=== PATIENT | female | born 2000 | race Caucasian/White ===

== ENCOUNTER 2024-07-07 19:39 | Inpatient (IN) | payer OTHER, SELFPAY ==
[2024-07-07 19:58] VITALS: BP 137/87; PULSE 109; RESP 18; TEMP 36.6; O2SAT 98; BMI 36.2
--- NOTE | 2024-07-07 19:58 | ED_ITS ---
HPI - Psych General Chief Complaint: Psychiatric Symptoms Stated Complaint: crisis Time Seen by Provider: 07/07/24 21:45 Source: patient, RN notes reviewed and old records reviewed Mode of arrival: ambulatory Limitations: no limitations History of Present Illness ED Provider: Tangela HAQUE Narrative: 24-year-old female presents for evaluation of suicidal ideation. Patient reports a history of bipolar disorder, eating disorder, PTSD, history of substance abuse but reportedly clean for 2 years, major depression She reports that 3 days ago she was released from a psych facility in [facility] She feels as though she did not get the help that she needed at that facility. She states that they started her on lithium about 10 days ago She states that she is still actively suicidal with plans to ?cut myself with anything sharp or jump off of a bridge like my dad did. She denies any somatic complaints She reports being compliant with her medications up to this morning Patient reports that she ?called over to [facility] and they told me to come to a local ER to get medically cleared and I could go there. Related Data Home Medications ?Medication ?Instructions ?Recorded ?Confirmed atomoxetine 25 mg capsule 25 mg PO DAILY 07/07/24 07/07/24 cariprazine 1.5 mg capsule 3 mg PO QAM 07/07/24 07/07/24 (Vraylar) lithium carbonate 300 mg 300 mg PO BID 07/07/24 07/07/24 tablet,extended release metformin 500 mg tablet 500 mg PO DAILY 07/07/24 07/07/24 naltrexone 50 mg tablet 50 mg PO DAILY 07/07/24 07/07/24 prazosin 5 mg capsule 5 mg PO BEDTIME 07/07/24 07/07/24 trazodone 150 mg tablet 150 mg PO BEDTIME 07/07/24 07/07/24 Allergies Allergy/AdvReac Type Severity Reaction Status Date / Time No Known Allergies Allergy Verified 07/07/24 20:03 Review of Systems 2 Constitutional: Constitutional: Denies body ache(s), Denies chills, Denies fever(s) and Denies headache(s) Eyes: Eyes: Denies blurry vision ENT: Denies headache(s) Cardiovascular: Cardiovascular: Denies chest pain and Denies dyspnea Respiratory: Respiratory: Denies cough and Denies dyspnea Gastrointestinal: Gastrointestinal: Denies abdominal pain, Denies nausea and Denies vomiting Musculoskeletal: Musculoskeletal: Denies back pain Integumentary/Breasts: Skin/Breast: Denies rash Neurologic: Denies headache(s) Psychiatric: Psychiatric: Reports anxiety, Reports change in appetite, Reports depression, Reports hopelessness, Reports anhedonia, Reports panic attacks, Denies paranoia, Denies visual hallucinations, Denies homicidal ideation and Reports suicidal ideation PMFSH Social History Social History Advance Directives: No Advance Directives Information Provided: No Do you have a plan to hurt others: No Plan Patient : No Physical Exam 2 Vital Signs: Vital Signs: Last Vital Signs Temp 98.6 F 07/08/24 06:05 Pulse 107 H 07/08/24 06:05 Resp 17 07/08/24 06:05 BP 114/68 07/08/24 06:05 Pulse Ox 98 07/08/24 06:05 O2 Del Method Room Air 07/08/24 06:05 BMI result Body Mass Index 36.2 Course Course Course Narrative: This is a rapid medical exam performed by Adali Mora NP: Additional HPI, ROS, PE not included below will be deferred to primary provider. Patient is a 24-year-old female with history of Bipolar, OCD, BPD, PTSD, substance use disorder but has been clean for the past two years presenting to the emergency department with complaint of depression and suicidal ideation. States she was recently discharged from [facility] in [place] on and does not feel safe at home. Denies homicidal ideation, auditory or visual hallucinations. Recently had lamictal discontinued, had trazdone and Vraylar increased, and was started on lithium. States symptoms now are worse then before she went to the hospital in [facility]. States she was at that hospital for behaviors without emotions attached. States she is now attaching feelings to these behaviors and is obsessing about them. Plan: med clearance, then CARE team eval Reevaluation(s) Reevaluation #1: Patient is medically cleared for care team evaluation at this time Time: 22:01 Reevaluation #2: Patient is seen by the care team, she will be a section 12 bed search. Physician observation began at this time Time: 23:18 Reevaluation #3: 07/08/2024 at 08:34 hours,Dr. Anirudh Vazquez's note: Physician observation continued: Nursing staff reports that the patient is in in-patient bed search for suicidal ideation and at the patient has eating disorder therefore a degree clerk consult was ordered. There were no reported incidents on the patient by the overnight nursing staff.Patient will remain in the emergency department Behavioral Health Unit until disposition can be determined or until patient's symptoms improve over time. Time: 08:34 Medications Administered Generic Name Dose Route Start Last Admin Trade Name Freq PRN Reason Stop Dose Admin Cariprazine 3 mg 07/08/24 09:00 07/08/24 08:27 Cariprazine Hcl 3 Mg Capsule PO 3 mg DAILY PREETI Administration [place] Carbonate 300 mg 07/07/24 23:15 07/08/24 08:27 [place] Carbonate Er 300 Mg Tablet.Er PO 300 mg BID PREETI Administration Metformin HCl 500 mg 07/08/24 08:00 07/08/24 08:27 Metformin Hcl 500 Mg Tablet PO 500 mg DAILY@0800 PREETI Administration Naltrexone HCl 50 mg 07/08/24 09:00 07/08/24 08:27 Naltrexone Hcl 50 Mg Tablet PO 50 mg DAILY PREETI Administration Prazosin HCl 5 mg 07/07/24 23:15 07/08/24 00:15 Prazosin Hcl 5 Mg Capsule PO 5 mg BEDTIME PREETI Administration Protocol Trazodone HCl 150 mg 07/07/24 23:15 07/08/24 00:15 Trazodone Hcl 50 Mg Tablet PO 150 mg BEDTIME PREETI Administration Medical Decision Making Medical Decision Making [facility] Narrative: 24-year-old female with past medical history as documented above presents for evaluation of suicidal ideation. The patient has no somatic complaints. She does have a leukocytosis to 15.4 K of unclear etiology, she has no signs or symptoms of any infectious process. Her chemistries are without any significant abnormalities at all. Her vital signs are within normal limits. Patient will be a bed search for inpatient psychiatric care Differential Diagnosis Differential Diagnoses: The differential diagnosis associated with the presentation includes Depression Suicidal ideation PTSD Bipolar disorder Lab Data [facility] Lab Attestation statement: I reviewed the patient's lab results. A leukocytosis to 15.4 K, no significant anemia. A platelet count that is slightly above normal at 432 K. No electrolyte abnormalities. Normal renal function 07/07/24 20:25 07/07/24 20:25 Labs: Lab Results 07/07/24 Range/Units 20:25 WBC 15.4 H (4.8-10.8) X10*3/uL RBC 4.91 (4.20-5.50) X10*6/uL Hgb 13.9 (12.0-16.0) g/dl Hct 42.1 (37.0-47.0) % MCV 85.7 (80.0-98.0) fL MCH 28.3 (27.0-33.0) pg MCHC 33.0 (31.0-35.0) g/dl RDW 13.2 (11.0-16.0) % Plt Count 432 H (160-400) X10*3/uL MPV 9.8 (9.4-12.3) fL Immature Gran % (Auto) 0.3 (0.0-0.4) % Neut % (Auto) 76.2 H (45-73) % Lymph % (Auto) 17.2 L (20-40) % [place] % (Auto) 5.2 (2-11) % Eos % (Auto) 0.8 (0-4) % Baso % (Auto) 0.3 (0-2) % Lymph # (Auto) 2.7 (1.2-4.9) X10*3/uL [place] # (Auto) 0.8 (0.1-1.2) X10*3/uL Eos # (Auto) 0.1 (0.0-0.4) X10*3/uL Baso # (Auto) 0.0 (0.0-0.2) X10*3/uL Abs Immat Gran (auto) 0.05 H (0.00-0.03) X10*3/uL Absolute Neuts (auto) 11.7 H (2.0-8.3) x10*3/uL Absolute Nucleated RBC 0.000 (0.0-0.012) X10*3/uL Nucleated RBC % (auto) 0.0 (0.0-0.2) /100WBC Sodium 139 (135-145) mmol/L Potassium 4.0 (3.3-5.1) mmol/L Chloride 105 (96-108) mmol/L Carbon Dioxide 25 (22-29) mmol/L Anion Gap 13 (12-20) BUN 9 (9-16) mg/dL Creatinine 0.94 (0.5-1.4) mg/dL Estim Creat Clear Calc 97.8 Estimated GFR > 60 Random Glucose 102 (60-115) mg/dL Calcium 10.0 (8.4-10.2) mg/dL Total Bilirubin 0.3 (0.0-1.0) mg/dL AST 13 (5-31) U/L ALT 9 (0-31) U/L Alkaline Phosphatase 98 (39-117) U/L Total Protein 7.8 (6.5-8.0) g/dL Albumin 4.7 (3.5-5.0) g/dL Urine Color Yellow Urine Appearance Clear Urine pH 8.0 (5.0-9.0) Ur Specific [place] 1.025 (1.005-1.025) Urine Protein Trace (Neg-Trace) mg/dL Urine Glucose (UA) Negative (Negative) mg/dL Urine Ketones >=160 (Negative) mg/dL Urine Blood Negative (Negative) Urine Nitrite Negative (Negative) Ur Leukocyte Esterase Trace H (Negative) Urine RBC 0-2 (0-2) /HPF Urine WBC 0-5 (0-5) /HPF Ur Squamous Epith Cells 3-5 (0-2) /HPF Urine Bacteria Trace (None Seen) Hyaline Casts 0-2 (0-2) /LPF Salicylates < 5.0 L (15-30) mg/dL Urine Opiates Screen Not Detected (Not Detect) Ur Buprenorphine Scrn Not Detected (Not Detect) ng/mL Ur Oxycodone Screen Not Detected (Not Detect) ng/mL Urine Methadone Screen Not Detected (Not Detect) ng/mL Urine Fentanyl Screen Not Detected (Not Detect) Acetaminophen < 3 (<30) mcg/mL Ur Barbiturates Screen Not Detected (Not Detect) Ur Phencyclidine Scrn Not Detected (Not Detect) Ur Amphetamines Screen Not Detected (Not Detect) U Benzodiazepines Scrn Not Detected (Not Detect) Urine Cocaine Screen Not Detected (Not Detect) U Marijuana (THC) Screen Not Detected (Not Detect) Ethyl Alcohol < 10 mg/dL Discharge Plan Discharge Clinical Impression: Suicidal ideation Patient Disposition: Still a Patient Prescriptions: No Action naltrexone 50 mg tablet 50 mg PO DAILY lithium carbonate 300 mg tablet extended release 300 mg PO BID prazosin 5 mg capsule 5 mg PO BEDTIME trazodone 150 mg tablet 150 mg PO BEDTIME atomoxetine 25 mg capsule 25 mg PO DAILY Vraylar 1.5 mg capsule 3 mg PO QAM metformin 500 mg Tablet 500 mg PO DAILY Interventions: [place]-Suicide Risk Severity Scale Last Done: 07/07/24 23:07 Print Language: Egyptian
[2024-07-07 20:32] LABS: MANUAL DIFF FLAG NO
[2024-07-07 20:40] LABS: Basophils Percent Auto 0.3 % (0-2); Eosinophils Absolute Auto 0.1 X10*3/uL (0.0-0.4); Eosinophils Percent Auto 0.8 % (0-4); Hematocrit 42.1 % (37.0-47.0); Hemoglobin 13.9 g/dl (12.0-16.0); Imm Gran Abs Auto 0.05 X10*3/uL (0.00-0.03); Imm Gran Pct Auto 0.3 % (0.0-0.4); Lymphocytes Absolute Auto 2.7 X10*3/uL (1.2-4.9); Lymphocytes Percent Auto 17.2 % (20-40); Mean Corpuscular Hemoglobin 28.3 pg (27.0-33.0); Mean Corpuscular Volume 85.7 fL (80.0-98.0); Mean Platelet Volume 9.8 fL (9.4-12.3); Monocytes Absolute Auto 0.8 X10*3/uL (0.1-1.2); Monocytes Percent Auto 5.2 % (2-11); Neutrophils Absolute Auto 11.7 x10*3/uL (2.0-8.3); Neutrophils Percent Auto 76.2 % (45-73); Platelet Count 432 X10*3/uL (160-400); Red Blood Count 4.91 X10*6/uL (4.20-5.50); Red Cell Distribution Width 13.2 % (11.0-16.0); White Blood Count 15.4 X10*3/uL (4.8-10.8)
[2024-07-07 20:41] LABS: Appearance Urine Clear; Color Urine Yellow; Glucose Urine UA Negative (Negative); Leukocyte Esterase Urine Trace (Negative); Nitrite Urine Negative (Negative); Specific Gravity - Urine 1.025 (1.005-1.025); UMIC TRIGGER UACC YES; Urine Blood Negative (Negative); Urine Ketones >=160 mg/dL (Negative); Urine Protein Trace mg/dL (Neg-Trace)
[2024-07-07 20:57] LABS: Bacteria Urine Trace (None Seen); Hyaline Casts Urine 0-2 /LPF (0-2); RBC Urine 0-2 /HPF (0-2); WBC Urine 0-5 /HPF (0-5)
[2024-07-07 21:06] LABS: Acetaminophen LAB < 3 mcg/mL (<30); Alanine Aminotransferase 9 U/L (0-31); Albumin Level 4.7 g/dL (3.5-5.0); Alkaline Phosphatase 98 U/L (39-117); Anion Gap 13 (12-20); Aspartate Amino Transferase 13 U/L (5-31); Bilirubin Total 0.3 mg/dL (0.0-1.0); Blood Urea Nitrogen 9 mg/dL (9-16); Carbon Dioxide 25 mmol/L (22-29); Chloride 105 mmol/L (96-108); Creatinine Clr Calc Pharmacy 97.8; Estimated Glomerular Filt Rate > 60; Ethanol < 10 mg/dL; Glucose Random 102 mg/dL (60-115); Salicylate < 5.0 mg/dL (15-30); Sodium 139 mmol/L (135-145); Total Protein 7.8 g/dL (6.5-8.0)
[2024-07-07 21:46] LABS: Amphetamine Screen Urine Not Detected (Not Detect); Barbiturates, Urine Not Detected (Not Detect); Benzodiazepines Screen Urine Not Detected (Not Detect); Buprenorphine Scr Not Detected (Not Detect); Cannabinoid Screen Urine Not Detected (Not Detect); Cocaine Screen Urine Not Detected (Not Detect); Fentanyl, urine Not Detected (Not Detect); Methadone Screen, Urine Not Detected (Not Detect); Opiate Screen Urine Not Detected (Not Detect); Oxycodone Screen Urine Not Detected (Not Detect); Phencyclidine Screen Urine Not Detected (Not Detect)
--- NOTE | 2024-07-08 | ECG_ITS ---
Test Reason : R/O QTC PROLONGATION Blood Pressure : / mmHG Vent. Rate : 067 BPM Atrial Rate : 067 BPM P-R Int : 166 ms QRS Dur : 098 ms QT Int : 378 ms P-R-T Axes : 032 075 060 degrees QTc Int : 399 ms Normal sinus rhythm Normal ECG No previous ECGs available Referred By: Dixon Honeycutt Electronically Signed By:CHANDRIKA YUNG
[2024-07-08] MEDS: Lithium Carbonate ER 300 MG TABLET.ER PO ×3 (00:15→20:58)
[2024-07-08] MEDS: Prazosin HCL 5 MG CAPSULE PO ×2 (00:15→20:56)
[2024-07-08] MEDS: traZODone HCL 50 MG TABLET 150 MG PO ×2 (00:15→20:58)
[2024-07-08 06:05] VITALS: BP 114/68; PULSE 107; RESP 17; TEMP 37; O2SAT 98
--- NOTE | 2024-07-08 07:37 | PC.NURSE ---
Assumed care of patient at 0645, patient appears to be sleeping, respirations even and unlabored, no apparent distress noted. Continue plan of care for inpatient bedsearch at this time
[2024-07-08] MEDS: metFORMIN HCl 500 MG TABLET PO (08:27)
[2024-07-08] MEDS: Naltrexone HCl 50 MG TABLET PO (08:27)
[2024-07-08] MEDS: Cariprazine HCl 3 MG CAPSULE PO (08:27)
[2024-07-08] MEDS: Nicotine 14 MG PATCH.TD24 TRANSDERMA (09:54)
[2024-07-08 11:11] LABS: Urine Pregnancy NEGATIVE (NEGATIVE)
[2024-07-08 11:12] LABS: UPreg QC Valid YES
--- NOTE | 2024-07-08 13:52 | MHC.CARE ---
Spoke with out of state insurance and they stated they do not require pre-auth or auth however when she is on the unit social work needs to fax clinical to them. This cant be done prior to admission. Phone number there for behavioral health is and the fax for them is [phone].
[2024-07-08 14:49] VITALS: BP 124/79; PULSE 99; TEMP 36.7; O2SAT 99
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
[2024-07-08 20:00] VITALS: BP 124/63; PULSE 88; RESP 16; TEMP 36.1; O2SAT 98
[2024-07-09 08:09] LABS: MANUAL DIFF FLAG NO
[2024-07-09 08:11] LABS: Basophils Percent Auto 0.3 % (0-2); Eosinophils Absolute Auto 0.3 X10*3/uL (0.0-0.4); Eosinophils Percent Auto 2.8 % (0-4); Hemoglobin 13.8 g/dl (12.0-16.0); Imm Gran Abs Auto 0.05 X10*3/uL (0.00-0.03); Imm Gran Pct Auto 0.4 % (0.0-0.4); Lymphocytes Percent Auto 24.8 % (20-40); Mean Corpuscular HGB Conc 33.7 g/dl (31.0-35.0); Mean Corpuscular Hemoglobin 28.8 pg (27.0-33.0); Mean Corpuscular Volume 85.6 fL (80.0-98.0); Mean Platelet Volume 9.7 fL (9.4-12.3); Monocytes Absolute Auto 0.7 X10*3/uL (0.1-1.2); Monocytes Percent Auto 5.6 % (2-11); Neutrophils Percent Auto 66.1 % (45-73); Platelet Count 368 X10*3/uL (160-400); Red Blood Count 4.79 X10*6/uL (4.20-5.50); Red Cell Distribution Width 13.3 % (11.0-16.0); White Blood Count 12.1 X10*3/uL (4.8-10.8)
[2024-07-09 08:16] VITALS: BP 115/53; PULSE 92; RESP 16; TEMP 36.7; O2SAT 96
[2024-07-09 08:24] LABS: Lithium 0.84 mmol/L (0.60-1.20)
[2024-07-09 08:26] LABS: Estimated Average Glucose 111 mg/dL; Hemoglobin A1c % 5.5 % (<6.0)
[2024-07-09 08:37] LABS: Cholesterol 116 mg/dL (<200); HDL Cholesterol 31 mg/dL (>40); LDL Cholesterol Calculated 67 mg/dL (<100); Triglycerides 90 mg/dL (<150)
[2024-07-09 08:53] LABS: TSH reflex Free T4 0.36 uIU/mL (0.32-4.0)
[2024-07-09] MEDS: Nicotine 21 MG PATCH.TD24 TRANSDERMA (09:26)
[2024-07-09] MEDS: Cariprazine HCl 3 MG CAPSULE PO (09:26)
[2024-07-09] MEDS: Naltrexone HCl 50 MG TABLET PO (09:26)
--- NOTE | 2024-07-09 09:31 | PC.NURSE ---
pt reports she take Metformin in the evening with dinner and would like provider to change order. Will notify provider after team meeting which is currently occuring.
--- NOTE | 2024-07-09 10:06 | HO.PSYADMNOT ---
HPI Date of Service: 07/09/24 Chief Complaint: Labile SI Sources of Information: patient interviewed, chart reviewed and crisis/core team assessment reviewed HPI Subjective Notes: Sandy Warning and Conditional Voluntary Narrative: Ms. Page is a 24 year-old woman who self presented to [facility]. Pt reports that she is originally from [facility] and has been in hospital around there but decided to try psychiatric hospital out of state as has felt she usually not kept inpt long enough. Pt reports intermittent SI with plan at times to jump off bridge. Utox is negative. On the unit, pt presents as cooperative. She reports she has had constant urges to self harm with intent to relieve emotional pain, not necessarily to end her life, since a child. She reports hx of SIB since she was on 3rd grade. She reports she has not engage in self harm behaviors in exactly 38 days. She reports recently intermittent suicidal ideation with multiple plans to harm herself. She denies at this point any plan or intent to harm her self. She reports multiple medications trials especially antidepressants which she reports have never been effective. She reports she is currently on lithium and is awaiting therapeutic results. She reports she takes naltrexone for alcohol use which she reports in remission for year. She is also on vraylar which finds helpful. she reports good sleep. Past Psychiatric History: Inpt: pt reports 10 inpt admission throughout her life. Most recent one [facility] in [place] OP: Shanell Womack Past medication trials- sertraline, prozac, lexapro, effexor, wellbutrin. reports non of the antidepressant worked for her. benzodiazepines which reports she became addicted. prazosin finds it helpful. Lamictal (which she reports she does not want because she OD on it), Hx suicide attempt- 2016 OD on medication led to first inpt admission. Medical Evaluation Reviewed: Yes [facility] Family History: father of suicide in 2016 Social History: Born in [place], grew up in [place], [place]. Pt reports growing up with mother and sister. Pt reports tricky relationship with mother, but reports she can't be close to her because she is not very supportive. She reports she does not talk with sister often. She does not want either one of them to have contact with treatment team. 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 Substance History: pt reports hx of alcohol use which has not used since 2021. She reports takes naltrexon for it. Trauma History: not disclose, but reports hx of. Diagnostics Vital Signs (24Hr): Vital Signs - 24 hr 07/08/24 14:49 07/08/24 20:00 07/09/24 08:16 Temperature 98.1 F 97.0 F 98.1 F Pulse Rate 99 88 92 Respiratory Rate 16 16 Blood Pressure 124/79 124/63 115/53 L Pulse Oximetry 99 98 96 Oxygen Delivery Method Room Air Room Air Room Air BMI result Body Mass Index 36.2 Labs 07/09/24 07:53 07/07/24 20:25 Labs: Laboratory Results - last 48 hr 07/07/24 07/09/24 20:25 07:53 WBC 15.4 H 12.1 H RBC 4.91 4.79 Hgb 13.9 13.8 Hct 42.1 41.0 MCV 85.7 85.6 MCH 28.3 28.8 MCHC 33.0 33.7 RDW 13.2 13.3 Plt Count 432 H 368 MPV 9.8 9.7 Immature Gran % (Auto) 0.3 0.4 Neut % (Auto) 76.2 H 66.1 Lymph % (Auto) 17.2 L 24.8 [place] % (Auto) 5.2 5.6 Eos % (Auto) 0.8 2.8 Baso % (Auto) 0.3 0.3 Lymph # (Auto) 2.7 3.0 [place] # (Auto) 0.8 0.7 Eos # (Auto) 0.1 0.3 Baso # (Auto) 0.0 0.0 Abs Immat Gran (auto) 0.05 H 0.05 H Absolute Neuts (auto) 11.7 H 8.0 Absolute Nucleated RBC 0.000 0.000 Nucleated RBC % (auto) 0.0 0.0 Sodium 139 Potassium 4.0 Chloride 105 Carbon Dioxide 25 Anion Gap 13 BUN 9 Creatinine 0.94 Estim Creat Clear Calc 97.8 Estimated GFR > 60 Random Glucose 102 Estimat Average Glucose 111 Hemoglobin A1c % 5.5 Calcium 10.0 Total Bilirubin 0.3 AST 13 ALT 9 Alkaline Phosphatase 98 Total Protein 7.8 Albumin 4.7 Triglycerides 90 Cholesterol 116 LDL Cholesterol, Calc 67 HDL Cholesterol 31 L TSH 0.36 Urine Color Yellow Urine Appearance Clear Urine pH 8.0 Ur Specific [place] 1.025 Urine Protein Trace Urine Glucose (UA) Negative Urine Ketones >=160 Urine Blood Negative Urine Nitrite Negative Ur Leukocyte Esterase Trace H Urine RBC 0-2 Urine WBC 0-5 Ur Squamous Epith Cells 3-5 Urine Bacteria Trace Hyaline Casts 0-2 Urine Test NEGATIVE Salicylates < 5.0 L Urine Opiates Screen Not Detected Ur Buprenorphine Scrn Not Detected Ur Oxycodone Screen Not Detected Urine Methadone Screen Not Detected Urine Fentanyl Screen Not Detected Acetaminophen < 3 Ur Barbiturates Screen Not Detected Ur Phencyclidine Scrn Not Detected Ur Amphetamines Screen Not Detected U Benzodiazepines Scrn Not Detected [place] 0.84 Urine Cocaine Screen Not Detected U Marijuana (THC) Screen Not Detected Ethyl Alcohol < 10 Meds/Allergies Meds Home Medications ?Medication ?Instructions ?Recorded ?Confirmed ?Type cariprazine 1.5 mg capsule 3 mg PO QAM 07/07/24 07/07/24 History (Vraylar) lithium carbonate 300 mg 300 mg PO BID 07/07/24 07/07/24 History tablet,extended release metformin 500 mg tablet 500 mg PO DAILY 07/07/24 07/07/24 History naltrexone 50 mg tablet 50 mg PO DAILY 07/07/24 07/07/24 History prazosin 5 mg capsule 5 mg PO BEDTIME 07/07/24 07/07/24 History trazodone 150 mg tablet 150 mg PO BEDTIME 07/07/24 07/07/24 History Allergies Allergies Allergy/AdvReac Type Severity Reaction Status Date / Time No Known Allergies Allergy Verified 07/07/24 20:03 Mental Status Exam Mental Status Exam Narrative: Appearance: wearing casual clothing, good hygiene, in NAD Behavior: cooperative Speech: clear, normal rate/rhythm/volume, spontaneous TP: linear TC: intermittent suicidal ideation and wanting psych tx. Mood: depressed Affect: ranges from more constricted to brighter SI: intermittent no current intent or plan but has had plan to jump off bridge [place]: denies VH/AH: none Delusions: none Insight/judgment: fair x 2. Memory/cog: alert, oriented x 3. grossly intact to conversational testing. Assessment & Plan Assessment & Plan (1) Borderline personality disorder: Status: Acute Code(s): F60.3 - Borderline personality disorder (2) Bipolar 1 disorder, depressed: Status: Acute Code(s): F31.9 - Bipolar disorder, unspecified Plan Ms. Scanlon is a 24 year-old woman with hx of BPD, reports also mood disorder who self presented to [facility] due to ongoing urges to self harm at times not due to suicidality and intermittent suicidal ideation with plan to jump off bridge. Pt reports SIB since she was in 3rd grade, no self harm in last 38 days. However, reports suicidal thoughts and would like help with those. She reports suicidality has been going on for several months now. She does present with some future orientation reporting she is hoping to continue graduate studies once she graduates next year from [employer]. We discussed risks, benefits and alternative treatment options, pt reports current medications helpful or at least most helpful after multiple med trials. PLAN 1. Admit to M5, CV, 15 minutes checks 2. continue current medication 3. obtain collateral information mainly from OP therapist, pt declines contact with mother or sister 4. aftercare planning. Patient educated on: diagnosis and medication risk/benefits Reason for continued inpatient stay Substantial Risk for: harm to self Statement Statement: I have reviewed the history and physical and performed a pertinent examination on my patient. No changes have occurred unless specified. If the History and Physical was not performed prior to admission, the Hospitalist's service will be consulted for completing the admission physical. Time Spent With Patient Time: Total time managing care of this patient today ____ minutes.
--- NOTE | 2024-07-09 14:24 | MHC.CLN ---
RE: CONSULT HT 62 WT 197# IBW 110#+/-10% PT IS 179% IBW INDICATES OBESE FOR HT; BMI 36.2 ENN: 1441KCALS, 63G PROTEIN, 1890ML FLUID REVIEWED LABS UNREMARKABLE ALBUMIN 4.7 WNL DIET RX: REGULAR-APPROPRIATE PT REPORTS HX EATING DISORDER AND PREFERS TO CONSUME LIQUID DIET MD ORDERED ENSURE TID PROVIDES 1050KCALS, 60G PROTEIN WITH 100% ACCEPTANCE SUPPLEMENT PROVIDES 73% EST. CALORIE NEEDS, 95% EST PROTEIN NEEDS MONITOR PO INTAKE AND ENCOURAGE SUPPLEMENTS
[2024-07-09] MEDS: metFORMIN HCl 500 MG TABLET PO (17:35)
[2024-07-09 20:00] VITALS: BP 126/84; PULSE 86; RESP 16; TEMP 36.7; O2SAT 100
[2024-07-09] MEDS: Lithium Carbonate ER 300 MG TABLET.ER 600 MG PO (22:02)
[2024-07-09] MEDS: traZODone HCL 50 MG TABLET 150 MG PO (22:02)
[2024-07-09 22:11] VITALS: BP 126/84
[2024-07-09] MEDS: Prazosin HCL 5 MG CAPSULE PO (22:11)
[2024-07-10 08:00] VITALS: BP 103/55; PULSE 83; RESP 14; TEMP 36.4; O2SAT 96
[2024-07-10] MEDS: Naltrexone HCl 50 MG TABLET PO (10:09)
[2024-07-10] MEDS: Cariprazine HCl 3 MG CAPSULE PO (10:09)
[2024-07-10] MEDS: Nicotine 21 MG PATCH.TD24 TRANSDERMA (10:12)
--- NOTE | 2024-07-10 16:40 | P.PNPSI_ITS ---
Subjective Subjective Date of Service: 07/10/24 Reason For Visit: Labile SI Subjective Notes: Conditional Voluntary Healthcare Proxy: No Guardianship: No Medical Problems Affecting Mental Status: No Interim History: Pt requests ECT consult. Reports TMS with efficacy for ~5 months. Continues to report no active benefit from [place]. Other agents she finds effective at this time. Review of trials-pt has has trials of most meds except Venlafaxine, MAOI's, Trileptal, Geodon, Stelazine, Navane. She declined to sign JALEEL's for previous providers Medication Compliance: Yes Side effects from medications: No Attending Groups: Intermittent Review of Systems Acute medical concerns: No Medical Review of Systems: unchanged Review of Systems Review of Systems Yes all other systems are reviewed and are negative Mental Status Exam Mental Status Exam Patient Appearance: Fatigued Patient Orientation: Person, Place, Time and Situation Level of Consciousness: Alert Patient Behavior: Appropriate, Talkative, Cooperative and Good Eye Contact Mood Description: Depressed Affect Description: Flat Patient Cognition Impaired: No Ability to Follow Directions: Good Speech Pattern: Spontaneous Speech Perceptual Disturbances: Depersonalization and Derealization Thought Content: positive for Suicidal Ideation Depressive Symptoms: Thoughts of /Suicide Abnormal Motor Activity Signs and Symptoms: Restlessness Judgement: Fair Diagnostics Vital Signs (24Hr): Vital Signs - 24 hr 07/09/24 20:00 07/09/24 22:11 07/10/24 08:00 Temperature 98.0 F 97.6 F Pulse Rate 86 83 Respiratory Rate 16 14 Blood Pressure 126/84 126/84 103/55 L Pulse Oximetry 100 96 Oxygen Delivery Method Room Air Room Air BMI result Body Mass Index 36.2 Labs 07/09/24 07:53 07/07/24 20:25 Labs: Laboratory Results - last 48 hr 07/09/24 07:53 WBC 12.1 H RBC 4.79 Hgb 13.8 Hct 41.0 MCV 85.6 MCH 28.8 MCHC 33.7 RDW 13.3 Plt Count 368 MPV 9.7 Immature Gran % (Auto) 0.4 Neut % (Auto) 66.1 Lymph % (Auto) 24.8 Stokes % (Auto) 5.6 Eos % (Auto) 2.8 Baso % (Auto) 0.3 Lymph # (Auto) 3.0 [place] # (Auto) 0.7 Eos # (Auto) 0.3 Baso # (Auto) 0.0 Abs Immat Gran (auto) 0.05 H Absolute Neuts (auto) 8.0 Absolute Nucleated RBC 0.000 Nucleated RBC % (auto) 0.0 Estimat Average Glucose 111 Hemoglobin A1c % 5.5 Triglycerides 90 Cholesterol 116 LDL Cholesterol, Calc 67 HDL Cholesterol 31 L TSH 0.36 [place] 0.84 Medications Medications Current Medications Acetaminophen (Acetaminophen 325 Mg Tablet) 650 mg PO Q6H PRN PRN Reason: Headache/Pain Mild Scale (1-3) Al Hydroxide/Mg Hydroxide (Magnesium Hydrox/Alum Hydrox 30 Ml Oral.Susp) 30 ml PO Q6H PRN PRN Reason: Heartburn/Nausea Cariprazine (Cariprazine Hcl 3 Mg Capsule) 3 mg PO DAILY [facility] Last Admin: 07/10/24 10:09 Dose: 3 mg Hydroxyzine HCl (Hydroxyzine Hcl 25 Mg Tablet) 25 mg PO Q6H PRN PRN Reason: Anxiety [place] Carbonate ([place] Carbonate Er 300 Mg Tablet.Er) 600 mg PO BEDTIME [facility] Last Admin: 07/09/24 22:02 Dose: 600 mg Magnesium Hydroxide (Milk Of Magnesia 30 Ml Oral.Susp) 30 ml PO DAILY PRN PRN Reason: Constipation Metformin HCl (Metformin Hcl 500 Mg Tablet) 500 mg PO DAILY@1700 [facility] Last Admin: 07/09/24 17:35 Dose: 500 mg Naltrexone HCl (Naltrexone Hcl 50 Mg Tablet) 50 mg PO DAILY [facility] Last Admin: 07/10/24 10:09 Dose: 50 mg Nicotine (Nicotine 21 Mg Patch.Td24) 21 mg TRANSDERMA DAILY PRN PRN Reason: smoking cessation Last Admin: 07/10/24 10:12 Dose: 21 mg Nicotine Polacrilex (Nicotine Polacrilex Lozenge 4 Mg Lozenge) 4 mg BUCCAL Q2H PRN PRN Reason: nicotine cravings Patient Own ( Atomoxetine 25 Mg Capsule) 25 mg PO DAILY [facility] Last Admin: 07/10/24 10:09 Dose: 25 mg Olanzapine (Olanzapine 5 Mg Tablet) 5 mg PO TID PRN PRN Reason: agitation Prazosin HCl (Prazosin Hcl 5 Mg Capsule) 5 mg PO BEDTIME [facility]; Protocol Last Admin: 07/09/24 22:11 Dose: 5 mg Trazodone HCl (Trazodone Hcl 50 Mg Tablet) 150 mg PO BEDTIME [facility] Last Admin: 07/09/24 22:02 Dose: 150 mg Trazodone HCl (Trazodone Hcl 50 Mg Tablet) 50 mg PO BEDTIME MRX1 PRN PRN Reason: Insomnia Allergies Allergies Allergy/AdvReac Type Severity Reaction Status Date / Time No Known Allergies Allergy Verified 07/07/24 20:03 Assessment & Plan Assessment & Plan (1) Borderline personality disorder: Status: Acute Code(s): F60.3 - Borderline personality disorder (2) Bipolar 1 disorder, depressed: Status: Acute Code(s): F31.9 - Bipolar disorder, unspecified Plan Ms. Scanlon is a 24 year-old woman with hx of BPD, reports also mood disorder who self presented to [facility] due to ongoing urges to self harm at times not due to suicidality and intermittent suicidal ideation with plan to jump off bridge. Pt reports SIB since she was in 3rd grade, no self harm in last 38 days. However, reports suicidal thoughts and would like help with those. She reports suicidality has been going on for several months now. She does present with some future orientation reporting she is hoping to continue graduate studies once she graduates next year from [employer]. We discussed risks, benefits and alternative treatment options, pt reports current medications helpful or at least most helpful after multiple med trials. PLAN 1. Admit to M5, CV, 15 minutes checks 2. continue current medication 3. obtain collateral information mainly from OP therapist, pt declines contact with mother or sister 4. aftercare planning. 07/10/24: Continue regime. Pt requesting ECT consultation Reason for continued inpatient stay Substantial Risk for: rapid decompensation Time Spent With Patient Time: Total time managing care of this patient today ____ minutes.
[2024-07-10] MEDS: metFORMIN HCl 500 MG TABLET PO (17:29)
[2024-07-10 20:00] VITALS: BP 115/72; PULSE 90; RESP 16; TEMP 36.7; O2SAT 99
[2024-07-10] MEDS: Nicotine Polacrilex Lozenge 4 MG LOZENGE BUCCAL (20:19)
[2024-07-10 21:58] VITALS: BP 115/72
[2024-07-10] MEDS: traZODone HCL 50 MG TABLET 150 MG PO (21:58)
[2024-07-10] MEDS: Prazosin HCL 5 MG CAPSULE PO (21:58)
[2024-07-10] MEDS: Lithium Carbonate ER 300 MG TABLET.ER 600 MG PO (21:59)
--- NOTE | 2024-07-10 22:35 | PC.NURSE ---
Patient c/o stomach pain because she has an eating disorder and I ate a half of a grilled cheese! It hurts so bad, I don't understand why they won't just let me drink Ensures. She then continued I feel I should get more praise for eating as much as I did. This appeals writer feels these statements are important enough to note.
[2024-07-11 08:00] VITALS: BP 105/56; PULSE 74; RESP 20; TEMP 36.6; O2SAT 96
[2024-07-11] MEDS: Cariprazine HCl 3 MG CAPSULE PO (08:55)
[2024-07-11] MEDS: Naltrexone HCl 50 MG TABLET PO (08:56)
[2024-07-11] MEDS: Nicotine 21 MG PATCH.TD24 TRANSDERMA (14:36)
--- NOTE | 2024-07-11 14:46 | PC.NURSE ---
Addendum entered by Nuris Blue RN 07/11/24 15:03: Provider Adali Fragoso informed of above Original Note: after telling pt to inform staff if she had plans to hurt herself she shared with TW that she has been fantasizing about ways to harm herself while here. She shared that she's thought about breaking her toothbrush or water pitcher. I asked her if she felt she could be safe with these items and she reported yes. She also shaared that she thought of a new way she could , If I ate alot and my stomach exploded... She agrees to turn in toothbrush and water pitcher if she feels she cannot be safe with them. Pt states that she has been struggling with this obsession since 3rd grade. She feels that having a roommate is a protective factor as well as being in unit with peers. Will continue to monitor for safety
--- NOTE | 2024-07-11 15:40 | P.PNPSI_ITS ---
Subjective Subjective Date of Service: 07/11/24 Reason For Visit: Labile SI Subjective Notes: Conditional Voluntary Healthcare Proxy: No Guardianship: No Medical Problems Affecting Mental Status: No Interim History: Consistent in asking for ECT Consult. Verbalized SI with plans to team, yet is able to contract for her safety. Authorized JALEEL for several previous treatment interventions for record releases. Reports no effects from [place] as yet. Medication Compliance: Yes Side effects from medications: No Attending Groups: Intermittent Review of Systems Acute medical concerns: No Medical Review of Systems: unchanged Review of Systems Review of Systems Yes all other systems are reviewed and are negative Mental Status Exam Mental Status Exam Patient Appearance: Fatigued Patient Orientation: Person, Place, Time and Situation Level of Consciousness: Alert Patient Behavior: Appropriate, Talkative, Cooperative and Good Eye Contact Mood Description: Depressed Affect Description: Flat Patient Cognition Impaired: No Ability to Follow Directions: Good Speech Pattern: Spontaneous Speech Perceptual Disturbances: Depersonalization and Derealization Thought Content: positive for Suicidal Ideation Depressive Symptoms: Thoughts of /Suicide Abnormal Motor Activity Signs and Symptoms: Restlessness Judgement: Fair Diagnostics Vital Signs (24Hr): Vital Signs - 24 hr 07/10/24 20:00 07/10/24 21:58 07/11/24 08:00 Temperature 98.0 F 97.9 F Pulse Rate 90 74 Respiratory Rate 16 20 Blood Pressure 115/72 115/72 105/56 L Pulse Oximetry 99 96 Oxygen Delivery Method Room Air Room Air BMI result Body Mass Index 36.2 Labs 07/09/24 07:53 07/07/24 20:25 Medications Medications Current Medications Acetaminophen (Acetaminophen 325 Mg Tablet) 650 mg PO Q6H PRN PRN Reason: Headache/Pain Mild Scale (1-3) Al Hydroxide/Mg Hydroxide (Magnesium Hydrox/Alum Hydrox 30 Ml Oral.Susp) 30 ml PO Q6H PRN PRN Reason: Heartburn/Nausea Cariprazine (Cariprazine Hcl 3 Mg Capsule) 3 mg PO DAILY [facility] Last Admin: 07/11/24 08:55 Dose: 3 mg Hydroxyzine HCl (Hydroxyzine Hcl 25 Mg Tablet) 25 mg PO Q6H PRN PRN Reason: Anxiety [place] Carbonate ([place] Carbonate Er 300 Mg Tablet.Er) 600 mg PO BEDTIME [facility] Last Admin: 07/10/24 21:59 Dose: 600 mg Magnesium Hydroxide (Milk Of Magnesia 30 Ml Oral.Susp) 30 ml PO DAILY PRN PRN Reason: Constipation Metformin HCl (Metformin Hcl 500 Mg Tablet) 500 mg PO DAILY@1700 [facility] Last Admin: 07/10/24 17:29 Dose: 500 mg Naltrexone HCl (Naltrexone Hcl 50 Mg Tablet) 50 mg PO DAILY [facility] Last Admin: 07/11/24 08:56 Dose: 50 mg Nicotine (Nicotine 21 Mg Patch.Td24) 21 mg TRANSDERMA DAILY PRN PRN Reason: smoking cessation Last Admin: 07/11/24 14:36 Dose: 21 mg Nicotine Polacrilex (Nicotine Polacrilex Lozenge 4 Mg Lozenge) 4 mg BUCCAL Q2H PRN PRN Reason: nicotine cravings Last Admin: 07/10/24 20:19 Dose: 4 mg Patient Own ( Atomoxetine 25 Mg Capsule) 25 mg PO DAILY [facility] Last Admin: 07/11/24 08:55 Dose: 25 mg Olanzapine (Olanzapine 5 Mg Tablet) 5 mg PO TID PRN PRN Reason: agitation Prazosin HCl (Prazosin Hcl 5 Mg Capsule) 5 mg PO BEDTIME [facility]; Protocol Last Admin: 07/10/24 21:58 Dose: 5 mg Trazodone HCl (Trazodone Hcl 50 Mg Tablet) 150 mg PO BEDTIME [facility] Last Admin: 07/10/24 21:58 Dose: 150 mg Trazodone HCl (Trazodone Hcl 50 Mg Tablet) 50 mg PO BEDTIME MRX1 PRN PRN Reason: Insomnia Allergies Allergies Allergy/AdvReac Type Severity Reaction Status Date / Time No Known Allergies Allergy Verified 07/07/24 20:03 Assessment & Plan Assessment & Plan (1) Borderline personality disorder: Status: Acute Code(s): F60.3 - Borderline personality disorder (2) Bipolar 1 disorder, depressed: Status: Acute Code(s): F31.9 - Bipolar disorder, unspecified Plan Ms. Scanlon is a 24 year-old woman with hx of BPD, reports also mood disorder who self presented to [facility] due to ongoing urges to self harm at times not due to suicidality and intermittent suicidal ideation with plan to jump off bridge. Pt reports SIB since she was in 3rd grade, no self harm in last 38 days. However, reports suicidal thoughts and would like help with those. She reports suicidality has been going on for several months now. She does present with some future orientation reporting she is hoping to continue graduate studies once she graduates next year from [employer]. We discussed risks, benefits and alternative treatment options, pt reports current medications helpful or at least most helpful after multiple med trials. PLAN 1. Admit to M5, CV, 15 minutes checks 2. continue current medication 3. obtain collateral information mainly from OP therapist, pt declines contact with mother or sister 4. aftercare planning. 07/11 Releases of information initited for previous treatment interventions. Reason for continued inpatient stay Substantial Risk for: rapid decompensation Time Spent With Patient Time: Total time managing care of this patient today ____ minutes.
[2024-07-11 19:52] VITALS: BP 136/96; PULSE 76; RESP 16; TEMP 36.1; O2SAT 97
[2024-07-11 22:17] VITALS: BP 134/96
[2024-07-11] MEDS: Prazosin HCL 5 MG CAPSULE PO (22:17)
[2024-07-11] MEDS: Lithium Carbonate ER 300 MG TABLET.ER 600 MG PO (22:18)
[2024-07-11] MEDS: traZODone HCL 50 MG TABLET 150 MG PO (22:18)
--- NOTE | 2024-07-11 23:27 | PC.NURSE ---
Pt removed own nicotine patch at this time and displayed to staff.
[2024-07-12] MEDS: hydrOXYzine HCL 25 MG TABLET PO (00:08)
[2024-07-12 08:16] VITALS: BP 106/66; PULSE 69; RESP 16; TEMP 36.3; O2SAT 99
[2024-07-12] MEDS: Naltrexone HCl 50 MG TABLET PO (09:17)
[2024-07-12] MEDS: Cariprazine HCl 3 MG CAPSULE PO (09:17)
[2024-07-12] MEDS: Nicotine 21 MG PATCH.TD24 TRANSDERMA (09:56)
--- NOTE | 2024-07-12 11:49 | HO.PSYCHPN ---
Subjective Subjective Date of Service: 07/12/24 Reason For Visit: Labile SI Subjective Notes: Conditional Voluntary Healthcare Proxy: No Guardianship: No Medical Problems Affecting Mental Status: No Interim History: Signed JALEEL for previous treatment contacts with team today. Awaits ECT consult Reports no adverse effects from [place], however, no efficacy as well. Medication Compliance: Yes Side effects from medications: No Attending Groups: Intermittent Review of Systems Acute medical concerns: No Medical Review of Systems: unchanged Review of Systems Review of Systems Yes all other systems are reviewed and are negative Mental Status Exam Mental Status Exam Patient Appearance: Fatigued Patient Orientation: Person, Place, Time and Situation Level of Consciousness: Alert Patient Behavior: Appropriate, Talkative, Cooperative and Good Eye Contact Mood Description: Depressed Affect Description: Flat Patient Cognition Impaired: No Ability to Follow Directions: Good Speech Pattern: Spontaneous Speech Perceptual Disturbances: Depersonalization and Derealization Thought Content: positive for Suicidal Ideation Depressive Symptoms: Thoughts of /Suicide Abnormal Motor Activity Signs and Symptoms: Restlessness Judgement: Fair Diagnostics Vital Signs (24Hr): Vital Signs - 24 hr 07/11/24 19:52 07/11/24 22:17 07/12/24 08:16 Temperature 97.0 F 97.3 F Pulse Rate 76 69 Respiratory Rate 16 16 Blood Pressure 136/96 H 134/96 H 106/66 Pulse Oximetry 97 99 Oxygen Delivery Method Room Air Room Air BMI result Body Mass Index 36.2 Labs 07/09/24 07:53 07/07/24 20:25 Medications Medications Current Medications Acetaminophen (Acetaminophen 325 Mg Tablet) 650 mg PO Q6H PRN PRN Reason: Headache/Pain Mild Scale (1-3) Al Hydroxide/Mg Hydroxide (Magnesium Hydrox/Alum Hydrox 30 Ml Oral.Susp) 30 ml PO Q6H PRN PRN Reason: Heartburn/Nausea Cariprazine (Cariprazine Hcl 3 Mg Capsule) 3 mg PO DAILY [facility] Last Admin: 07/12/24 09:17 Dose: 3 mg Hydroxyzine HCl (Hydroxyzine Hcl 25 Mg Tablet) 25 mg PO Q6H PRN PRN Reason: Anxiety Last Admin: 07/12/24 00:08 Dose: 25 mg [place] Carbonate ([place] Carbonate Er 300 Mg Tablet.Er) 600 mg PO BEDTIME [facility] Last Admin: 07/11/24 22:18 Dose: 600 mg Magnesium Hydroxide (Milk Of Magnesia 30 Ml Oral.Susp) 30 ml PO DAILY PRN PRN Reason: Constipation Metformin HCl (Metformin Hcl 500 Mg Tablet) 500 mg PO DAILY@1700 [facility] Last Admin: 07/11/24 18:25 Dose: Not Given Naltrexone HCl (Naltrexone Hcl 50 Mg Tablet) 50 mg PO DAILY [facility] Last Admin: 07/12/24 09:17 Dose: 50 mg Nicotine (Nicotine 21 Mg Patch.Td24) 21 mg TRANSDERMA DAILY PRN PRN Reason: smoking cessation Last Admin: 07/12/24 09:56 Dose: 21 mg Nicotine Polacrilex (Nicotine Polacrilex Lozenge 4 Mg Lozenge) 4 mg BUCCAL Q2H PRN PRN Reason: nicotine cravings Last Admin: 07/10/24 20:19 Dose: 4 mg Patient Own ( Atomoxetine 25 Mg Capsule) 25 mg PO DAILY [facility] Last Admin: 07/12/24 09:17 Dose: 25 mg Olanzapine (Olanzapine 5 Mg Tablet) 5 mg PO TID PRN PRN Reason: agitation Prazosin HCl (Prazosin Hcl 5 Mg Capsule) 5 mg PO BEDTIME [facility]; Protocol Last Admin: 07/11/24 22:17 Dose: 5 mg Trazodone HCl (Trazodone Hcl 50 Mg Tablet) 150 mg PO BEDTIME [facility] Last Admin: 07/11/24 22:18 Dose: 150 mg Trazodone HCl (Trazodone Hcl 50 Mg Tablet) 50 mg PO BEDTIME MRX1 PRN PRN Reason: Insomnia Allergies Allergies Allergy/AdvReac Type Severity Reaction Status Date / Time No Known Allergies Allergy Verified 07/07/24 20:03 Assessment & Plan Assessment & Plan (1) Borderline personality disorder: Status: Acute Code(s): F60.3 - Borderline personality disorder (2) Bipolar 1 disorder, depressed: Status: Acute Code(s): F31.9 - Bipolar disorder, unspecified Plan Ms. Scanlon is a 24 year-old woman with hx of BPD, reports also mood disorder who self presented to [facility] due to ongoing urges to self harm at times not due to suicidality and intermittent suicidal ideation with plan to jump off bridge. Pt reports SIB since she was in 3rd grade, no self harm in last 38 days. However, reports suicidal thoughts and would like help with those. She reports suicidality has been going on for several months now. She does present with some future orientation reporting she is hoping to continue graduate studies once she graduates next year from [employer]. We discussed risks, benefits and alternative treatment options, pt reports current medications helpful or at least most helpful after multiple med trials. PLAN 1. Admit to M5, CV, 15 minutes checks 2. continue current medication 3. obtain collateral information mainly from OP therapist, pt declines contact with mother or sister 4. aftercare planning. 07/10/24: Continue regime. Pt requesting ECT consultation 07/12: Continue tx Reason for continued inpatient stay Substantial Risk for: rapid decompensation Time Spent With Patient Time: Total time managing care of this patient today ____ minutes.
[2024-07-12 21:06] VITALS: BP 148/96; PULSE 74; RESP 18; TEMP 36.4; O2SAT 100
[2024-07-12] MEDS: Prazosin HCL 5 MG CAPSULE PO (22:00)
[2024-07-12] MEDS: Lithium Carbonate ER 300 MG TABLET.ER 600 MG PO (22:00)
[2024-07-12] MEDS: traZODone HCL 50 MG TABLET PO (22:01)
[2024-07-12] MEDS: traZODone HCL 50 MG TABLET 150 MG PO (22:01)
[2024-07-13 08:00] VITALS: BP 111/67; PULSE 70; RESP 18; TEMP 36.6; O2SAT 98
[2024-07-13] MEDS: Naltrexone HCl 50 MG TABLET PO (08:45)
[2024-07-13] MEDS: Cariprazine HCl 3 MG CAPSULE PO (08:45)
[2024-07-13] MEDS: Nicotine 21 MG PATCH.TD24 TRANSDERMA (09:01)
--- NOTE | 2024-07-13 11:52 | P.PNPSI_ITS ---
Subjective Subjective Date of Service: 07/13/24 Reason For Visit: Labile SI Subjective Notes: Conditional Voluntary Interim History: Patient was seen and discussed in rounds today. Records and plans were reviewed. She did have her ECT consult. She is visible, cooperative. No AVH. No SI. Eating and sleeping adequately. No side effects. No changes were made today Review of Systems Review of Systems Yes all other systems are reviewed and are negative Diagnostics Vital Signs (24Hr): Vital Signs - 24 hr 07/12/24 21:06 07/13/24 08:00 Temperature 97.6 F 97.8 F Pulse Rate 74 70 Respiratory Rate 18 18 Blood Pressure 148/96 H 111/67 Pulse Oximetry 100 98 Oxygen Delivery Method Room Air Room Air BMI result Body Mass Index 36.2 Labs 07/09/24 07:53 07/07/24 20:25 Medications Medications Current Medications Acetaminophen (Acetaminophen 325 Mg Tablet) 650 mg PO Q6H PRN PRN Reason: Headache/Pain Mild Scale (1-3) Al Hydroxide/Mg Hydroxide (Magnesium Hydrox/Alum Hydrox 30 Ml Oral.Susp) 30 ml PO Q6H PRN PRN Reason: Heartburn/Nausea Cariprazine (Cariprazine Hcl 3 Mg Capsule) 3 mg PO DAILY [facility] Last Admin: 07/13/24 08:45 Dose: 3 mg Hydroxyzine HCl (Hydroxyzine Hcl 25 Mg Tablet) 25 mg PO Q6H PRN PRN Reason: Anxiety Last Admin: 07/12/24 00:08 Dose: 25 mg [place] Carbonate ([place] Carbonate Er 300 Mg Tablet.Er) 600 mg PO BEDTIME [facility] Last Admin: 07/12/24 22:00 Dose: 600 mg Magnesium Hydroxide (Milk Of Magnesia 30 Ml Oral.Susp) 30 ml PO DAILY PRN PRN Reason: Constipation Metformin HCl (Metformin Hcl 500 Mg Tablet) 500 mg PO DAILY@1700 [facility] Last Admin: 07/12/24 19:01 Dose: Not Given Naltrexone HCl (Naltrexone Hcl 50 Mg Tablet) 50 mg PO DAILY [facility] Last Admin: 07/13/24 08:45 Dose: 50 mg Nicotine (Nicotine 21 Mg Patch.Td24) 21 mg TRANSDERMA DAILY PRN PRN Reason: smoking cessation Last Admin: 07/13/24 09:01 Dose: 21 mg Nicotine Polacrilex (Nicotine Polacrilex Lozenge 4 Mg Lozenge) 4 mg BUCCAL Q2H PRN PRN Reason: nicotine cravings Last Admin: 07/10/24 20:19 Dose: 4 mg Patient Own ( Atomoxetine 25 Mg Capsule) 25 mg PO DAILY [facility] Last Admin: 07/13/24 08:45 Dose: 25 mg Olanzapine (Olanzapine 5 Mg Tablet) 5 mg PO TID PRN PRN Reason: agitation Prazosin HCl (Prazosin Hcl 5 Mg Capsule) 5 mg PO BEDTIME [facility]; Protocol Last Admin: 07/12/24 22:00 Dose: 5 mg Trazodone HCl (Trazodone Hcl 50 Mg Tablet) 150 mg PO BEDTIME [facility] Last Admin: 07/12/24 22:01 Dose: 150 mg Trazodone HCl (Trazodone Hcl 50 Mg Tablet) 50 mg PO BEDTIME MRX1 PRN PRN Reason: Insomnia Last Admin: 07/12/24 22:01 Dose: 50 mg Allergies Allergies Allergy/AdvReac Type Severity Reaction Status Date / Time No Known Allergies Allergy Verified 07/07/24 20:03 Assessment & Plan Assessment & Plan (1) Borderline personality disorder: Status: Acute Code(s): F60.3 - Borderline personality disorder (2) Bipolar 1 disorder, depressed: Status: Acute Code(s): F31.9 - Bipolar disorder, unspecified Plan Ms. Scanlon is a 24 year-old woman with hx of BPD, reports also mood disorder who self presented to [facility] due to ongoing urges to self harm at times not due to suicidality and intermittent suicidal ideation with plan to jump off bridge. Pt reports SIB since she was in 3rd grade, no self harm in last 38 days. However, reports suicidal thoughts and would like help with those. She reports suicidality has been going on for several months now. She does present with some future orientation reporting she is hoping to continue graduate studies once she graduates next year from [employer]. We discussed risks, benefits and alternative treatment options, pt reports current medications helpful or at least most helpful after multiple med trials. PLAN 1. Admit to M5, CV, 15 minutes checks 2. continue current medication 3. obtain collateral information mainly from OP therapist, pt declines contact with mother or sister 4. aftercare planning. 07/10/24: Continue regime. Pt requesting ECT consultation 07/12: Continue tx 07/13: Continue current regimen and planslan Reason for continued inpatient stay Substantial Risk for: med/psych decompensation Time Spent With Patient Time: Total time managing care of this patient today ____ minutes.
[2024-07-13 15:07] VITALS: BP 117/72; PULSE 89; RESP 17; TEMP 37.1; O2SAT 98
[2024-07-13] MEDS: metFORMIN HCl 500 MG TABLET PO (17:42)
[2024-07-13 20:00] VITALS: BP 116/72; PULSE 92; RESP 16; TEMP 36.4; O2SAT 96
[2024-07-13 23:40] VITALS: BP 117/70
[2024-07-13] MEDS: Prazosin HCL 5 MG CAPSULE PO (23:40)
[2024-07-13] MEDS: Lithium Carbonate ER 300 MG TABLET.ER 600 MG PO (23:41)
[2024-07-13] MEDS: traZODone HCL 50 MG TABLET 150 MG PO (23:42)
[2024-07-14 08:00] VITALS: BP 91/54; PULSE 68; RESP 18; TEMP 2.4; TEMP 36.3; O2SAT 95
[2024-07-14] MEDS: Cariprazine HCl 3 MG CAPSULE PO (08:48)
[2024-07-14] MEDS: Naltrexone HCl 50 MG TABLET PO (08:48)
--- NOTE | 2024-07-14 09:09 | P.PNPSI_ITS ---
Subjective Subjective Date of Service: 07/14/24 Reason For Visit: Labile SI Subjective Notes: Conditional Voluntary Interim History: Patient was seen and discussed in rounds today. Records and plans were reviewed. She has been stable with some varied affect. Intake is minimal and mostly liquids. ECT is being considered. No SI. No complaints. Yesterday had some complaints of some tingling in her fingers that is spread to the rest of her and feeling weak. This is probably nutritional. No changes were made today Review of Systems Review of Systems Yes all other systems are reviewed and are negative Mental Status Exam Mental Status Exam Patient Appearance: Fatigued Patient Orientation: Person, Place, Time and Situation Level of Consciousness: Alert Patient Behavior: Appropriate, Talkative, Cooperative and Good Eye Contact Mood Description: Depressed Affect Description: Flat Patient Cognition Impaired: No Ability to Follow Directions: Good Speech Pattern: Spontaneous Speech Perceptual Disturbances: Depersonalization and Derealization Thought Content: positive for Suicidal Ideation Depressive Symptoms: Thoughts of /Suicide Abnormal Motor Activity Signs and Symptoms: Restlessness Judgement: Fair Diagnostics Vital Signs (24Hr): Vital Signs - 24 hr 07/13/24 15:07 07/13/24 20:00 07/13/24 23:40 Temperature 98.8 F 97.5 F Pulse Rate 89 92 Respiratory Rate 17 16 Blood Pressure 117/72 116/72 117/70 Pulse Oximetry 98 96 Oxygen Delivery Method Room Air Room Air BMI result Body Mass Index 36.2 Labs 07/09/24 07:53 07/07/24 20:25 Medications Medications Current Medications Acetaminophen (Acetaminophen 325 Mg Tablet) 650 mg PO Q6H PRN PRN Reason: Headache/Pain Mild Scale (1-3) Al Hydroxide/Mg Hydroxide (Magnesium Hydrox/Alum Hydrox 30 Ml Oral.Susp) 30 ml PO Q6H PRN PRN Reason: Heartburn/Nausea Cariprazine (Cariprazine Hcl 3 Mg Capsule) 3 mg PO DAILY [facility] Last Admin: 07/14/24 08:48 Dose: 3 mg Hydroxyzine HCl (Hydroxyzine Hcl 25 Mg Tablet) 25 mg PO Q6H PRN PRN Reason: Anxiety Last Admin: 07/12/24 00:08 Dose: 25 mg [place] Carbonate ([place] Carbonate Er 300 Mg Tablet.Er) 600 mg PO BEDTIME [facility] Last Admin: 07/13/24 23:41 Dose: 600 mg Magnesium Hydroxide (Milk Of Magnesia 30 Ml Oral.Susp) 30 ml PO DAILY PRN PRN Reason: Constipation Metformin HCl (Metformin Hcl 500 Mg Tablet) 500 mg PO DAILY@1700 [facility] Last Admin: 07/13/24 17:42 Dose: 500 mg Naltrexone HCl (Naltrexone Hcl 50 Mg Tablet) 50 mg PO DAILY [facility] Last Admin: 07/14/24 08:48 Dose: 50 mg Nicotine (Nicotine 21 Mg Patch.Td24) 21 mg TRANSDERMA DAILY PRN PRN Reason: smoking cessation Last Admin: 07/13/24 09:01 Dose: 21 mg Nicotine Polacrilex (Nicotine Polacrilex Lozenge 4 Mg Lozenge) 4 mg BUCCAL Q2H PRN PRN Reason: nicotine cravings Last Admin: 07/10/24 20:19 Dose: 4 mg Patient Own ( Atomoxetine 25 Mg Capsule) 25 mg PO DAILY [facility] Last Admin: 07/14/24 08:48 Dose: 25 mg Olanzapine (Olanzapine 5 Mg Tablet) 5 mg PO TID PRN PRN Reason: agitation Prazosin HCl (Prazosin Hcl 5 Mg Capsule) 5 mg PO BEDTIME [facility]; Protocol Last Admin: 07/13/24 23:40 Dose: 5 mg Trazodone HCl (Trazodone Hcl 50 Mg Tablet) 150 mg PO BEDTIME [facility] Last Admin: 07/13/24 23:42 Dose: 150 mg Trazodone HCl (Trazodone Hcl 50 Mg Tablet) 50 mg PO BEDTIME MRX1 PRN PRN Reason: Insomnia Last Admin: 07/12/24 22:01 Dose: 50 mg Allergies Allergies Allergy/AdvReac Type Severity Reaction Status Date / Time No Known Allergies Allergy Verified 07/07/24 20:03 Assessment & Plan Assessment & Plan (1) Borderline personality disorder: Status: Acute Code(s): F60.3 - Borderline personality disorder (2) Bipolar 1 disorder, depressed: Status: Acute Code(s): F31.9 - Bipolar disorder, unspecified Plan Ms. Scanlon is a 24 year-old woman with hx of BPD, reports also mood disorder who self presented to [facility] due to ongoing urges to self harm at times not due to suicidality and intermittent suicidal ideation with plan to jump off bridge. Pt reports SIB since she was in 3rd grade, no self harm in last 38 days. However, reports suicidal thoughts and would like help with those. She reports suicidality has been going on for several months now. She does present with some future orientation reporting she is hoping to continue graduate studies once she graduates next year from [employer]ology. We discussed risks, benefits and alternative treatment options, pt reports current medications helpful or at least most helpful after multiple med trials. PLAN 1. Admit to M5, CV, 15 minutes checks 2. continue current medication 3. obtain collateral information mainly from OP therapist, pt declines contact with mother or sister 4. aftercare planning. 07/10/24: Continue regime. Pt requesting ECT consultation 07/12: Continue tx 07/13: Continue current regimen and planslan Reason for continued inpatient stay Substantial Risk for: med/psych decompensation Time Spent With Patient Time: Total time managing care of this patient today ____ minutes.
[2024-07-14 19:41] VITALS: BP 113/89; PULSE 80; RESP 16; TEMP 36.4; O2SAT 98
[2024-07-14] MEDS: Lithium Carbonate ER 300 MG TABLET.ER 600 MG PO (20:31)
[2024-07-14] MEDS: traZODone HCL 50 MG TABLET 150 MG PO (20:32)
[2024-07-14] MEDS: Prazosin HCL 5 MG CAPSULE PO (20:33)
[2024-07-14] MEDS: Acetaminophen 325 MG TABLET 650 MG PO (20:36)
[2024-07-15 07:52] VITALS: BP 143/63; PULSE 64; TEMP 36.6; O2SAT 99
[2024-07-15] MEDS: Cariprazine HCl 3 MG CAPSULE PO (08:17)
[2024-07-15] MEDS: Naltrexone HCl 50 MG TABLET PO (08:18)
[2024-07-15] MEDS: Acetaminophen 325 MG TABLET 650 MG PO (08:40)
[2024-07-15] MEDS: Nicotine 21 MG PATCH.TD24 TRANSDERMA (11:59)
--- NOTE | 2024-07-15 15:36 | P.PNPSI_ITS ---
Subjective Subjective Date of Service: 07/15/24 Reason For Visit: Labile SI Subjective Notes: Conditional Voluntary Healthcare Proxy: No Guardianship: No Medical Problems Affecting Mental Status: No Interim History: JALEEL sent to [facility], [facility] and out pt providers. Pt requesting ECT trial. Reports no response from [place], increase in depressive symptoms and overall no improvement. Reports safety on the unit however if discharged endorses SI Medication Compliance: Yes Side effects from medications: No Attending Groups: Intermittent Review of Systems Acute medical concerns: No Medical Review of Systems: unchanged Review of Systems Review of Systems Yes all other systems are reviewed and are negative Mental Status Exam Mental Status Exam Patient Appearance: Fatigued Patient Orientation: Person, Place, Time and Situation Level of Consciousness: Alert Patient Behavior: Appropriate, Talkative, Cooperative and Good Eye Contact Mood Description: Depressed Affect Description: Flat Patient Cognition Impaired: No Ability to Follow Directions: Good Speech Pattern: Spontaneous Speech Perceptual Disturbances: Depersonalization and Derealization Thought Content: positive for Suicidal Ideation Depressive Symptoms: Thoughts of /Suicide Abnormal Motor Activity Signs and Symptoms: Restlessness Judgement: Fair Diagnostics Vital Signs (24Hr): Vital Signs - 24 hr 07/14/24 19:41 07/15/24 07:52 Temperature 97.6 F 97.8 F Pulse Rate 80 64 Respiratory Rate 16 Blood Pressure 113/89 143/63 H Pulse Oximetry 98 99 Oxygen Delivery Method Room Air BMI result Body Mass Index 36.2 Labs 07/09/24 07:53 07/07/24 20:25 Medications Medications Current Medications Acetaminophen (Acetaminophen 325 Mg Tablet) 650 mg PO Q6H PRN PRN Reason: Headache/Pain Mild Scale (1-3) Last Admin: 07/15/24 08:40 Dose: 650 mg Al Hydroxide/Mg Hydroxide (Magnesium Hydrox/Alum Hydrox 30 Ml Oral.Susp) 30 ml PO Q6H PRN PRN Reason: Heartburn/Nausea Cariprazine (Cariprazine Hcl 3 Mg Capsule) 3 mg PO DAILY [facility] Last Admin: 07/15/24 08:17 Dose: 3 mg Hydroxyzine HCl (Hydroxyzine Hcl 25 Mg Tablet) 25 mg PO Q6H PRN PRN Reason: Anxiety Last Admin: 07/12/24 00:08 Dose: 25 mg [place] Carbonate ([place] Carbonate Er 300 Mg Tablet.Er) 600 mg PO BEDTIME [facility] Last Admin: 07/14/24 20:31 Dose: 600 mg Magnesium Hydroxide (Milk Of Magnesia 30 Ml Oral.Susp) 30 ml PO DAILY PRN PRN Reason: Constipation Metformin HCl (Metformin Hcl 500 Mg Tablet) 500 mg PO DAILY@1700 [facility] Last Admin: 07/14/24 16:02 Dose: Not Given Naltrexone HCl (Naltrexone Hcl 50 Mg Tablet) 50 mg PO DAILY [facility] Last Admin: 07/15/24 08:18 Dose: 50 mg Nicotine (Nicotine 21 Mg Patch.Td24) 21 mg TRANSDERMA DAILY PRN PRN Reason: smoking cessation Last Admin: 07/15/24 11:59 Dose: 21 mg Nicotine Polacrilex (Nicotine Polacrilex Lozenge 4 Mg Lozenge) 4 mg BUCCAL Q2H PRN PRN Reason: nicotine cravings Last Admin: 07/10/24 20:19 Dose: 4 mg Patient Own ( Atomoxetine 25 Mg Capsule) 25 mg PO DAILY [facility] Last Admin: 07/15/24 08:18 Dose: 25 mg Olanzapine (Olanzapine 5 Mg Tablet) 5 mg PO TID PRN PRN Reason: agitation Prazosin HCl (Prazosin Hcl 5 Mg Capsule) 5 mg PO BEDTIME [facility]; Protocol Last Admin: 07/14/24 20:33 Dose: 5 mg Trazodone HCl (Trazodone Hcl 50 Mg Tablet) 150 mg PO BEDTIME [facility] Last Admin: 07/14/24 20:32 Dose: 150 mg Trazodone HCl (Trazodone Hcl 50 Mg Tablet) 50 mg PO BEDTIME MRX1 PRN PRN Reason: Insomnia Last Admin: 07/12/24 22:01 Dose: 50 mg Allergies Allergies Allergy/AdvReac Type Severity Reaction Status Date / Time No Known Allergies Allergy Verified 07/07/24 20:03 Assessment & Plan Assessment & Plan (1) Borderline personality disorder: Status: Acute Code(s): F60.3 - Borderline personality disorder (2) Bipolar 1 disorder, depressed: Status: Acute Code(s): F31.9 - Bipolar disorder, unspecified Plan Ms. Scanlon is a 24 year-old woman with hx of BPD, reports also mood disorder who self presented to [facility] due to ongoing urges to self harm at times not due to suicidality and intermittent suicidal ideation with plan to jump off bridge. Pt reports SIB since she was in 3rd grade, no self harm in last 38 days. However, reports suicidal thoughts and would like help with those. She reports suicidality has been going on for several months now. She does present with some future orientation reporting she is hoping to continue graduate studies once she graduates next year from [employer]. We discussed risks, benefits and alternative treatment options, pt reports current medications helpful or at least most helpful after multiple med trials. PLAN 1. Admit to M5, CV, 15 minutes checks 2. continue current medication 3. obtain collateral information mainly from OP therapist, pt declines contact with mother or sister 4. aftercare planning. 07/10/24: Continue regime. Pt requesting ECT consultation 07/12: Continue tx 07/15: Continue to gather treatment information for ECT decision. Reason for continued inpatient stay Substantial Risk for: rapid decompensation Time Spent With Patient Time: Total time managing care of this patient today ____ minutes.
[2024-07-15] MEDS: metFORMIN HCl 500 MG TABLET PO (18:00)
[2024-07-15 20:00] VITALS: BP 113/81; PULSE 101; TEMP 36.4; O2SAT 96
[2024-07-15] MEDS: traZODone HCL 50 MG TABLET 150 MG PO (23:33)
[2024-07-15 23:34] VITALS: BP 115/70
[2024-07-15] MEDS: Prazosin HCL 5 MG CAPSULE PO (23:34)
[2024-07-15] MEDS: Lithium Carbonate ER 300 MG TABLET.ER 600 MG PO (23:35)
--- NOTE | 2024-07-16 | ECG_ITS ---
Test Reason : QTC CHECK Blood Pressure : / mmHG Vent. Rate : 070 BPM Atrial Rate : 070 BPM P-R Int : 168 ms QRS Dur : 088 ms QT Int : 370 ms P-R-T Axes : 032 072 052 degrees QTc Int : 399 ms Normal sinus rhythm with sinus arrhythmia Normal ECG When compared with ECG of 08-JUL-2024 09:08, No significant change was found Referred By: Denice Payan Electronically Signed By:LIZBETH CAIN
[2024-07-16 08:24] VITALS: BP 114/56; PULSE 72; RESP 18; TEMP 36.4; O2SAT 98
[2024-07-16] MEDS: Cariprazine HCl 3 MG CAPSULE PO (09:12)
[2024-07-16] MEDS: Naltrexone HCl 50 MG TABLET PO (09:12)
--- NOTE | 2024-07-16 12:35 | P.PNPSI_ITS ---
Subjective Subjective Date of Service: 07/16/24 Reason For Visit: Labile SI Subjective Notes: Conditional Voluntary Healthcare Proxy: No Guardianship: No Medical Problems Affecting Mental Status: No Interim History: Pt met with Dr. Haywood. She will begin ECT on 07/19/24. Hospitalist consult, EKG, CBCD, CMP are ordered. Pt, this afternoon, working on contacting her mother to discuss this plan and her thoughts about it. Medication Compliance: Yes Side effects from medications: No Attending Groups: Yes Review of Systems Acute medical concerns: No Medical Review of Systems: unchanged Review of Systems Review of Systems Yes all other systems are reviewed and are negative Mental Status Exam Mental Status Exam Patient Appearance: Fatigued Patient Orientation: Person, Place, Time and Situation Level of Consciousness: Alert Patient Behavior: Appropriate, Talkative, Cooperative and Good Eye Contact Mood Description: Depressed Affect Description: Flat Patient Cognition Impaired: No Ability to Follow Directions: Good Speech Pattern: Spontaneous Speech Perceptual Disturbances: Depersonalization and Derealization Thought Content: positive for Suicidal Ideation Depressive Symptoms: Thoughts of /Suicide Abnormal Motor Activity Signs and Symptoms: Restlessness Judgement: Fair Diagnostics Vital Signs (24Hr): Vital Signs - 24 hr 07/15/24 20:00 07/15/24 23:34 07/16/24 08:24 Temperature 97.6 F 97.6 F Pulse Rate 101 H 72 Respiratory Rate 18 Blood Pressure 113/81 115/70 114/56 L Pulse Oximetry 96 98 Oxygen Delivery Method Room Air Room Air BMI result Body Mass Index 36.2 Labs 07/09/24 07:53 07/07/24 20:25 Medications Medications Current Medications Acetaminophen (Acetaminophen 325 Mg Tablet) 650 mg PO Q6H PRN PRN Reason: Headache/Pain Mild Scale (1-3) Last Admin: 07/15/24 08:40 Dose: 650 mg Al Hydroxide/Mg Hydroxide (Magnesium Hydrox/Alum Hydrox 30 Ml Oral.Susp) 30 ml PO Q6H PRN PRN Reason: Heartburn/Nausea Cariprazine (Cariprazine Hcl 3 Mg Capsule) 3 mg PO DAILY [facility] Last Admin: 07/16/24 09:12 Dose: 3 mg Hydroxyzine HCl (Hydroxyzine Hcl 25 Mg Tablet) 25 mg PO Q6H PRN PRN Reason: Anxiety Last Admin: 07/12/24 00:08 Dose: 25 mg [place] Carbonate ([place] Carbonate Er 300 Mg Tablet.Er) 600 mg PO BEDTIME [facility] Last Admin: 07/15/24 23:35 Dose: 600 mg Magnesium Hydroxide (Milk Of Magnesia 30 Ml Oral.Susp) 30 ml PO DAILY PRN PRN Reason: Constipation Metformin HCl (Metformin Hcl 500 Mg Tablet) 500 mg PO DAILY@1700 [facility] Last Admin: 07/15/24 18:00 Dose: 500 mg Naltrexone HCl (Naltrexone Hcl 50 Mg Tablet) 50 mg PO DAILY [facility] Last Admin: 07/16/24 09:12 Dose: 50 mg Nicotine (Nicotine 21 Mg Patch.Td24) 21 mg TRANSDERMA DAILY PRN PRN Reason: smoking cessation Last Admin: 07/15/24 11:59 Dose: 21 mg Nicotine Polacrilex (Nicotine Polacrilex Lozenge 4 Mg Lozenge) 4 mg BUCCAL Q2H PRN PRN Reason: nicotine cravings Last Admin: 07/10/24 20:19 Dose: 4 mg Patient Own ( Atomoxetine 25 Mg Capsule) 25 mg PO DAILY [facility] Last Admin: 07/16/24 09:12 Dose: 25 mg Olanzapine (Olanzapine 5 Mg Tablet) 5 mg PO TID PRN PRN Reason: agitation Prazosin HCl (Prazosin Hcl 5 Mg Capsule) 5 mg PO BEDTIME [facility]; Protocol Last Admin: 07/15/24 23:34 Dose: 5 mg Trazodone HCl (Trazodone Hcl 50 Mg Tablet) 150 mg PO BEDTIME [facility] Last Admin: 07/15/24 23:33 Dose: 150 mg Trazodone HCl (Trazodone Hcl 50 Mg Tablet) 50 mg PO BEDTIME MRX1 PRN PRN Reason: Insomnia Last Admin: 07/12/24 22:01 Dose: 50 mg Allergies Allergies Allergy/AdvReac Type Severity Reaction Status Date / Time No Known Allergies Allergy Verified 07/07/24 20:03 Assessment & Plan Assessment & Plan (1) Borderline personality disorder: Status: Acute Code(s): F60.3 - Borderline personality disorder (2) Bipolar 1 disorder, depressed: Status: Acute Code(s): F31.9 - Bipolar disorder, unspecified Plan Ms. Scanlon is a 24 year-old woman with hx of BPD, reports also mood disorder who self presented to [facility] due to ongoing urges to self harm at times not due to suicidality and intermittent suicidal ideation with plan to jump off bridge. Pt reports SIB since she was in 3rd grade, no self harm in last 38 days. However, reports suicidal thoughts and would like help with those. She reports suicidality has been going on for several months now. She does present with some future orientation reporting she is hoping to continue graduate studies once she graduates next year from [employer]. We discussed risks, benefits and alternative treatment options, pt reports current medications helpful or at least most helpful after multiple med trials. PLAN 1. Admit to M5, CV, 15 minutes checks 2. continue current medication 3. obtain collateral information mainly from OP therapist, pt declines contact with mother or sister 4. aftercare planning. 07/10/24: Continue regime. Pt requesting ECT consultation 07/12: Continue tx 07/16/24: Preparation for ECT 07/19/24. Reason for continued inpatient stay Substantial Risk for: rapid decompensation Time Spent With Patient Time: Total time managing care of this patient today ____ minutes.
[2024-07-16] MEDS: Nicotine 21 MG PATCH.TD24 TRANSDERMA (14:40)
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
--- NOTE | 2024-07-16 18:18 | HO.ECT-CONS ---
History of Present Illness Data of Consult Service Date: 07/16/24 Requesting physician: Erik Haywood Primary Care Provider: Unknown Physician HPI Reason for consult: ect risk stratification 24-year-old female with bipolar disorder and borderline personality disorder admitted to Psychiatry with consult placed to hospitalist service for ECT risk stratification. The patient has never undergone ECT but has undergone TMS in the past with good results. She has no known history of chronic lung disease, cardiovascular disease, heart failure, seizure disorder. She is able to ambulate distances and ascending stairs without any shortness of breath, lightheadedness, or chest pain. She currently denies any palpitations, headaches, lightheadedness, dyspnea, chest pain, abdominal pain, nausea, vomiting, diarrhea. EKG is reviewed which shows NSR, rate [address]/T-wave abnormalities. QTC is 399. Does report smoking 4-5 cigarettes on a daily basis but denies any illicit drug use or alcohol use. Review of Systems Review of Systems: General: No fevers, malaise, unintentional weight loss HEENT: No blurred vision, diplopia. No sore throat, nasal congestion, rhinorrhea, sinus pain, ear pain Cardiovascular: No chest pain, palpitations, or leg edema Respiratory: No shortness of breath, wheezing, cough GI: No abdominal pain, nausea, vomiting, diarrhea, constipation, melena, hematochezia : No dysuria, hematuria, increased urinary frequency, decreased urinary output MSK: No myalgia, back pain Neuro: No headaches, weakness, paresthesias Skin: No rashes or lesions PMFSH Medical History No pertinent past medical history Social History Household Members: Family Household Members Other:: Been staying with a friend this summer. Lives on campus during school year Housing: House Do you presently have visiting nurse or other home services: No Patient Tobacco Use Status: Current everyday Tobacco user Tobacco use type: Cigarette Cigarettes Per Day: 8 Smoked in Last 30 Days: Yes Patient Interested in Nicotine Replacement: Yes Patient Given Instructions on How to Stop Smoking: No Second Hand Smoke Exposure: No Use of substances other than those prescribed or required for medical reasons: No Currently Displaying Signs/Symptoms of Drug Intoxication Withdrawal: No Any prior treatment program specific to substance use: No Have you been hit, kicked, punched, or otherwise hurt by someone within the past year? If so, by whom?: No Do you feel safe in your current relationship?: No Current Relationship Is there a partner from a previous relationship who is making you feel unsafe now?: No Are you made to feel afraid or neglected: No Advance Directives: No Advance Directives Information Provided: No Do you have thoughts of harming others: None Do you have a plan to hurt others: No Plan Recently lost weight without trying: No How much weight loss: Not applicable Eating poorly because of decreased appetite: Yes Nutrition screen score: 1 Nutrition Risks: Anorexia Patient : No : No Poor oral hygiene: No service: No Sexual orientation: Straight/Heterosexual Meds Allergies Allergy/AdvReac Type Severity Reaction Status Date / Time No Known Allergies Allergy Verified 07/07/24 20:03 Active Medications: Current Medications Acetaminophen (Acetaminophen 325 Mg Tablet) 650 mg PO Q6H PRN PRN Reason: Headache/Pain Mild Scale (1-3) Last Admin: 07/15/24 08:40 Dose: 650 mg Al Hydroxide/Mg Hydroxide (Magnesium Hydrox/Alum Hydrox 30 Ml Oral.Susp) 30 ml PO Q6H PRN PRN Reason: Heartburn/Nausea Cariprazine (Cariprazine Hcl 3 Mg Capsule) 3 mg PO DAILY [facility] Last Admin: 07/16/24 09:12 Dose: 3 mg Hydroxyzine HCl (Hydroxyzine Hcl 25 Mg Tablet) 25 mg PO Q6H PRN PRN Reason: Anxiety Last Admin: 07/12/24 00:08 Dose: 25 mg [place] Carbonate ([place] Carbonate Er 300 Mg Tablet.Er) 600 mg PO BEDTIME [facility] Last Admin: 07/15/24 23:35 Dose: 600 mg Magnesium Hydroxide (Milk Of Magnesia 30 Ml Oral.Susp) 30 ml PO DAILY PRN PRN Reason: Constipation Metformin HCl (Metformin Hcl 500 Mg Tablet) 500 mg PO DAILY@1700 [facility] Last Admin: 07/16/24 18:13 Dose: Not Given Naltrexone HCl (Naltrexone Hcl 50 Mg Tablet) 50 mg PO DAILY [facility] Last Admin: 07/16/24 09:12 Dose: 50 mg Nicotine (Nicotine 21 Mg Patch.Td24) 21 mg TRANSDERMA DAILY PRN PRN Reason: smoking cessation Last Admin: 07/16/24 14:40 Dose: 21 mg Nicotine Polacrilex (Nicotine Polacrilex Lozenge 4 Mg Lozenge) 4 mg BUCCAL Q2H PRN PRN Reason: nicotine cravings Last Admin: 07/10/24 20:19 Dose: 4 mg Patient Own ( Atomoxetine 25 Mg Capsule) 25 mg PO DAILY PREETI Last Admin: 07/16/24 09:12 Dose: 25 mg Olanzapine (Olanzapine 5 Mg Tablet) 5 mg PO TID PRN PRN Reason: agitation Prazosin HCl (Prazosin Hcl 5 Mg Capsule) 5 mg PO BEDTIME PREETI; Protocol Last Admin: 07/15/24 23:34 Dose: 5 mg Trazodone HCl (Trazodone Hcl 50 Mg Tablet) 150 mg PO BEDTIME PREETI Last Admin: 07/15/24 23:33 Dose: 150 mg Trazodone HCl (Trazodone Hcl 50 Mg Tablet) 50 mg PO BEDTIME MRX1 PRN PRN Reason: Insomnia Last Admin: 07/12/24 22:01 Dose: 50 mg Home Medications ?Medication ?Instructions ?Recorded ?Confirmed ?Last Taken ?Type cariprazine 1.5 mg capsule 3 mg PO QAM 07/07/24 07/07/24 07/07/24 08:00 History (Rebekah) lithium carbonate 300 mg 300 mg PO BID 07/07/24 07/07/24 07/07/24 08:00 History tablet,extended release metformin 500 mg tablet 500 mg PO DAILY 07/07/24 07/07/24 07/07/24 08:00 History naltrexone 50 mg tablet 50 mg PO DAILY 07/07/24 07/07/24 07/07/24 08:00 History prazosin 5 mg capsule 5 mg PO BEDTIME 07/07/24 07/07/24 07/05/24 20:00 History trazodone 150 mg tablet 150 mg PO BEDTIME 07/07/24 07/07/24 07/06/24 20:00 History Physical Exam Vital Signs and Narrative: Vital Signs: Last Vital Signs Temp 97.6 F 07/16/24 08:24 Pulse 72 07/16/24 08:24 Resp 18 07/16/24 08:24 BP 114/56 L 07/16/24 08:24 Pulse Ox 98 07/16/24 08:24 O2 Del Method Room Air 07/16/24 08:24 BMI result Body Mass Index 36.2 Constitutional - Awake and Alert, No apparent distress Eyes - PERRLA, EOMI Cardiovascular - S1S2, RRR, No edema Respiratory - Normal lung expansion, Normal respiratory effort, No respiratory distress, CTA bilaterally Gastrointestinal - NT / ND; +BS; No rebound or guarding Extremities - no calf tenderness bilaterally, no swelling Skin - Warm/Dry Neurological - Alert & oriented x3, CN II-XII in tact, 5/5 strength BUE and BLE Psychological - Appropriate affect Results Labs 07/09/24 07:53 07/07/24 20:25 Assessment and Plan (1) Routine medical exam: Status: Acute Plan 24-year-old female with bipolar disorder and borderline personality disorder admitted to Psychiatry with consult placed to hospitalist service for ECT risk stratification. #Mood disorder -plan per psychitary -Pt is a class I risk on revised cardiac risk index. No known anesthesia risk factors. EKG reassuring, no prolonged qtc. Vitals stable. At this time no medical contraindication exists that should preclude patient from undergoing ECT Thank you for allowing me to participate in this consult. Signing off at this time. Please do not hesitate to call for further questions
[2024-07-16 22:00] VITALS: BP 128/92; PULSE 100; RESP 16; TEMP 36.6; O2SAT 98
[2024-07-16] MEDS: Lithium Carbonate ER 300 MG TABLET.ER 600 MG PO (22:38)
[2024-07-16] MEDS: Prazosin HCL 5 MG CAPSULE PO (22:38)
[2024-07-16] MEDS: traZODone HCL 50 MG TABLET 150 MG PO (22:39)
[2024-07-17 08:00] VITALS: BP 99/58; PULSE 82; RESP 17; TEMP 36.6; O2SAT 96
[2024-07-17] MEDS: Naltrexone HCl 50 MG TABLET PO (09:17)
[2024-07-17] MEDS: Cariprazine HCl 3 MG CAPSULE PO (09:17)
[2024-07-17] MEDS: Nicotine 21 MG PATCH.TD24 TRANSDERMA (10:03)
--- NOTE | 2024-07-17 11:06 | HO.PSYEVENT2 ---
Event Note Date of Service: 07/17/24 Psych On-Call Event Note: spoke with pts outpt psychiatric provider agrees pt has clear clinical depression not responding to medication by hx Time Spent With Patient Time: Total time managing care of this patient today ____ minutes.
--- NOTE | 2024-07-17 11:16 | P.PNPSI_ITS ---
Subjective Subjective Date of Service: 07/17/24 Reason For Visit: Labile SI Subjective Notes: Conditional Voluntary Healthcare Proxy: No Guardianship: No Medical Problems Affecting Mental Status: No Interim History: Discussed upcoming ECT and needing to make a decision about taking a semester off from school. She believes this will be her best option, returning in November 2024. 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 Discussed. Pt and team will contact JONO Montalvo on 07/18. Visable in milieu, with peers. Continues with depressive sx, SI, restrictive eating pattern with resulting nausea. Medication Compliance: Yes Side effects from medications: No Attending Groups: Yes Review of Systems Acute medical concerns: No Medical Review of Systems: unchanged Review of Systems Review of Systems Yes all other systems are reviewed and are negative Mental Status Exam Mental Status Exam Patient Appearance: Well Grooomed and Fatigued Patient Orientation: Person, Place, Time and Situation Level of Consciousness: Alert Patient Behavior: Appropriate, Talkative, Cooperative and Good Eye Contact Mood Description: Depressed Affect Description: Calm, Constricted and Flat Patient Cognition Impaired: No Ability to Follow Directions: Good Speech Pattern: Spontaneous Speech Memory Description: Intact Hallucinations: None Delusions: Not Present Perceptual Disturbances: Depersonalization and Derealization Thought Process: Goal Oriented Thought Content: positive for Logical, positive for Suicidal Ideation and negative for Homicidal Ideation Depressive Symptoms: Increased Anxiety, Increased Irritability, Increased Fatigue, Thoughts of /Suicide, Loss of Energy and Difficulty Concentrating Abnormal Motor Activity Signs and Symptoms: Restlessness Judgement: Fair Judgement and Insight: Patient understands that she has emotional instability consistent with borderline personality disorder and self-harming behavior as strategy by history patient also describes history of 1 manic episode in history of intense ongoing depression that does not shift not related to immediate interpersonal concerns in a sense at times that she would be better off with thoughts to jump off a bridge burn herself denies plan or intent in the setting she is asking for help was able to take in information regarding ECT Diagnostics Vital Signs (24Hr): Vital Signs - 24 hr 07/16/24 22:00 07/17/24 08:00 Temperature 97.8 F 97.9 F Pulse Rate 100 82 Respiratory Rate 16 17 Blood Pressure 128/92 H 99/58 L Pulse Oximetry 98 96 Oxygen Delivery Method Room Air Room Air BMI result Body Mass Index 36.2 Labs 07/17/24 13:31 07/17/24 13:31 Medications Medications Current Medications Acetaminophen (Acetaminophen 325 Mg Tablet) 650 mg PO Q6H PRN PRN Reason: Headache/Pain Mild Scale (1-3) Last Admin: 07/15/24 08:40 Dose: 650 mg Al Hydroxide/Mg Hydroxide (Magnesium Hydrox/Alum Hydrox 30 Ml Oral.Susp) 30 ml PO Q6H PRN PRN Reason: Heartburn/Nausea Cariprazine (Cariprazine Hcl 3 Mg Capsule) 3 mg PO DAILY [facility] Last Admin: 07/17/24 09:17 Dose: 3 mg Hydroxyzine HCl (Hydroxyzine Hcl 25 Mg Tablet) 25 mg PO Q6H PRN PRN Reason: Anxiety Last Admin: 07/12/24 00:08 Dose: 25 mg [place] Carbonate ([place] Carbonate Er 300 Mg Tablet.Er) 600 mg PO BEDTIME [facility] Last Admin: 07/16/24 22:38 Dose: 600 mg Magnesium Hydroxide (Milk Of Magnesia 30 Ml Oral.Susp) 30 ml PO DAILY PRN PRN Reason: Constipation Metformin HCl (Metformin Hcl 500 Mg Tablet) 500 mg PO DAILY@1700 [facility] Last Admin: 07/16/24 18:13 Dose: Not Given Naltrexone HCl (Naltrexone Hcl 50 Mg Tablet) 50 mg PO DAILY [facility] Last Admin: 07/17/24 09:17 Dose: 50 mg Nicotine (Nicotine 21 Mg Patch.Td24) 21 mg TRANSDERMA DAILY PRN PRN Reason: smoking cessation Last Admin: 07/17/24 10:03 Dose: 21 mg Nicotine Polacrilex (Nicotine Polacrilex Lozenge 4 Mg Lozenge) 4 mg BUCCAL Q2H PRN PRN Reason: nicotine cravings Last Admin: 07/10/24 20:19 Dose: 4 mg Patient Own ( Atomoxetine 25 Mg Capsule) 25 mg PO DAILY [facility] Last Admin: 07/17/24 09:17 Dose: 25 mg Olanzapine (Olanzapine 5 Mg Tablet) 5 mg PO TID PRN PRN Reason: agitation Prazosin HCl (Prazosin Hcl 5 Mg Capsule) 5 mg PO BEDTIME [facility]; Protocol Last Admin: 07/16/24 22:38 Dose: 5 mg Trazodone HCl (Trazodone Hcl 50 Mg Tablet) 150 mg PO BEDTIME [facility] Last Admin: 07/16/24 22:39 Dose: 150 mg Trazodone HCl (Trazodone Hcl 50 Mg Tablet) 50 mg PO BEDTIME MRX1 PRN PRN Reason: Insomnia Last Admin: 07/12/24 22:01 Dose: 50 mg Allergies Allergies Allergy/AdvReac Type Severity Reaction Status Date / Time No Known Allergies Allergy Verified 07/07/24 20:03 Assessment & Plan Assessment & Plan (1) Bipolar 1 disorder, depressed: Status: Acute Code(s): F31.9 - Bipolar disorder, unspecified (2) Borderline personality disorder: Status: Acute Code(s): F60.3 - Borderline personality disorder (3) Suicidal ideation: Status: Acute Code(s): R45.851 - Suicidal ideations Plan The patient appears to have clinical depression on top of what appears to be dysphoria anxiety consistent PTSD borderline personality disorder with reactivity and intermittent self-injurious behavior. This does not appear to be part of that pattern there is a strong possible genetic component with her father having completed suicide and history of bipolar disorder patient agreeable to have thing us speak with her therapist and psychiatrist and records reviewed from [address] [place] [address] [facility]. I have discussed with the patient that ECT would not treat chronic issues that she she deals with stress as mood and stability urges toward self injurious behavior and intermittent restricted eating disorder. The patient describes however ongoing depressed mood with intense thoughts of suicide history of not responding to antidepressant medication and has not stabilized bite a month of treatment with Vraylar and lithium. 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 Patient has had some response reportedly to TMS in the past given intensity of her suicidal thoughts intensity of depression at this time does not seem a current option. Call has been placed to her outpatient psychiatrist in [place]. Although I would not recommend ECT for borderline personality disorder per se certainly given her ongoing depression lack of emotional reactivity anhedonia intense negative affective state that seems to be consistent with thoughts of suicide the patient would meet criteria for a course of ECT which we would start with right unilateral treatment there are no medical contraindications Case has also been discussed and reviewed with inpatient treatment team. 07/17: On 07.18 we will contact [facility]ON[facility] Montalvo to discuss semester RAIN. ECT Reason for continued inpatient stay Substantial Risk for: rapid decompensation Time Spent With Patient Time: Total time managing care of this patient today ____ minutes.
[2024-07-17 13:35] LABS: MANUAL DIFF FLAG NO
[2024-07-17 13:39] LABS: Basophils Absolute Auto 0.1 X10*3/uL (0.0-0.2); Basophils Percent Auto 0.5 % (0-2); Eosinophils Absolute Auto 0.2 X10*3/uL (0.0-0.4); Eosinophils Percent Auto 2.1 % (0-4); Hematocrit 44.7 % (37.0-47.0); Hemoglobin 14.7 g/dl (12.0-16.0); Imm Gran Abs Auto 0.04 X10*3/uL (0.00-0.03); Imm Gran Pct Auto 0.4 % (0.0-0.4); Lymphocytes Absolute Auto 1.9 X10*3/uL (1.2-4.9); Lymphocytes Percent Auto 18.4 % (20-40); Mean Corpuscular HGB Conc 32.9 g/dl (31.0-35.0); Mean Corpuscular Hemoglobin 28.4 pg (27.0-33.0); Mean Corpuscular Volume 86.5 fL (80.0-98.0); Mean Platelet Volume 10.1 fL (9.4-12.3); Monocytes Absolute Auto 0.4 X10*3/uL (0.1-1.2); Monocytes Percent Auto 4.3 % (2-11); Neutrophils Absolute Auto 7.5 x10*3/uL (2.0-8.3); Neutrophils Percent Auto 74.3 % (45-73); Platelet Count 353 X10*3/uL (160-400); Red Blood Count 5.17 X10*6/uL (4.20-5.50); Red Cell Distribution Width 13.5 % (11.0-16.0); White Blood Count 10.1 X10*3/uL (4.8-10.8)
[2024-07-17] MEDS: hydrOXYzine HCL 25 MG TABLET PO (13:41)
[2024-07-17 14:02] LABS: Alanine Aminotransferase 8 U/L (0-31); Albumin Level 4.5 g/dL (3.5-5.0); Alkaline Phosphatase 88 U/L (39-117); Anion Gap 13 (12-20); Aspartate Amino Transferase 11 U/L (5-31); Bilirubin Total 0.2 mg/dL (0.0-1.0); Blood Urea Nitrogen 7 mg/dL (9-16); Calcium 10.2 mg/dL (8.4-10.2); Carbon Dioxide 26 mmol/L (22-29); Chloride 103 mmol/L (96-108); Creatinine Clr Calc Pharmacy 106.8; Estimated Glomerular Filt Rate > 60; Glucose Random 140 mg/dL (60-115); Potassium 4.2 mmol/L (3.3-5.1); Sodium 138 mmol/L (135-145); Total Protein 7.4 g/dL (6.5-8.0)
[2024-07-17] MEDS: Acetaminophen 325 MG TABLET 650 MG PO (17:28)
[2024-07-17] MEDS: Ondansetron ODT 4 MG TAB.RAPDIS TRANSLINGU (18:40)
[2024-07-17 20:00] VITALS: BP 119/76; PULSE 89; RESP 16; TEMP 36.3; O2SAT 100
[2024-07-17 22:19] VITALS: BP 118/75
[2024-07-17] MEDS: traZODone HCL 50 MG TABLET 150 MG PO (22:19)
[2024-07-17] MEDS: Lithium Carbonate ER 300 MG TABLET.ER 600 MG PO (22:19)
[2024-07-17] MEDS: Prazosin HCL 5 MG CAPSULE PO (22:19)
[2024-07-18 08:00] VITALS: BP 133/84; PULSE 91; TEMP 36.8; O2SAT 99
[2024-07-18] MEDS: Cariprazine HCl 3 MG CAPSULE PO (08:48)
[2024-07-18] MEDS: Naltrexone HCl 50 MG TABLET PO (08:48)
[2024-07-18] MEDS: Ondansetron ODT 4 MG TAB.RAPDIS TRANSLINGU ×2 (08:50→13:05)
[2024-07-18] MEDS: Nicotine 21 MG PATCH.TD24 TRANSDERMA (08:50)
--- NOTE | 2024-07-18 10:30 | P.PNPSI_ITS ---
Subjective Subjective Date of Service: 07/18/24 Reason For Visit: Labile SI Subjective Notes: Conditional Voluntary Healthcare Proxy: No Guardianship: No Medical Problems Affecting Mental Status: No Interim History: Met with pt, Raymundo MENDES. Call to [facility] Montal[facility] to discuss RAIN. They encouraged pt to complete a non- academic RAIN form on the student affairs web page and email [facility] [email or web address] to inform them. 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 Reports she has been awake most of the night-anxious, feeling hypomanic and jittery in anticipation of ECT. Discussed her questions related to short term memory loss. Medication Compliance: Yes Side effects from medications: No Attending Groups: Yes Review of Systems Acute medical concerns: No Medical Review of Systems: unchanged Review of Systems Review of Systems Yes all other systems are reviewed and are negative Mental Status Exam Mental Status Exam Narrative: Feeling hypomanic and jittery in anticipation of ECT Patient Appearance: Well Grooomed and Fatigued Patient Orientation: Person, Place, Time and Situation Level of Consciousness: Alert Patient Behavior: Appropriate, Talkative, Cooperative and Good Eye Contact Mood Description: Depressed Affect Description: Calm, Constricted and Flat Patient Cognition Impaired: No Ability to Follow Directions: Good Speech Pattern: Spontaneous Speech Memory Description: Intact Hallucinations: None Delusions: Not Present Perceptual Disturbances: Depersonalization and Derealization Thought Process: Goal Oriented Thought Content: positive for Logical, positive for Suicidal Ideation and negative for Homicidal Ideation Depressive Symptoms: Increased Anxiety, Increased Irritability, Increased Fatigue, Thoughts of /Suicide, Loss of Energy and Difficulty Concentrating Abnormal Motor Activity Signs and Symptoms: Restlessness Judgement: Fair Judgement and Insight: Patient understands that she has emotional instability consistent with borderline personality disorder and self-harming behavior as strategy by history patient also describes history of 1 manic episode in history of intense ongoing depression that does not shift not related to immediate interpersonal concerns in a sense at times that she would be better off with thoughts to jump off a bridge burn herself denies plan or intent in the setting she is asking for help was able to take in information regarding ECT Diagnostics Vital Signs (24Hr): Vital Signs - 24 hr 07/17/24 20:00 07/17/24 22:19 Temperature 97.4 F Pulse Rate 89 Respiratory Rate 16 Blood Pressure 119/76 118/75 Pulse Oximetry 100 Oxygen Delivery Method Room Air BMI result Body Mass Index 36.2 Labs 07/17/24 13:31 07/17/24 13:31 Labs: Laboratory Results - last 48 hr 07/17/24 07/17/24 07/17/24 13:31 13:31 13:31 WBC 10.1 RBC 5.17 Hgb 14.7 Hct 44.7 MCV 86.5 MCH 28.4 MCHC 32.9 RDW 13.5 Plt Count 353 MPV 10.1 Immature Gran % (Auto) 0.4 Neut % (Auto) 74.3 H Lymph % (Auto) 18.4 L [place] % (Auto) 4.3 Eos % (Auto) 2.1 Baso % (Auto) 0.5 Lymph # (Auto) 1.9 [place] # (Auto) 0.4 Eos # (Auto) 0.2 Baso # (Auto) 0.1 Abs Immat Gran (auto) 0.04 H Absolute Neuts (auto) 7.5 Absolute Nucleated RBC 0.000 Nucleated RBC % (auto) 0.0 Sodium 138 Potassium 4.2 Chloride 103 Carbon Dioxide 26 Anion Gap 13 BUN 7 L Creatinine 0.86 Cancelled Estim Creat Clear Calc 106.8 Cancelled Estimated GFR > 60 Random Glucose Calcium Total Bilirubin AST ALT Alkaline Phosphatase Total Protein Albumin 07/17/24 13:31 WBC RBC Hgb Hct MCV MCH MCHC RDW Plt Count MPV Immature Gran % (Auto) Neut % (Auto) Lymph % (Auto) [place] % (Auto) Eos % (Auto) Baso % (Auto) Lymph # (Auto) [place] # (Auto) Eos # (Auto) Baso # (Auto) Abs Immat Gran (auto) Absolute Neuts (auto) Absolute Nucleated RBC Nucleated RBC % (auto) Sodium Potassium Chloride Carbon Dioxide Anion Gap BUN Creatinine Estim Creat Clear Calc Estimated GFR Cancelled Random Glucose 140 H Calcium 10.2 Total Bilirubin 0.2 AST 11 ALT 8 Alkaline Phosphatase 88 Total Protein 7.4 Albumin 4.5 Medications Medications Current Medications Acetaminophen (Acetaminophen 325 Mg Tablet) 650 mg PO Q6H PRN PRN Reason: Headache/Pain Mild Scale (1-3) Last Admin: 07/17/24 17:28 Dose: 650 mg Al Hydroxide/Mg Hydroxide (Magnesium Hydrox/Alum Hydrox 30 Ml Oral.Susp) 30 ml PO Q6H PRN PRN Reason: Heartburn/Nausea Cariprazine (Cariprazine Hcl 3 Mg Capsule) 3 mg PO DAILY [facility] Last Admin: 07/18/24 08:48 Dose: 3 mg Hydroxyzine HCl (Hydroxyzine Hcl 25 Mg Tablet) 25 mg PO Q6H PRN PRN Reason: Anxiety Last Admin: 07/17/24 13:41 Dose: 25 mg [place] Carbonate ([place] Carbonate Er 300 Mg Tablet.Er) 600 mg PO BEDTIME [facility] Last Admin: 07/17/24 22:19 Dose: 600 mg Magnesium Hydroxide (Milk Of Magnesia 30 Ml Oral.Susp) 30 ml PO DAILY PRN PRN Reason: Constipation Metformin HCl (Metformin Hcl 500 Mg Tablet) 500 mg PO DAILY@1700 [facility] Last Admin: 07/17/24 17:01 Dose: Not Given Naltrexone HCl (Naltrexone Hcl 50 Mg Tablet) 50 mg PO DAILY [facility] Last Admin: 07/18/24 08:48 Dose: 50 mg Nicotine (Nicotine 21 Mg Patch.Td24) 21 mg TRANSDERMA DAILY PRN PRN Reason: smoking cessation Last Admin: 07/18/24 08:50 Dose: 21 mg Nicotine Polacrilex (Nicotine Polacrilex Lozenge 4 Mg Lozenge) 4 mg BUCCAL Q2H PRN PRN Reason: nicotine cravings Last Admin: 07/10/24 20:19 Dose: 4 mg Patient Own ( Atomoxetine 25 Mg Capsule) 25 mg PO DAILY [facility] Last Admin: 07/18/24 08:48 Dose: 25 mg Olanzapine (Olanzapine 5 Mg Tablet) 5 mg PO TID PRN PRN Reason: agitation Ondansetron HCl (Ondansetron Odt 4 Mg Tab.Rapdis) 4 mg TRANSLINGU Q8H PRN PRN Reason: Nausea and Vomiting Last Admin: 07/18/24 08:50 Dose: 4 mg Prazosin HCl (Prazosin Hcl 5 Mg Capsule) 5 mg PO BEDTIME [facility]; Protocol Last Admin: 07/17/24 22:19 Dose: 5 mg Trazodone HCl (Trazodone Hcl 50 Mg Tablet) 150 mg PO BEDTIME [facility] Last Admin: 07/17/24 22:19 Dose: 150 mg Trazodone HCl (Trazodone Hcl 50 Mg Tablet) 50 mg PO BEDTIME MRX1 PRN PRN Reason: Insomnia Last Admin: 07/12/24 22:01 Dose: 50 mg Allergies Allergies Allergy/AdvReac Type Severity Reaction Status Date / Time No Known Allergies Allergy Verified 07/07/24 20:03 Assessment & Plan Assessment & Plan (1) Bipolar 1 disorder, depressed: Status: Acute Code(s): F31.9 - Bipolar disorder, unspecified (2) Borderline personality disorder: Status: Acute Code(s): F60.3 - Borderline personality disorder (3) Suicidal ideation: Status: Acute Code(s): R45.851 - Suicidal ideations Plan The patient appears to have clinical depression on top of what appears to be dysphoria anxiety consistent PTSD borderline personality disorder with reactivity and intermittent self-injurious behavior. This does not appear to be part of that pattern there is a strong possible genetic component with her father having completed suicide and history of bipolar disorder patient agreeable to have thing us speak with her therapist and psychiatrist and records reviewed from [address] [place] [address] and [facility]. I have discussed with the patient that ECT would not treat chronic issues that she she deals with stress as mood and stability urges toward self injurious behavior and intermittent restricted eating disorder. The patient describes however ongoing depressed mood with intense thoughts of suicide history of not responding to antidepressant medication and has not stabilized bite a month of treatment with Vraylar and lithium. 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 Patient has had some response reportedly to TMS in the past given intensity of her suicidal thoughts intensity of depression at this time does not seem a current option. Call has been placed to her outpatient psychiatrist in [place]. Although I would not recommend ECT for borderline personality disorder per se certainly given her ongoing depression lack of emotional reactivity anhedonia intense negative affective state that seems to be consistent with thoughts of suicide the patient would meet criteria for a course of ECT which we would start with right unilateral treatment there are no medical contraindications Case has also been discussed and reviewed with inpatient treatment team. 07/18/24: ECT 8.23. Informed Consent: understands Reason for continued inpatient stay Substantial Risk for: rapid decompensation Time Spent With Patient Time: Total time managing care of this patient today ____ minutes.
[2024-07-18 22:12] VITALS: BP 118/81; PULSE 92; RESP 18; TEMP 36.2; O2SAT 100
[2024-07-18] MEDS: traZODone HCL 50 MG TABLET 150 MG PO (22:15)
[2024-07-18] MEDS: Prazosin HCL 5 MG CAPSULE PO (22:15)
[2024-07-18] MEDS: traZODone HCL 50 MG TABLET PO (23:21)
[2024-07-19] VITALS (11 sets, daily range): BP systolic 106–142; BP diastolic 60–95; PULSE 72–93; RESP 14–27; TEMP 35.9–36.9; O2SAT 96–100
[2024-07-19] MEDS: Lactated Ringers 1,000 ML 100 ML IVCONT (07:01)
--- NOTE | 2024-07-19 07:25 | P.CONAN_ITS ---
HPI - Anesthesia Eval Consult details Narrative: 24 yo female patient with major depression. For ECT PMFSH Active Problems Active Problems: All Active Problems Routine medical exam (Acute) Bipolar 1 disorder, depressed (Acute) Borderline personality disorder (Acute) Suicidal ideation (Acute) Past Medical History Medical History No pertinent past medical history Family History Family history of problems with anesthesia: No Surgical History History of Problems with Anesthesia: No Social History Social History Household Members: Family Household Members Other:: Been staying with a friend this summer. Lives on campus during school year Housing: House Do you presently have visiting nurse or other home services: No Patient Tobacco Use Status: Current everyday Tobacco user Tobacco use type: Cigarette Cigarettes Per Day: 8 Smoked in Last 30 Days: Yes Patient Interested in Nicotine Replacement: Yes Patient Given Instructions on How to Stop Smoking: No Second Hand Smoke Exposure: No Use of substances other than those prescribed or required for medical reasons: No Currently Displaying Signs/Symptoms of Drug Intoxication Withdrawal: No Any prior treatment program specific to substance use: No Have you been hit, kicked, punched, or otherwise hurt by someone within the past year? If so, by whom?: No Do you feel safe in your current relationship?: No Current Relationship Is there a partner from a previous relationship who is making you feel unsafe now?: No Are you made to feel afraid or neglected: No Advance Directives: No Advance Directives Information Provided: No Do you have thoughts of harming others: None Do you have a plan to hurt others: No Plan Recently lost weight without trying: No How much weight loss: Not applicable Eating poorly because of decreased appetite: Yes Nutrition screen score: 1 Nutrition Risks: Anorexia Patient : No : No Poor oral hygiene: No service: No Sexual orientation: Straight/Heterosexual Meds Allergies Allergy/AdvReac Type Severity Reaction Status Date / Time No Known Allergies Allergy Verified 07/07/24 20:03 Active Medications: Current Medications Acetaminophen (Acetaminophen 325 Mg Tablet) 650 mg PO Q6H PRN PRN Reason: Headache/Pain Mild Scale (1-3) Last Admin: 07/17/24 17:28 Dose: 650 mg Al Hydroxide/Mg Hydroxide (Magnesium Hydrox/Alum Hydrox 30 Ml Oral.Susp) 30 ml PO Q6H PRN PRN Reason: Heartburn/Nausea Cariprazine (Cariprazine Hcl 3 Mg Capsule) 3 mg PO DAILY [facility] Last Admin: 07/18/24 08:48 Dose: 3 mg Hydroxyzine HCl (Hydroxyzine Hcl 25 Mg Tablet) 25 mg PO Q6H PRN PRN Reason: Anxiety Last Admin: 07/17/24 13:41 Dose: 25 mg Lactated Ringer's (Lr) 1,000 mls @ 100 mls/hr IVCONT .Q10H PREETI Last Admin: 07/19/24 07:01 Dose: 100 mls/hr Magnesium Hydroxide (Milk Of Magnesia 30 Ml Oral.Susp) 30 ml PO DAILY PRN PRN Reason: Constipation Metformin HCl (Metformin Hcl 500 Mg Tablet) 500 mg PO DAILY@1700 PREETI Last Admin: 07/18/24 17:58 Dose: Not Given Naltrexone HCl (Naltrexone Hcl 50 Mg Tablet) 50 mg PO DAILY [facility] Last Admin: 07/18/24 08:48 Dose: 50 mg Nicotine (Nicotine 21 Mg Patch.Td24) 21 mg TRANSDERMA DAILY PRN PRN Reason: smoking cessation Last Admin: 07/18/24 08:50 Dose: 21 mg Nicotine Polacrilex (Nicotine Polacrilex Lozenge 4 Mg Lozenge) 4 mg BUCCAL Q2H PRN PRN Reason: nicotine cravings Last Admin: 07/10/24 20:19 Dose: 4 mg Patient Own ( Atomoxetine 25 Mg Capsule) 25 mg PO DAILY [facility] Last Admin: 07/18/24 08:48 Dose: 25 mg Olanzapine (Olanzapine 5 Mg Tablet) 5 mg PO TID PRN PRN Reason: agitation Ondansetron HCl (Ondansetron Odt 4 Mg Tab.Rapdis) 4 mg TRANSLINGU TIDAC PRN PRN Reason: nausea Last Admin: 07/18/24 13:05 Dose: 4 mg Prazosin HCl (Prazosin Hcl 5 Mg Capsule) 5 mg PO BEDTIME [facility]; Protocol Last Admin: 07/18/24 22:15 Dose: 5 mg Trazodone HCl (Trazodone Hcl 50 Mg Tablet) 150 mg PO BEDTIME [facility] Last Admin: 07/18/24 22:15 Dose: 150 mg Trazodone HCl (Trazodone Hcl 50 Mg Tablet) 50 mg PO BEDTIME MRX1 PRN PRN Reason: Insomnia Last Admin: 07/18/24 23:21 Dose: 50 mg Home Medications ?Medication ?Instructions ?Recorded ?Confirmed ?Last Taken ?Type cariprazine 1.5 mg capsule 3 mg PO QAM 07/07/24 07/07/24 07/07/24 08:00 History (Rebekah) lithium carbonate 300 mg 300 mg PO BID 07/07/24 07/07/24 07/07/24 08:00 History tablet,extended release metformin 500 mg tablet 500 mg PO DAILY 07/07/24 07/07/24 07/07/24 08:00 History naltrexone 50 mg tablet 50 mg PO DAILY 07/07/24 07/07/24 07/07/24 08:00 History prazosin 5 mg capsule 5 mg PO BEDTIME 07/07/24 07/07/24 07/05/24 20:00 History trazodone 150 mg tablet 150 mg PO BEDTIME 07/07/24 07/07/24 07/06/24 20:00 History Exam Height,Weight and Vital Signs: Height 5 ft 2 in Weight 89.8 kg Last Vital Signs Temp 96.6 F L 07/19/24 06:42 Pulse 87 07/19/24 06:42 Resp 20 07/19/24 06:42 BP 120/74 07/19/24 06:42 Pulse Ox 98 07/19/24 06:42 O2 Del Method Room Air 07/19/24 06:42 Pertinent Lab Results Pertinent Lab Results: Laboratory Tests 07/07/24 07/09/24 07/17/24 20:25 07:53 13:31 WBC 15.4 H 12.1 H 10.1 RBC 4.91 4.79 5.17 Hgb 13.9 13.8 14.7 Hct 42.1 41.0 44.7 MCV 85.7 85.6 86.5 MCH 28.3 28.8 28.4 MCHC 33.0 33.7 32.9 RDW 13.2 13.3 13.5 Plt Count 432 H 368 353 MPV 9.8 9.7 10.1 Immature Gran % (Auto) 0.3 0.4 0.4 Neut % (Auto) 76.2 H 66.1 74.3 H Lymph % (Auto) 17.2 L 24.8 18.4 L [place] % (Auto) 5.2 5.6 4.3 Eos % (Auto) 0.8 2.8 2.1 Baso % (Auto) 0.3 0.3 0.5 Lymph # (Auto) 2.7 3.0 1.9 [place] # (Auto) 0.8 0.7 0.4 Eos # (Auto) 0.1 0.3 0.2 Baso # (Auto) 0.0 0.0 0.1 Abs Immat Gran (auto) 0.05 H 0.05 H 0.04 H Absolute Neuts (auto) 11.7 H 8.0 7.5 Absolute Nucleated RBC 0.000 0.000 0.000 Nucleated RBC % (auto) 0.0 0.0 0.0 Sodium 139 138 Potassium 4.0 4.2 Chloride 105 103 Carbon Dioxide 25 26 Anion Gap 13 13 BUN 9 7 L Creatinine 0.94 0.86 Estim Creat Clear Calc 97.8 Estimated GFR > 60 Random Glucose 102 Estimat Average Glucose 111 Hemoglobin A1c % 5.5 Calcium 10.0 Total Bilirubin 0.3 AST 13 ALT 9 Alkaline Phosphatase 98 Total Protein 7.8 Albumin 4.7 Triglycerides 90 Cholesterol 116 LDL Cholesterol, Calc 67 HDL Cholesterol 31 L TSH 0.36 Urine Color Yellow Urine Appearance Clear Urine pH 8.0 Ur Specific [place] 1.025 Urine Protein Trace Urine Glucose (UA) Negative Urine Ketones >=160 Urine Blood Negative Urine Nitrite Negative Ur Leukocyte Esterase Trace H Urine RBC 0-2 Urine WBC 0-5 Ur Squamous Epith Cells 3-5 Urine Bacteria Trace Hyaline Casts 0-2 Urine Test NEGATIVE Salicylates < 5.0 L Urine Opiates Screen Not Detected Ur Buprenorphine Scrn Not Detected Ur Oxycodone Screen Not Detected Urine Methadone Screen Not Detected Urine Fentanyl Screen Not Detected Acetaminophen < 3 Ur Barbiturates Screen Not Detected Ur Phencyclidine Scrn Not Detected Ur Amphetamines Screen Not Detected U Benzodiazepines Scrn Not Detected [place] 0.84 Urine Cocaine Screen Not Detected U Marijuana (THC) Screen Not Detected Ethyl Alcohol < 10 07/17/24 07/17/24 07/17/24 13:31 13:31 13:31 WBC RBC Hgb Hct MCV MCH MCHC RDW Plt Count MPV Immature Gran % (Auto) Neut % (Auto) Lymph % (Auto) [place] % (Auto) Eos % (Auto) Baso % (Auto) Lymph # (Auto) [place] # (Auto) Eos # (Auto) Baso # (Auto) Abs Immat Gran (auto) Absolute Neuts (auto) Absolute Nucleated RBC Nucleated RBC % (auto) Sodium Potassium Chloride Carbon Dioxide Anion Gap BUN Creatinine Cancelled Estim Creat Clear Calc 106.8 Cancelled Estimated GFR > 60 Cancelled Random Glucose 140 H Estimat Average Glucose Hemoglobin A1c % Calcium 10.2 Total Bilirubin 0.2 AST 11 ALT 8 Alkaline Phosphatase 88 Total Protein 7.4 Albumin 4.5 Triglycerides Cholesterol LDL Cholesterol, Calc HDL Cholesterol TSH Urine Color Urine Appearance Urine pH Ur Specific [place] Urine Protein Urine Glucose (UA) Urine Ketones Urine Blood Urine Nitrite Ur Leukocyte Esterase Urine RBC Urine WBC Ur Squamous Epith Cells Urine Bacteria Hyaline Casts Urine Test Salicylates Urine Opiates Screen Ur Buprenorphine Scrn Ur Oxycodone Screen Urine Methadone Screen Urine Fentanyl Screen Acetaminophen Ur Barbiturates Screen Ur Phencyclidine Scrn Ur Amphetamines Screen U Benzodiazepines Scrn [place] Urine Cocaine Screen U Marijuana (THC) Screen Ethyl Alcohol Airway Mallampati Class: III (Small mouth opening) TM Dist: >3cm Neck ROM: Full Loose/Missing/Broken Teeth: Yes (Missing tooth bottom right back) Heart: RRR Lungs: CTAB Assessment and Plan Assessment Anesthesia Assessment: Anesthesia Plan Discussed and Chart Reviewed Final Anesthetic Review Family History of Problems with Anesthesia: No History of Problems with Anesthesia: No NPO: Yes ASA Class: III Final Preanesthetic Review: No Changes in Pt Med Stat, Meds/Allgs Chart Reviewed, Consent Obtained/Reviewed and Anes Risks/Benef Reviewed Patient Risk: Intermediate Procedure Risk: Intermediate Assessment/Block/Sedation in SS: Assess/Block/Sedation-SS Anesthetic Plan Anesthetic Plan: GA Disposition: Standard PACU
--- NOTE | 2024-07-19 07:27 | MHC.SHP ---
Pre-Procedural Eval Section A - 24 Hr Update-Section A only Date of Service: 07/19/24 The patient is an INPATIENT: No Changes since office visit: Yes Changes in Medication and Yes Patient answered all questions; No Cold of Flu in the past 2 weeks and No New Medical Problems The patient has been examined within 24 hours of the surgical procedure. The History & Physical has been completed within 30 days and I have reviewed it.: Yes Section B - Complete if H&P > 30 days Chief Complaint: Labile SI Allergies: Allergies Allergy/AdvReac Type Severity Reaction Status Date / Time No Known Allergies Allergy Verified 07/07/24 20:03 Plan I have reviewed the history and physical and performed a pertinent physical examination on my patient. No changes have occurred unless specified. Time Spent With Patient Time: Total time managing care of this patient today ____ minutes.
--- NOTE | 2024-07-19 07:49 | HO.ECTPROC ---
ECT Procedure Note Diagnosis/Treatment Date of Service: 07/19/24 Diagnosis: Bipolar disorder and Major Depressive Disorder Current Treatment Number: 1 Interval Clinical Notes: pt tx with r unilateral tx tolerated with good effect . Can decrease stimulation to 60 % from 100 .Suggest glyco 0.2 pretx next time per anesthesia Time: Total time managing care of this patient today ____ minutes. ECT Settings Device: THYMATRON DGx Electrode Placement: Right Unilateral Program/Pulse Width: 0.25 Energy Percent: 100 Seizure Duration By EEG (in seconds): 101 Medications Administration General Anesthetic: Etomidate (14) Muscle Relaxant: Succinylcholine (100) Ancillary Medications Miscillaneous Medications: Propofol (30) Treatment Recommendations Energy Percent: 60 Pt Tolerated Procedure w/o Issue: Yes
[2024-07-19] MEDS: Acetaminophen 325 MG TABLET 650 MG PO ×2 (09:40→16:04)
[2024-07-19] MEDS: Cariprazine HCl 3 MG CAPSULE PO (09:40)
[2024-07-19] MEDS: Naltrexone HCl 50 MG TABLET PO (09:40)
--- NOTE | 2024-07-19 14:21 | P.PNPSI_ITS ---
Subjective Subjective Date of Service: 07/19/24 Reason For Visit: Labile SI Interim History: Met with patient; discussed with team Patient is post ECT. She is lying in bed alert and oriented but feeling tired. She said she had a headache which got better with p.r.n. medication. Some muscle aches. She felt foggy with some blurred vision but that too is resolving. She says she just wants to rest for now. Mental Status Exam Mental Status Exam Narrative: tired post ECT Patient Appearance: Well Grooomed and Fatigued Patient Orientation: Person, Place, Time and Situation Level of Consciousness: Drowsy Patient Behavior: Appropriate, Cooperative and Good Eye Contact Mood Description: Depressed Affect Description: Calm, Constricted and Flat Patient Cognition Impaired: No Ability to Follow Directions: Good Speech Pattern: Spontaneous Speech Memory Description: Intact Hallucinations: None Delusions: Not Present Perceptual Disturbances: Depersonalization and Derealization Thought Process: Goal Oriented Thought Content: positive for Logical and negative for Homicidal Ideation Depressive Symptoms: Increased Anxiety, Increased Irritability, Increased Fatigue, Thoughts of /Suicide, Loss of Energy and Difficulty Concentrating Judgement: Fair Judgement and Insight: Patient understands that she has emotional instability consistent with borderline personality disorder and self-harming behavior as strategy by history patient also describes history of 1 manic episode in history of intense ongoing depression that does not shift not related to immediate interpersonal concerns in a sense at times that she would be better off with thoughts to jump off a bridge burn herself denies plan or intent in the setting she is asking for help was able to take in information regarding ECT Diagnostics Vital Signs (24Hr): Vital Signs - 24 hr 07/18/24 22:12 07/19/24 06:42 07/19/24 07:45 Temperature 97.2 F 96.6 F L 97.6 F Pulse Rate 92 87 73 Respiratory Rate 18 20 27 H Blood Pressure 118/81 120/74 138/80 Pulse Oximetry 100 98 99 Oxygen Delivery Method Room Air Room Air Nasal Cannula with ETCO2 Oxygen Flow Rate 2 07/19/24 07:50 07/19/24 07:55 07/19/24 08:00 Temperature Pulse Rate 92 84 81 Respiratory Rate 19 14 16 Blood Pressure 136/86 142/91 H 136/95 H Pulse Oximetry 100 99 100 Oxygen Delivery Method Nasal Cannula with ETCO2 Nasal Cannula with ETCO2 Nasal Cannula with ETCO2 Oxygen Flow Rate 2 2 2 07/19/24 08:11 07/19/24 08:15 07/19/24 08:30 Temperature 98.5 F Pulse Rate 93 81 77 Respiratory Rate 16 15 16 Blood Pressure 119/73 125/86 121/80 Pulse Oximetry 98 100 99 Oxygen Delivery Method Room Air Nasal Cannula with ETCO2 Room Air Oxygen Flow Rate 2 07/19/24 08:40 07/19/24 09:12 Temperature 97.6 F 98.5 F Pulse Rate 88 72 Respiratory Rate 17 16 Blood Pressure 116/78 110/68 Pulse Oximetry 99 96 Oxygen Delivery Method Room Air Room Air Oxygen Flow Rate BMI result Body Mass Index 36.2 Labs 07/17/24 13:31 07/17/24 13:31 Medications Medications Current Medications Acetaminophen (Acetaminophen 325 Mg Tablet) 650 mg PO Q6H PRN PRN Reason: Headache/Pain Mild Scale (1-3) Last Admin: 07/19/24 09:40 Dose: 650 mg Al Hydroxide/Mg Hydroxide (Magnesium Hydrox/Alum Hydrox 30 Ml Oral.Susp) 30 ml PO Q6H PRN PRN Reason: Heartburn/Nausea Cariprazine (Cariprazine Hcl 3 Mg Capsule) 3 mg PO DAILY [facility] Last Admin: 07/19/24 09:40 Dose: 3 mg Hydroxyzine HCl (Hydroxyzine Hcl 25 Mg Tablet) 25 mg PO Q6H PRN PRN Reason: Anxiety Last Admin: 07/17/24 13:41 Dose: 25 mg Magnesium Hydroxide (Milk Of Magnesia 30 Ml Oral.Susp) 30 ml PO DAILY PRN PRN Reason: Constipation Metformin HCl (Metformin Hcl 500 Mg Tablet) 500 mg PO DAILY@1700 [facility] Last Admin: 07/18/24 17:58 Dose: Not Given Naltrexone HCl (Naltrexone Hcl 50 Mg Tablet) 50 mg PO DAILY [facility] Last Admin: 07/19/24 09:40 Dose: 50 mg Nicotine (Nicotine 21 Mg Patch.Td24) 21 mg TRANSDERMA DAILY PRN PRN Reason: smoking cessation Last Admin: 07/18/24 08:50 Dose: 21 mg Nicotine Polacrilex (Nicotine Polacrilex Lozenge 4 Mg Lozenge) 4 mg BUCCAL Q2H PRN PRN Reason: nicotine cravings Last Admin: 07/10/24 20:19 Dose: 4 mg Patient Own ( Atomoxetine 25 Mg Capsule) 25 mg PO DAILY [facility] Last Admin: 07/19/24 09:40 Dose: 25 mg Olanzapine (Olanzapine 5 Mg Tablet) 5 mg PO TID PRN PRN Reason: agitation Ondansetron HCl (Ondansetron Odt 4 Mg Tab.Rapdis) 4 mg TRANSLINGU TIDAC PRN PRN Reason: nausea Last Admin: 07/18/24 13:05 Dose: 4 mg Prazosin HCl (Prazosin Hcl 5 Mg Capsule) 5 mg PO BEDTIME PRE[facility]; Protocol Last Admin: 07/18/24 22:15 Dose: 5 mg Trazodone HCl (Trazodone Hcl 50 Mg Tablet) 150 mg PO BEDTIME [facility] Last Admin: 07/18/24 22:15 Dose: 150 mg Trazodone HCl (Trazodone Hcl 50 Mg Tablet) 50 mg PO BEDTIME MRX1 PRN PRN Reason: Insomnia Last Admin: 07/18/24 23:21 Dose: 50 mg Allergies Allergies Allergy/AdvReac Type Severity Reaction Status Date / Time No Known Allergies Allergy Verified 07/07/24 20:03 Assessment & Plan Assessment & Plan (1) Bipolar 1 disorder, depressed: Status: Acute Code(s): F31.9 - Bipolar disorder, unspecified (2) Borderline personality disorder: Status: Acute Code(s): F60.3 - Borderline personality disorder (3) Suicidal ideation: Status: Acute Code(s): R45.851 - Suicidal ideations Plan The patient appears to have clinical depression on top of what appears to be dysphoria anxiety consistent PTSD borderline personality disorder with reactivity and intermittent self-injurious behavior. This does not appear to be part of that pattern there is a strong possible genetic component with her father having completed suicide and history of bipolar disorder patient agreeable to have thing us speak with her therapist and psychiatrist and records reviewed from [address] [place] [address] and [facility]. I have discussed with the patient that ECT would not treat chronic issues that she she deals with stress as mood and stability urges toward self injurious behavior and intermittent restricted eating disorder. The patient describes however ongoing depressed mood with intense thoughts of suicide history of not responding to antidepressant medication and has not stabilized bite a month of treatment with Vraylar and lithium. 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 Patient has had some response reportedly to TMS in the past given intensity of her suicidal thoughts intensity of depression at this time does not seem a current option. Call has been placed to her outpatient psychiatrist in [place]. Although I would not recommend ECT for borderline personality disorder per se certainly given her ongoing depression lack of emotional reactivity anhedonia intense negative affective state that seems to be consistent with thoughts of suicide the patient would meet criteria for a course of ECT which we would start with right unilateral treatment there are no medical contraindications Case has also been discussed and reviewed with inpatient treatment team. Hospital course: 07/18/24: ECT 07.19. 07/19 Patient is post ECT. She is lying in bed alert and oriented but feeling tired. She said she had a headache which got better with p.r.n. medication. Some muscle aches. She felt foggy with some blurred vision but that too is resolving. She says she just wants to rest for now. PLAN: CV q15 min checks ECT #1 on 07/19 ECT #2 pending 07/22 npo Patient educated on: diagnosis and ECT Informed Consent: understands Reason for continued inpatient stay Substantial Risk for: inability to function Time Spent With Patient Time: Total time managing care of this patient today ____ minutes.
[2024-07-19] MEDS: metFORMIN HCl 500 MG TABLET PO (16:04)
[2024-07-19] MEDS: Prazosin HCL 5 MG CAPSULE PO (21:52)
[2024-07-19] MEDS: traZODone HCL 50 MG TABLET 150 MG PO (21:52)
[2024-07-20 08:09] VITALS: BP 101/54; PULSE 76; RESP 16; TEMP 36.6; O2SAT 97
[2024-07-20] MEDS: Cariprazine HCl 3 MG CAPSULE PO (08:59)
[2024-07-20] MEDS: Naltrexone HCl 50 MG TABLET PO (08:59)
[2024-07-20] MEDS: Acetaminophen 325 MG TABLET 650 MG PO ×2 (09:29→22:41)
[2024-07-20] MEDS: Ondansetron ODT 4 MG TAB.RAPDIS TRANSLINGU ×4 (09:37→22:45)
--- NOTE | 2024-07-20 10:02 | P.PNPSI_ITS ---
Subjective Subjective Date of Service: 07/20/24 Reason For Visit: Labile SI Interim History: Met with patient; discussed with team Reports overall feeling calm today; side effects from anesthesia/ECT have resolved and no headache, no fuzzy thinking, no blurry vision; says her muscles are feeling sore however does not want any medication to help with them. Patient wants to continue with ECT and accepts this may interfere with schooling. Discussed hand tremor which was brought up by nursing. Patient says it has been there for quite a long time and she attributes it to poor diet Mental Status Exam Mental Status Exam Patient Appearance: Well Grooomed and Fatigued Patient Orientation: Person, Place, Time and Situation Level of Consciousness: Awake, Appropriate and Alert Patient Behavior: Appropriate, Cooperative and Good Eye Contact Mood Description: Calm and Depressed Affect Description: Calm, Appropriate (brighter) and Flat Patient Cognition Impaired: No Ability to Follow Directions: Good Speech Pattern: Spontaneous Speech Memory Description: Intact Hallucinations: None Delusions: Not Present Perceptual Disturbances: Depersonalization and Derealization Thought Process: Goal Oriented Thought Content: positive for Intact (on treatment; no SI), positive for Logical, negative for Suicidal Ideation or negative for Homicidal Ideation Depressive Symptoms: Increased Anxiety, Increased Irritability, Increased Fatigue, Loss of Energy and Difficulty Concentrating Judgement: Fair Judgement and Insight: Patient understands that she has emotional instability consistent with borderline personality disorder and self-harming behavior as strategy by history patient also describes history of 1 manic episode in history of intense ongoing depression that does not shift not related to immediate interpersonal concerns in a sense at times that she would be better off with thoughts to jump off a bridge burn herself denies plan or intent in the setting she is asking for help was able to take in information regarding ECT Diagnostics Vital Signs (24Hr): Vital Signs - 24 hr 07/19/24 20:00 07/20/24 08:09 Temperature 97.8 F 97.9 F Pulse Rate 90 76 Respiratory Rate 18 16 Blood Pressure 106/60 101/54 L Pulse Oximetry 98 97 Oxygen Delivery Method Room Air Room Air BMI result Body Mass Index 36.2 Labs 07/17/24 13:31 07/17/24 13:31 Medications Medications Current Medications Acetaminophen (Acetaminophen 325 Mg Tablet) 650 mg PO Q6H PRN PRN Reason: Headache/Pain Mild Scale (1-3) Last Admin: 07/20/24 09:29 Dose: 650 mg Al Hydroxide/Mg Hydroxide (Magnesium Hydrox/Alum Hydrox 30 Ml Oral.Susp) 30 ml PO Q6H PRN PRN Reason: Heartburn/Nausea Cariprazine (Cariprazine Hcl 3 Mg Capsule) 3 mg PO DAILY [facility] Last Admin: 07/20/24 08:59 Dose: 3 mg Hydroxyzine HCl (Hydroxyzine Hcl 25 Mg Tablet) 25 mg PO Q6H PRN PRN Reason: Anxiety Last Admin: 07/17/24 13:41 Dose: 25 mg Magnesium Hydroxide (Milk Of Magnesia 30 Ml Oral.Susp) 30 ml PO DAILY PRN PRN Reason: Constipation Metformin HCl (Metformin Hcl 500 Mg Tablet) 500 mg PO DAILY@1700 [facility] Last Admin: 07/19/24 16:04 Dose: 500 mg Naltrexone HCl (Naltrexone Hcl 50 Mg Tablet) 50 mg PO DAILY [facility] Last Admin: 07/20/24 08:59 Dose: 50 mg Nicotine (Nicotine 21 Mg Patch.Td24) 21 mg TRANSDERMA DAILY PRN PRN Reason: smoking cessation Last Admin: 07/18/24 08:50 Dose: 21 mg Nicotine Polacrilex (Nicotine Polacrilex Lozenge 4 Mg Lozenge) 4 mg BUCCAL Q2H PRN PRN Reason: nicotine cravings Last Admin: 07/10/24 20:19 Dose: 4 mg Patient Own ( Atomoxetine 25 Mg Capsule) 25 mg PO DAILY [facility] Last Admin: 07/20/24 08:59 Dose: 25 mg Olanzapine (Olanzapine 5 Mg Tablet) 5 mg PO TID PRN PRN Reason: agitation Ondansetron HCl (Ondansetron Odt 4 Mg Tab.Rapdis) 4 mg TRANSLINGU TIDAC PRN PRN Reason: nausea Last Admin: 07/20/24 09:37 Dose: 4 mg Prazosin HCl (Prazosin Hcl 5 Mg Capsule) 5 mg PO BEDTIME [facility]; Protocol Last Admin: 07/19/24 21:52 Dose: 5 mg Trazodone HCl (Trazodone Hcl 50 Mg Tablet) 150 mg PO BEDTIME PREETI Last Admin: 07/19/24 21:52 Dose: 150 mg Trazodone HCl (Trazodone Hcl 50 Mg Tablet) 50 mg PO BEDTIME MRX1 PRN PRN Reason: Insomnia Last Admin: 07/18/24 23:21 Dose: 50 mg Allergies Allergies Allergy/AdvReac Type Severity Reaction Status Date / Time No Known Allergies Allergy Verified 07/07/24 20:03 Assessment & Plan Assessment & Plan (1) Bipolar 1 disorder, depressed: Status: Acute Code(s): F31.9 - Bipolar disorder, unspecified (2) Borderline personality disorder: Status: Acute Code(s): F60.3 - Borderline personality disorder (3) Suicidal ideation: Status: Acute Code(s): R45.851 - Suicidal ideations Plan The patient appears to have clinical depression on top of what appears to be dysphoria anxiety consistent PTSD borderline personality disorder with reactivity and intermittent self-injurious behavior. This does not appear to be part of that pattern there is a strong possible genetic component with her father having completed suicide and history of bipolar disorder patient agreeable to have thing us speak with her therapist and psychiatrist and records reviewed from [address] [place] [address] and [facility]. I have discussed with the patient that ECT would not treat chronic issues that she she deals with stress as mood and stability urges toward self injurious behavior and intermittent restricted eating disorder. The patient describes however ongoing depressed mood with intense thoughts of suicide history of not responding to antidepressant medication and has not stabilized bite a month of treatment with Vraylar and lithium. 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 Patient has had some response reportedly to TMS in the past given intensity of her suicidal thoughts intensity of depression at this time does not seem a current option. Call has been placed to her outpatient psychiatrist in [place]. Although I would not recommend ECT for borderline personality disorder per se certainly given her ongoing depression lack of emotional reactivity anhedonia intense negative affective state that seems to be consistent with thoughts of suicide the patient would meet criteria for a course of ECT which we would start with right unilateral treatment there are no medical contraindications Case has also been discussed and reviewed with inpatient treatment team. Hospital course: 07/18/24: ECT 07.19. 07/19 Patient is post ECT. She is lying in bed alert and oriented but feeling tired. She said she had a headache which got better with p.r.n. medication. Some muscle aches. She felt foggy with some blurred vision but that too is resolving. She says she just wants to rest for now. 07/20 patient feeling calm day after ECT. Wants to continue. PLAN: CV q15 min checks ECT #1 on 07/19 ECT #2 pending 07/22 npo Patient educated on: diagnosis, medication risk/benefits and ECT Informed Consent: understands Reason for continued inpatient stay Substantial Risk for: rapid decompensation Time Spent With Patient Time: Total time managing care of this patient today ____ minutes.
[2024-07-20] MEDS: Nicotine 21 MG PATCH.TD24 TRANSDERMA (12:11)
[2024-07-20] MEDS: metFORMIN HCl 500 MG TABLET PO (18:08)
[2024-07-20 20:00] VITALS: BP 123/76; PULSE 97; RESP 18; TEMP 36.7; O2SAT 100
[2024-07-20] MEDS: hydrOXYzine HCL 25 MG TABLET PO (21:26)
[2024-07-20] MEDS: OLANZapine 5 MG TABLET PO (22:40)
[2024-07-20] MEDS: traZODone HCL 50 MG TABLET 150 MG PO (22:45)
[2024-07-20] MEDS: Prazosin HCL 5 MG CAPSULE PO (22:46)
[2024-07-21 08:28] VITALS: BP 93/51; PULSE 66; RESP 18; TEMP 36.7; O2SAT 99
[2024-07-21] MEDS: Naltrexone HCl 50 MG TABLET PO (08:38)
[2024-07-21] MEDS: Ondansetron ODT 4 MG TAB.RAPDIS TRANSLINGU ×3 (08:39→17:59)
[2024-07-21] MEDS: Cariprazine HCl 3 MG CAPSULE PO (08:39)
[2024-07-21] MEDS: Nicotine 21 MG PATCH.TD24 TRANSDERMA (08:39)
[2024-07-21 09:06] LABS: Creatinine Clr Calc Pharmacy 106.8; Estimated Glomerular Filt Rate > 60
[2024-07-21] MEDS: Sennosides 8.6 MG TABLET 17.2 MG PO (13:47)
[2024-07-21] MEDS: bisacodyL 5 MG TABLET.DR 10 MG PO (14:51)
[2024-07-21] MEDS: Ibuprofen 600 MG TABLET PO (16:19)
[2024-07-21] MEDS: metFORMIN HCl 500 MG TABLET PO (17:59)
[2024-07-21 20:00] VITALS: BP 115/68; PULSE 98; TEMP 36.2; O2SAT 99
[2024-07-21 22:05] VITALS: BP 105/58; PULSE 89; TEMP 36.6
[2024-07-21] MEDS: traZODone HCL 50 MG TABLET 150 MG PO (22:18)
[2024-07-21] MEDS: traZODone HCL 50 MG TABLET PO (22:18)
[2024-07-21 22:19] VITALS: BP 105/58
[2024-07-21] MEDS: Prazosin HCL 5 MG CAPSULE PO (22:19)
[2024-07-21] MEDS: OLANZapine 10 MG TABLET PO (22:19)
--- NOTE | 2024-07-21 23:42 | HO.PSYCHPN ---
Subjective Subjective Date of Service: 07/21/24 Reason For Visit: Labile SI Interim History: Met with patient; discussed with team. Patient says she has come in the outside but on the inside she feels a little revved up.; wants to continue with ECT. 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 Later in the evening patient reported feeling that she was starting to get hypomanic and asked for increased dose of Zyprexa Mental Status Exam Mental Status Exam Patient Appearance: Well Grooomed and Fatigued Patient Orientation: Person, Place, Time and Situation Level of Consciousness: Awake, Appropriate and Alert Patient Behavior: Appropriate, Cooperative and Good Eye Contact Mood Description: Calm (calm on outside but energy on inside) and Depressed Affect Description: Calm, Appropriate (brighter) and Flat Patient Cognition Impaired: No Ability to Follow Directions: Good Speech Pattern: Spontaneous Speech Memory Description: Intact Hallucinations: None Delusions: Not Present Perceptual Disturbances: Depersonalization and Derealization Thought Process: Goal Oriented Thought Content: positive for Intact (on treatment; no SI), positive for Logical, negative for Suicidal Ideation or negative for Homicidal Ideation Depressive Symptoms: Increased Anxiety, Increased Irritability, Increased Fatigue, Loss of Energy and Difficulty Concentrating Judgement: Fair Judgement and Insight: Patient understands that she has emotional instability consistent with borderline personality disorder and self-harming behavior as strategy by history patient also describes history of 1 manic episode in history of intense ongoing depression that does not shift not related to immediate interpersonal concerns in a sense at times that she would be better off with thoughts to jump off a bridge burn herself denies plan or intent in the setting she is asking for help was able to take in information regarding ECT Diagnostics Vital Signs (24Hr): Vital Signs - 24 hr 07/21/24 08:28 07/21/24 20:00 07/21/24 22:05 Temperature 98.1 F 97.2 F 97.8 F Pulse Rate 66 98 89 Respiratory Rate 18 Blood Pressure 93/51 L 115/68 105/58 L Pulse Oximetry 99 99 Oxygen Delivery Method Room Air Room Air 07/21/24 22:19 Temperature Pulse Rate Respiratory Rate Blood Pressure 105/58 L Pulse Oximetry Oxygen Delivery Method BMI result Body Mass Index 36.2 Labs 07/17/24 13:31 07/21/24 08:39 Labs: Laboratory Results - last 48 hr 07/21/24 08:39 Creatinine 0.86 Estim Creat Clear Calc 106.8 Estimated GFR > 60 Medications Medications Current Medications Acetaminophen (Acetaminophen 325 Mg Tablet) 650 mg PO Q6H PRN PRN Reason: Headache/Pain Mild Scale (1-3) Last Admin: 07/20/24 22:41 Dose: 650 mg Al Hydroxide/Mg Hydroxide (Magnesium Hydrox/Alum Hydrox 30 Ml Oral.Susp) 30 ml PO Q6H PRN PRN Reason: Heartburn/Nausea Cariprazine (Cariprazine Hcl 3 Mg Capsule) 3 mg PO DAILY [facility] Last Admin: 07/21/24 08:39 Dose: 3 mg Hydroxyzine HCl (Hydroxyzine Hcl 25 Mg Tablet) 25 mg PO Q6H PRN PRN Reason: Anxiety Last Admin: 07/20/24 21:26 Dose: 25 mg Ibuprofen (Ibuprofen 600 Mg Tablet) 600 mg PO Q6H PRN PRN Reason: muscle pain Last Admin: 07/21/24 16:19 Dose: 600 mg Magnesium Hydroxide (Milk Of Magnesia 30 Ml Oral.Susp) 30 ml PO DAILY PRN PRN Reason: Constipation Metformin HCl (Metformin Hcl 500 Mg Tablet) 500 mg PO DAILY@1700 [facility] Last Admin: 07/21/24 17:59 Dose: 500 mg Naltrexone HCl (Naltrexone Hcl 50 Mg Tablet) 50 mg PO DAILY [facility] Last Admin: 07/21/24 08:38 Dose: 50 mg Nicotine (Nicotine 21 Mg Patch.Td24) 21 mg TRANSDERMA DAILY PRN PRN Reason: smoking cessation Last Admin: 07/21/24 08:39 Dose: 21 mg Nicotine Polacrilex (Nicotine Polacrilex Lozenge 4 Mg Lozenge) 4 mg BUCCAL Q2H PRN PRN Reason: nicotine cravings Last Admin: 07/10/24 20:19 Dose: 4 mg Patient Own ( Atomoxetine 25 Mg Capsule) 25 mg PO DAILY [facility] Last Admin: 07/21/24 08:38 Dose: 25 mg Olanzapine (Olanzapine 10 Mg Tablet) 10 mg PO TID PRN PRN Reason: agitation Ondansetron HCl (Ondansetron Odt 4 Mg Tab.Rapdis) 4 mg TRANSLINGU TIDAC PRN PRN Reason: nausea Last Admin: 07/21/24 17:59 Dose: 4 mg Prazosin HCl (Prazosin Hcl 5 Mg Capsule) 5 mg PO BEDTIME [facility]; Protocol Last Admin: 07/21/24 22:19 Dose: 5 mg Trazodone HCl (Trazodone Hcl 50 Mg Tablet) 150 mg PO BEDTIME PREETI Last Admin: 07/21/24 22:18 Dose: 150 mg Trazodone HCl (Trazodone Hcl 50 Mg Tablet) 50 mg PO BEDTIME MRX1 PRN PRN Reason: Insomnia Last Admin: 07/21/24 22:18 Dose: 50 mg Allergies Allergies Allergy/AdvReac Type Severity Reaction Status Date / Time No Known Allergies Allergy Verified 07/07/24 20:03 Assessment & Plan Assessment & Plan (1) Bipolar 1 disorder, depressed: Status: Acute Code(s): F31.9 - Bipolar disorder, unspecified (2) Borderline personality disorder: Status: Acute Code(s): F60.3 - Borderline personality disorder (3) Suicidal ideation: Status: Acute Code(s): R45.851 - Suicidal ideations Plan The patient appears to have clinical depression on top of what appears to be dysphoria anxiety consistent PTSD borderline personality disorder with reactivity and intermittent self-injurious behavior. This does not appear to be part of that pattern there is a strong possible genetic component with her father having completed suicide and history of bipolar disorder patient agreeable to have thing us speak with her therapist and psychiatrist and records reviewed from [address] [place] [address] and [facility]. I have discussed with the patient that ECT would not treat chronic issues that she she deals with stress as mood and stability urges toward self injurious behavior and intermittent restricted eating disorder. The patient describes however ongoing depressed mood with intense thoughts of suicide history of not responding to antidepressant medication and has not stabilized bite a month of treatment with Vraylar and lithium. 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 Patient has had some response reportedly to TMS in the past given intensity of her suicidal thoughts intensity of depression at this time does not seem a current option. Call has been placed to her outpatient psychiatrist in [place]. Although I would not recommend ECT for borderline personality disorder per se certainly given her ongoing depression lack of emotional reactivity anhedonia intense negative affective state that seems to be consistent with thoughts of suicide the patient would meet criteria for a course of ECT which we would start with right unilateral treatment there are no medical contraindications Case has also been discussed and reviewed with inpatient treatment team. Hospital course: 07/18/24: ECT 07.19. 07/19 Patient is post ECT. She is lying in bed alert and oriented but feeling tired. She said she had a headache which got better with p.r.n. medication. Some muscle aches. She felt foggy with some blurred vision but that too is resolving. She says she just wants to rest for now. 07/20 patient feeling calm day after ECT. Wants to continue. 07/21 Patient says she has come in the outside but on the inside she feels a little revved up.; wants to continue with ECT. 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 Later in the evening patient reported feeling that she was starting to get hypomanic and asked for increased dose of Zyprexa PLAN: CV q15 min checks ECT #1 on 07/19 ECT #2 pending 07/22 npo -increased PRNs Zyprexa to 10 mg since patient starting to feel hypomanic Patient educated on: diagnosis, medication risk/benefits and ECT Informed Consent: understands Reason for continued inpatient stay Substantial Risk for: inability to function and rapid decompensation Time Spent With Patient Time: Total time managing care of this patient today ____ minutes.
[2024-07-22] VITALS (9 sets, daily range): BP systolic 100–133; BP diastolic 58–84; PULSE 68–111; RESP 14–16; TEMP 35.8–36.3; O2SAT 96–100
--- NOTE | 2024-07-22 07:06 | P.CONAN_ITS ---
[facility] Active Problems Active Problems: All Active Problems Routine medical exam (Acute) Bipolar 1 disorder, depressed (Acute) Borderline personality disorder (Acute) Suicidal ideation (Acute) Past Medical History Medical History No pertinent past medical history Family History Family history of problems with anesthesia: No Surgical History History of Problems with Anesthesia: No Social History Social History Household Members: Family Household Members Other:: Been staying with a friend this summer. [place] campus during school year Housing: House Do you presently have visiting nurse or other home services: No Patient Tobacco Use Status: Current everyday Tobacco user Tobacco use type: Cigarette Cigarettes Per Day: 8 Smoked in Last 30 Days: Yes Patient Interested in Nicotine Replacement: Yes Patient Given Instructions on How to Stop Smoking: No Second Hand Smoke Exposure: No Use of substances other than those prescribed or required for medical reasons: No Currently Displaying Signs/Symptoms of Drug Intoxication Withdrawal: No Any prior treatment program specific to substance use: No Have you been hit, kicked, punched, or otherwise hurt by someone within the past year? If so, by whom?: No Do you feel safe in your current relationship?: No Current Relationship Is there a partner from a previous relationship who is making you feel unsafe now?: No Are you made to feel afraid or neglected: No Advance Directives: No Advance Directives Information Provided: No Do you have thoughts of harming others: None Do you have a plan to hurt others: No Plan Recently lost weight without trying: No How much weight loss: Not applicable Eating poorly because of decreased appetite: Yes Nutrition screen score: 1 Nutrition Risks: Anorexia Patient : No : No Poor oral hygiene: No service: No Sexual orientation: Straight/Heterosexual Meds Allergies Allergy/AdvReac Type Severity Reaction Status Date / Time No Known Allergies Allergy Verified 07/07/24 20:03 Active Medications: Current Medications Acetaminophen (Acetaminophen 325 Mg Tablet) 650 mg PO Q6H PRN PRN Reason: Headache/Pain Mild Scale (1-3) Last Admin: 07/20/24 22:41 Dose: 650 mg Al Hydroxide/Mg Hydroxide (Magnesium Hydrox/Alum Hydrox 30 Ml Oral.Susp) 30 ml PO Q6H PRN PRN Reason: Heartburn/Nausea Cariprazine (Cariprazine Hcl 3 Mg Capsule) 3 mg PO DAILY [facility] Last Admin: 07/21/24 08:39 Dose: 3 mg Hydroxyzine HCl (Hydroxyzine Hcl 25 Mg Tablet) 25 mg PO Q6H PRN PRN Reason: Anxiety Last Admin: 07/20/24 21:26 Dose: 25 mg Ibuprofen (Ibuprofen 600 Mg Tablet) 600 mg PO Q6H PRN PRN Reason: muscle pain Last Admin: 07/21/24 16:19 Dose: 600 mg Magnesium Hydroxide (Milk Of Magnesia 30 Ml Oral.Susp) 30 ml PO DAILY PRN PRN Reason: Constipation Metformin HCl (Metformin Hcl 500 Mg Tablet) 500 mg PO DAILY@1700 [facility] Last Admin: 07/21/24 17:59 Dose: 500 mg Naltrexone HCl (Naltrexone Hcl 50 Mg Tablet) 50 mg PO DAILY [facility] Last Admin: 07/21/24 08:38 Dose: 50 mg Nicotine (Nicotine 21 Mg Patch.Td24) 21 mg TRANSDERMA DAILY PRN PRN Reason: smoking cessation Last Admin: 07/21/24 08:39 Dose: 21 mg Nicotine Polacrilex (Nicotine Polacrilex Lozenge 4 Mg Lozenge) 4 mg BUCCAL Q2H PRN PRN Reason: nicotine cravings Last Admin: 07/10/24 20:19 Dose: 4 mg Patient Own ( Atomoxetine 25 Mg Capsule) 25 mg PO DAILY [facility] Last Admin: 07/21/24 08:38 Dose: 25 mg Olanzapine (Olanzapine 10 Mg Tablet) 10 mg PO TID PRN PRN Reason: agitation Ondansetron HCl (Ondansetron Odt 4 Mg Tab.Rapdis) 4 mg TRANSLINGU TIDAC PRN PRN Reason: nausea Last Admin: 07/21/24 17:59 Dose: 4 mg Prazosin HCl (Prazosin Hcl 5 Mg Capsule) 5 mg PO BEDTIME [facility]; Protocol Last Admin: 07/21/24 22:19 Dose: 5 mg Trazodone HCl (Trazodone Hcl 50 Mg Tablet) 150 mg PO BEDTIME [facility] Last Admin: 07/21/24 22:18 Dose: 150 mg Trazodone HCl (Trazodone Hcl 50 Mg Tablet) 50 mg PO BEDTIME MRX1 PRN PRN Reason: Insomnia Last Admin: 07/21/24 22:18 Dose: 50 mg Home Medications ?Medication ?Instructions ?Recorded ?Confirmed ?Last Taken ?Type cariprazine 1.5 mg capsule 3 mg PO QAM 07/07/24 07/07/24 07/07/24 08:00 History (Rebekah) lithium carbonate 300 mg 300 mg PO BID 07/07/24 07/07/24 07/07/24 08:00 History tablet,extended release metformin 500 mg tablet 500 mg PO DAILY 07/07/24 07/07/24 07/07/24 08:00 History naltrexone 50 mg tablet 50 mg PO DAILY 07/07/24 07/07/24 07/07/24 08:00 History prazosin 5 mg capsule 5 mg PO BEDTIME 07/07/24 07/07/24 07/05/24 20:00 History trazodone 150 mg tablet 150 mg PO BEDTIME 07/07/24 07/07/24 07/06/24 20:00 History Exam Height,Weight and Vital Signs: Height 5 ft 2 in Weight 89.8 kg Last Vital Signs Temp 96.5 F L 07/22/24 07:04 Pulse 77 07/22/24 07:04 Resp 16 07/22/24 07:04 BP 119/77 07/22/24 07:04 Pulse Ox 96 07/22/24 07:04 O2 Del Method Room Air 07/22/24 07:04 O2 Flow Rate 2 07/19/24 08:15 Pertinent Lab Results Pertinent Lab Results: Laboratory Tests 07/07/24 07/09/24 07/17/24 20:25 07:53 13:31 WBC 15.4 H 12.1 H 10.1 RBC 4.91 4.79 5.17 Hgb 13.9 13.8 14.7 Hct 42.1 41.0 44.7 MCV 85.7 85.6 86.5 MCH 28.3 28.8 28.4 MCHC 33.0 33.7 32.9 RDW 13.2 13.3 13.5 Plt Count 432 H 368 353 MPV 9.8 9.7 10.1 Immature Gran % (Auto) 0.3 0.4 0.4 Neut % (Auto) 76.2 H 66.1 74.3 H Lymph % (Auto) 17.2 L 24.8 18.4 L [place] % (Auto) 5.2 5.6 4.3 Eos % (Auto) 0.8 2.8 2.1 Baso % (Auto) 0.3 0.3 0.5 Lymph # (Auto) 2.7 3.0 1.9 [place] # (Auto) 0.8 0.7 0.4 Eos # (Auto) 0.1 0.3 0.2 Baso # (Auto) 0.0 0.0 0.1 Abs Immat Gran (auto) 0.05 H 0.05 H 0.04 H Absolute Neuts (auto) 11.7 H 8.0 7.5 Absolute Nucleated RBC 0.000 0.000 0.000 Nucleated RBC % (auto) 0.0 0.0 0.0 Sodium 139 138 Potassium 4.0 4.2 Chloride 105 103 Carbon Dioxide 25 26 Anion Gap 13 13 BUN 9 7 L Creatinine 0.94 0.86 Estim Creat Clear Calc 97.8 Estimated GFR > 60 Random Glucose 102 Estimat Average Glucose 111 Hemoglobin A1c % 5.5 Calcium 10.0 Total Bilirubin 0.3 AST 13 ALT 9 Alkaline Phosphatase 98 Total Protein 7.8 Albumin 4.7 Triglycerides 90 Cholesterol 116 LDL Cholesterol, Calc 67 HDL Cholesterol 31 L TSH 0.36 Urine Color Yellow Urine Appearance Clear Urine pH 8.0 Ur Specific [place] 1.025 Urine Protein Trace Urine Glucose (UA) Negative Urine Ketones >=160 Urine Blood Negative Urine Nitrite Negative Ur Leukocyte Esterase Trace H Urine RBC 0-2 Urine WBC 0-5 Ur Squamous Epith Cells 3-5 Urine Bacteria Trace Hyaline Casts 0-2 Urine Test NEGATIVE Salicylates < 5.0 L Urine Opiates Screen Not Detected Ur Buprenorphine Scrn Not Detected Ur Oxycodone Screen Not Detected Urine Methadone Screen Not Detected Urine Fentanyl Screen Not Detected Acetaminophen < 3 Ur Barbiturates Screen Not Detected Ur Phencyclidine Scrn Not Detected Ur Amphetamines Screen Not Detected U Benzodiazepines Scrn Not Detected [place] 0.84 Urine Cocaine Screen Not Detected U Marijuana (THC) Screen Not Detected Ethyl Alcohol < 10 07/17/24 07/17/24 07/17/24 13:31 13:31 13:31 WBC RBC Hgb Hct MCV MCH MCHC RDW Plt Count MPV Immature Gran % (Auto) Neut % (Auto) Lymph % (Auto) [place] % (Auto) Eos % (Auto) Baso % (Auto) Lymph # (Auto) [place] # (Auto) Eos # (Auto) Baso # (Auto) Abs Immat Gran (auto) Absolute Neuts (auto) Absolute Nucleated RBC Nucleated RBC % (auto) Sodium Potassium Chloride Carbon Dioxide Anion Gap BUN Creatinine Cancelled Estim Creat Clear Calc 106.8 Cancelled Estimated GFR > 60 Cancelled Random Glucose 140 H Estimat Average Glucose Hemoglobin A1c % Calcium 10.2 Total Bilirubin 0.2 AST 11 ALT 8 Alkaline Phosphatase 88 Total Protein 7.4 Albumin 4.5 Triglycerides Cholesterol LDL Cholesterol, Calc HDL Cholesterol TSH Urine Color Urine Appearance Urine pH Ur Specific [place] Urine Protein Urine Glucose (UA) Urine Ketones Urine Blood Urine Nitrite Ur Leukocyte Esterase Urine RBC Urine WBC Ur Squamous Epith Cells Urine Bacteria Hyaline Casts Urine Test Salicylates Urine Opiates Screen Ur Buprenorphine Scrn Ur Oxycodone Screen Urine Methadone Screen Urine Fentanyl Screen Acetaminophen Ur Barbiturates Screen Ur Phencyclidine Scrn Ur Amphetamines Screen U Benzodiazepines Scrn [place] Urine Cocaine Screen U Marijuana (THC) Screen Ethyl Alcohol 07/21/24 08:39 WBC RBC Hgb Hct MCV MCH MCHC RDW Plt Count MPV Immature Gran % (Auto) Neut % (Auto) Lymph % (Auto) [place] % (Auto) Eos % (Auto) Baso % (Auto) Lymph # (Auto) [place] # (Auto) Eos # (Auto) Baso # (Auto) Abs Immat Gran (auto) Absolute Neuts (auto) Absolute Nucleated RBC Nucleated RBC % (auto) Sodium Potassium Chloride Carbon Dioxide Anion Gap BUN Creatinine 0.86 Estim Creat Clear Calc 106.8 Estimated GFR > 60 Random Glucose Estimat Average Glucose Hemoglobin A1c % Calcium Total Bilirubin AST ALT Alkaline Phosphatase Total Protein Albumin Triglycerides Cholesterol LDL Cholesterol, Calc HDL Cholesterol TSH Urine Color Urine Appearance Urine pH Ur Specific [place] Urine Protein Urine Glucose (UA) Urine Ketones Urine Blood Urine Nitrite Ur Leukocyte Esterase Urine RBC Urine WBC Ur Squamous Epith Cells Urine Bacteria Hyaline Casts Urine Test Salicylates Urine Opiates Screen Ur Buprenorphine Scrn Ur Oxycodone Screen Urine Methadone Screen Urine Fentanyl Screen Acetaminophen Ur Barbiturates Screen Ur Phencyclidine Scrn Ur Amphetamines Screen U Benzodiazepines Scrn [place] Urine Cocaine Screen U Marijuana (THC) Screen Ethyl Alcohol Airway Mallampati Class: II TM Dist: >3cm Neck ROM: Full Heart: rrr Lungs: cta Assessment and Plan Assessment Anesthesia Assessment: Anesthesia Plan Discussed and Chart Reviewed Final Anesthetic Review Family History of Problems with Anesthesia: No History of Problems with Anesthesia: No NPO: Yes ASA Class: III Final Preanesthetic Review: No Changes in Pt Med Stat, Meds/Allgs Chart Reviewed and Consent Obtained/Reviewed Patient Risk: Intermediate Procedure Risk: Intermediate Anesthetic Plan Anesthetic Plan: GA Disposition: Standard PACU
--- NOTE | 2024-07-22 07:08 | MHC.SHP ---
Pre-Procedural Eval Section A - 24 Hr Update-Section A only Date of Service: 07/22/24 The patient is an INPATIENT: Yes Changes since office visit: No Cold of Flu in the past 2 weeks, No New Medical Problems, No Changes in Medication and No Patient answered all questions The patient has been examined within 24 hours of the surgical procedure. The History & Physical has been completed within 30 days and I have reviewed it.: Yes Section B - Complete if H&P > 30 days Chief Complaint: Labile SI Allergies: Allergies Allergy/AdvReac Type Severity Reaction Status Date / Time No Known Allergies Allergy Verified 07/07/24 20:03 Plan I have reviewed the history and physical and performed a pertinent physical examination on my patient. No changes have occurred unless specified. Time Spent With Patient Time: Total time managing care of this patient today ____ minutes.
--- NOTE | 2024-07-22 07:41 | HO.ECTPROC ---
ECT Procedure Note Diagnosis/Treatment Date of Service: 07/22/24 Diagnosis: Bipolar disorder Previous ECT Date: 07/19/24 Current Treatment Number: 2 Treatment: Series Interval Clinical Notes: The patient reported some muscle aches and discomfort after the first ECT last Monday, she denies headaches. She denies any improvement at this moment. She was hypoactive, sleepy, barely answering questions. ECT done with lower parameters 60% at 0.25 as per suggestion of Dr. Haywood but she had a long seizure of 84 s, less than the first one. She woke up a little confused but no overt agitatation. We added Glycopyrrolate 0.2 pre ECT and later on, she needed an extra 0.2 after ECT. Time: Total time managing care of this patient today __30__ minutes. ECT Settings Device: THYMATRON DGx Electrode Placement: Right Unilateral Program/Pulse Width: 0.25 Energy Percent: 60 Seizure Duration By EEG (in seconds): 84 By Motor Observation (in seconds): 37 Medications Administration General Anesthetic: Etomidate (14) Muscle Relaxant: Succinylcholine (100) Ancillary Medications Analgesics: Torodol - Pre ECT Anti-emetics: Zofran - Pre ECT Cardiovascular Medications: Glycopyrrolate (0.2 pre ECT and 0.2 post ECT) Airway Management Airway Management: Bag Mask Ventilation Treatment Recommendations Program/Pulse Width: 0.25 Energy Percent: 40 Notes: Since the patient is very young, she can have seizures easily, probably we could lower the energy to 40% next time Pt Tolerated Procedure w/o Issue: Yes
[2024-07-22] MEDS: Cariprazine HCl 3 MG CAPSULE PO (09:13)
[2024-07-22] MEDS: Naltrexone HCl 50 MG TABLET PO (09:13)
[2024-07-22] MEDS: Nicotine 21 MG PATCH.TD24 TRANSDERMA (09:13)
--- NOTE | 2024-07-22 12:40 | P.PNPSI_ITS ---
Subjective Subjective Date of Service: 07/22/24 Reason For Visit: Labile SI Subjective Notes: Conditional Voluntary Healthcare Proxy: No Guardianship: No Medical Problems Affecting Mental Status: No Interim History: ECT #2. Reports constipation-awaiting dulcolox efficacy Requests Trazodone increase to 200 mg Reports some background headache Social with peers, playing cards later in the day with peers. Reported sore throat-throat culture ordered. Medication Compliance: Yes Side effects from medications: No Attending Groups: Intermittent Review of Systems Acute medical concerns: No Headache post ECT Sore throat Medical Review of Systems: unchanged Review of Systems Review of Systems Headache, sore throat Mental Status Exam Mental Status Exam Patient Appearance: Appropriate Patient Orientation: Person, Place, Time and Situation Level of Consciousness: Alert Patient Behavior: Talkative and Good Eye Contact Mood Description: Depressed Affect Description: Flat Patient Cognition Impaired: No Ability to Follow Directions: Good Speech Pattern: Spontaneous Speech Memory Description: Intact Hallucinations: None Delusions: Not Present Perceptual Disturbances: Depersonalization and Derealization Thought Process: Distracted and Rumination Thought Content: positive for Perseveration and positive for Suicidal Ideation Depressive Symptoms: Thoughts of /Suicide Judgement: Fair Diagnostics Vital Signs (24Hr): Vital Signs - 24 hr 07/21/24 20:00 07/21/24 22:05 07/21/24 22:19 Temperature 97.2 F 97.8 F Pulse Rate 98 89 Respiratory Rate Blood Pressure 115/68 105/58 L 105/58 L Pulse Oximetry 99 Oxygen Delivery Method Room Air Oxygen Flow Rate 07/22/24 07:04 07/22/24 07:50 07/22/24 07:55 Temperature 96.5 F L 97.3 F Pulse Rate 77 98 111 H Respiratory Rate 16 16 16 Blood Pressure 119/77 123/78 133/84 Pulse Oximetry 96 100 100 Oxygen Delivery Method Room Air Nasal Cannula with ETCO2 Nasal Cannula with ETCO2 Oxygen Flow Rate 2 2 07/22/24 08:00 07/22/24 08:05 07/22/24 08:20 Temperature Pulse Rate 108 H 100 97 Respiratory Rate 16 14 16 Blood Pressure 127/82 123/80 123/80 Pulse Oximetry 100 100 99 Oxygen Delivery Method Nasal Cannula with ETCO2 Room Air Oxygen Flow Rate 2 07/22/24 08:35 07/22/24 09:02 Temperature 97.3 F 97.3 F Pulse Rate 90 68 Respiratory Rate 16 16 Blood Pressure 121/73 100/58 L Pulse Oximetry 99 97 Oxygen Delivery Method Room Air Room Air Oxygen Flow Rate BMI result Body Mass Index 36.2 Labs 07/17/24 13:31 07/21/24 08:39 Labs: Laboratory Results - last 48 hr 07/21/24 08:39 Creatinine 0.86 Estim Creat Clear Calc 106.8 Estimated GFR > 60 Medications Medications Current Medications Acetaminophen (Acetaminophen 325 Mg Tablet) 650 mg PO Q6H PRN PRN Reason: Headache/Pain Mild Scale (1-3) Last Admin: 07/20/24 22:41 Dose: 650 mg Al Hydroxide/Mg Hydroxide (Magnesium Hydrox/Alum Hydrox 30 Ml Oral.Susp) 30 ml PO Q6H PRN PRN Reason: Heartburn/Nausea Cariprazine (Cariprazine Hcl 3 Mg Capsule) 3 mg PO DAILY [facility] Last Admin: 07/22/24 09:13 Dose: 3 mg Hydroxyzine HCl (Hydroxyzine Hcl 25 Mg Tablet) 25 mg PO Q6H PRN PRN Reason: Anxiety Last Admin: 07/20/24 21:26 Dose: 25 mg Ibuprofen (Ibuprofen 600 Mg Tablet) 600 mg PO Q6H PRN PRN Reason: muscle pain Last Admin: 07/21/24 16:19 Dose: 600 mg Magnesium Hydroxide (Milk Of Magnesia 30 Ml Oral.Susp) 30 ml PO DAILY PRN PRN Reason: Constipation Metformin HCl (Metformin Hcl 500 Mg Tablet) 500 mg PO DAILY@1700 [facility] Last Admin: 07/21/24 17:59 Dose: 500 mg Naltrexone HCl (Naltrexone Hcl 50 Mg Tablet) 50 mg PO DAILY [facility] Last Admin: 07/22/24 09:13 Dose: 50 mg Nicotine (Nicotine 21 Mg Patch.Td24) 21 mg TRANSDERMA DAILY PRN PRN Reason: smoking cessation Last Admin: 07/22/24 09:13 Dose: 21 mg Nicotine Polacrilex (Nicotine Polacrilex Lozenge 4 Mg Lozenge) 4 mg BUCCAL Q2H PRN PRN Reason: nicotine cravings Last Admin: 07/10/24 20:19 Dose: 4 mg Patient Own ( Atomoxetine 25 Mg Capsule) 25 mg PO DAILY [facility] Last Admin: 07/22/24 09:13 Dose: 25 mg Olanzapine (Olanzapine 10 Mg Tablet) 10 mg PO TID PRN PRN Reason: agitation Ondansetron HCl (Ondansetron Odt 4 Mg Tab.Rapdis) 4 mg TRANSLINGU TIDAC PRN PRN Reason: nausea Last Admin: 07/21/24 17:59 Dose: 4 mg Prazosin HCl (Prazosin Hcl 5 Mg Capsule) 5 mg PO BEDTIME [facility]; Protocol Last Admin: 07/21/24 22:19 Dose: 5 mg Trazodone HCl (Trazodone Hcl 50 Mg Tablet) 150 mg PO BEDTIME [facility] Last Admin: 07/21/24 22:18 Dose: 150 mg Trazodone HCl (Trazodone Hcl 50 Mg Tablet) 50 mg PO BEDTIME MRX1 PRN PRN Reason: Insomnia Last Admin: 07/21/24 22:18 Dose: 50 mg Allergies Allergies Allergy/AdvReac Type Severity Reaction Status Date / Time No Known Allergies Allergy Verified 07/07/24 20:03 Assessment & Plan Assessment & Plan (1) Bipolar 1 disorder, depressed: Status: Acute Code(s): F31.9 - Bipolar disorder, unspecified (2) Borderline personality disorder: Status: Acute Code(s): F60.3 - Borderline personality disorder (3) Suicidal ideation: Status: Acute Code(s): R45.851 - Suicidal ideations Plan The patient appears to have clinical depression on top of what appears to be dysphoria anxiety consistent PTSD borderline personality disorder with reactivity and intermittent self-injurious behavior. This does not appear to be part of that pattern there is a strong possible genetic component with her father having completed suicide and history of bipolar disorder patient agreeable to have thing us speak with her therapist and psychiatrist and records reviewed from [address] [place] [address] and [facility] [place] [facility]. I have discussed with the patient that ECT would not treat chronic issues that she she deals with stress as mood and stability urges toward self injurious behavior and intermittent restricted eating disorder. The patient describes however ongoing depressed mood with intense thoughts of suicide history of not responding to antidepressant medication and has not stabilized bite a month of treatment with Vraylar and lithium. 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 Patient has had some response reportedly to TMS in the past given intensity of her suicidal thoughts intensity of depression at this time does not seem a current option. Call has been placed to her outpatient psychiatrist in [place]. Although I would not recommend ECT for borderline personality disorder per se certainly given her ongoing depression lack of emotional reactivity anhedonia intense negative affective state that seems to be consistent with thoughts of suicide the patient would meet criteria for a course of ECT which we would start with right unilateral treatment there are no medical contraindications Case has also been discussed and reviewed with inpatient treatment team. Hospital course: 07/18/24: ECT 07.19. 07/19 Patient is post ECT. She is lying in bed alert and oriented but feeling tired. She said she had a headache which got better with p.r.n. medication. Some muscle aches. She felt foggy with some blurred vision but that too is resolving. She says she just wants to rest for now. 07/20 patient feeling calm day after ECT. Wants to continue. 07/21 Patient says she has come in the outside but on the inside she feels a little revved up.; wants to continue with ECT. Discussed muscle soreness and patient wants ibuprofen reminding communications writer that currently she is off lithium. Later in the evening patient reported feeling that she was starting to get hypomanic and asked for increased dose of Zyprexa 07/22 Increase Trazodone to 200 mg HS Throat culture ECT #3 07/24. PLAN: CV q15 min checks ECT #1 on 07/19 ECT #2 pending 07/22 npo -increased PRNs Zyprexa to 10 mg since patient starting to feel hypomanic Reason for continued inpatient stay Substantial Risk for: rapid decompensation Time Spent With Patient Time: Total time managing care of this patient today ____ minutes.
[2024-07-22] MEDS: Ondansetron ODT 4 MG TAB.RAPDIS TRANSLINGU (13:45)
[2024-07-22 17:38] LABS: IDNOW Serial# 08D9AD1C; Strep A Nucleic Acid Negative (Negative)
[2024-07-22] MEDS: metFORMIN HCl 500 MG TABLET PO (18:04)
[2024-07-22] MEDS: traZODone HCL 100 MG TABLET 200 MG PO (22:01)
[2024-07-22] MEDS: Prazosin HCL 5 MG CAPSULE PO (22:01)
[2024-07-22] MEDS: traZODone HCL 50 MG TABLET PO (23:30)
[2024-07-23 08:41] VITALS: BP 113/64; PULSE 84; RESP 16; TEMP 36.7; O2SAT 94
[2024-07-23] MEDS: Cariprazine HCl 3 MG CAPSULE PO (08:52)
[2024-07-23] MEDS: Naltrexone HCl 50 MG TABLET PO (08:52)
[2024-07-23] MEDS: Ondansetron ODT 4 MG TAB.RAPDIS TRANSLINGU ×3 (08:52→17:41)
[2024-07-23] MEDS: Nicotine 21 MG PATCH.TD24 TRANSDERMA (08:53)
--- NOTE | 2024-07-23 11:00 | P.PNPSI_ITS ---
Subjective Subjective Date of Service: 07/23/24 Reason For Visit: Labile SI Subjective Notes: Conditional Voluntary Healthcare Proxy: No Guardianship: No Medical Problems Affecting Mental Status: No Interim History: Strep negative Verbalized SI to team-wanting to go into the shower and use socks to choke herself. Five minute checks maintained Visable in milieu, social with peers, interactive on the telephone. Medication Compliance: Yes Side effects from medications: No Attending Groups: Intermittent Review of Systems Acute medical concerns: No Medical Review of Systems: unchanged Review of Systems Review of Systems Yes all other systems are reviewed and are negative Mental Status Exam Mental Status Exam Patient Appearance: Appropriate Patient Orientation: Person, Place, Time and Situation Level of Consciousness: Alert Patient Behavior: Talkative and Good Eye Contact Mood Description: Depressed Affect Description: Flat Patient Cognition Impaired: No Ability to Follow Directions: Good Speech Pattern: Spontaneous Speech Memory Description: Intact Hallucinations: None Delusions: Not Present Perceptual Disturbances: Depersonalization and Derealization Thought Process: Distracted and Rumination Thought Content: positive for Perseveration and positive for Suicidal Ideation Depressive Symptoms: Thoughts of /Suicide Judgement: Fair Diagnostics Vital Signs (24Hr): Vital Signs - 24 hr 07/22/24 20:00 07/23/24 08:41 Temperature 97.0 F 98.1 F Pulse Rate 94 84 Respiratory Rate 16 16 Blood Pressure 106/63 113/64 Pulse Oximetry 100 94 Oxygen Delivery Method Room Air Room Air BMI result Body Mass Index 36.2 Labs 07/17/24 13:31 07/21/24 08:39 Labs: Laboratory Results - last 48 hr 07/22/24 17:15 S. pyogenes GrpA ESTEE Negative Medications Medications Current Medications Acetaminophen (Acetaminophen 325 Mg Tablet) 650 mg PO Q6H PRN PRN Reason: Headache/Pain Mild Scale (1-3) Last Admin: 07/20/24 22:41 Dose: 650 mg Al Hydroxide/Mg Hydroxide (Magnesium Hydrox/Alum Hydrox 30 Ml Oral.Susp) 30 ml PO Q6H PRN PRN Reason: Heartburn/Nausea Cariprazine (Cariprazine Hcl 3 Mg Capsule) 3 mg PO DAILY PREETI Last Admin: 07/23/24 08:52 Dose: 3 mg Hydroxyzine HCl (Hydroxyzine Hcl 25 Mg Tablet) 25 mg PO Q6H PRN PRN Reason: Anxiety Last Admin: 07/20/24 21:26 Dose: 25 mg Ibuprofen (Ibuprofen 600 Mg Tablet) 600 mg PO Q6H PRN PRN Reason: muscle pain Last Admin: 07/21/24 16:19 Dose: 600 mg Magnesium Hydroxide (Milk Of Magnesia 30 Ml Oral.Susp) 30 ml PO DAILY PRN PRN Reason: Constipation Metformin HCl (Metformin Hcl 500 Mg Tablet) 500 mg PO DAILY@1700 [facility] Last Admin: 07/22/24 18:04 Dose: 500 mg Naltrexone HCl (Naltrexone Hcl 50 Mg Tablet) 50 mg PO DAILY [facility] Last Admin: 07/23/24 08:52 Dose: 50 mg Nicotine (Nicotine 21 Mg Patch.Td24) 21 mg TRANSDERMA DAILY PRN PRN Reason: smoking cessation Last Admin: 07/23/24 08:53 Dose: 21 mg Nicotine Polacrilex (Nicotine Polacrilex Lozenge 4 Mg Lozenge) 4 mg BUCCAL Q2H PRN PRN Reason: nicotine cravings Last Admin: 07/10/24 20:19 Dose: 4 mg Patient Own ( Atomoxetine 25 Mg Capsule) 25 mg PO DAILY [facility] Last Admin: 07/23/24 08:53 Dose: 25 mg Olanzapine (Olanzapine 10 Mg Tablet) 10 mg PO TID PRN PRN Reason: agitation Ondansetron HCl (Ondansetron Odt 4 Mg Tab.Rapdis) 4 mg TRANSLINGU TIDAC PRN PRN Reason: nausea Last Admin: 07/23/24 08:52 Dose: 4 mg Prazosin HCl (Prazosin Hcl 5 Mg Capsule) 5 mg PO BEDTIME [facility]; Protocol Last Admin: 07/22/24 22:01 Dose: 5 mg Trazodone HCl (Trazodone Hcl 50 Mg Tablet) 50 mg PO BEDTIME MRX1 PRN PRN Reason: Insomnia Last Admin: 07/22/24 23:30 Dose: 50 mg Trazodone HCl (Trazodone Hcl 100 Mg Tablet) 200 mg PO BEDTIME [facility] Last Admin: 07/22/24 22:01 Dose: 200 mg Allergies Allergies Allergy/AdvReac Type Severity Reaction Status Date / Time No Known Allergies Allergy Verified 07/07/24 20:03 Assessment & Plan Assessment & Plan (1) Bipolar 1 disorder, depressed: Status: Acute Code(s): F31.9 - Bipolar disorder, unspecified (2) Borderline personality disorder: Status: Acute Code(s): F60.3 - Borderline personality disorder (3) Suicidal ideation: Status: Acute Code(s): R45.851 - Suicidal ideations Plan The patient appears to have clinical depression on top of what appears to be dysphoria anxiety consistent PTSD borderline personality disorder with reactivity and intermittent self-injurious behavior. This does not appear to be part of that pattern there is a strong possible genetic component with her father having completed suicide and history of bipolar disorder patient agreeable to have thing us speak with her therapist and psychiatrist and records reviewed from [address] [place] [address] and [place] [facility]. I have discussed with the patient that ECT would not treat chronic issues that she she deals with stress as mood and stability urges toward self injurious behavior and intermittent restricted eating disorder. The patient describes however ongoing depressed mood with intense thoughts of suicide history of not responding to antidepressant medication and has not stabilized bite a month of treatment with Vraylar and lithium. 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 Patient has had some response reportedly to TMS in the past given intensity of her suicidal thoughts intensity of depression at this time does not seem a current option. Call has been placed to her outpatient psychiatrist in [place]. Although I would not recommend ECT for borderline personality disorder per se certainly given her ongoing depression lack of emotional reactivity anhedonia intense negative affective state that seems to be consistent with thoughts of suicide the patient would meet criteria for a course of ECT which we would start with right unilateral treatment there are no medical contraindications Case has also been discussed and reviewed with inpatient treatment team. Hospital course: 07/18/24: ECT 07.19. 07/19 Patient is post ECT. She is lying in bed alert and oriented but feeling tired. She said she had a headache which got better with p.r.n. medication. Some muscle aches. She felt foggy with some blurred vision but that too is resolving. She says she just wants to rest for now. 07/20 patient feeling calm day after ECT. Wants to continue. 07/21 Patient says she has come in the outside but on the inside she feels a little revved up.; wants to continue with ECT. 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 Later in the evening patient reported feeling that she was starting to get hypomanic and asked for increased dose of Zyprexa 07/23- ECT 07/24. PLAN: CV q15 min checks ECT #1 on 07/19 ECT #2 pending 07/22 npo -increased PRNs Zyprexa to 10 mg since patient starting to feel hypomanic Reason for continued inpatient stay Substantial Risk for: rapid decompensation Time Spent With Patient Time: Total time managing care of this patient today ____ minutes.
--- NOTE | 2024-07-23 11:34 | HO.POSTANES ---
Post Anesthesia Evaluation Post Anesthesia Evaluation Date of Service: 07/22/24 Vital Signs: Vital Signs Temp Pulse Resp BP Pulse Ox O2 Del Method 07/23/24 08:41 98.1 F 84 16 113/64 94 Room Air Anesthesia: General Mental Status: Awake Nausea/Vomiting: None Hydration: Adequate Anesthesia-Related Issues: No Anes. Related Issues
[2024-07-23] MEDS: metFORMIN HCl 500 MG TABLET PO (17:41)
[2024-07-23 20:00] VITALS: BP 112/66; PULSE 96; TEMP 36.2; O2SAT 96
[2024-07-23] MEDS: Nicotine Polacrilex Lozenge 4 MG LOZENGE BUCCAL (21:12)
[2024-07-23] MEDS: traZODone HCL 100 MG TABLET 200 MG PO (22:24)
[2024-07-23 22:25] VITALS: BP 116/57
[2024-07-23] MEDS: Prazosin HCL 5 MG CAPSULE PO (22:25)
[2024-07-24] VITALS (11 sets, daily range): BP systolic 103–150; BP diastolic 53–105; PULSE 77–128; RESP 16–20; TEMP 35.9–36.7; O2SAT 95–100
--- NOTE | 2024-07-24 06:45 | P.CONAN_ITS ---
[facility] Active Problems Active Problems: All Active Problems Routine medical exam (Acute) Bipolar 1 disorder, depressed (Acute) Borderline personality disorder (Acute) Suicidal ideation (Acute) Past Medical History Medical History No pertinent past medical history Family History Family history of problems with anesthesia: No Surgical History History of Problems with Anesthesia: No Social History Social History Household Members: Family Household Members Other:: Been staying with a friend this summer. Lives on campus during school year Housing: House Do you presently have visiting nurse or other home services: No Patient Tobacco Use Status: Current everyday Tobacco user Tobacco use type: Cigarette Cigarettes Per Day: 8 Smoked in Last 30 Days: Yes Patient Interested in Nicotine Replacement: Yes Patient Given Instructions on How to Stop Smoking: No Second Hand Smoke Exposure: No Use of substances other than those prescribed or required for medical reasons: No Currently Displaying Signs/Symptoms of Drug Intoxication Withdrawal: No Any prior treatment program specific to substance use: No Have you been hit, kicked, punched, or otherwise hurt by someone within the past year? If so, by whom?: No Do you feel safe in your current relationship?: No Current Relationship Is there a partner from a previous relationship who is making you feel unsafe now?: No Are you made to feel afraid or neglected: No Advance Directives: No Advance Directives Information Provided: No Do you have thoughts of harming others: None Do you have a plan to hurt others: No Plan Recently lost weight without trying: No How much weight loss: Not applicable Eating poorly because of decreased appetite: Yes Nutrition screen score: 1 Nutrition Risks: Anorexia Patient : No : No Poor oral hygiene: No service: No Sexual orientation: Straight/Heterosexual Meds Allergies Allergy/AdvReac Type Severity Reaction Status Date / Time No Known Allergies Allergy Verified 07/07/24 20:03 Active Medications: Current Medications Acetaminophen (Acetaminophen 325 Mg Tablet) 650 mg PO Q6H PRN PRN Reason: Headache/Pain Mild Scale (1-3) Last Admin: 07/20/24 22:41 Dose: 650 mg Al Hydroxide/Mg Hydroxide (Magnesium Hydrox/Alum Hydrox 30 Ml Oral.Susp) 30 ml PO Q6H PRN PRN Reason: Heartburn/Nausea Cariprazine (Cariprazine Hcl 3 Mg Capsule) 3 mg PO DAILY [facility] Last Admin: 07/23/24 08:52 Dose: 3 mg Hydroxyzine HCl (Hydroxyzine Hcl 25 Mg Tablet) 25 mg PO Q6H PRN PRN Reason: Anxiety Last Admin: 07/20/24 21:26 Dose: 25 mg Lactated Ringer's (Lr) 1,000 mls @ 50 mls/hr IVCONT .Q20H PREETI Ibuprofen (Ibuprofen 600 Mg Tablet) 600 mg PO Q6H PRN PRN Reason: muscle pain Last Admin: 07/21/24 16:19 Dose: 600 mg Magnesium Hydroxide (Milk Of Magnesia 30 Ml Oral.Susp) 30 ml PO DAILY PRN PRN Reason: Constipation Metformin HCl (Metformin Hcl 500 Mg Tablet) 500 mg PO DAILY@1700 PREETI Last Admin: 07/23/24 17:41 Dose: 500 mg Naltrexone HCl (Naltrexone Hcl 50 Mg Tablet) 50 mg PO DAILY [facility] Last Admin: 07/23/24 08:52 Dose: 50 mg Nicotine (Nicotine 21 Mg Patch.Td24) 21 mg TRANSDERMA DAILY PRN PRN Reason: smoking cessation Last Admin: 07/23/24 08:53 Dose: 21 mg Nicotine Polacrilex (Nicotine Polacrilex Lozenge 4 Mg Lozenge) 4 mg BUCCAL Q2H PRN PRN Reason: nicotine cravings Last Admin: 07/23/24 21:12 Dose: 4 mg Patient Own ( Atomoxetine 25 Mg Capsule) 25 mg PO DAILY [facility] Last Admin: 07/23/24 08:53 Dose: 25 mg Olanzapine (Olanzapine 10 Mg Tablet) 10 mg PO TID PRN PRN Reason: agitation Ondansetron HCl (Ondansetron Odt 4 Mg Tab.Rapdis) 4 mg TRANSLINGU TIDAC PRN PRN Reason: nausea Last Admin: 07/23/24 17:41 Dose: 4 mg Prazosin HCl (Prazosin Hcl 5 Mg Capsule) 5 mg PO BEDTIME [facility]; Protocol Last Admin: 07/23/24 22:25 Dose: 5 mg Trazodone HCl (Trazodone Hcl 50 Mg Tablet) 50 mg PO BEDTIME MRX1 PRN PRN Reason: Insomnia Last Admin: 07/22/24 23:30 Dose: 50 mg Trazodone HCl (Trazodone Hcl 100 Mg Tablet) 200 mg PO BEDTIME [facility] Last Admin: 07/23/24 22:24 Dose: 200 mg Home Medications ?Medication ?Instructions ?Recorded ?Confirmed ?Last Taken ?Type cariprazine 1.5 mg capsule 3 mg PO QAM 07/07/24 07/07/24 07/07/24 08:00 History (Rebekah) lithium carbonate 300 mg 300 mg PO BID 07/07/24 07/07/24 07/07/24 08:00 History tablet,extended release metformin 500 mg tablet 500 mg PO DAILY 07/07/24 07/07/24 07/07/24 08:00 History naltrexone 50 mg tablet 50 mg PO DAILY 07/07/24 07/07/24 07/07/24 08:00 History prazosin 5 mg capsule 5 mg PO BEDTIME 07/07/24 07/07/24 07/05/24 20:00 History trazodone 150 mg tablet 150 mg PO BEDTIME 07/07/24 07/07/24 07/06/24 20:00 History Exam Height,Weight and Vital Signs: Height 5 ft 2 in Weight 89.8 kg Last Vital Signs Temp 96.7 F L 07/24/24 06:33 Pulse 77 07/24/24 06:33 Resp 16 07/24/24 06:33 BP 111/71 07/24/24 06:33 Pulse Ox 95 07/24/24 06:33 O2 Del Method Room Air 07/24/24 06:33 O2 Flow Rate 2 07/22/24 08:00 Pertinent Lab Results Pertinent Lab Results: Laboratory Tests 07/07/24 07/09/24 07/17/24 20:25 07:53 13:31 WBC 15.4 H 12.1 H 10.1 RBC 4.91 4.79 5.17 Hgb 13.9 13.8 14.7 Hct 42.1 41.0 44.7 MCV 85.7 85.6 86.5 MCH 28.3 28.8 28.4 MCHC 33.0 33.7 32.9 RDW 13.2 13.3 13.5 Plt Count 432 H 368 353 MPV 9.8 9.7 10.1 Immature Gran % (Auto) 0.3 0.4 0.4 Neut % (Auto) 76.2 H 66.1 74.3 H Lymph % (Auto) 17.2 L 24.8 18.4 L [place] % (Auto) 5.2 5.6 4.3 Eos % (Auto) 0.8 2.8 2.1 Baso % (Auto) 0.3 0.3 0.5 Lymph # (Auto) 2.7 3.0 1.9 [place] # (Auto) 0.8 0.7 0.4 Eos # (Auto) 0.1 0.3 0.2 Baso # (Auto) 0.0 0.0 0.1 Abs Immat Gran (auto) 0.05 H 0.05 H 0.04 H Absolute Neuts (auto) 11.7 H 8.0 7.5 Absolute Nucleated RBC 0.000 0.000 0.000 Nucleated RBC % (auto) 0.0 0.0 0.0 Sodium 139 138 Potassium 4.0 4.2 Chloride 105 103 Carbon Dioxide 25 26 Anion Gap 13 13 BUN 9 7 L Creatinine 0.94 0.86 Estim Creat Clear Calc 97.8 Estimated GFR > 60 Random Glucose 102 Estimat Average Glucose 111 Hemoglobin A1c % 5.5 Calcium 10.0 Total Bilirubin 0.3 AST 13 ALT 9 Alkaline Phosphatase 98 Total Protein 7.8 Albumin 4.7 Triglycerides 90 Cholesterol 116 LDL Cholesterol, Calc 67 HDL Cholesterol 31 L TSH 0.36 Urine Color Yellow Urine Appearance Clear Urine pH 8.0 Ur Specific [place] 1.025 Urine Protein Trace Urine Glucose (UA) Negative Urine Ketones >=160 Urine Blood Negative Urine Nitrite Negative Ur Leukocyte Esterase Trace H Urine RBC 0-2 Urine WBC 0-5 Ur Squamous Epith Cells 3-5 Urine Bacteria Trace Hyaline Casts 0-2 Urine Test NEGATIVE Salicylates < 5.0 L Urine Opiates Screen Not Detected Ur Buprenorphine Scrn Not Detected Ur Oxycodone Screen Not Detected Urine Methadone Screen Not Detected Urine Fentanyl Screen Not Detected Acetaminophen < 3 Ur Barbiturates Screen Not Detected Ur Phencyclidine Scrn Not Detected Ur Amphetamines Screen Not Detected U Benzodiazepines Scrn Not Detected [place] 0.84 Urine Cocaine Screen Not Detected U Marijuana (THC) Screen Not Detected Ethyl Alcohol < 10 S. pyogenes GrpA ESTEE 07/17/24 07/17/24 07/17/24 13:31 13:31 13:31 WBC RBC Hgb Hct MCV MCH MCHC RDW Plt Count MPV Immature Gran % (Auto) Neut % (Auto) Lymph % (Auto) [place] % (Auto) Eos % (Auto) Baso % (Auto) Lymph # (Auto) [place] # (Auto) Eos # (Auto) Baso # (Auto) Abs Immat Gran (auto) Absolute Neuts (auto) Absolute Nucleated RBC Nucleated RBC % (auto) Sodium Potassium Chloride Carbon Dioxide Anion Gap BUN Creatinine Cancelled Estim Creat Clear Calc 106.8 Cancelled Estimated GFR > 60 Cancelled Random Glucose 140 H Estimat Average Glucose Hemoglobin A1c % Calcium 10.2 Total Bilirubin 0.2 AST 11 ALT 8 Alkaline Phosphatase 88 Total Protein 7.4 Albumin 4.5 Triglycerides Cholesterol LDL Cholesterol, Calc HDL Cholesterol TSH Urine Color Urine Appearance Urine pH Ur Specific [place] Urine Protein Urine Glucose (UA) Urine Ketones Urine Blood Urine Nitrite Ur Leukocyte Esterase Urine RBC Urine WBC Ur Squamous Epith Cells Urine Bacteria Hyaline Casts Urine Test Salicylates Urine Opiates Screen Ur Buprenorphine Scrn Ur Oxycodone Screen Urine Methadone Screen Urine Fentanyl Screen Acetaminophen Ur Barbiturates Screen Ur Phencyclidine Scrn Ur Amphetamines Screen U Benzodiazepines Scrn [place] Urine Cocaine Screen U Marijuana (THC) Screen Ethyl Alcohol S. pyogenes GrpA ESTEE 07/21/24 07/22/24 08:39 17:15 WBC RBC Hgb Hct MCV MCH MCHC RDW Plt Count MPV Immature Gran % (Auto) Neut % (Auto) Lymph % (Auto) [place] % (Auto) Eos % (Auto) Baso % (Auto) Lymph # (Auto) [place] # (Auto) Eos # (Auto) Baso # (Auto) Abs Immat Gran (auto) Absolute Neuts (auto) Absolute Nucleated RBC Nucleated RBC % (auto) Sodium Potassium Chloride Carbon Dioxide Anion Gap BUN Creatinine 0.86 Estim Creat Clear Calc 106.8 Estimated GFR > 60 Random Glucose Estimat Average Glucose Hemoglobin A1c % Calcium Total Bilirubin AST ALT Alkaline Phosphatase Total Protein Albumin Triglycerides Cholesterol LDL Cholesterol, Calc HDL Cholesterol TSH Urine Color Urine Appearance Urine pH Ur Specific [place] Urine Protein Urine Glucose (UA) Urine Ketones Urine Blood Urine Nitrite Ur Leukocyte Esterase Urine RBC Urine WBC Ur Squamous Epith Cells Urine Bacteria Hyaline Casts Urine Test Salicylates Urine Opiates Screen Ur Buprenorphine Scrn Ur Oxycodone Screen Urine Methadone Screen Urine Fentanyl Screen Acetaminophen Ur Barbiturates Screen Ur Phencyclidine Scrn Ur Amphetamines Screen U Benzodiazepines Scrn [place] Urine Cocaine Screen U Marijuana (THC) Screen Ethyl Alcohol S. pyogenes GrpA ESTEE Negative Airway Mallampati Class: II TM Dist: >3cm Neck ROM: Full Heart: rrr Lungs: cta Assessment and Plan Assessment Anesthesia Assessment: Anesthesia Plan Discussed and Chart Reviewed Final Anesthetic Review Family History of Problems with Anesthesia: No History of Problems with Anesthesia: No NPO: Yes ASA Class: III Final Preanesthetic Review: No Changes in Pt Med Stat, Meds/Allgs Chart Reviewed and Consent Obtained/Reviewed Patient Risk: Intermediate Procedure Risk: Intermediate Anesthetic Plan Anesthetic Plan: GA Disposition: Standard PACU
[2024-07-24] MEDS: Lactated Ringers 1,000 ML 50 ML IVCONT (07:00)
--- NOTE | 2024-07-24 07:30 | MHC.SHP ---
Pre-Procedural Eval Section A - 24 Hr Update-Section A only Date of Service: 07/24/24 Changes since office visit: Yes Patient answered all questions; No Cold of Flu in the past 2 weeks, No New Medical Problems and No Changes in Medication The patient has been examined within 24 hours of the surgical procedure. The History & Physical has been completed within 30 days and I have reviewed it.: Yes Section B - Complete if H&P > 30 days Chief Complaint: Labile SI Allergies: Allergies Allergy/AdvReac Type Severity Reaction Status Date / Time No Known Allergies Allergy Verified 07/07/24 20:03 Plan I have reviewed the history and physical and performed a pertinent physical examination on my patient. No changes have occurred unless specified. Time Spent With Patient Time: Total time managing care of this patient today ____ minutes.
--- NOTE | 2024-07-24 07:31 | HO.ECTPROC ---
ECT Procedure Note Diagnosis/Treatment Date of Service: 07/25/24 Diagnosis: Bipolar disorder Previous ECT Date: 07/19/24 Current Treatment Number: 3 Treatment: Series Interval Clinical Notes: pt remains quite depressed hopeless helpless no c/o significant side effects was completed right unilateral decreased energy seizure 72 seconds was given Versed post required glycopyrrolate 0.2 x 2. If no significant improvement tomorrow would consider change to bifrontal Time: Total time managing care of this patient today ____ minutes. ECT Settings Device: THYMATRON DGx Electrode Placement: Right Unilateral Program/Pulse Width: 0.25 Energy Percent: 40 Seizure Duration By EEG (in seconds): 72 Medications Administration General Anesthetic: Etomidate (14) Muscle Relaxant: Succinylcholine (100) Ancillary Medications Analgesics: Torodol - Pre ECT Anti-emetics: Zofran - Pre ECT Cardiovascular Medications: Glycopyrrolate (0.2 pre ECT and 0.2 post ECT) Airway Management Airway Management: Bag Mask Ventilation Treatment Recommendations Program/Pulse Width: 0.25 Energy Percent: 40 Notes: Consider change to bifrontal patient quite depressed with at times intrusive suicidal thoughts may benefit from change to bilateral technique for more rapid response Pt Tolerated Procedure w/o Issue: Yes
[2024-07-24] MEDS: Ibuprofen 600 MG TABLET PO ×2 (09:27→17:39)
[2024-07-24] MEDS: Cariprazine HCl 3 MG CAPSULE PO (09:27)
[2024-07-24] MEDS: Naltrexone HCl 50 MG TABLET PO (09:27)
[2024-07-24] MEDS: Ondansetron ODT 4 MG TAB.RAPDIS TRANSLINGU ×2 (09:28→17:40)
[2024-07-24] MEDS: metFORMIN HCl 500 MG TABLET PO (17:39)
--- NOTE | 2024-07-24 19:04 | P.PNPSI_ITS ---
Subjective Subjective Date of Service: 07/24/24 Reason For Visit: Labile SI Subjective Notes: Conditional Voluntary Healthcare Proxy: No Guardianship: No Medical Problems Affecting Mental Status: No Interim History: Pt completed ECT. She reports no changes as yet. Encouraged pt to maintain appropriate hydration and po intake. SI/Self-harm thoughts verbalized to team. Five minute checks maintained. Slept most of the day after her treatment, awake, visable, engaged with peers later in the day. Medication Compliance: Yes Side effects from medications: No Attending Groups: Intermittent Review of Systems Acute medical concerns: No Review of Systems Review of Systems Post ECT headache and sore throat Mental Status Exam Mental Status Exam Patient Appearance: Appropriate Patient Orientation: Person, Place, Time and Situation Level of Consciousness: Alert Patient Behavior: Talkative and Good Eye Contact Mood Description: Depressed Affect Description: Flat Patient Cognition Impaired: No Ability to Follow Directions: Good Speech Pattern: Spontaneous Speech Memory Description: Intact Hallucinations: None Delusions: Not Present Perceptual Disturbances: Depersonalization and Derealization Thought Process: Distracted and Rumination Thought Content: positive for Perseveration and positive for Suicidal Ideation Depressive Symptoms: Thoughts of /Suicide Judgement: Fair Diagnostics Vital Signs (24Hr): Vital Signs - 24 hr 07/23/24 20:00 07/23/24 22:25 07/24/24 06:33 Temperature 97.2 F 96.7 F L Pulse Rate 96 77 Respiratory Rate 16 Blood Pressure 112/66 116/57 L 111/71 Pulse Oximetry 96 95 Oxygen Delivery Method Room Air Room Air Oxygen Flow Rate 07/24/24 07:54 07/24/24 07:59 07/24/24 08:04 Temperature 98.1 F Pulse Rate 128 H 113 H 103 H Respiratory Rate 16 16 16 Blood Pressure 150/105 H 140/97 H 122/72 Pulse Oximetry 99 99 100 Oxygen Delivery Method Nasal Cannula with ETCO2 Nasal Cannula with ETCO2 Nasal Cannula with ETCO2 Oxygen Flow Rate 2 2 2 07/24/24 08:09 07/24/24 08:24 07/24/24 08:39 Temperature 97.5 F Pulse Rate 101 H 92 88 Respiratory Rate 16 16 16 Blood Pressure 118/71 114/68 115/69 Pulse Oximetry 98 96 96 Oxygen Delivery Method Room Air Room Air Room Air Oxygen Flow Rate 07/24/24 09:19 07/24/24 09:23 Temperature 97.4 F 97.4 F Pulse Rate 77 77 Respiratory Rate 20 20 Blood Pressure 103/66 103/66 Pulse Oximetry 96 96 Oxygen Delivery Method Room Air Oxygen Flow Rate BMI result Body Mass Index 36.2 Labs 07/17/24 13:31 07/21/24 08:39 Medications Medications Current Medications Acetaminophen (Acetaminophen 325 Mg Tablet) 650 mg PO Q6H PRN PRN Reason: Headache/Pain Mild Scale (1-3) Last Admin: 07/20/24 22:41 Dose: 650 mg Al Hydroxide/Mg Hydroxide (Magnesium Hydrox/Alum Hydrox 30 Ml Oral.Susp) 30 ml PO Q6H PRN PRN Reason: Heartburn/Nausea Cariprazine (Cariprazine Hcl 3 Mg Capsule) 3 mg PO DAILY [facility] Last Admin: 07/24/24 09:27 Dose: 3 mg Hydroxyzine HCl (Hydroxyzine Hcl 25 Mg Tablet) 25 mg PO Q6H PRN PRN Reason: Anxiety Last Admin: 07/20/24 21:26 Dose: 25 mg Ibuprofen (Ibuprofen 600 Mg Tablet) 600 mg PO Q6H PRN PRN Reason: muscle pain Last Admin: 07/24/24 17:39 Dose: 600 mg Magnesium Hydroxide (Milk Of Magnesia 30 Ml Oral.Susp) 30 ml PO DAILY PRN PRN Reason: Constipation Metformin HCl (Metformin Hcl 500 Mg Tablet) 500 mg PO DAILY@1700 [facility] Last Admin: 07/24/24 17:39 Dose: 500 mg Naltrexone HCl (Naltrexone Hcl 50 Mg Tablet) 50 mg PO DAILY [facility] Last Admin: 07/24/24 09:27 Dose: 50 mg Nicotine (Nicotine 21 Mg Patch.Td24) 21 mg TRANSDERMA DAILY PRN PRN Reason: smoking cessation Last Admin: 07/23/24 08:53 Dose: 21 mg Nicotine Polacrilex (Nicotine Polacrilex Lozenge 4 Mg Lozenge) 4 mg BUCCAL Q2H PRN PRN Reason: nicotine cravings Last Admin: 07/23/24 21:12 Dose: 4 mg Patient Own ( Atomoxetine 25 Mg Capsule) 25 mg PO DAILY [facility] Last Admin: 07/24/24 10:36 Dose: 25 mg Olanzapine (Olanzapine 10 Mg Tablet) 10 mg PO TID PRN PRN Reason: agitation Ondansetron HCl (Ondansetron Odt 4 Mg Tab.Rapdis) 4 mg TRANSLINGU TIDAC PRN PRN Reason: nausea Last Admin: 07/24/24 17:40 Dose: 4 mg Prazosin HCl (Prazosin Hcl 5 Mg Capsule) 5 mg PO BEDTIME [facility]; Protocol Last Admin: 07/23/24 22:25 Dose: 5 mg Trazodone HCl (Trazodone Hcl 50 Mg Tablet) 50 mg PO BEDTIME MRX1 PRN PRN Reason: Insomnia Last Admin: 07/22/24 23:30 Dose: 50 mg Trazodone HCl (Trazodone Hcl 100 Mg Tablet) 200 mg PO BEDTIME [facility] Last Admin: 07/23/24 22:24 Dose: 200 mg Allergies Allergies Allergy/AdvReac Type Severity Reaction Status Date / Time No Known Allergies Allergy Verified 07/07/24 20:03 Assessment & Plan Assessment & Plan (1) Bipolar 1 disorder, depressed: Status: Acute Code(s): F31.9 - Bipolar disorder, unspecified (2) Borderline personality disorder: Status: Acute Code(s): F60.3 - Borderline personality disorder (3) Suicidal ideation: Status: Acute Code(s): R45.851 - Suicidal ideations Plan The patient appears to have clinical depression on top of what appears to be dysphoria anxiety consistent PTSD borderline personality disorder with reactivity and intermittent self-injurious behavior. This does not appear to be part of that pattern there is a strong possible genetic component with her father having completed suicide and history of bipolar disorder patient agreeable to have thing us speak with her therapist and psychiatrist and records reviewed from [address] [place] [address] and [facility]. I have discussed with the patient that ECT would not treat chronic issues that she she deals with stress as mood and stability urges toward self injurious behavior and intermittent restricted eating disorder. The patient describes however ongoing depressed mood with intense thoughts of suicide history of not responding to antidepressant medication and has not stabilized bite a month of treatment with Vraylar and lithium. 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 Patient has had some response reportedly to TMS in the past given intensity of her suicidal thoughts intensity of depression at this time does not seem a current option. Call has been placed to her outpatient psychiatrist in [place]. Although I would not recommend ECT for borderline personality disorder per se certainly given her ongoing depression lack of emotional reactivity anhedonia intense negative affective state that seems to be consistent with thoughts of suicide the patient would meet criteria for a course of ECT which we would start with right unilateral treatment there are no medical contraindications Case has also been discussed and reviewed with inpatient treatment team. Hospital course: 07/18/24: ECT 07.19. 07/19 Patient is post ECT. She is lying in bed alert and oriented but feeling tired. She said she had a headache which got better with p.r.n. medication. Some muscle aches. She felt foggy with some blurred vision but that too is resolving. She says she just wants to rest for now. 07/20 patient feeling calm day after ECT. Wants to continue. 07/21 Patient says she has come in the outside but on the inside she feels a little revved up.; wants to continue with ECT. Discussed muscle soreness and patient wants ibuprofen reminding internal communications writer that currently she is off lithium. Later in the evening patient reported feeling that she was starting to get hypomanic and asked for increased dose of Zyprexa. 07/24 Continue plan of care. 07/23- ECT 07/24. PLAN: CV q15 min checks ECT #1 on 07/19 ECT #2 pending 07/22 npo -increased PRNs Zyprexa to 10 mg since patient starting to feel hypomanic Reason for continued inpatient stay Substantial Risk for: harm to self and rapid decompensation Time Spent With Patient Time: Total time managing care of this patient today ____ minutes.
[2024-07-24] MEDS: traZODone HCL 100 MG TABLET 200 MG PO (22:20)
[2024-07-24] MEDS: Prazosin HCL 5 MG CAPSULE PO (22:21)
[2024-07-24] MEDS: traZODone HCL 50 MG TABLET PO (23:36)
[2024-07-25 07:58] VITALS: BP 117/60; PULSE 68; RESP 16; TEMP 36.3; O2SAT 96
[2024-07-25 08:00] VITALS: BP 117/60; PULSE 68; RESP 16; TEMP 36.3; O2SAT 96
[2024-07-25] MEDS: Cariprazine HCl 3 MG CAPSULE PO (09:19)
[2024-07-25] MEDS: Naltrexone HCl 50 MG TABLET PO (09:19)
--- NOTE | 2024-07-25 12:06 | P.PNPSI_ITS ---
Subjective Subjective Date of Service: 07/25/24 Reason For Visit: Labile SI Subjective Notes: Conditional Voluntary Healthcare Proxy: No Guardianship: No Medical Problems Affecting Mental Status: No Interim History: Lila reports no change in mood from ECT. Reports minor improvement in appetite, SI- the same , improved sleep due to increase in Trazodone. Discussed possible lead placement change which she is willing to do. Plan is for treatment #4 on 07/26. Medication Compliance: Yes Side effects from medications: No Attending Groups: Yes Review of Systems Acute medical concerns: No Medical Review of Systems: unchanged Review of Systems Review of Systems Yes all other systems are reviewed and are negative Mental Status Exam Mental Status Exam Patient Appearance: Appropriate Patient Orientation: Person, Place, Time and Situation Level of Consciousness: Alert Patient Behavior: Talkative and Good Eye Contact Mood Description: Depressed Affect Description: Flat Patient Cognition Impaired: No Ability to Follow Directions: Good Speech Pattern: Spontaneous Speech Memory Description: Intact Hallucinations: None Delusions: Not Present Perceptual Disturbances: Depersonalization and Derealization Thought Process: Distracted and Rumination Thought Content: positive for Perseveration and positive for Suicidal Ideation Depressive Symptoms: Thoughts of /Suicide Judgement: Fair Diagnostics Vital Signs (24Hr): Vital Signs - 24 hr 07/24/24 20:00 07/24/24 22:21 07/25/24 07:58 Temperature 97.6 F 97.3 F Pulse Rate 88 68 Respiratory Rate 16 Blood Pressure 113/53 L 123/62 117/60 Pulse Oximetry 97 96 Oxygen Delivery Method Room Air Room Air 07/25/24 08:00 Temperature 97.3 F Pulse Rate 68 Respiratory Rate 16 Blood Pressure 117/60 Pulse Oximetry 96 Oxygen Delivery Method BMI result Body Mass Index 36.2 Labs 07/17/24 13:31 07/21/24 08:39 Medications Medications Current Medications Acetaminophen (Acetaminophen 325 Mg Tablet) 650 mg PO Q6H PRN PRN Reason: Headache/Pain Mild Scale (1-3) Last Admin: 07/20/24 22:41 Dose: 650 mg Al Hydroxide/Mg Hydroxide (Magnesium Hydrox/Alum Hydrox 30 Ml Oral.Susp) 30 ml PO Q6H PRN PRN Reason: Heartburn/Nausea Cariprazine (Cariprazine Hcl 3 Mg Capsule) 3 mg PO DAILY [facility] Last Admin: 07/25/24 09:19 Dose: 3 mg Hydroxyzine HCl (Hydroxyzine Hcl 25 Mg Tablet) 25 mg PO Q6H PRN PRN Reason: Anxiety Last Admin: 07/20/24 21:26 Dose: 25 mg Ibuprofen (Ibuprofen 600 Mg Tablet) 600 mg PO Q6H PRN PRN Reason: muscle pain Last Admin: 07/24/24 17:39 Dose: 600 mg Magnesium Hydroxide (Milk Of Magnesia 30 Ml Oral.Susp) 30 ml PO DAILY PRN PRN Reason: Constipation Metformin HCl (Metformin Hcl 500 Mg Tablet) 500 mg PO DAILY@1700 [facility] Last Admin: 07/24/24 17:39 Dose: 500 mg Naltrexone HCl (Naltrexone Hcl 50 Mg Tablet) 50 mg PO DAILY [facility] Last Admin: 07/25/24 09:19 Dose: 50 mg Nicotine (Nicotine 21 Mg Patch.Td24) 21 mg TRANSDERMA DAILY PRN PRN Reason: smoking cessation Last Admin: 07/23/24 08:53 Dose: 21 mg Nicotine Polacrilex (Nicotine Polacrilex Lozenge 4 Mg Lozenge) 4 mg BUCCAL Q2H PRN PRN Reason: nicotine cravings Last Admin: 07/23/24 21:12 Dose: 4 mg Patient Own ( Atomoxetine 25 Mg Capsule) 25 mg PO DAILY [facility] Last Admin: 07/25/24 09:19 Dose: 25 mg Olanzapine (Olanzapine 10 Mg Tablet) 10 mg PO TID PRN PRN Reason: agitation Ondansetron HCl (Ondansetron Odt 4 Mg Tab.Rapdis) 4 mg TRANSLINGU TIDAC PRN PRN Reason: nausea Last Admin: 07/24/24 17:40 Dose: 4 mg Prazosin HCl (Prazosin Hcl 5 Mg Capsule) 5 mg PO BEDTIME [facility]; Protocol Last Admin: 07/24/24 22:21 Dose: 5 mg Trazodone HCl (Trazodone Hcl 50 Mg Tablet) 50 mg PO BEDTIME MRX1 PRN PRN Reason: Insomnia Last Admin: 07/24/24 23:36 Dose: 50 mg Trazodone HCl (Trazodone Hcl 100 Mg Tablet) 200 mg PO BEDTIME [facility] Last Admin: 07/24/24 22:20 Dose: 200 mg Allergies Allergies Allergy/AdvReac Type Severity Reaction Status Date / Time No Known Allergies Allergy Verified 07/07/24 20:03 Assessment & Plan Assessment & Plan (1) Bipolar 1 disorder, depressed: Status: Acute Code(s): F31.9 - Bipolar disorder, unspecified (2) Borderline personality disorder: Status: Acute Code(s): F60.3 - Borderline personality disorder (3) Suicidal ideation: Status: Acute Code(s): R45.851 - Suicidal ideations Plan The patient appears to have clinical depression on top of what appears to be dysphoria anxiety consistent PTSD borderline personality disorder with reactivity and intermittent self-injurious behavior. This does not appear to be part of that pattern there is a strong possible genetic component with her father having completed suicide and history of bipolar disorder patient agreeable to have thing us speak with her therapist and psychiatrist and records reviewed from [address] [place] [address] and [facility]. I have discussed with the patient that ECT would not treat chronic issues that she she deals with stress as mood and stability urges toward self injurious behavior and intermittent restricted eating disorder. The patient describes however ongoing depressed mood with intense thoughts of suicide history of not responding to antidepressant medication and has not stabilized bite a month of treatment with Vraylar and lithium. 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 Patient has had some response reportedly to TMS in the past given intensity of her suicidal thoughts intensity of depression at this time does not seem a current option. Call has been placed to her outpatient psychiatrist in [place]. Although I would not recommend ECT for borderline personality disorder per se certainly given her ongoing depression lack of emotional reactivity anhedonia intense negative affective state that seems to be consistent with thoughts of suicide the patient would meet criteria for a course of ECT which we would start with right unilateral treatment there are no medical contraindications Case has also been discussed and reviewed with inpatient treatment team. Hospital course: 07/18/24: ECT 07.19. 07/19 Patient is post ECT. She is lying in bed alert and oriented but feeling tired. She said she had a headache which got better with p.r.n. medication. Some muscle aches. She felt foggy with some blurred vision but that too is resolving. She says she just wants to rest for now. 07/20 patient feeling calm day after ECT. Wants to continue. 07/21 Patient says she has come in the outside but on the inside she feels a little revved up.; wants to continue with ECT. Discussed muscle soreness and patient wants ibuprofen reminding display card writer that currently she is off lithium. Later in the evening patient reported feeling that she was starting to get hypomanic and asked for increased dose of Zyprexa 07/23- ECT 07/24. 07/25- ECT 07/26. PLAN: CV q15 min checks ECT #1 on 07/19 ECT #2 pending 07/22 npo -increased PRNs Zyprexa to 10 mg since patient starting to feel hypomanic Reason for continued inpatient stay Substantial Risk for: rapid decompensation Time Spent With Patient Time: Total time managing care of this patient today ____ minutes.
[2024-07-25] MEDS: Ondansetron ODT 4 MG TAB.RAPDIS TRANSLINGU (14:06)
[2024-07-25] MEDS: metFORMIN HCl 500 MG TABLET PO (17:40)
[2024-07-25 17:49] VITALS: BMI 36.7
[2024-07-25 20:00] VITALS: BP 148/72; PULSE 86; TEMP 36.1; O2SAT 98
[2024-07-25 22:42] VITALS: BP 113/62
[2024-07-25] MEDS: Prazosin HCL 5 MG CAPSULE PO (22:42)
[2024-07-25] MEDS: traZODone HCL 100 MG TABLET 200 MG PO (22:42)
[2024-07-26] VITALS (11 sets, daily range): BP systolic 95–160; BP diastolic 59–94; PULSE 60–122; RESP 16–19; TEMP 36.2–36.8; O2SAT 93–98
[2024-07-26] MEDS: traZODone HCL 50 MG TABLET PO (00:19)
--- NOTE | 2024-07-26 06:52 | P.CONAN_ITS ---
[facility] Active Problems Active Problems: All Active Problems Routine medical exam (Acute) Bipolar 1 disorder, depressed (Acute) Borderline personality disorder (Acute) Suicidal ideation (Acute) Past Medical History Medical History No pertinent past medical history Family History Family history of problems with anesthesia: No Surgical History History of Problems with Anesthesia: No Social History Social History Household Members: Family Household Members Other:: Been staying with a friend this summer. Lives on campus during school year Housing: House Do you presently have visiting nurse or other home services: No Patient Tobacco Use Status: Current everyday Tobacco user Tobacco use type: Cigarette Cigarettes Per Day: 8 Smoked in Last 30 Days: Yes Patient Interested in Nicotine Replacement: Yes Patient Given Instructions on How to Stop Smoking: No Second Hand Smoke Exposure: No Use of substances other than those prescribed or required for medical reasons: No Currently Displaying Signs/Symptoms of Drug Intoxication Withdrawal: No Any prior treatment program specific to substance use: No Have you been hit, kicked, punched, or otherwise hurt by someone within the past year? If so, by whom?: No Do you feel safe in your current relationship?: No Current Relationship Is there a partner from a previous relationship who is making you feel unsafe now?: No Are you made to feel afraid or neglected: No Advance Directives: No Advance Directives Information Provided: No Do you have thoughts of harming others: None Do you have a plan to hurt others: No Plan Recently lost weight without trying: No How much weight loss: Not applicable Eating poorly because of decreased appetite: Yes Nutrition screen score: 1 Nutrition Risks: Anorexia Patient : No : No Poor oral hygiene: No service: No Sexual orientation: Straight/Heterosexual Meds Allergies Allergy/AdvReac Type Severity Reaction Status Date / Time No Known Allergies Allergy Verified 07/07/24 20:03 Active Medications: Current Medications Acetaminophen (Acetaminophen 325 Mg Tablet) 650 mg PO Q6H PRN PRN Reason: Headache/Pain Mild Scale (1-3) Last Admin: 07/20/24 22:41 Dose: 650 mg Al Hydroxide/Mg Hydroxide (Magnesium Hydrox/Alum Hydrox 30 Ml Oral.Susp) 30 ml PO Q6H PRN PRN Reason: Heartburn/Nausea Cariprazine (Cariprazine Hcl 3 Mg Capsule) 3 mg PO DAILY [facility] Last Admin: 07/25/24 09:19 Dose: 3 mg Hydroxyzine HCl (Hydroxyzine Hcl 25 Mg Tablet) 25 mg PO Q6H PRN PRN Reason: Anxiety Last Admin: 07/20/24 21:26 Dose: 25 mg Lactated Ringer's (Lr) 1,000 mls @ 50 mls/hr IVCONT .Q20H PREETI Ibuprofen (Ibuprofen 600 Mg Tablet) 600 mg PO Q6H PRN PRN Reason: muscle pain Last Admin: 07/24/24 17:39 Dose: 600 mg Magnesium Hydroxide (Milk Of Magnesia 30 Ml Oral.Susp) 30 ml PO DAILY PRN PRN Reason: Constipation Metformin HCl (Metformin Hcl 500 Mg Tablet) 500 mg PO DAILY@1700 PREETI Last Admin: 07/25/24 17:40 Dose: 500 mg Naltrexone HCl (Naltrexone Hcl 50 Mg Tablet) 50 mg PO DAILY [facility] Last Admin: 07/25/24 09:19 Dose: 50 mg Nicotine (Nicotine 21 Mg Patch.Td24) 21 mg TRANSDERMA DAILY PRN PRN Reason: smoking cessation Last Admin: 07/23/24 08:53 Dose: 21 mg Nicotine Polacrilex (Nicotine Polacrilex Lozenge 4 Mg Lozenge) 4 mg BUCCAL Q2H PRN PRN Reason: nicotine cravings Last Admin: 07/23/24 21:12 Dose: 4 mg Patient Own ( Atomoxetine 25 Mg Capsule) 25 mg PO DAILY [facility] Last Admin: 07/25/24 09:19 Dose: 25 mg Olanzapine (Olanzapine 10 Mg Tablet) 10 mg PO TID PRN PRN Reason: agitation Ondansetron HCl (Ondansetron Odt 4 Mg Tab.Rapdis) 4 mg TRANSLINGU TIDAC PRN PRN Reason: nausea Last Admin: 07/25/24 14:06 Dose: 4 mg Prazosin HCl (Prazosin Hcl 5 Mg Capsule) 5 mg PO BEDTIME [facility]; Protocol Last Admin: 07/25/24 22:42 Dose: 5 mg Trazodone HCl (Trazodone Hcl 50 Mg Tablet) 50 mg PO BEDTIME MRX1 PRN PRN Reason: Insomnia Last Admin: 07/26/24 00:19 Dose: 50 mg Trazodone HCl (Trazodone Hcl 100 Mg Tablet) 200 mg PO BEDTIME [facility] Last Admin: 07/25/24 22:42 Dose: 200 mg Home Medications ?Medication ?Instructions ?Recorded ?Confirmed ?Last Taken ?Type cariprazine 1.5 mg capsule 3 mg PO QAM 07/07/24 07/07/24 07/07/24 08:00 History (Rebekah) lithium carbonate 300 mg 300 mg PO BID 07/07/24 07/07/24 07/07/24 08:00 History tablet,extended release metformin 500 mg tablet 500 mg PO DAILY 07/07/24 07/07/24 07/07/24 08:00 History naltrexone 50 mg tablet 50 mg PO DAILY 07/07/24 07/07/24 07/07/24 08:00 History prazosin 5 mg capsule 5 mg PO BEDTIME 07/07/24 07/07/24 07/05/24 20:00 History trazodone 150 mg tablet 150 mg PO BEDTIME 07/07/24 07/07/24 07/06/24 20:00 History Exam Height,Weight and Vital Signs: Height 5 ft 2 in Weight 91 kg Last Vital Signs Temp 97.2 F 07/26/24 06:49 Pulse 85 07/26/24 06:49 Resp 16 07/26/24 06:49 BP 114/69 07/26/24 06:49 Pulse Ox 95 07/26/24 06:49 O2 Del Method Room Air 07/26/24 06:49 O2 Flow Rate 2 07/24/24 08:04 Pertinent Lab Results Pertinent Lab Results: Laboratory Tests 07/07/24 07/09/24 07/17/24 20:25 07:53 13:31 WBC 15.4 H 12.1 H 10.1 RBC 4.91 4.79 5.17 Hgb 13.9 13.8 14.7 Hct 42.1 41.0 44.7 MCV 85.7 85.6 86.5 MCH 28.3 28.8 28.4 MCHC 33.0 33.7 32.9 RDW 13.2 13.3 13.5 Plt Count 432 H 368 353 MPV 9.8 9.7 10.1 Immature Gran % (Auto) 0.3 0.4 0.4 Neut % (Auto) 76.2 H 66.1 74.3 H Lymph % (Auto) 17.2 L 24.8 18.4 L [place] % (Auto) 5.2 5.6 4.3 Eos % (Auto) 0.8 2.8 2.1 Baso % (Auto) 0.3 0.3 0.5 Lymph # (Auto) 2.7 3.0 1.9 [place] # (Auto) 0.8 0.7 0.4 Eos # (Auto) 0.1 0.3 0.2 Baso # (Auto) 0.0 0.0 0.1 Abs Immat Gran (auto) 0.05 H 0.05 H 0.04 H Absolute Neuts (auto) 11.7 H 8.0 7.5 Absolute Nucleated RBC 0.000 0.000 0.000 Nucleated RBC % (auto) 0.0 0.0 0.0 Sodium 139 138 Potassium 4.0 4.2 Chloride 105 103 Carbon Dioxide 25 26 Anion Gap 13 13 BUN 9 7 L Creatinine 0.94 0.86 Estim Creat Clear Calc 97.8 Estimated GFR > 60 Random Glucose 102 Estimat Average Glucose 111 Hemoglobin A1c % 5.5 Calcium 10.0 Total Bilirubin 0.3 AST 13 ALT 9 Alkaline Phosphatase 98 Total Protein 7.8 Albumin 4.7 Triglycerides 90 Cholesterol 116 LDL Cholesterol, Calc 67 HDL Cholesterol 31 L TSH 0.36 Urine Color Yellow Urine Appearance Clear Urine pH 8.0 Ur Specific [place] 1.025 Urine Protein Trace Urine Glucose (UA) Negative Urine Ketones >=160 Urine Blood Negative Urine Nitrite Negative Ur Leukocyte Esterase Trace H Urine RBC 0-2 Urine WBC 0-5 Ur Squamous Epith Cells 3-5 Urine Bacteria Trace Hyaline Casts 0-2 Urine Test NEGATIVE Salicylates < 5.0 L Urine Opiates Screen Not Detected Ur Buprenorphine Scrn Not Detected Ur Oxycodone Screen Not Detected Urine Methadone Screen Not Detected Urine Fentanyl Screen Not Detected Acetaminophen < 3 Ur Barbiturates Screen Not Detected Ur Phencyclidine Scrn Not Detected Ur Amphetamines Screen Not Detected U Benzodiazepines Scrn Not Detected [place] 0.84 Urine Cocaine Screen Not Detected U Marijuana (THC) Screen Not Detected Ethyl Alcohol < 10 S. pyogenes GrpA ESTEE 07/17/24 07/17/24 07/17/24 13:31 13:31 13:31 WBC RBC Hgb Hct MCV MCH MCHC RDW Plt Count MPV Immature Gran % (Auto) Neut % (Auto) Lymph % (Auto) [place] % (Auto) Eos % (Auto) Baso % (Auto) Lymph # (Auto) [place] # (Auto) Eos # (Auto) Baso # (Auto) Abs Immat Gran (auto) Absolute Neuts (auto) Absolute Nucleated RBC Nucleated RBC % (auto) Sodium Potassium Chloride Carbon Dioxide Anion Gap BUN Creatinine Cancelled Estim Creat Clear Calc 106.8 Cancelled Estimated GFR > 60 Cancelled Random Glucose 140 H Estimat Average Glucose Hemoglobin A1c % Calcium 10.2 Total Bilirubin 0.2 AST 11 ALT 8 Alkaline Phosphatase 88 Total Protein 7.4 Albumin 4.5 Triglycerides Cholesterol LDL Cholesterol, Calc HDL Cholesterol TSH Urine Color Urine Appearance Urine pH Ur Specific [place] Urine Protein Urine Glucose (UA) Urine Ketones Urine Blood Urine Nitrite Ur Leukocyte Esterase Urine RBC Urine WBC Ur Squamous Epith Cells Urine Bacteria Hyaline Casts Urine Test Salicylates Urine Opiates Screen Ur Buprenorphine Scrn Ur Oxycodone Screen Urine Methadone Screen Urine Fentanyl Screen Acetaminophen Ur Barbiturates Screen Ur Phencyclidine Scrn Ur Amphetamines Screen U Benzodiazepines Scrn [place] Urine Cocaine Screen U Marijuana (THC) Screen Ethyl Alcohol S. pyogenes GrpA ESTEE 07/21/24 07/22/24 08:39 17:15 WBC RBC Hgb Hct MCV MCH MCHC RDW Plt Count MPV Immature Gran % (Auto) Neut % (Auto) Lymph % (Auto) [place] % (Auto) Eos % (Auto) Baso % (Auto) Lymph # (Auto) [place] # (Auto) Eos # (Auto) Baso # (Auto) Abs Immat Gran (auto) Absolute Neuts (auto) Absolute Nucleated RBC Nucleated RBC % (auto) Sodium Potassium Chloride Carbon Dioxide Anion Gap BUN Creatinine 0.86 Estim Creat Clear Calc 106.8 Estimated GFR > 60 Random Glucose Estimat Average Glucose Hemoglobin A1c % Calcium Total Bilirubin AST ALT Alkaline Phosphatase Total Protein Albumin Triglycerides Cholesterol LDL Cholesterol, Calc HDL Cholesterol TSH Urine Color Urine Appearance Urine pH Ur Specific [place] Urine Protein Urine Glucose (UA) Urine Ketones Urine Blood Urine Nitrite Ur Leukocyte Esterase Urine RBC Urine WBC Ur Squamous Epith Cells Urine Bacteria Hyaline Casts Urine Test Salicylates Urine Opiates Screen Ur Buprenorphine Scrn Ur Oxycodone Screen Urine Methadone Screen Urine Fentanyl Screen Acetaminophen Ur Barbiturates Screen Ur Phencyclidine Scrn Ur Amphetamines Screen U Benzodiazepines Scrn [place] Urine Cocaine Screen U Marijuana (THC) Screen Ethyl Alcohol S. pyogenes GrpA ESTEE Negative Airway Mallampati Class: II TM Dist: >3cm Neck ROM: Full Heart: rrr Lungs: cta Assessment and Plan Assessment Anesthesia Assessment: Anesthesia Plan Discussed and Chart Reviewed Final Anesthetic Review Family History of Problems with Anesthesia: No History of Problems with Anesthesia: No NPO: Yes ASA Class: III Final Preanesthetic Review: No Changes in Pt Med Stat, Meds/Allgs Chart Reviewed and Consent Obtained/Reviewed Patient Risk: Intermediate Procedure Risk: Intermediate Anesthetic Plan Anesthetic Plan: GA Disposition: Standard PACU
--- NOTE | 2024-07-26 07:47 | MHC.SHP ---
Pre-Procedural Eval Section A - 24 Hr Update-Section A only Date of Service: 07/26/24 Changes since office visit: Yes Patient answered all questions; No Cold of Flu in the past 2 weeks, No New Medical Problems and No Changes in Medication The patient has been examined within 24 hours of the surgical procedure. The History & Physical has been completed within 30 days and I have reviewed it.: Yes Section B - Complete if H&P > 30 days Chief Complaint: Labile SI Allergies: Allergies Allergy/AdvReac Type Severity Reaction Status Date / Time No Known Allergies Allergy Verified 07/07/24 20:03 Plan I have reviewed the history and physical and performed a pertinent physical examination on my patient. No changes have occurred unless specified. Time Spent With Patient Time: Total time managing care of this patient today ____ minutes.
--- NOTE | 2024-07-26 08:29 | HO.ECTPROC ---
ECT Procedure Note Diagnosis/Treatment Date of Service: 07/26/24 Diagnosis: Bipolar disorder Previous ECT Date: 07/24/24 Current Treatment Number: 4 Treatment: Series Interval Clinical Notes: pt states still quite depressed asking about bilat tx instead of unilateral for greater effect Time: Total time managing care of this patient today ____ minutes. ECT Settings Device: THYMATRON DGx Electrode Placement: Rt temporal/ Lt frontal Energy Percent: 100 Seizure Duration By EEG (in seconds): 38 Medications Administration General Anesthetic: Etomidate (14) Muscle Relaxant: Succinylcholine (100) Ancillary Medications Analgesics: Torodol - Pre ECT Anti-emetics: Zofran - Pre ECT Cardiovascular Medications: Glycopyrrolate (0.2 x 0.2) Miscillaneous Medications: Midazolam (2) Airway Management Airway Management: Bag Mask Ventilation Treatment Recommendations Notes: monitor response to rtlf tx vs side effects
[2024-07-26] MEDS: Acetaminophen 325 MG TABLET 650 MG PO ×2 (09:36→21:50)
[2024-07-26] MEDS: Cariprazine HCl 3 MG CAPSULE PO (09:36)
[2024-07-26] MEDS: Naltrexone HCl 50 MG TABLET PO (09:36)
--- NOTE | 2024-07-26 10:37 | P.PNPSI_ITS ---
Subjective Subjective Date of Service: 07/26/24 Reason For Visit: Labile SI Subjective Notes: Conditional Voluntary Healthcare Proxy: No Guardianship: No Medical Problems Affecting Mental Status: No Interim History: Reports some STM loss, headache, sore throat post ECT. Discussed lead placement change, and hope that this will help with improved symptom mgt. Visable in milieu, alternating with rest, social with peers and interactive. Medication Compliance: Yes Side effects from medications: No Attending Groups: Intermittent Review of Systems Acute medical concerns: No Medical Review of Systems: unchanged Review of Systems Review of Systems STM loss, headache, sore throat post ECT today Mental Status Exam Mental Status Exam Patient Appearance: Appropriate Patient Orientation: Person, Place, Time and Situation Level of Consciousness: Alert Patient Behavior: Talkative and Good Eye Contact Mood Description: Depressed Affect Description: Flat Patient Cognition Impaired: No Ability to Follow Directions: Good Speech Pattern: Spontaneous Speech Memory Description: Intact Hallucinations: None Delusions: Not Present Perceptual Disturbances: Depersonalization and Derealization Thought Process: Distracted and Rumination Thought Content: positive for Perseveration and positive for Suicidal Ideation Depressive Symptoms: Thoughts of /Suicide Judgement: Fair Diagnostics Vital Signs (24Hr): Vital Signs - 24 hr 07/25/24 20:00 07/25/24 22:42 07/26/24 06:49 Temperature 96.9 F 97.2 F Pulse Rate 86 85 Respiratory Rate 16 Blood Pressure 148/72 H 113/62 114/69 Pulse Oximetry 98 95 Oxygen Delivery Method Room Air Room Air Oxygen Flow Rate 07/26/24 08:05 07/26/24 08:10 07/26/24 08:15 Temperature 98.3 F Pulse Rate 122 H 107 H 104 H Respiratory Rate 19 18 18 Blood Pressure 160/94 H 134/88 134/84 Pulse Oximetry 94 94 95 Oxygen Delivery Method Nasal Cannula with ETCO2 Nasal Cannula with ETCO2 Nasal Cannula with ETCO2 Oxygen Flow Rate 2 2 2 07/26/24 08:20 07/26/24 08:35 07/26/24 08:50 Temperature Pulse Rate 98 90 91 Respiratory Rate 18 16 16 Blood Pressure 126/82 135/81 130/78 Pulse Oximetry 94 95 93 Oxygen Delivery Method Nasal Cannula with ETCO2 Nasal Cannula with ETCO2 Room Air Oxygen Flow Rate 2 2 07/26/24 09:05 07/26/24 09:32 Temperature 98.3 F 97.6 F Pulse Rate 60 103 H Respiratory Rate 16 18 Blood Pressure 112/75 95/59 L Pulse Oximetry 97 97 Oxygen Delivery Method Room Air Oxygen Flow Rate BMI result Body Mass Index 36.7 Labs 07/17/24 13:31 07/21/24 08:39 Medications Medications Current Medications Acetaminophen (Acetaminophen 325 Mg Tablet) 650 mg PO Q6H PRN PRN Reason: Headache/Pain Mild Scale (1-3) Last Admin: 07/26/24 09:36 Dose: 650 mg Al Hydroxide/Mg Hydroxide (Magnesium Hydrox/Alum Hydrox 30 Ml Oral.Susp) 30 ml PO Q6H PRN PRN Reason: Heartburn/Nausea Cariprazine (Cariprazine Hcl 3 Mg Capsule) 3 mg PO DAILY [facility] Last Admin: 07/26/24 09:36 Dose: 3 mg Hydroxyzine HCl (Hydroxyzine Hcl 25 Mg Tablet) 25 mg PO Q6H PRN PRN Reason: Anxiety Last Admin: 07/20/24 21:26 Dose: 25 mg Ibuprofen (Ibuprofen 600 Mg Tablet) 600 mg PO Q6H PRN PRN Reason: muscle pain Last Admin: 07/24/24 17:39 Dose: 600 mg Magnesium Hydroxide (Milk Of Magnesia 30 Ml Oral.Susp) 30 ml PO DAILY PRN PRN Reason: Constipation Metformin HCl (Metformin Hcl 500 Mg Tablet) 500 mg PO DAILY@1700 [facility] Last Admin: 07/25/24 17:40 Dose: 500 mg Naltrexone HCl (Naltrexone Hcl 50 Mg Tablet) 50 mg PO DAILY [facility] Last Admin: 07/26/24 09:36 Dose: 50 mg Nicotine (Nicotine 21 Mg Patch.Td24) 21 mg TRANSDERMA DAILY PRN PRN Reason: smoking cessation Last Admin: 07/23/24 08:53 Dose: 21 mg Nicotine Polacrilex (Nicotine Polacrilex Lozenge 4 Mg Lozenge) 4 mg BUCCAL Q2H PRN PRN Reason: nicotine cravings Last Admin: 07/23/24 21:12 Dose: 4 mg Patient Own ( Atomoxetine 25 Mg Capsule) 25 mg PO DAILY [facility] Last Admin: 07/26/24 09:36 Dose: 25 mg Olanzapine (Olanzapine 10 Mg Tablet) 10 mg PO TID PRN PRN Reason: agitation Ondansetron HCl (Ondansetron Odt 4 Mg Tab.Rapdis) 4 mg TRANSLINGU TIDAC PRN PRN Reason: nausea Last Admin: 07/25/24 14:06 Dose: 4 mg Prazosin HCl (Prazosin Hcl 5 Mg Capsule) 5 mg PO BEDTIME [facility]; Protocol Last Admin: 07/25/24 22:42 Dose: 5 mg Trazodone HCl (Trazodone Hcl 50 Mg Tablet) 50 mg PO BEDTIME MRX1 PRN PRN Reason: Insomnia Last Admin: 07/26/24 00:19 Dose: 50 mg Trazodone HCl (Trazodone Hcl 100 Mg Tablet) 200 mg PO BEDTIME PREETI Last Admin: 07/25/24 22:42 Dose: 200 mg Allergies Allergies Allergy/AdvReac Type Severity Reaction Status Date / Time No Known Allergies Allergy Verified 07/07/24 20:03 Assessment & Plan Assessment & Plan (1) Bipolar 1 disorder, depressed: Status: Acute Code(s): F31.9 - Bipolar disorder, unspecified (2) Borderline personality disorder: Status: Acute Code(s): F60.3 - Borderline personality disorder (3) Suicidal ideation: Status: Acute Code(s): R45.851 - Suicidal ideations Plan The patient appears to have clinical depression on top of what appears to be dysphoria anxiety consistent PTSD borderline personality disorder with reactivity and intermittent self-injurious behavior. This does not appear to be part of that pattern there is a strong possible genetic component with her father having completed suicide and history of bipolar disorder patient agreeable to have thing us speak with her therapist and psychiatrist and records reviewed from [address] [place] [address] and [facility]. I have discussed with the patient that ECT would not treat chronic issues that she she deals with stress as mood and stability urges toward self injurious behavior and intermittent restricted eating disorder. The patient describes however ongoing depressed mood with intense thoughts of suicide history of not responding to antidepressant medication and has not stabilized bite a month of treatment with Vraylar and lithium. 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 Patient has had some response reportedly to TMS in the past given intensity of her suicidal thoughts intensity of depression at this time does not seem a current option. Call has been placed to her outpatient psychiatrist in [place]. Although I would not recommend ECT for borderline personality disorder per se certainly given her ongoing depression lack of emotional reactivity anhedonia intense negative affective state that seems to be consistent with thoughts of suicide the patient would meet criteria for a course of ECT which we would start with right unilateral treatment there are no medical contraindications Case has also been discussed and reviewed with inpatient treatment team. Hospital course: 07/18/24: ECT 07.19. 07/19 Patient is post ECT. She is lying in bed alert and oriented but feeling tired. She said she had a headache which got better with p.r.n. medication. Some muscle aches. She felt foggy with some blurred vision but that too is resolving. She says she just wants to rest for now. 07/20 patient feeling calm day after ECT. Wants to continue. 07/21 Patient says she has come in the outside but on the inside she feels a little revved up.; wants to continue with ECT. 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 Later in the evening patient reported feeling that she was starting to get hypomanic and asked for increased dose of Zyprexa 07/23- ECT 07/24. 07/26- Continue tx. PLAN: CV q15 min checks ECT #1 on 07/19 ECT #2 pending 07/22 npo -increased PRNs Zyprexa to 10 mg since patient starting to feel hypomanic Reason for continued inpatient stay Substantial Risk for: rapid decompensation Time Spent With Patient Time: Total time managing care of this patient today ____ minutes.
[2024-07-26] MEDS: traZODone HCL 100 MG TABLET 200 MG PO (21:51)
[2024-07-26] MEDS: Prazosin HCL 5 MG CAPSULE PO (21:51)
--- NOTE | 2024-07-27 08:47 | P.PNPSI_ITS ---
Subjective Subjective Date of Service: 07/27/24 Reason For Visit: Labile SI Subjective Notes: Conditional Voluntary Healthcare Proxy: No Guardianship: No Medical Problems Affecting Mental Status: No Interim History: Pt seen in [facility], reviewed with team. I have decided to go to [facility] for OP ECT Do they have it? Pt continues to report no change in her symptoms post ECT. She appears calmer, is engaged with peers and is planning a transition to OP care. Medication Compliance: Yes Side effects from medications: No Attending Groups: Yes Review of Systems Acute medical concerns: No Medical Review of Systems: unchanged Review of Systems Review of Systems Yes all other systems are reviewed and are negative Mental Status Exam Mental Status Exam Patient Appearance: Appropriate Patient Orientation: Person, Place, Time and Situation Level of Consciousness: Alert Patient Behavior: Talkative and Good Eye Contact Mood Description: Depressed Affect Description: Flat Patient Cognition Impaired: No Ability to Follow Directions: Good Speech Pattern: Spontaneous Speech Memory Description: Intact Hallucinations: None Delusions: Not Present Perceptual Disturbances: Depersonalization and Derealization Thought Process: Distracted and Rumination Thought Content: positive for Perseveration and positive for Suicidal Ideation Depressive Symptoms: Thoughts of /Suicide Judgement: Fair Diagnostics Vital Signs (24Hr): Vital Signs - 24 hr 07/26/24 08:50 07/26/24 09:05 07/26/24 09:32 Temperature 98.3 F 97.6 F Pulse Rate 91 60 103 H Respiratory Rate 16 16 18 Blood Pressure 130/78 112/75 95/59 L Pulse Oximetry 93 97 97 Oxygen Delivery Method Room Air Room Air 07/26/24 21:35 07/26/24 23:55 Temperature 98.2 F 97.6 F Pulse Rate 98 Respiratory Rate 16 Blood Pressure 118/70 Pulse Oximetry 98 Oxygen Delivery Method Room Air BMI result Body Mass Index 36.7 Labs 07/17/24 13:31 07/28/24 07:52 Medications Medications Current Medications Acetaminophen (Acetaminophen 325 Mg Tablet) 650 mg PO Q6H PRN PRN Reason: Headache/Pain Mild Scale (1-3) Last Admin: 07/26/24 21:50 Dose: 650 mg Al Hydroxide/Mg Hydroxide (Magnesium Hydrox/Alum Hydrox 30 Ml Oral.Susp) 30 ml PO Q6H PRN PRN Reason: Heartburn/Nausea Cariprazine (Cariprazine Hcl 3 Mg Capsule) 3 mg PO DAILY [facility] Last Admin: 07/26/24 09:36 Dose: 3 mg Hydroxyzine HCl (Hydroxyzine Hcl 25 Mg Tablet) 25 mg PO Q6H PRN PRN Reason: Anxiety Last Admin: 07/20/24 21:26 Dose: 25 mg Ibuprofen (Ibuprofen 600 Mg Tablet) 600 mg PO Q6H PRN PRN Reason: muscle pain Last Admin: 07/24/24 17:39 Dose: 600 mg Magnesium Hydroxide (Milk Of Magnesia 30 Ml Oral.Susp) 30 ml PO DAILY PRN PRN Reason: Constipation Metformin HCl (Metformin Hcl 500 Mg Tablet) 500 mg PO DAILY@1700 [facility] Last Admin: 07/26/24 17:38 Dose: Not Given Naltrexone HCl (Naltrexone Hcl 50 Mg Tablet) 50 mg PO DAILY [facility] Last Admin: 07/26/24 09:36 Dose: 50 mg Nicotine (Nicotine 21 Mg Patch.Td24) 21 mg TRANSDERMA DAILY PRN PRN Reason: smoking cessation Last Admin: 07/23/24 08:53 Dose: 21 mg Nicotine Polacrilex (Nicotine Polacrilex Lozenge 4 Mg Lozenge) 4 mg BUCCAL Q2H PRN PRN Reason: nicotine cravings Last Admin: 07/23/24 21:12 Dose: 4 mg Patient Own ( Atomoxetine 25 Mg Capsule) 25 mg PO DAILY [facility] Last Admin: 07/26/24 09:36 Dose: 25 mg Olanzapine (Olanzapine 10 Mg Tablet) 10 mg PO TID PRN PRN Reason: agitation Ondansetron HCl (Ondansetron Odt 4 Mg Tab.Rapdis) 4 mg TRANSLINGU TIDAC PRN PRN Reason: nausea Last Admin: 07/25/24 14:06 Dose: 4 mg Prazosin HCl (Prazosin Hcl 5 Mg Capsule) 5 mg PO BEDTIME [facility]; Protocol Last Admin: 07/26/24 21:51 Dose: 5 mg Trazodone HCl (Trazodone Hcl 50 Mg Tablet) 50 mg PO BEDTIME MRX1 PRN PRN Reason: Insomnia Last Admin: 07/26/24 00:19 Dose: 50 mg Trazodone HCl (Trazodone Hcl 100 Mg Tablet) 200 mg PO BEDTIME [facility] Last Admin: 07/26/24 21:51 Dose: 200 mg Allergies Allergies Allergy/AdvReac Type Severity Reaction Status Date / Time No Known Allergies Allergy Verified 07/07/24 20:03 Assessment & Plan Assessment & Plan (1) Bipolar 1 disorder, depressed: Status: Acute Code(s): F31.9 - Bipolar disorder, unspecified (2) Borderline personality disorder: Status: Acute Code(s): F60.3 - Borderline personality disorder (3) Suicidal ideation: Status: Acute Code(s): R45.851 - Suicidal ideations Plan The patient appears to have clinical depression on top of what appears to be dysphoria anxiety consistent PTSD borderline personality disorder with reactivity and intermittent self-injurious behavior. This does not appear to be part of that pattern there is a strong possible genetic component with her father having completed suicide and history of bipolar disorder patient agreeable to have thing us speak with her therapist and psychiatrist and records reviewed from [address] [place] [address] and [facility]. I have discussed with the patient that ECT would not treat chronic issues that she she deals with stress as mood and stability urges toward self injurious behavior and intermittent restricted eating disorder. The patient describes however ongoing depressed mood with intense thoughts of suicide history of not responding to antidepressant medication and has not stabilized bite a month of treatment with Vraylar and lithium. 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 Patient has had some response reportedly to TMS in the past given intensity of her suicidal thoughts intensity of depression at this time does not seem a current option. Call has been placed to her outpatient psychiatrist in [place]. Although I would not recommend ECT for borderline personality disorder per se certainly given her ongoing depression lack of emotional reactivity anhedonia intense negative affective state that seems to be consistent with thoughts of suicide the patient would meet criteria for a course of ECT which we would start with right unilateral treatment there are no medical contraindications Case has also been discussed and reviewed with inpatient treatment team. Hospital course: 07/18/24: ECT 07.19. 07/19 Patient is post ECT. She is lying in bed alert and oriented but feeling tired. She said she had a headache which got better with p.r.n. medication. Some muscle aches. She felt foggy with some blurred vision but that too is resolving. She says she just wants to rest for now. 07/20 patient feeling calm day after ECT. Wants to continue. 07/21 Patient says she has come in the outside but on the inside she feels a little revved up.; wants to continue with ECT. Discussed muscle soreness and patient wants ibuprofen reminding development writer that currently she is off lithium. Later in the evening patient reported feeling that she was starting to get hypomanic and asked for increased dose of Zyprexa 07/23- ECT 07/24. 07/26- Continue tx. 07/27: Continue tx. PLAN: CV q15 min checks ECT #1 on 07/19 ECT #2 pending 07/22 npo -increased PRNs Zyprexa to 10 mg since patient starting to feel hypomanic Reason for continued inpatient stay Substantial Risk for: rapid decompensation Time Spent With Patient Time: Total time managing care of this patient today ____ minutes.
[2024-07-27 09:01] VITALS: BP 114/62; PULSE 63; RESP 16; TEMP 36.5; O2SAT 95
[2024-07-27] MEDS: Cariprazine HCl 3 MG CAPSULE PO (10:02)
[2024-07-27] MEDS: Naltrexone HCl 50 MG TABLET PO (10:02)
[2024-07-27] MEDS: Ondansetron ODT 4 MG TAB.RAPDIS TRANSLINGU ×3 (10:15→18:33)
[2024-07-27] MEDS: Nicotine 21 MG PATCH.TD24 TRANSDERMA (11:47)
[2024-07-27] MEDS: metFORMIN HCl 500 MG TABLET PO (18:31)
[2024-07-27 21:30] VITALS: BP 126/70; PULSE 96; RESP 20; TEMP 36.2; O2SAT 99
[2024-07-27] MEDS: OLANZapine 10 MG TABLET PO (22:00)
[2024-07-27] MEDS: Prazosin HCL 5 MG CAPSULE PO (22:00)
[2024-07-27] MEDS: traZODone HCL 100 MG TABLET 200 MG PO (22:00)
--- NOTE | 2024-07-27 22:16 | PC.NURSE ---
Pt approached staff stating I'm having extreme obsessive thoughts about self harming. Pt indicates that these thoughts suddenly increased, but was unable to identify any triggers or contributing factors. Pt eyes are fully dilated, unblinking, face is flushed, speech is more rapid than usual. Pt agrees to stay in public areas and I've been surrounding myself with people as much as possible but the thoughts aren't getting better. Pt agreed to take PRN olanzapine at this time, insistant on not taking med on a regular basis due to historical weight gain on med but pt reassured that this is not a regularly scheduled medication. Pt reassured, provided additional space and time to talk with RN. Peers also approached pt with concern and offered to do activities with pt. Pt and peers decided on a game, pt states That would be so helpful. Pt then noted to be smiling, talking, and playing a game with multiple peers.
[2024-07-28] MEDS: traZODone HCL 50 MG TABLET PO ×2 (00:28→23:09)
[2024-07-28 08:14] VITALS: BP 122/67; PULSE 75; TEMP 36.6; O2SAT 96
[2024-07-28 08:25] LABS: Creatinine Clr Calc Pharmacy 115.7; Estimated Glomerular Filt Rate > 60
[2024-07-28] MEDS: Naltrexone HCl 50 MG TABLET PO (09:33)
[2024-07-28] MEDS: Cariprazine HCl 3 MG CAPSULE PO (09:33)
[2024-07-28] MEDS: Ondansetron ODT 4 MG TAB.RAPDIS TRANSLINGU ×3 (09:38→17:55)
[2024-07-28] MEDS: Nicotine 21 MG PATCH.TD24 TRANSDERMA (11:13)
[2024-07-28] MEDS: hydrOXYzine HCL 25 MG TABLET PO (11:14)
[2024-07-28] MEDS: OLANZapine 10 MG TABLET PO (11:54)
--- NOTE | 2024-07-28 16:15 | HO.PSYCHPN ---
Subjective Subjective Date of Service: 07/28/24 Reason For Visit: Labile SI Subjective Notes: Conditional Voluntary Healthcare Proxy: No Guardianship: No Medical Problems Affecting Mental Status: No Interim History: Pt seen in milieu Reviewed with team. [place] to report no improvement in symptoms post ECT. But they tell me I look better and act better, I don't see it. Planning a transition to OP ECT Will stay with a friend close to [facility] and hopes to continue OP ECT at that facility. Medication Compliance: Yes Side effects from medications: No Attending Groups: Intermittent Review of Systems Acute medical concerns: No Medical Review of Systems: unchanged Review of Systems Review of Systems Yes all other systems are reviewed and are negative Mental Status Exam Mental Status Exam Patient Appearance: Appropriate Patient Orientation: Person, Place, Time and Situation Level of Consciousness: Alert Patient Behavior: Talkative and Good Eye Contact Mood Description: Depressed Affect Description: Flat Patient Cognition Impaired: No Ability to Follow Directions: Good Speech Pattern: Spontaneous Speech Memory Description: Intact Hallucinations: None Delusions: Not Present Perceptual Disturbances: Depersonalization and Derealization Thought Process: Distracted and Rumination Thought Content: positive for Perseveration and positive for Suicidal Ideation Depressive Symptoms: Thoughts of /Suicide Judgement: Fair Diagnostics Vital Signs (24Hr): Vital Signs - 24 hr 07/27/24 21:30 07/28/24 08:14 Temperature 97.2 F 97.8 F Pulse Rate 96 75 Respiratory Rate 20 Blood Pressure 126/70 122/67 Pulse Oximetry 99 96 Oxygen Delivery Method Room Air Room Air BMI result Body Mass Index 36.7 Labs 07/17/24 13:31 07/28/24 07:52 Labs: Laboratory Results - last 48 hr 07/28/24 07:52 Creatinine 0.80 Estim Creat Clear Calc 115.7 Estimated GFR > 60 Medications Medications Current Medications Acetaminophen (Acetaminophen 325 Mg Tablet) 650 mg PO Q6H PRN PRN Reason: Headache/Pain Mild Scale (1-3) Last Admin: 07/26/24 21:50 Dose: 650 mg Al Hydroxide/Mg Hydroxide (Magnesium Hydrox/Alum Hydrox 30 Ml Oral.Susp) 30 ml PO Q6H PRN PRN Reason: Heartburn/Nausea Cariprazine (Cariprazine Hcl 3 Mg Capsule) 3 mg PO DAILY [facility] Last Admin: 07/28/24 09:33 Dose: 3 mg Hydroxyzine HCl (Hydroxyzine Hcl 25 Mg Tablet) 25 mg PO Q6H PRN PRN Reason: Anxiety Last Admin: 07/28/24 11:14 Dose: 25 mg Ibuprofen (Ibuprofen 600 Mg Tablet) 600 mg PO Q6H PRN PRN Reason: muscle pain Last Admin: 07/24/24 17:39 Dose: 600 mg Magnesium Hydroxide (Milk Of Magnesia 30 Ml Oral.Susp) 30 ml PO DAILY PRN PRN Reason: Constipation Metformin HCl (Metformin Hcl 500 Mg Tablet) 500 mg PO DAILY@1700 [facility] Last Admin: 07/27/24 18:31 Dose: 500 mg Naltrexone HCl (Naltrexone Hcl 50 Mg Tablet) 50 mg PO DAILY [facility] Last Admin: 07/28/24 09:33 Dose: 50 mg Nicotine (Nicotine 21 Mg Patch.Td24) 21 mg TRANSDERMA DAILY PRN PRN Reason: smoking cessation Last Admin: 07/28/24 11:13 Dose: 21 mg Nicotine Polacrilex (Nicotine Polacrilex Lozenge 4 Mg Lozenge) 4 mg BUCCAL Q2H PRN PRN Reason: nicotine cravings Last Admin: 07/23/24 21:12 Dose: 4 mg Patient Own ( Atomoxetine 25 Mg Capsule) 25 mg PO DAILY [facility] Last Admin: 07/28/24 09:33 Dose: 25 mg Patient Own ([place] Menthol Cough Quentin 1 Drop) 1 drop PO Q2H PRN PRN Reason: cough/sore throat Last Admin: 07/27/24 14:03 Dose: 1 drop Olanzapine (Olanzapine 10 Mg Tablet) 10 mg PO TID PRN PRN Reason: agitation Last Admin: 07/28/24 11:54 Dose: 10 mg Ondansetron HCl (Ondansetron Odt 4 Mg Tab.Rapdis) 4 mg TRANSLINGU TIDAC PRN PRN Reason: nausea Last Admin: 07/28/24 12:41 Dose: 4 mg Prazosin HCl (Prazosin Hcl 5 Mg Capsule) 5 mg PO BEDTIME [facility]; Protocol Last Admin: 07/27/24 22:00 Dose: 5 mg Trazodone HCl (Trazodone Hcl 50 Mg Tablet) 50 mg PO BEDTIME MRX1 PRN PRN Reason: Insomnia Last Admin: 07/28/24 00:28 Dose: 50 mg Trazodone HCl (Trazodone Hcl 100 Mg Tablet) 200 mg PO BEDTIME [facility] Last Admin: 07/27/24 22:00 Dose: 200 mg Allergies Allergies Allergy/AdvReac Type Severity Reaction Status Date / Time No Known Allergies Allergy Verified 07/07/24 20:03 Assessment & Plan Assessment & Plan (1) Bipolar 1 disorder, depressed: Status: Acute Code(s): F31.9 - Bipolar disorder, unspecified (2) Borderline personality disorder: Status: Acute Code(s): F60.3 - Borderline personality disorder (3) Suicidal ideation: Status: Acute Code(s): R45.851 - Suicidal ideations Plan The patient appears to have clinical depression on top of what appears to be dysphoria anxiety consistent PTSD borderline personality disorder with reactivity and intermittent self-injurious behavior. This does not appear to be part of that pattern there is a strong possible genetic component with her father having completed suicide and history of bipolar disorder patient agreeable to have thing us speak with her therapist and psychiatrist and records reviewed from [address] [place] [address] and [facility]. I have discussed with the patient that ECT would not treat chronic issues that she she deals with stress as mood and stability urges toward self injurious behavior and intermittent restricted eating disorder. The patient describes however ongoing depressed mood with intense thoughts of suicide history of not responding to antidepressant medication and has not stabilized bite a month of treatment with Vraylar and lithium. 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 Patient has had some response reportedly to TMS in the past given intensity of her suicidal thoughts intensity of depression at this time does not seem a current option. Call has been placed to her outpatient psychiatrist in [place]. Although I would not recommend ECT for borderline personality disorder per se certainly given her ongoing depression lack of emotional reactivity anhedonia intense negative affective state that seems to be consistent with thoughts of suicide the patient would meet criteria for a course of ECT which we would start with right unilateral treatment there are no medical contraindications Case has also been discussed and reviewed with inpatient treatment team. Hospital course: 07/18/24: ECT 07/19 Patient is post ECT. She is lying in bed alert and oriented but feeling tired. She said she had a headache which got better with p.r.n. medication. Some muscle aches. She felt foggy with some blurred vision but that too is resolving. She says she just wants to rest for now. 07/20 patient feeling calm day after ECT. Wants to continue. 07/21 Patient says she has come in the outside but on the inside she feels a little revved up.; wants to continue with ECT. Discussed muscle soreness and patient wants ibuprofen reminding comic writer that currently she is off lithium. Later in the evening patient reported feeling that she was starting to get hypomanic and asked for increased dose of Zyprexa 07/23- ECT 07/24. 07/26- Continue tx. 07/28- Continue tx. PLAN: CV q15 min checks ECT #1 on 07/19 ECT #2 pending 07/22 npo -increased PRNs Zyprexa to 10 mg since patient starting to feel hypomanic Reason for continued inpatient stay Substantial Risk for: rapid decompensation Time Spent With Patient Time: Total time managing care of this patient today ____ minutes.
[2024-07-28] MEDS: metFORMIN HCl 500 MG TABLET PO (17:55)
[2024-07-28 20:00] VITALS: BP 133/76; PULSE 104; TEMP 36.7; O2SAT 96
[2024-07-28 22:10] VITALS: BP 119/75
[2024-07-28] MEDS: Prazosin HCL 5 MG CAPSULE PO (22:10)
[2024-07-28] MEDS: Ibuprofen 600 MG TABLET PO (22:11)
[2024-07-28] MEDS: traZODone HCL 100 MG TABLET 200 MG PO (22:12)
--- NOTE | 2024-07-29 08:34 | P.PNPSI_ITS ---
Subjective Subjective Date of Service: 07/29/24 Reason For Visit: Labile SI Subjective Notes: Conditional Voluntary Healthcare Proxy: No Guardianship: No Medical Problems Affecting Mental Status: No Interim History: Pt seen, discussed with team. She continues to report no positive change from ECT Visable and social in the milieu Planning OP ECT with [facility] upon discharge. Medication Compliance: Yes Side effects from medications: No Attending Groups: Intermittent Review of Systems Acute medical concerns: No Medical Review of Systems: unchanged Review of Systems Review of Systems intermittent sore throat Mental Status Exam Mental Status Exam Patient Appearance: Appropriate Patient Orientation: Person, Place, Time and Situation Level of Consciousness: Alert Patient Behavior: Talkative and Good Eye Contact Mood Description: Depressed Affect Description: Flat Patient Cognition Impaired: No Ability to Follow Directions: Good Speech Pattern: Spontaneous Speech Memory Description: Intact Hallucinations: None Delusions: Not Present Perceptual Disturbances: Depersonalization and Derealization Thought Process: Distracted and Rumination Thought Content: positive for Perseveration and positive for Suicidal Ideation Depressive Symptoms: Thoughts of /Suicide Judgement: Fair Diagnostics Vital Signs (24Hr): Vital Signs - 24 hr 07/28/24 20:00 07/28/24 22:10 Temperature 98.1 F Pulse Rate 104 H Blood Pressure 133/76 119/75 Pulse Oximetry 96 Oxygen Delivery Method Room Air BMI result Body Mass Index 36.7 Labs 07/17/24 13:31 07/28/24 07:52 Labs: Laboratory Results - last 48 hr 07/28/24 07:52 Creatinine 0.80 Estim Creat Clear Calc 115.7 Estimated GFR > 60 Medications Medications Current Medications Acetaminophen (Acetaminophen 325 Mg Tablet) 650 mg PO Q6H PRN PRN Reason: Headache/Pain Mild Scale (1-3) Last Admin: 07/26/24 21:50 Dose: 650 mg Al Hydroxide/Mg Hydroxide (Magnesium Hydrox/Alum Hydrox 30 Ml Oral.Susp) 30 ml PO Q6H PRN PRN Reason: Heartburn/Nausea Cariprazine (Cariprazine Hcl 3 Mg Capsule) 3 mg PO DAILY [facility] Last Admin: 07/28/24 09:33 Dose: 3 mg Hydroxyzine HCl (Hydroxyzine Hcl 25 Mg Tablet) 25 mg PO Q6H PRN PRN Reason: Anxiety Last Admin: 07/28/24 11:14 Dose: 25 mg Ibuprofen (Ibuprofen 600 Mg Tablet) 600 mg PO Q6H PRN PRN Reason: muscle pain Last Admin: 07/28/24 22:11 Dose: 600 mg Magnesium Hydroxide (Milk Of Magnesia 30 Ml Oral.Susp) 30 ml PO DAILY PRN PRN Reason: Constipation Metformin HCl (Metformin Hcl 500 Mg Tablet) 500 mg PO DAILY@1700 [facility] Last Admin: 07/28/24 17:55 Dose: 500 mg Naltrexone HCl (Naltrexone Hcl 50 Mg Tablet) 50 mg PO DAILY [facility] Last Admin: 07/28/24 09:33 Dose: 50 mg Nicotine (Nicotine 21 Mg Patch.Td24) 21 mg TRANSDERMA DAILY PRN PRN Reason: smoking cessation Last Admin: 07/28/24 11:13 Dose: 21 mg Nicotine Polacrilex (Nicotine Polacrilex Lozenge 4 Mg Lozenge) 4 mg BUCCAL Q2H PRN PRN Reason: nicotine cravings Last Admin: 07/23/24 21:12 Dose: 4 mg Patient Own ( Atomoxetine 25 Mg Capsule) 25 mg PO DAILY [facility] Last Admin: 07/28/24 09:33 Dose: 25 mg Patient Own ([place] Menthol Cough Quentin 1 Drop) 1 drop PO Q2H PRN PRN Reason: cough/sore throat Last Admin: 07/27/24 14:03 Dose: 1 drop Olanzapine (Olanzapine 10 Mg Tablet) 10 mg PO TID PRN PRN Reason: agitation Last Admin: 07/28/24 11:54 Dose: 10 mg Ondansetron HCl (Ondansetron Odt 4 Mg Tab.Rapdis) 4 mg TRANSLINGU TIDAC PRN PRN Reason: nausea Last Admin: 07/28/24 17:55 Dose: 4 mg Prazosin HCl (Prazosin Hcl 5 Mg Capsule) 5 mg PO BEDTIME [facility]; Protocol Last Admin: 07/28/24 22:10 Dose: 5 mg Trazodone HCl (Trazodone Hcl 50 Mg Tablet) 50 mg PO BEDTIME MRX1 PRN PRN Reason: Insomnia Last Admin: 07/28/24 23:09 Dose: 50 mg Trazodone HCl (Trazodone Hcl 100 Mg Tablet) 200 mg PO BEDTIME [facility] Last Admin: 07/28/24 22:12 Dose: 200 mg Allergies Allergies Allergy/AdvReac Type Severity Reaction Status Date / Time No Known Allergies Allergy Verified 07/07/24 20:03 Assessment & Plan Assessment & Plan (1) Bipolar 1 disorder, depressed: Status: Acute Code(s): F31.9 - Bipolar disorder, unspecified (2) Borderline personality disorder: Status: Acute Code(s): F60.3 - Borderline personality disorder (3) Suicidal ideation: Status: Acute Code(s): R45.851 - Suicidal ideations Plan The patient appears to have clinical depression on top of what appears to be dysphoria anxiety consistent PTSD borderline personality disorder with reactivity and intermittent self-injurious behavior. This does not appear to be part of that pattern there is a strong possible genetic component with her father having completed suicide and history of bipolar disorder patient agreeable to have thing us speak with her therapist and psychiatrist and records reviewed from [address] [place] [address] and [facility]. I have discussed with the patient that ECT would not treat chronic issues that she she deals with stress as mood and stability urges toward self injurious behavior and intermittent restricted eating disorder. The patient describes however ongoing depressed mood with intense thoughts of suicide history of not responding to antidepressant medication and has not stabilized bite a month of treatment with Vraylar and lithium. 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 Patient has had some response reportedly to TMS in the past given intensity of her suicidal thoughts intensity of depression at this time does not seem a current option. Call has been placed to her outpatient psychiatrist in [place]. Although I would not recommend ECT for borderline personality disorder per se certainly given her ongoing depression lack of emotional reactivity anhedonia intense negative affective state that seems to be consistent with thoughts of suicide the patient would meet criteria for a course of ECT which we would start with right unilateral treatment there are no medical contraindications Case has also been discussed and reviewed with inpatient treatment team. Hospital course: 07/18/24: ECT 07.19. 07/19 Patient is post ECT. She is lying in bed alert and oriented but feeling tired. She said she had a headache which got better with p.r.n. medication. Some muscle aches. She felt foggy with some blurred vision but that too is resolving. She says she just wants to rest for now. 07/20 patient feeling calm day after ECT. Wants to continue. 07/21 Patient says she has come in the outside but on the inside she feels a little revved up.; wants to continue with ECT. Discussed muscle soreness and patient wants ibuprofen reminding policy writer that currently she is off lithium. Later in the evening patient reported feeling that she was starting to get hypomanic and asked for increased dose of Zyprexa 07/23- ECT 07/24. 07/26- Continue tx. 07/29: ECT 07/31 PLAN: CV q15 min checks ECT #1 on 07/19 ECT #2 pending 07/22 npo -increased PRNs Zyprexa to 10 mg since patient starting to feel hypomanic Reason for continued inpatient stay Substantial Risk for: rapid decompensation Time Spent With Patient Time: Total time managing care of this patient today ____ minutes.
[2024-07-29] MEDS: Nicotine Polacrilex Lozenge 4 MG LOZENGE BUCCAL (09:19)
[2024-07-29] MEDS: Cariprazine HCl 3 MG CAPSULE PO (09:19)
[2024-07-29] MEDS: Naltrexone HCl 50 MG TABLET PO (09:19)
[2024-07-29] MEDS: Nicotine 21 MG PATCH.TD24 TRANSDERMA (09:20)
[2024-07-29] MEDS: Ondansetron ODT 4 MG TAB.RAPDIS TRANSLINGU ×3 (09:34→17:49)
[2024-07-29] MEDS: Ibuprofen 600 MG TABLET PO ×2 (09:53→22:02)
[2024-07-29] MEDS: metFORMIN HCl 500 MG TABLET PO (17:46)
[2024-07-29 19:42] VITALS: BP 120/60; PULSE 109; RESP 18; TEMP 36.3; O2SAT 95
[2024-07-29] MEDS: hydrOXYzine HCL 25 MG TABLET PO (22:01)
[2024-07-29] MEDS: traZODone HCL 100 MG TABLET 200 MG PO (22:02)
[2024-07-29] MEDS: Prazosin HCL 5 MG CAPSULE PO (22:02)
[2024-07-30 08:18] VITALS: BP 103/57; PULSE 72; RESP 16; TEMP 36.8; O2SAT 97
[2024-07-30] MEDS: Cariprazine HCl 3 MG CAPSULE PO (09:24)
[2024-07-30] MEDS: Ondansetron ODT 4 MG TAB.RAPDIS TRANSLINGU ×3 (09:24→17:55)
[2024-07-30] MEDS: Naltrexone HCl 50 MG TABLET PO (09:24)
[2024-07-30] MEDS: Nicotine 21 MG PATCH.TD24 TRANSDERMA (09:34)
[2024-07-30] MEDS: OLANZapine 10 MG TABLET PO ×2 (13:22→21:02)
--- NOTE | 2024-07-30 13:58 | P.PNPSI_ITS ---
Subjective Subjective Date of Service: 07/30/24 Reason For Visit: Labile SI Subjective Notes: Conditional Voluntary Healthcare Proxy: No Interim History: Pt has been depressed blunted hopeless helpless lithium on hold may be contributing c/o insomnia nightmares . Has withdrawn from college somewhat despondant regarding this Mental Status Exam Mental Status Exam Patient Appearance: Appropriate Patient Orientation: Person, Place, Time and Situation Level of Consciousness: Alert Patient Behavior: Talkative and Good Eye Contact Mood Description: Depressed Affect Description: Flat Patient Cognition Impaired: No Ability to Follow Directions: Good Speech Pattern: Spontaneous Speech Memory Description: Episodic Impaired Hallucinations: None Delusions: Not Present Perceptual Disturbances: Depersonalization and Derealization Thought Process: Distracted and Rumination Thought Content: positive for Perseveration and positive for Suicidal Ideation (denies intent in this setting ) Depressive Symptoms: Increased Anxiety, Insomnia, Increased Irritability, Increased Fatigue and Thoughts of /Suicide Judgement: Fair Diagnostics Vital Signs (24Hr): Vital Signs - 24 hr 07/29/24 19:42 07/30/24 08:18 Temperature 97.4 F 98.2 F Pulse Rate 109 H 72 Respiratory Rate 18 16 Blood Pressure 120/60 103/57 L Pulse Oximetry 95 97 Oxygen Delivery Method Room Air Room Air BMI result Body Mass Index 36.7 Labs 07/17/24 13:31 07/28/24 07:52 Medications Medications Current Medications Acetaminophen (Acetaminophen 325 Mg Tablet) 650 mg PO Q6H PRN PRN Reason: Headache/Pain Mild Scale (1-3) Last Admin: 07/26/24 21:50 Dose: 650 mg Al Hydroxide/Mg Hydroxide (Magnesium Hydrox/Alum Hydrox 30 Ml Oral.Susp) 30 ml PO Q6H PRN PRN Reason: Heartburn/Nausea Cariprazine (Cariprazine Hcl 3 Mg Capsule) 3 mg PO DAILY PREETI Last Admin: 07/30/24 09:24 Dose: 3 mg Cariprazine (Cariprazine Hcl 1.5 Mg Capsule) 1.5 mg PO ONCE ONE Stop: 07/30/24 17:31 Cyproheptadine HCl (Cyproheptadine Hcl 4 Mg Tablet) 4 mg PO BEDTIME PREETI Hydroxyzine HCl (Hydroxyzine Hcl 25 Mg Tablet) 25 mg PO Q6H PRN PRN Reason: Anxiety Last Admin: 07/29/24 22:01 Dose: 25 mg Ibuprofen (Ibuprofen 600 Mg Tablet) 600 mg PO Q6H PRN PRN Reason: muscle pain Last Admin: 07/29/24 22:02 Dose: 600 mg Magnesium Hydroxide (Milk Of Magnesia 30 Ml Oral.Susp) 30 ml PO DAILY PRN PRN Reason: Constipation Metformin HCl (Metformin Hcl 500 Mg Tablet) 500 mg PO DAILY@1700 PREETI Last Admin: 07/29/24 17:46 Dose: 500 mg Naltrexone HCl (Naltrexone Hcl 50 Mg Tablet) 50 mg PO DAILY [facility] Last Admin: 07/30/24 09:24 Dose: 50 mg Nicotine (Nicotine 21 Mg Patch.Td24) 21 mg TRANSDERMA DAILY PRN PRN Reason: smoking cessation Last Admin: 07/30/24 09:34 Dose: 21 mg Nicotine Polacrilex (Nicotine Polacrilex Lozenge 4 Mg Lozenge) 4 mg BUCCAL Q2H PRN PRN Reason: nicotine cravings Last Admin: 07/29/24 09:19 Dose: 4 mg Patient Own ( Atomoxetine 25 Mg Capsule) 25 mg PO DAILY PREETI Last Admin: 07/30/24 09:23 Dose: 25 mg Patient Own (Lynndyl Lee Menthol Cough Quentin 1 Drop) 1 drop PO Q2H PRN PRN Reason: cough/sore throat Last Admin: 07/27/24 14:03 Dose: 1 drop Olanzapine (Olanzapine 10 Mg Tablet) 10 mg PO TID PRN PRN Reason: agitation Last Admin: 07/30/24 13:22 Dose: 10 mg Ondansetron HCl (Ondansetron Odt 4 Mg Tab.Rapdis) 4 mg TRANSLINGU TIDAC PRN PRN Reason: nausea Last Admin: 07/30/24 12:54 Dose: 4 mg Prazosin HCl (Prazosin Hcl 5 Mg Capsule) 5 mg PO BEDTIME [facility]; Protocol Last Admin: 07/29/24 22:02 Dose: 5 mg Trazodone HCl (Trazodone Hcl 100 Mg Tablet) 100 mg PO BEDTIME [facility] Allergies Allergies Allergy/AdvReac Type Severity Reaction Status Date / Time No Known Allergies Allergy Verified 07/07/24 20:03 Assessment & Plan Assessment & Plan (1) Bipolar 1 disorder, depressed: Status: Acute Code(s): F31.9 - Bipolar disorder, unspecified (2) Borderline personality disorder: Status: Acute Code(s): F60.3 - Borderline personality disorder (3) Suicidal ideation: Status: Acute Code(s): R45.851 - Suicidal ideations Plan The patient appears to have clinical depression on top of what appears to be dysphoria anxiety consistent PTSD borderline personality disorder with reactivity and intermittent self-injurious behavior. This does not appear to be part of that pattern there is a strong possible genetic component with her father having completed suicide and history of bipolar disorder patient agreeable to have thing us speak with her therapist and psychiatrist and records reviewed from [address] [place] [address] and [facility]. I have discussed with the patient that ECT would not treat chronic issues that she she deals with stress as mood and stability urges toward self injurious behavior and intermittent restricted eating disorder. The patient describes however ongoing depressed mood with intense thoughts of suicide history of not responding to antidepressant medication and has not stabilized bite a month of treatment with Vraylar and lithium. 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 Patient has had some response reportedly to TMS in the past given intensity of her suicidal thoughts intensity of depression at this time does not seem a current option. Call has been placed to her outpatient psychiatrist in [place]. Although I would not recommend ECT for borderline personality disorder per se certainly given her ongoing depression lack of emotional reactivity anhedonia intense negative affective state that seems to be consistent with thoughts of suicide the patient would meet criteria for a course of ECT which we would start with right unilateral treatment there are no medical contraindications Case has also been discussed and reviewed with inpatient treatment team. Hospital course: 07/18/24: ECT 07.19. 07/19 Patient is post ECT. She is lying in bed alert and oriented but feeling tired. She said she had a headache which got better with p.r.n. medication. Some muscle aches. She felt foggy with some blurred vision but that too is resolving. She says she just wants to rest for now. 07/20 patient feeling calm day after ECT. Wants to continue. 07/21 Patient says she has come in the outside but on the inside she feels a little revved up.; wants to continue with ECT. 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 Later in the evening patient reported feeling that she was starting to get hypomanic and asked for increased dose of Zyprexa 07/23- ECT 07/24. 07/26- Continue tx. 07/29: ECT 07/31 PLAN: CV q15 min checks ECT #1 on 07/19 ECT #2 pending 07/22 npo -increased PRNs Zyprexa to 10 mg since patient starting to feel hypomanic 07/30/24 Inc depressed ect in am rul avoid bt dis not tolerate well inc vraylar 4.5 periactin for nightmares / insomnia Patient educated on: diagnosis, medication risk/benefits and ECT Informed Consent: understands and further education needed Reason for continued inpatient stay Substantial Risk for: harm to self Time Spent With Patient Time: Total time managing care of this patient today _30___ minutes.
[2024-07-30] MEDS: Cariprazine HCl 1.5 MG CAPSULE PO (17:56)
[2024-07-30] MEDS: metFORMIN HCl 500 MG TABLET PO (17:56)
[2024-07-30 20:00] VITALS: BP 131/82; PULSE 80; RESP 18; TEMP 36.6; O2SAT 99
[2024-07-30 21:01] VITALS: BP 116/70
[2024-07-30] MEDS: Prazosin HCL 5 MG CAPSULE PO (21:01)
[2024-07-30] MEDS: Cyproheptadine HCl 4 MG TABLET PO (21:02)
[2024-07-30] MEDS: traZODone HCL 100 MG TABLET PO (21:03)
[2024-07-31] VITALS (10 sets, daily range): BP systolic 103–150; BP diastolic 55–92; PULSE 57–116; RESP 14–18; TEMP 36.1–37; O2SAT 95–100
[2024-07-31] MEDS: Nicotine 21 MG PATCH.TD24 TRANSDERMA (09:12)
[2024-07-31] MEDS: Naltrexone HCl 50 MG TABLET PO (09:13)
--- NOTE | 2024-07-31 17:25 | P.PNPSI_ITS ---
Subjective Subjective Date of Service: 07/31/24 Reason For Visit: Labile SI Subjective Notes: Conditional Voluntary Healthcare Proxy: No Medical Problems Affecting Mental Status: No Interim History: pt depressed with passive si poor sleep awaiting ect Mental Status Exam Mental Status Exam Patient Appearance: Appropriate Patient Orientation: Person, Place, Time and Situation Level of Consciousness: Alert Patient Behavior: Talkative and Good Eye Contact Mood Description: Depressed Affect Description: Apprehensive Patient Cognition Impaired: No Ability to Follow Directions: Good Speech Pattern: Spontaneous Speech Memory Description: Intact Hallucinations: None Delusions: Not Present Perceptual Disturbances: Depersonalization and Derealization Thought Process: Distracted and Rumination Thought Content: positive for Perseveration and positive for Suicidal Ideation (denies intent in this setting ) Depressive Symptoms: Increased Anxiety, Insomnia, Increased Irritability, Increased Fatigue and Thoughts of /Suicide Judgement: Fair Diagnostics Vital Signs (24Hr): Vital Signs - 24 hr 07/30/24 20:00 07/30/24 21:01 07/31/24 08:00 Temperature 97.8 F 97.5 F Pulse Rate 80 79 Respiratory Rate 18 Blood Pressure 131/82 116/70 103/55 L Pulse Oximetry 99 95 Oxygen Delivery Method Room Air Room Air BMI result Body Mass Index 36.7 Labs 07/17/24 13:31 07/28/24 07:52 Medications Medications Current Medications Acetaminophen (Acetaminophen 325 Mg Tablet) 650 mg PO Q6H PRN PRN Reason: Headache/Pain Mild Scale (1-3) Last Admin: 07/26/24 21:50 Dose: 650 mg Al Hydroxide/Mg Hydroxide (Magnesium Hydrox/Alum Hydrox 30 Ml Oral.Susp) 30 ml PO Q6H PRN PRN Reason: Heartburn/Nausea Cyproheptadine HCl (Cyproheptadine Hcl 4 Mg Tablet) 4 mg PO BEDTIME PREETI Last Admin: 07/30/24 21:02 Dose: 4 mg Hydroxyzine HCl (Hydroxyzine Hcl 25 Mg Tablet) 25 mg PO Q6H PRN PRN Reason: Anxiety Last Admin: 07/29/24 22:01 Dose: 25 mg Ibuprofen (Ibuprofen 600 Mg Tablet) 600 mg PO Q6H PRN PRN Reason: muscle pain Last Admin: 07/29/24 22:02 Dose: 600 mg Magnesium Hydroxide (Milk Of Magnesia 30 Ml Oral.Susp) 30 ml PO DAILY PRN PRN Reason: Constipation Metformin HCl (Metformin Hcl 500 Mg Tablet) 500 mg PO DAILY@1700 [facility] Last Admin: 07/30/24 17:56 Dose: 500 mg Naltrexone HCl (Naltrexone Hcl 50 Mg Tablet) 50 mg PO DAILY [facility] Last Admin: 07/31/24 09:13 Dose: 50 mg Nicotine (Nicotine 21 Mg Patch.Td24) 21 mg TRANSDERMA DAILY PRN PRN Reason: smoking cessation Last Admin: 07/31/24 09:12 Dose: 21 mg Nicotine Polacrilex (Nicotine Polacrilex Lozenge 4 Mg Lozenge) 4 mg BUCCAL Q2H PRN PRN Reason: nicotine cravings Last Admin: 07/29/24 09:19 Dose: 4 mg Patient Own ( Atomoxetine 25 Mg Capsule) 25 mg PO DAILY [facility] Last Admin: 07/31/24 09:14 Dose: 25 mg Patient Own ([place] Lee Menthol Cough Quentin 1 Drop) 1 drop PO Q2H PRN PRN Reason: cough/sore throat Last Admin: 07/27/24 14:03 Dose: 1 drop Olanzapine (Olanzapine 10 Mg Tablet) 10 mg PO TID PRN PRN Reason: agitation Last Admin: 07/30/24 21:02 Dose: 10 mg Ondansetron HCl (Ondansetron Odt 4 Mg Tab.Rapdis) 4 mg TRANSLINGU TIDAC PRN PRN Reason: nausea Last Admin: 07/30/24 17:55 Dose: 4 mg Prazosin HCl (Prazosin Hcl 5 Mg Capsule) 5 mg PO BEDTIME [facility]; Protocol Last Admin: 07/30/24 21:01 Dose: 5 mg Trazodone HCl (Trazodone Hcl 100 Mg Tablet) 100 mg PO BEDTIME [facility] Last Admin: 07/30/24 21:03 Dose: 100 mg Allergies Allergies Allergy/AdvReac Type Severity Reaction Status Date / Time No Known Allergies Allergy Verified 07/07/24 20:03 Assessment & Plan Assessment & Plan (1) Bipolar 1 disorder, depressed: Status: Acute Code(s): F31.9 - Bipolar disorder, unspecified (2) Borderline personality disorder: Status: Acute Code(s): F60.3 - Borderline personality disorder (3) Suicidal ideation: Status: Acute Code(s): R45.851 - Suicidal ideations Plan The patient appears to have clinical depression on top of what appears to be dysphoria anxiety consistent PTSD borderline personality disorder with reactivity and intermittent self-injurious behavior. This does not appear to be part of that pattern there is a strong possible genetic component with her father having completed suicide and history of bipolar disorder patient agreeable to have thing us speak with her therapist and psychiatrist and records reviewed from [address] [place] [address] and [facility]. I have discussed with the patient that ECT would not treat chronic issues that she she deals with stress as mood and stability urges toward self injurious behavior and intermittent restricted eating disorder. The patient describes however ongoing depressed mood with intense thoughts of suicide history of not responding to antidepressant medication and has not stabilized bite a month of treatment with Vraylar and lithium. 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 Patient has had some response reportedly to TMS in the past given intensity of her suicidal thoughts intensity of depression at this time does not seem a current option. Call has been placed to her outpatient psychiatrist in [place]. Although I would not recommend ECT for borderline personality disorder per se certainly given her ongoing depression lack of emotional reactivity anhedonia intense negative affective state that seems to be consistent with thoughts of suicide the patient would meet criteria for a course of ECT which we would start with right unilateral treatment there are no medical contraindications Case has also been discussed and reviewed with inpatient treatment team. Hospital course: 07/18/24: ECT 07.19. 07/19 Patient is post ECT. She is lying in bed alert and oriented but feeling tired. She said she had a headache which got better with p.r.n. medication. Some muscle aches. She felt foggy with some blurred vision but that too is resolving. She says she just wants to rest for now. 07/20 patient feeling calm day after ECT. Wants to continue. 07/21 Patient says she has come in the outside but on the inside she feels a little revved up.; wants to continue with ECT. 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 Later in the evening patient reported feeling that she was starting to get hypomanic and asked for increased dose of Zyprexa 07/23- ECT 07/24. 07/26- Continue tx. 07/29: ECT 07/31 PLAN: CV q15 min checks ECT #1 on 07/19 ECT #2 pending 07/22 npo -increased PRNs Zyprexa to 10 mg since patient starting to feel hypomanic 07/30/24 Inc depressed ect in am rul avoid bt dis not tolerate well inc vraylar 4.5 periactin for nightmares / insomnia 07/31/24 more active [place] affect vraylar 4.5 cont ect rul Reason for continued inpatient stay Substantial Risk for: harm to self and rapid decompensation Time Spent With Patient Time: Total time managing care of this patient today ____ minutes.
--- NOTE | 2024-07-31 21:29 | MHC.SHP ---
Pre-Procedural Eval Section A - 24 Hr Update-Section A only Date of Service: 07/31/24 The patient is an INPATIENT: Yes Changes since office visit: No Cold of Flu in the past 2 weeks, No New Medical Problems, No Changes in Medication and No Patient answered all questions The patient has been examined within 24 hours of the surgical procedure. The History & Physical has been completed within 30 days and I have reviewed it.: Yes Section B - Complete if H&P > 30 days Chief Complaint: Labile SI Allergies: Allergies Allergy/AdvReac Type Severity Reaction Status Date / Time No Known Allergies Allergy Verified 07/07/24 20:03 Plan I have reviewed the history and physical and performed a pertinent physical examination on my patient. No changes have occurred unless specified. Time Spent With Patient Time: Total time managing care of this patient today ____ minutes.
--- NOTE | 2024-07-31 22:39 | HO.ECTPROC ---
ECT Procedure Note Diagnosis/Treatment Date of Service: 07/31/24 Diagnosis: Bipolar disorder Previous ECT Date: 07/26/24 Current Treatment Number: 5 Treatment: Series Interval Clinical Notes: The patient reported no major improvement of her mood but her affect is brighter. She complained of confusion after the last ECT. Today we did ECT right frontal, left temporal at 0.25 35% and she had a long seizure of 93s, woke up sighltyly confused. Time: Total time managing care of this patient today _30___ minutes. ECT Settings Device: THYMATRON DGx Electrode Placement: Rt temporal/ Lt frontal Program/Pulse Width: 0.25 Energy Percent: 35 Seizure Duration By EEG (in seconds): 92 (computer didn't record seizure activity but it was evident that she had seizure activity until 93s) By Motor Observation (in seconds): 42 Medications Administration General Anesthetic: Etomidate (14) Muscle Relaxant: Succinylcholine (100) Ancillary Medications Anti-emetics: Zofran - Pre ECT Cardiovascular Medications: Glycopyrrolate (0.3 post ECT) Airway Management Airway Management: Bag Mask Ventilation Treatment Recommendations Electrode Placement: Rt temporal/ Lt frontal Program/Pulse Width: 0.25 Energy Percent: 30 Pt Tolerated Procedure w/o Issue: Yes
[2024-08-01 00:11] VITALS: BP 111/73; PULSE 74; RESP 16; TEMP 36.9; O2SAT 98
--- NOTE | 2024-08-01 00:13 | HO.ANESPROP2 ---
FORMERLY [facility] Active Problems Active Problems: All Active Problems Routine medical exam (Acute) Bipolar 1 disorder, depressed (Acute) Borderline personality disorder (Acute) Suicidal ideation (Acute) Past Medical History Medical History No pertinent past medical history Functional capacity: independent ambulation Patient : No Family History Family history of problems with anesthesia: No Surgical History History of Problems with Anesthesia: No Social History Social History Household Members: Family Household Members Other:: Been staying with a friend this summer. Lives on campus during school year Housing: House Do you presently have visiting nurse or other home services: No Patient Tobacco Use Status: Current everyday Tobacco user Tobacco use type: Cigarette Cigarettes Per Day: 8 Smoked in Last 30 Days: Yes Patient Interested in Nicotine Replacement: Yes Patient Given Instructions on How to Stop Smoking: No Second Hand Smoke Exposure: No Use of substances other than those prescribed or required for medical reasons: No Currently Displaying Signs/Symptoms of Drug Intoxication Withdrawal: No Any prior treatment program specific to substance use: No Have you been hit, kicked, punched, or otherwise hurt by someone within the past year? If so, by whom?: No Do you feel safe in your current relationship?: No Current Relationship Is there a partner from a previous relationship who is making you feel unsafe now?: No Are you made to feel afraid or neglected: No Advance Directives: No Advance Directives Information Provided: No Do you have thoughts of harming others: None Do you have a plan to hurt others: No Plan Recently lost weight without trying: No How much weight loss: Not applicable Eating poorly because of decreased appetite: Yes Nutrition screen score: 1 Nutrition Risks: Anorexia Patient : No : No Poor oral hygiene: No service: No Sexual orientation: Straight/Heterosexual Meds Allergies Allergy/AdvReac Type Severity Reaction Status Date / Time No Known Allergies Allergy Verified 07/07/24 20:03 Active Medications: Current Medications Acetaminophen (Acetaminophen 325 Mg Tablet) 650 mg PO Q6H PRN PRN Reason: Headache/Pain Mild Scale (1-3) Last Admin: 07/26/24 21:50 Dose: 650 mg Al Hydroxide/Mg Hydroxide (Magnesium Hydrox/Alum Hydrox 30 Ml Oral.Susp) 30 ml PO Q6H PRN PRN Reason: Heartburn/Nausea Cariprazine (Cariprazine Hcl 1.5 Mg Capsule) 4.5 mg PO BEDTIME PRE[facility] Cyproheptadine HCl (Cyproheptadine Hcl 4 Mg Tablet) 4 mg PO BEDTIME [facility] Last Admin: 07/30/24 21:02 Dose: 4 mg Hydroxyzine HCl (Hydroxyzine Hcl 25 Mg Tablet) 25 mg PO Q6H PRN PRN Reason: Anxiety Last Admin: 07/29/24 22:01 Dose: 25 mg Ibuprofen (Ibuprofen 600 Mg Tablet) 600 mg PO Q6H PRN PRN Reason: muscle pain Last Admin: 07/29/24 22:02 Dose: 600 mg Magnesium Hydroxide (Milk Of Magnesia 30 Ml Oral.Susp) 30 ml PO DAILY PRN PRN Reason: Constipation Metformin HCl (Metformin Hcl 500 Mg Tablet) 500 mg PO DAILY@1700 PREETI Last Admin: 07/31/24 19:18 Dose: Not Given Naltrexone HCl (Naltrexone Hcl 50 Mg Tablet) 50 mg PO DAILY [facility] Last Admin: 07/31/24 09:13 Dose: 50 mg Nicotine Polacrilex (Nicotine Polacrilex Lozenge 4 Mg Lozenge) 4 mg BUCCAL Q2H PRN PRN Reason: nicotine cravings Last Admin: 07/29/24 09:19 Dose: 4 mg Patient Own ( Atomoxetine 25 Mg Capsule) 25 mg PO DAILY [facility] Last Admin: 07/31/24 09:14 Dose: 25 mg Patient Own ([place] Lee Menthol Cough Quentin 1 Drop) 1 drop PO Q2H PRN PRN Reason: cough/sore throat Last Admin: 07/27/24 14:03 Dose: 1 drop Olanzapine (Olanzapine 10 Mg Tablet) 10 mg PO TID PRN PRN Reason: agitation Last Admin: 07/30/24 21:02 Dose: 10 mg Ondansetron HCl (Ondansetron Odt 4 Mg Tab.Rapdis) 4 mg TRANSLINGU TIDAC PRN PRN Reason: nausea Last Admin: 07/30/24 17:55 Dose: 4 mg Prazosin HCl (Prazosin Hcl 5 Mg Capsule) 5 mg PO BEDTIME [facility]; Protocol Last Admin: 07/30/24 21:01 Dose: 5 mg Trazodone HCl (Trazodone Hcl 100 Mg Tablet) 200 mg PO BEDTIME [facility] Home Medications ?Medication ?Instructions ?Recorded ?Confirmed ?Last Taken ?Type cariprazine 1.5 mg capsule 3 mg PO QAM 07/07/24 07/07/24 07/07/24 08:00 History (Rebekah) lithium carbonate 300 mg 300 mg PO BID 07/07/24 07/07/24 07/07/24 08:00 History tablet,extended release metformin 500 mg tablet 500 mg PO DAILY 07/07/24 07/07/24 07/07/24 08:00 History naltrexone 50 mg tablet 50 mg PO DAILY 07/07/24 07/07/24 07/07/24 08:00 History prazosin 5 mg capsule 5 mg PO BEDTIME 07/07/24 07/07/24 07/05/24 20:00 History trazodone 150 mg tablet 150 mg PO BEDTIME 07/07/24 07/07/24 07/06/24 20:00 History Exam Height,Weight and Vital Signs: Height 5 ft 2 in Weight 91 kg Last Vital Signs Temp 98.4 F 08/01/24 00:11 Pulse 74 08/01/24 00:11 Resp 16 08/01/24 00:11 BP 111/73 08/01/24 00:11 Pulse Ox 98 08/01/24 00:11 O2 Del Method Room Air 07/31/24 23:34 O2 Flow Rate 2 07/31/24 23:04 Pertinent Lab Results Pertinent Lab Results: Laboratory Tests 07/07/24 07/09/24 07/17/24 20:25 07:53 13:31 WBC 15.4 H 12.1 H 10.1 RBC 4.91 4.79 5.17 Hgb 13.9 13.8 14.7 Hct 42.1 41.0 44.7 MCV 85.7 85.6 86.5 MCH 28.3 28.8 28.4 MCHC 33.0 33.7 32.9 RDW 13.2 13.3 13.5 Plt Count 432 H 368 353 MPV 9.8 9.7 10.1 Immature Gran % (Auto) 0.3 0.4 0.4 Neut % (Auto) 76.2 H 66.1 74.3 H Lymph % (Auto) 17.2 L 24.8 18.4 L Alexander % (Auto) 5.2 5.6 4.3 Eos % (Auto) 0.8 2.8 2.1 Baso % (Auto) 0.3 0.3 0.5 Lymph # (Auto) 2.7 3.0 1.9 Alexander # (Auto) 0.8 0.7 0.4 Eos # (Auto) 0.1 0.3 0.2 Baso # (Auto) 0.0 0.0 0.1 Abs Immat Gran (auto) 0.05 H 0.05 H 0.04 H Absolute Neuts (auto) 11.7 H 8.0 7.5 Absolute Nucleated RBC 0.000 0.000 0.000 Nucleated RBC % (auto) 0.0 0.0 0.0 Sodium 139 138 Potassium 4.0 4.2 Chloride 105 103 Carbon Dioxide 25 26 Anion Gap 13 13 BUN 9 7 L Creatinine 0.94 0.86 Estim Creat Clear Calc 97.8 Estimated GFR > 60 Random Glucose 102 Estimat Average Glucose 111 Hemoglobin A1c % 5.5 Calcium 10.0 Total Bilirubin 0.3 AST 13 ALT 9 Alkaline Phosphatase 98 Total Protein 7.8 Albumin 4.7 Triglycerides 90 Cholesterol 116 LDL Cholesterol, Calc 67 HDL Cholesterol 31 L TSH 0.36 Urine Color Yellow Urine Appearance Clear Urine pH 8.0 Ur Specific [place] 1.025 Urine Protein Trace Urine Glucose (UA) Negative Urine Ketones >=160 Urine Blood Negative Urine Nitrite Negative Ur Leukocyte Esterase Trace H Urine RBC 0-2 Urine WBC 0-5 Ur Squamous Epith Cells 3-5 Urine Bacteria Trace Hyaline Casts 0-2 Urine Test NEGATIVE Salicylates < 5.0 L Urine Opiates Screen Not Detected Ur Buprenorphine Scrn Not Detected Ur Oxycodone Screen Not Detected Urine Methadone Screen Not Detected Urine Fentanyl Screen Not Detected Acetaminophen < 3 Ur Barbiturates Screen Not Detected Ur Phencyclidine Scrn Not Detected Ur Amphetamines Screen Not Detected U Benzodiazepines Scrn Not Detected [place] 0.84 Urine Cocaine Screen Not Detected U Marijuana (THC) Screen Not Detected Ethyl Alcohol < 10 S. pyogenes GrpA ESTEE 07/17/24 07/17/24 07/17/24 13:31 13:31 13:31 WBC RBC Hgb Hct MCV MCH MCHC RDW Plt Count MPV Immature Gran % (Auto) Neut % (Auto) Lymph % (Auto) Alexander % (Auto) Eos % (Auto) Baso % (Auto) Lymph # (Auto) Alexander # (Auto) Eos # (Auto) Baso # (Auto) Abs Immat Gran (auto) Absolute Neuts (auto) Absolute Nucleated RBC Nucleated RBC % (auto) Sodium Potassium Chloride Carbon Dioxide Anion Gap BUN Creatinine Cancelled Estim Creat Clear Calc 106.8 Cancelled Estimated GFR > 60 Cancelled Random Glucose 140 H Estimat Average Glucose Hemoglobin A1c % Calcium 10.2 Total Bilirubin 0.2 AST 11 ALT 8 Alkaline Phosphatase 88 Total Protein 7.4 Albumin 4.5 Triglycerides Cholesterol LDL Cholesterol, Calc HDL Cholesterol TSH Urine Color Urine Appearance Urine pH Ur Specific Wells Urine Protein Urine Glucose (UA) Urine Ketones Urine Blood Urine Nitrite Ur Leukocyte Esterase Urine RBC Urine WBC Ur Squamous Epith Cells Urine Bacteria Hyaline Casts Urine Test Salicylates Urine Opiates Screen Ur Buprenorphine Scrn Ur Oxycodone Screen Urine Methadone Screen Urine Fentanyl Screen Acetaminophen Ur Barbiturates Screen Ur Phencyclidine Scrn Ur Amphetamines Screen U Benzodiazepines Scrn [place] Urine Cocaine Screen U Marijuana (THC) Screen Ethyl Alcohol S. pyogenes GrpA ESTEE 07/21/24 07/22/24 07/28/24 08:39 17:15 07:52 WBC RBC Hgb Hct MCV MCH MCHC RDW Plt Count MPV Immature Gran % (Auto) Neut % (Auto) Lymph % (Auto) Alexander % (Auto) Eos % (Auto) Baso % (Auto) Lymph # (Auto) Alexander # (Auto) Eos # (Auto) Baso # (Auto) Abs Immat Gran (auto) Absolute Neuts (auto) Absolute Nucleated RBC Nucleated RBC % (auto) Sodium Potassium Chloride Carbon Dioxide Anion Gap BUN Creatinine 0.86 0.80 Estim Creat Clear Calc 106.8 115.7 Estimated GFR > 60 > 60 Random Glucose Estimat Average Glucose Hemoglobin A1c % Calcium Total Bilirubin AST ALT Alkaline Phosphatase Total Protein Albumin Triglycerides Cholesterol LDL Cholesterol, Calc HDL Cholesterol TSH Urine Color Urine Appearance Urine pH Ur Specific [place] Urine Protein Urine Glucose (UA) Urine Ketones Urine Blood Urine Nitrite Ur Leukocyte Esterase Urine RBC Urine WBC Ur Squamous Epith Cells Urine Bacteria Hyaline Casts Urine Test Salicylates Urine Opiates Screen Ur Buprenorphine Scrn Ur Oxycodone Screen Urine Methadone Screen Urine Fentanyl Screen Acetaminophen Ur Barbiturates Screen Ur Phencyclidine Scrn Ur Amphetamines Screen U Benzodiazepines Scrn [place] Urine Cocaine Screen U Marijuana (THC) Screen Ethyl Alcohol S. pyogenes GrpA ESTEE Negative Airway Mallampati Class: II TM Dist: >3cm Neck ROM: Full Heart: RRR Lungs: CTA Assessment and Plan Assessment Anesthesia Assessment: Anesthesia Plan Discussed and Chart Reviewed Final Anesthetic Review Family History of Problems with Anesthesia: No History of Problems with Anesthesia: No NPO: Yes ASA Class: III and Emergency Final Preanesthetic Review: Meds/Allgs Chart Reviewed, Consent Obtained/Reviewed and Anes Risks/Benef Reviewed Patient Risk: Intermediate Procedure Risk: Intermediate Anesthetic Plan Anesthetic Plan: GA Disposition: Standard PACU
--- NOTE | 2024-08-01 00:14 | HO.POSTANES ---
Post Anesthesia Evaluation Post Anesthesia Evaluation Date of Service: 08/01/24 Vital Signs: Vital Signs Temp Pulse Resp BP Pulse Ox O2 Del Method O2 Flow Rate 08/01/24 00:11 98.4 F 74 16 111/73 98 07/31/24 23:34 97.1 F 60 16 133/83 98 Room Air 07/31/24 23:19 97 F 60 16 126/80 98 Room Air 07/31/24 23:04 60 16 125/80 100 Nasal Cannula with ETCO2 2 07/31/24 22:59 61 16 132/87 100 Nasal Cannula with ETCO2 2 07/31/24 22:54 59 16 141/87 H 100 Nasal Cannula with ETCO2 2 07/31/24 22:49 97 F 57 16 150/91 H 97 Nasal Cannula with ETCO2 2 07/31/24 20:39 97.5 F 66 18 132/91 H 100 Room Air 07/31/24 20:30 97.5 F 116 H 16 127/76 07/31/24 19:36 98.6 F 80 14 133/92 H 100 Room Air Anesthesia: General Mental Status: Awake Pain Control: Satisfactory Nausea/Vomiting: None Hydration: Adequate Anesthesia-Related Issues: No Anes. Related Issues
[2024-08-01] MEDS: traZODone HCL 100 MG TABLET 200 MG PO ×2 (00:58→22:32)
[2024-08-01] MEDS: Cyproheptadine HCl 4 MG TABLET PO ×2 (00:58→22:30)
[2024-08-01] MEDS: Prazosin HCL 5 MG CAPSULE PO ×2 (00:58→22:30)
[2024-08-01] MEDS: Cariprazine HCl 1.5 MG CAPSULE 4.5 MG PO ×2 (00:59→22:32)
[2024-08-01 08:00] VITALS: BP 102/56; PULSE 76; RESP 16; TEMP 36.8; O2SAT 97
[2024-08-01] MEDS: Naltrexone HCl 50 MG TABLET PO (09:16)
[2024-08-01] MEDS: Ondansetron ODT 4 MG TAB.RAPDIS TRANSLINGU ×3 (09:20→17:37)
--- NOTE | 2024-08-01 12:32 | P.PNPSI_ITS ---
Subjective Subjective Date of Service: 08/01/24 Reason For Visit: Labile SI Subjective Notes: Conditional Voluntary Healthcare Proxy: No Guardianship: No Medical Problems Affecting Mental Status: No Interim History: Reports no change in mood, SI from ECT Withdrew from her semester formally with team on 08/01. I am not sure how I feel about this. Asks for eating disorder referral upon discharge. [facility], however came to this area for treatment directly after. She is working with the team to revive the [facility] referral. Hopes to continue OP ECT with [facility] if they offer this treatment. Medication Compliance: Yes Side effects from medications: No Attending Groups: Intermittent Review of Systems Acute medical concerns: No Medical Review of Systems: unchanged Review of Systems Review of Systems Yes all other systems are reviewed and are negative Mental Status Exam Mental Status Exam Patient Appearance: Appropriate Patient Orientation: Person, Place, Time and Situation Level of Consciousness: Alert Patient Behavior: Appropriate, Talkative, Cooperative and Good Eye Contact Mood Description: Appropriate Affect Description: Appropriate Patient Cognition Impaired: No Ability to Follow Directions: Good Speech Pattern: Spontaneous Speech Memory Description: Episodic Impaired Hallucinations: None Delusions: Not Present Thought Process: Intact Thought Content: positive for Intact Judgement: Good Diagnostics Vital Signs (24Hr): Vital Signs - 24 hr 07/31/24 19:36 07/31/24 20:30 07/31/24 20:39 Temperature 98.6 F 97.5 F 97.5 F Pulse Rate 80 116 H 66 Respiratory Rate 14 16 18 Blood Pressure 133/92 H 127/76 132/91 H Pulse Oximetry 100 100 Oxygen Delivery Method Room Air Room Air Oxygen Flow Rate 07/31/24 22:49 07/31/24 22:54 07/31/24 22:59 Temperature 97 F Pulse Rate 57 59 61 Respiratory Rate 16 16 16 Blood Pressure 150/91 H 141/87 H 132/87 Pulse Oximetry 97 100 100 Oxygen Delivery Method Nasal Cannula with ETCO2 Nasal Cannula with ETCO2 Nasal Cannula with ETCO2 Oxygen Flow Rate 2 2 2 07/31/24 23:04 07/31/24 23:19 07/31/24 23:34 Temperature 97 F 97.1 F Pulse Rate 60 60 60 Respiratory Rate 16 16 16 Blood Pressure 125/80 126/80 133/83 Pulse Oximetry 100 98 98 Oxygen Delivery Method Nasal Cannula with ETCO2 Room Air Room Air Oxygen Flow Rate 2 08/01/24 00:11 08/01/24 08:00 Temperature 98.4 F 98.2 F Pulse Rate 74 76 Respiratory Rate 16 16 Blood Pressure 111/73 102/56 L Pulse Oximetry 98 97 Oxygen Delivery Method Room Air Oxygen Flow Rate BMI result Body Mass Index 36.7 Labs 07/17/24 13:31 07/28/24 07:52 Medications Medications Current Medications Acetaminophen (Acetaminophen 325 Mg Tablet) 650 mg PO Q6H PRN PRN Reason: Headache/Pain Mild Scale (1-3) Last Admin: 07/26/24 21:50 Dose: 650 mg Al Hydroxide/Mg Hydroxide (Magnesium Hydrox/Alum Hydrox 30 Ml Oral.Susp) 30 ml PO Q6H PRN PRN Reason: Heartburn/Nausea Cariprazine (Cariprazine Hcl 1.5 Mg Capsule) 4.5 mg PO BEDTIME [facility] Last Admin: 08/01/24 00:59 Dose: 4.5 mg Cyproheptadine HCl (Cyproheptadine Hcl 4 Mg Tablet) 4 mg PO BEDTIME [facility] Last Admin: 08/01/24 00:58 Dose: 4 mg Hydroxyzine HCl (Hydroxyzine Hcl 25 Mg Tablet) 25 mg PO Q6H PRN PRN Reason: Anxiety Last Admin: 07/29/24 22:01 Dose: 25 mg Ibuprofen (Ibuprofen 600 Mg Tablet) 600 mg PO Q6H PRN PRN Reason: muscle pain Last Admin: 07/29/24 22:02 Dose: 600 mg Magnesium Hydroxide (Milk Of Magnesia 30 Ml Oral.Susp) 30 ml PO DAILY PRN PRN Reason: Constipation Metformin HCl (Metformin Hcl 500 Mg Tablet) 500 mg PO DAILY@1700 [facility] Last Admin: 07/31/24 19:18 Dose: Not Given Naltrexone HCl (Naltrexone Hcl 50 Mg Tablet) 50 mg PO DAILY [facility] Last Admin: 08/01/24 09:16 Dose: 50 mg Nicotine Polacrilex (Nicotine Polacrilex Lozenge 4 Mg Lozenge) 4 mg BUCCAL Q2H PRN PRN Reason: nicotine cravings Last Admin: 07/29/24 09:19 Dose: 4 mg Patient Own ( Atomoxetine 25 Mg Capsule) 25 mg PO DAILY [facility] Last Admin: 08/01/24 09:16 Dose: 25 mg Patient Own ([employer] Lee Menthol Cough Quentin 1 Drop) 1 drop PO Q2H PRN PRN Reason: cough/sore throat Last Admin: 07/27/24 14:03 Dose: 1 drop Olanzapine (Olanzapine 10 Mg Tablet) 10 mg PO TID PRN PRN Reason: agitation Last Admin: 07/30/24 21:02 Dose: 10 mg Ondansetron HCl (Ondansetron Odt 4 Mg Tab.Rapdis) 4 mg TRANSLINGU TIDAC PRN PRN Reason: nausea Last Admin: 08/01/24 09:20 Dose: 4 mg Prazosin HCl (Prazosin Hcl 5 Mg Capsule) 5 mg PO BEDTIME [facility]; Protocol Last Admin: 08/01/24 00:58 Dose: 5 mg Trazodone HCl (Trazodone Hcl 100 Mg Tablet) 200 mg PO BEDTIME PREETI Last Admin: 08/01/24 00:58 Dose: 200 mg Allergies Allergies Allergy/AdvReac Type Severity Reaction Status Date / Time No Known Allergies Allergy Verified 07/07/24 20:03 Assessment & Plan Assessment & Plan (1) Bipolar 1 disorder, depressed: Status: Acute Code(s): F31.9 - Bipolar disorder, unspecified (2) Borderline personality disorder: Status: Acute Code(s): F60.3 - Borderline personality disorder (3) Suicidal ideation: Status: Acute Code(s): R45.851 - Suicidal ideations Plan The patient appears to have clinical depression on top of what appears to be dysphoria anxiety consistent PTSD borderline personality disorder with reactivity and intermittent self-injurious behavior. This does not appear to be part of that pattern there is a strong possible genetic component with her father having completed suicide and history of bipolar disorder patient agreeable to have thing us speak with her therapist and psychiatrist and records reviewed from [address] [place] [address] and [facility]. I have discussed with the patient that ECT would not treat chronic issues that she she deals with stress as mood and stability urges toward self injurious behavior and intermittent restricted eating disorder. The patient describes however ongoing depressed mood with intense thoughts of suicide history of not responding to antidepressant medication and has not stabilized bite a month of treatment with Vraylar and lithium. 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 Patient has had some response reportedly to TMS in the past given intensity of her suicidal thoughts intensity of depression at this time does not seem a current option. Call has been placed to her outpatient psychiatrist in [place]. Although I would not recommend ECT for borderline personality disorder per se certainly given her ongoing depression lack of emotional reactivity anhedonia intense negative affective state that seems to be consistent with thoughts of suicide the patient would meet criteria for a course of ECT which we would start with right unilateral treatment there are no medical contraindications Case has also been discussed and reviewed with inpatient treatment team. Hospital course: 07/18/24: ECT 07.19. 07/19 Patient is post ECT. She is lying in bed alert and oriented but feeling tired. She said she had a headache which got better with p.r.n. medication. Some muscle aches. She felt foggy with some blurred vision but that too is resolving. She says she just wants to rest for now. 07/20 patient feeling calm day after ECT. Wants to continue. 07/21 Patient says she has come in the outside but on the inside she feels a little revved up.; wants to continue with ECT. Discussed muscle soreness and patient wants ibuprofen reminding leader writer that currently she is off lithium. Later in the evening patient reported feeling that she was starting to get hypomanic and asked for increased dose of Zyprexa 07/23- ECT 07/24. 07/26- Continue tx. 07/29: ECT 07/31 08/01: Appears brighter, improved, more engaged, although reports no change PLAN: CV q15 min checks ECT #1 on 07/19 ECT #2 pending 07/22 npo -increased PRNs Zyprexa to 10 mg since patient starting to feel hypomanic 07/30/24 Inc depressed ect in am rul avoid bt dis not tolerate well inc vraylar 4.5 periactin for nightmares / insomnia 07/31/24 more active barb[place] affect vraylar 4.5 cont ect rul Reason for continued inpatient stay Substantial Risk for: rapid decompensation Time Spent With Patient Time: Total time managing care of this patient today ____ minutes.
[2024-08-01] MEDS: Nicotine Polacrilex Lozenge 4 MG LOZENGE BUCCAL (14:01)
[2024-08-01] MEDS: Nicotine Polacrilex 2 MG GUM 4 MG BUCCAL ×2 (15:13→21:23)
[2024-08-01] MEDS: metFORMIN HCl 500 MG TABLET PO (17:37)
[2024-08-01 20:00] VITALS: BP 153/95; PULSE 95; RESP 18; TEMP 36.6; O2SAT 99
[2024-08-01] MEDS: OLANZapine 10 MG TABLET PO (23:04)
[2024-08-02] VITALS (9 sets, daily range): BP systolic 103–138; BP diastolic 67–91; PULSE 65–97; RESP 12–18; TEMP 35.7–36.8; O2SAT 95–100
--- NOTE | 2024-08-02 06:59 | HO.ANESPROP2 ---
[facility] Active Problems Active Problems: All Active Problems Routine medical exam (Acute) Bipolar 1 disorder, depressed (Acute) Borderline personality disorder (Acute) Suicidal ideation (Acute) Past Medical History Medical History No pertinent past medical history Functional capacity: independent ambulation Family History Family history of problems with anesthesia: No Surgical History History of Problems with Anesthesia: No Social History Social History Household Members: Family Household Members Other:: Been staying with a friend this summer. [place] campus during school year Housing: House Do you presently have visiting nurse or other home services: No Patient Tobacco Use Status: Current everyday Tobacco user Tobacco use type: Cigarette Cigarettes Per Day: 8 Smoked in Last 30 Days: Yes Patient Interested in Nicotine Replacement: Yes Patient Given Instructions on How to Stop Smoking: No Second Hand Smoke Exposure: No Use of substances other than those prescribed or required for medical reasons: No Currently Displaying Signs/Symptoms of Drug Intoxication Withdrawal: No Any prior treatment program specific to substance use: No Have you been hit, kicked, punched, or otherwise hurt by someone within the past year? If so, by whom?: No Do you feel safe in your current relationship?: No Current Relationship Is there a partner from a previous relationship who is making you feel unsafe now?: No Are you made to feel afraid or neglected: No Advance Directives: No Advance Directives Information Provided: No Do you have thoughts of harming others: None Do you have a plan to hurt others: No Plan Recently lost weight without trying: No How much weight loss: Not applicable Eating poorly because of decreased appetite: Yes Nutrition screen score: 1 Nutrition Risks: Anorexia Patient : No : No Poor oral hygiene: No service: No Sexual orientation: Straight/Heterosexual Meds Allergies Allergy/AdvReac Type Severity Reaction Status Date / Time No Known Allergies Allergy Verified 07/07/24 20:03 Active Medications: Current Medications Acetaminophen (Acetaminophen 325 Mg Tablet) 650 mg PO Q6H PRN PRN Reason: Headache/Pain Mild Scale (1-3) Last Admin: 07/26/24 21:50 Dose: 650 mg Al Hydroxide/Mg Hydroxide (Magnesium Hydrox/Alum Hydrox 30 Ml Oral.Susp) 30 ml PO Q6H PRN PRN Reason: Heartburn/Nausea Cariprazine (Cariprazine Hcl 1.5 Mg Capsule) 4.5 mg PO BEDTIME [facility] Last Admin: 08/01/24 22:32 Dose: 4.5 mg Cyproheptadine HCl (Cyproheptadine Hcl 4 Mg Tablet) 4 mg PO BEDTIME [facility] Last Admin: 08/01/24 22:30 Dose: 4 mg Hydroxyzine HCl (Hydroxyzine Hcl 25 Mg Tablet) 25 mg PO Q6H PRN PRN Reason: Anxiety Last Admin: 07/29/24 22:01 Dose: 25 mg Ibuprofen (Ibuprofen 600 Mg Tablet) 600 mg PO Q6H PRN PRN Reason: muscle pain Last Admin: 07/29/24 22:02 Dose: 600 mg Magnesium Hydroxide (Milk Of Magnesia 30 Ml Oral.Susp) 30 ml PO DAILY PRN PRN Reason: Constipation Metformin HCl (Metformin Hcl 500 Mg Tablet) 500 mg PO DAILY@1700 [facility] Last Admin: 08/01/24 17:37 Dose: 500 mg Naltrexone HCl (Naltrexone Hcl 50 Mg Tablet) 50 mg PO DAILY [facility] Last Admin: 08/01/24 09:16 Dose: 50 mg Nicotine Polacrilex (Nicotine Polacrilex 2 Mg Gum) 4 mg BUCCAL Q2H PRN PRN Reason: Nicotine Cravings Last Admin: 08/01/24 21:23 Dose: 4 mg Patient Own ( Atomoxetine 25 Mg Capsule) 25 mg PO DAILY [facility] Last Admin: 08/01/24 09:16 Dose: 25 mg Patient Own ([place] Menthol Cough Quentin 1 Drop) 1 drop PO Q2H PRN PRN Reason: cough/sore throat Last Admin: 07/27/24 14:03 Dose: 1 drop Olanzapine (Olanzapine 10 Mg Tablet) 10 mg PO TID PRN PRN Reason: agitation Last Admin: 08/01/24 23:04 Dose: 10 mg Ondansetron HCl (Ondansetron Odt 4 Mg Tab.Rapdis) 4 mg TRANSLINGU TIDAC PRN PRN Reason: nausea Last Admin: 08/01/24 17:37 Dose: 4 mg Prazosin HCl (Prazosin Hcl 5 Mg Capsule) 5 mg PO BEDTIME [facility]; Protocol Last Admin: 08/01/24 22:30 Dose: 5 mg Trazodone HCl (Trazodone Hcl 100 Mg Tablet) 200 mg PO BEDTIME [facility] Last Admin: 08/01/24 22:32 Dose: 200 mg Home Medications ?Medication ?Instructions ?Recorded ?Confirmed ?Last Taken ?Type cariprazine 1.5 mg capsule 3 mg PO QAM 07/07/24 07/07/24 07/07/24 08:00 History (Rebekah) lithium carbonate 300 mg 300 mg PO BID 07/07/24 07/07/24 07/07/24 08:00 History tablet,extended release metformin 500 mg tablet 500 mg PO DAILY 07/07/24 07/07/24 07/07/24 08:00 History naltrexone 50 mg tablet 50 mg PO DAILY 07/07/24 07/07/24 07/07/24 08:00 History prazosin 5 mg capsule 5 mg PO BEDTIME 07/07/24 07/07/24 07/05/24 20:00 History trazodone 150 mg tablet 150 mg PO BEDTIME 07/07/24 07/07/24 07/06/24 20:00 History Exam Height,Weight and Vital Signs: Height 5 ft 2 in Weight 91 kg Last Vital Signs Temp 96.2 F L 08/02/24 06:37 Pulse 69 08/02/24 06:37 Resp 16 08/02/24 06:37 BP 103/76 08/02/24 06:37 Pulse Ox 100 08/02/24 06:37 O2 Del Method Room Air 08/02/24 06:37 O2 Flow Rate 2 07/31/24 23:04 Pertinent Lab Results Pertinent Lab Results: Laboratory Tests 07/07/24 07/09/24 07/17/24 20:25 07:53 13:31 WBC 15.4 H 12.1 H 10.1 RBC 4.91 4.79 5.17 Hgb 13.9 13.8 14.7 Hct 42.1 41.0 44.7 MCV 85.7 85.6 86.5 MCH 28.3 28.8 28.4 MCHC 33.0 33.7 32.9 RDW 13.2 13.3 13.5 Plt Count 432 H 368 353 MPV 9.8 9.7 10.1 Immature Gran % (Auto) 0.3 0.4 0.4 Neut % (Auto) 76.2 H 66.1 74.3 H Lymph % (Auto) 17.2 L 24.8 18.4 L Grant % (Auto) 5.2 5.6 4.3 Eos % (Auto) 0.8 2.8 2.1 Baso % (Auto) 0.3 0.3 0.5 Lymph # (Auto) 2.7 3.0 1.9 Grant # (Auto) 0.8 0.7 0.4 Eos # (Auto) 0.1 0.3 0.2 Baso # (Auto) 0.0 0.0 0.1 Abs Immat Gran (auto) 0.05 H 0.05 H 0.04 H Absolute Neuts (auto) 11.7 H 8.0 7.5 Absolute Nucleated RBC 0.000 0.000 0.000 Nucleated RBC % (auto) 0.0 0.0 0.0 Sodium 139 138 Potassium 4.0 4.2 Chloride 105 103 Carbon Dioxide 25 26 Anion Gap 13 13 BUN 9 7 L Creatinine 0.94 0.86 Estim Creat Clear Calc 97.8 Estimated GFR > 60 Random Glucose 102 Estimat Average Glucose 111 Hemoglobin A1c % 5.5 Calcium 10.0 Total Bilirubin 0.3 AST 13 ALT 9 Alkaline Phosphatase 98 Total Protein 7.8 Albumin 4.7 Triglycerides 90 Cholesterol 116 LDL Cholesterol, Calc 67 HDL Cholesterol 31 L TSH 0.36 Urine Color Yellow Urine Appearance Clear Urine pH 8.0 Ur Specific [place] 1.025 Urine Protein Trace Urine Glucose (UA) Negative Urine Ketones >=160 Urine Blood Negative Urine Nitrite Negative Ur Leukocyte Esterase Trace H Urine RBC 0-2 Urine WBC 0-5 Ur Squamous Epith Cells 3-5 Urine Bacteria Trace Hyaline Casts 0-2 Urine Test NEGATIVE Salicylates < 5.0 L Urine Opiates Screen Not Detected Ur Buprenorphine Scrn Not Detected Ur Oxycodone Screen Not Detected Urine Methadone Screen Not Detected Urine Fentanyl Screen Not Detected Acetaminophen < 3 Ur Barbiturates Screen Not Detected Ur Phencyclidine Scrn Not Detected Ur Amphetamines Screen Not Detected U Benzodiazepines Scrn Not Detected [place] 0.84 Urine Cocaine Screen Not Detected U Marijuana (THC) Screen Not Detected Ethyl Alcohol < 10 S. pyogenes GrpA ESTEE 07/17/24 07/17/24 07/17/24 13:31 13:31 13:31 WBC RBC Hgb Hct MCV MCH MCHC RDW Plt Count MPV Immature Gran % (Auto) Neut % (Auto) Lymph % (Auto) Grant % (Auto) Eos % (Auto) Baso % (Auto) Lymph # (Auto) Grant # (Auto) Eos # (Auto) Baso # (Auto) Abs Immat Gran (auto) Absolute Neuts (auto) Absolute Nucleated RBC Nucleated RBC % (auto) Sodium Potassium Chloride Carbon Dioxide Anion Gap BUN Creatinine Cancelled Estim Creat Clear Calc 106.8 Cancelled Estimated GFR > 60 Cancelled Random Glucose 140 H Estimat Average Glucose Hemoglobin A1c % Calcium 10.2 Total Bilirubin 0.2 AST 11 ALT 8 Alkaline Phosphatase 88 Total Protein 7.4 Albumin 4.5 Triglycerides Cholesterol LDL Cholesterol, Calc HDL Cholesterol TSH Urine Color Urine Appearance Urine pH Ur Specific [place] Urine Protein Urine Glucose (UA) Urine Ketones Urine Blood Urine Nitrite Ur Leukocyte Esterase Urine RBC Urine WBC Ur Squamous Epith Cells Urine Bacteria Hyaline Casts Urine Test Salicylates Urine Opiates Screen Ur Buprenorphine Scrn Ur Oxycodone Screen Urine Methadone Screen Urine Fentanyl Screen Acetaminophen Ur Barbiturates Screen Ur Phencyclidine Scrn Ur Amphetamines Screen U Benzodiazepines Scrn [place] Urine Cocaine Screen U Marijuana (THC) Screen Ethyl Alcohol S. pyogenes GrpA ESTEE 07/21/24 07/22/24 07/28/24 08:39 17:15 07:52 WBC RBC Hgb Hct MCV MCH MCHC RDW Plt Count MPV Immature Gran % (Auto) Neut % (Auto) Lymph % (Auto) Grant % (Auto) Eos % (Auto) Baso % (Auto) Lymph # (Auto) Grant # (Auto) Eos # (Auto) Baso # (Auto) Abs Immat Gran (auto) Absolute Neuts (auto) Absolute Nucleated RBC Nucleated RBC % (auto) Sodium Potassium Chloride Carbon Dioxide Anion Gap BUN Creatinine 0.86 0.80 Estim Creat Clear Calc 106.8 115.7 Estimated GFR > 60 > 60 Random Glucose Estimat Average Glucose Hemoglobin A1c % Calcium Total Bilirubin AST ALT Alkaline Phosphatase Total Protein Albumin Triglycerides Cholesterol LDL Cholesterol, Calc HDL Cholesterol TSH Urine Color Urine Appearance Urine pH Ur Specific [place] Urine Protein Urine Glucose (UA) Urine Ketones Urine Blood Urine Nitrite Ur Leukocyte Esterase Urine RBC Urine WBC Ur Squamous Epith Cells Urine Bacteria Hyaline Casts Urine Test Salicylates Urine Opiates Screen Ur Buprenorphine Scrn Ur Oxycodone Screen Urine Methadone Screen Urine Fentanyl Screen Acetaminophen Ur Barbiturates Screen Ur Phencyclidine Scrn Ur Amphetamines Screen U Benzodiazepines Scrn [place] Urine Cocaine Screen U Marijuana (THC) Screen Ethyl Alcohol S. pyogenes GrpA ESTEE Negative Airway Mallampati Class: II TM Dist: >3cm Neck ROM: Full Heart: rrr Lungs: cta Assessment and Plan Assessment Anesthesia Assessment: Anesthesia Plan Discussed and Chart Reviewed Final Anesthetic Review Family History of Problems with Anesthesia: No History of Problems with Anesthesia: No NPO: Yes ASA Class: III Final Preanesthetic Review: No Changes in Pt Med Stat, Meds/Allgs Chart Reviewed and Consent Obtained/Reviewed Patient Risk: Intermediate Procedure Risk: Intermediate Anesthetic Plan Anesthetic Plan: GA Disposition: Standard PACU
--- NOTE | 2024-08-02 07:21 | MHC.SHP ---
Pre-Procedural Eval Section A - 24 Hr Update-Section A only Date of Service: 08/02/24 The patient is an INPATIENT: Yes Changes since office visit: No Cold of Flu in the past 2 weeks, No New Medical Problems, No Changes in Medication and No Patient answered all questions The patient has been examined within 24 hours of the surgical procedure. The History & Physical has been completed within 30 days and I have reviewed it.: Yes Section B - Complete if H&P > 30 days Chief Complaint: Labile SI Allergies: Allergies Allergy/AdvReac Type Severity Reaction Status Date / Time No Known Allergies Allergy Verified 07/07/24 20:03 Plan I have reviewed the history and physical and performed a pertinent physical examination on my patient. No changes have occurred unless specified. Time Spent With Patient Time: Total time managing care of this patient today ____ minutes.
--- NOTE | 2024-08-02 07:21 | HO.ECTPROC ---
ECT Procedure Note Diagnosis/Treatment Date of Service: 08/02/24 Diagnosis: Bipolar disorder Previous ECT Date: 07/31/24 Current Treatment Number: 6 Treatment: Series Interval Clinical Notes: change to bf sec to inc s/e with BT. Patient tolerated bifrontal ECT without difficulty. Given Versed 2 mg post Time: Total time managing care of this patient today ____ minutes. ECT Settings Device: THYMATRON DGx Electrode Placement: Bifrontal Program/Pulse Width: 0.25 Energy Percent: 35 Seizure Duration By EEG (in seconds): 72 Medications Administration General Anesthetic: Etomidate (14) Muscle Relaxant: Succinylcholine (100) Ancillary Medications Anti-emetics: Zofran - Pre ECT Cardiovascular Medications: Glycopyrrolate Miscillaneous Medications: Midazolam (2 post) Airway Management Airway Management: Bag Mask Ventilation Treatment Recommendations Notes: Energy could be decreased further Pt Tolerated Procedure w/o Issue: Yes
[2024-08-02] MEDS: Naltrexone HCl 50 MG TABLET PO (09:13)
--- NOTE | 2024-08-02 10:32 | P.PNPSI_ITS ---
Subjective Subjective Date of Service: 08/02/24 Reason For Visit: Labile SI Subjective Notes: Conditional Voluntary Healthcare Proxy: No Guardianship: No Medical Problems Affecting Mental Status: No Interim History: ECT completed. Asked team to allow her to sleep until her visitor arrived at 3:30pm Pt with no questions or concerns today. Medication Compliance: Yes Side effects from medications: No Attending Groups: No Review of Systems Acute medical concerns: No Medical Review of Systems: unchanged Review of Systems Review of Systems Yes all other systems are reviewed and are negative Mental Status Exam Mental Status Exam Patient Behavior: Asleep Diagnostics Vital Signs (24Hr): Vital Signs - 24 hr 08/01/24 20:00 08/02/24 06:37 08/02/24 07:40 Temperature 97.8 F 96.2 F L 97.4 F Pulse Rate 95 69 90 Respiratory Rate 18 16 16 Blood Pressure 153/95 H 103/76 138/88 Pulse Oximetry 99 100 95 Oxygen Delivery Method Room Air Room Air Nasal Cannula with ETCO2 Oxygen Flow Rate 08/02/24 07:45 08/02/24 07:50 08/02/24 07:55 Temperature Pulse Rate 74 65 65 Respiratory Rate 15 14 15 Blood Pressure 134/91 H 121/75 123/73 Pulse Oximetry 98 98 99 Oxygen Delivery Method Nasal Cannula with ETCO2 Nasal Cannula with ETCO2 Nasal Cannula with ETCO2 Oxygen Flow Rate 2 2 2 08/02/24 08:10 08/02/24 08:25 Temperature 97.0 F Pulse Rate 70 65 Respiratory Rate 12 18 Blood Pressure 118/74 108/67 Pulse Oximetry 99 98 Oxygen Delivery Method Nasal Cannula with ETCO2 Room Air Oxygen Flow Rate 2 BMI result Body Mass Index 36.7 Labs 07/17/24 13:31 07/28/24 07:52 Medications Medications Current Medications Acetaminophen (Acetaminophen 325 Mg Tablet) 650 mg PO Q6H PRN PRN Reason: Headache/Pain Mild Scale (1-3) Last Admin: 07/26/24 21:50 Dose: 650 mg Al Hydroxide/Mg Hydroxide (Magnesium Hydrox/Alum Hydrox 30 Ml Oral.Susp) 30 ml PO Q6H PRN PRN Reason: Heartburn/Nausea Cariprazine (Cariprazine Hcl 1.5 Mg Capsule) 4.5 mg PO BEDTIME [facility] Last Admin: 08/01/24 22:32 Dose: 4.5 mg Cyproheptadine HCl (Cyproheptadine Hcl 4 Mg Tablet) 4 mg PO BEDTIME [facility] Last Admin: 08/01/24 22:30 Dose: 4 mg Hydroxyzine HCl (Hydroxyzine Hcl 25 Mg Tablet) 25 mg PO Q6H PRN PRN Reason: Anxiety Last Admin: 07/29/24 22:01 Dose: 25 mg Ibuprofen (Ibuprofen 600 Mg Tablet) 600 mg PO Q6H PRN PRN Reason: muscle pain Last Admin: 07/29/24 22:02 Dose: 600 mg Magnesium Hydroxide (Milk Of Magnesia 30 Ml Oral.Susp) 30 ml PO DAILY PRN PRN Reason: Constipation Metformin HCl (Metformin Hcl 500 Mg Tablet) 500 mg PO DAILY@1700 [facility] Last Admin: 08/01/24 17:37 Dose: 500 mg Naltrexone HCl (Naltrexone Hcl 50 Mg Tablet) 50 mg PO DAILY [facility] Last Admin: 08/02/24 09:13 Dose: 50 mg Nicotine Polacrilex (Nicotine Polacrilex 2 Mg Gum) 4 mg BUCCAL Q2H PRN PRN Reason: Nicotine Cravings Last Admin: 08/01/24 21:23 Dose: 4 mg Patient Own ( Atomoxetine 25 Mg Capsule) 25 mg PO DAILY [facility] Last Admin: 08/02/24 09:13 Dose: 25 mg Patient Own ([place] Menthol Cough Quentin 1 Drop) 1 drop PO Q2H PRN PRN Reason: cough/sore throat Last Admin: 07/27/24 14:03 Dose: 1 drop Olanzapine (Olanzapine 10 Mg Tablet) 10 mg PO TID PRN PRN Reason: agitation Last Admin: 08/01/24 23:04 Dose: 10 mg Ondansetron HCl (Ondansetron Odt 4 Mg Tab.Rapdis) 4 mg TRANSLINGU TIDAC PRN PRN Reason: nausea Last Admin: 08/01/24 17:37 Dose: 4 mg Prazosin HCl (Prazosin Hcl 5 Mg Capsule) 5 mg PO BEDTIME [facility]; Protocol Last Admin: 08/01/24 22:30 Dose: 5 mg Trazodone HCl (Trazodone Hcl 100 Mg Tablet) 200 mg PO BEDTIME [facility] Last Admin: 08/01/24 22:32 Dose: 200 mg Allergies Allergies Allergy/AdvReac Type Severity Reaction Status Date / Time No Known Allergies Allergy Verified 07/07/24 20:03 Assessment & Plan Assessment & Plan (1) Bipolar 1 disorder, depressed: Status: Acute Code(s): F31.9 - Bipolar disorder, unspecified (2) Borderline personality disorder: Status: Acute Code(s): F60.3 - Borderline personality disorder (3) Suicidal ideation: Status: Acute Code(s): R45.851 - Suicidal ideations Plan The patient appears to have clinical depression on top of what appears to be dysphoria anxiety consistent PTSD borderline personality disorder with reactivity and intermittent self-injurious behavior. This does not appear to be part of that pattern there is a strong possible genetic component with her father having completed suicide and history of bipolar disorder patient agreeable to have thing us speak with her therapist and psychiatrist and records reviewed from [address] [place] [address] and [facility]. I have discussed with the patient that ECT would not treat chronic issues that she she deals with stress as mood and stability urges toward self injurious behavior and intermittent restricted eating disorder. The patient describes however ongoing depressed mood with intense thoughts of suicide history of not responding to antidepressant medication and has not stabilized bite a month of treatment with Vraylar and lithium. 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 Patient has had some response reportedly to TMS in the past given intensity of her suicidal thoughts intensity of depression at this time does not seem a current option. Call has been placed to her outpatient psychiatrist in [place]. Although I would not recommend ECT for borderline personality disorder per se certainly given her ongoing depression lack of emotional reactivity anhedonia intense negative affective state that seems to be consistent with thoughts of suicide the patient would meet criteria for a course of ECT which we would start with right unilateral treatment there are no medical contraindications Case has also been discussed and reviewed with inpatient treatment team. Hospital course: 07/18/24: ECT 07.19. 07/19 Patient is post ECT. She is lying in bed alert and oriented but feeling tired. She said she had a headache which got better with p.r.n. medication. Some muscle aches. She felt foggy with some blurred vision but that too is resolving. She says she just wants to rest for now. 07/20 patient feeling calm day after ECT. Wants to continue. 07/21 Patient says she has come in the outside but on the inside she feels a little revved up.; wants to continue with ECT. 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 Later in the evening patient reported feeling that she was starting to get hypomanic and asked for increased dose of Zyprexa 07/23- ECT 07/24. 07/26- Continue tx. 07/29: ECT 07/31 08/02: Continue tx. PLAN: CV q15 min checks ECT #1 on 07/19 ECT #2 pending 07/22 npo -increased PRNs Zyprexa to 10 mg since patient starting to feel hypomanic 07/30/24 Inc depressed ect in am rul avoid bt dis not tolerate well inc vraylar 4.5 periactin for nightmares / insomnia 07/31/24 more active [place] affect vraylar 4.5 cont ect rul Reason for continued inpatient stay Substantial Risk for: rapid decompensation Time Spent With Patient Time: Total time managing care of this patient today ____ minutes.
[2024-08-02] MEDS: Ondansetron ODT 4 MG TAB.RAPDIS TRANSLINGU ×2 (15:31→17:29)
[2024-08-02] MEDS: Nicotine Polacrilex 2 MG GUM 4 MG BUCCAL ×2 (16:18→18:58)
[2024-08-02] MEDS: metFORMIN HCl 500 MG TABLET PO (17:29)
[2024-08-02] MEDS: hydrOXYzine HCL 25 MG TABLET PO (20:02)
[2024-08-02] MEDS: traZODone HCL 100 MG TABLET 200 MG PO (22:28)
[2024-08-02] MEDS: Cyproheptadine HCl 4 MG TABLET PO (22:28)
[2024-08-02] MEDS: Cariprazine HCl 1.5 MG CAPSULE 4.5 MG PO (22:28)
[2024-08-02] MEDS: Prazosin HCL 5 MG CAPSULE PO (22:28)
[2024-08-03 07:53] VITALS: BP 111/58; PULSE 74; TEMP 36.4
--- NOTE | 2024-08-03 08:01 | P.PNPSI_ITS ---
Subjective Subjective Date of Service: 08/03/24 Reason For Visit: Labile SI Medical Problems Affecting Mental Status: No Interim History: Patient reports not noticing any benefit from ECT so far. Is hopeful that her mood will improve over time. Also hopeful that irritability will improve. Still has suicidal thoughts. No plans or intent. Sleep okay. Isolates in room a lot. May be a little brighter as per nursing staff, but still flat. Reports excess sedation from zyprexa when feeling anxious at 10mg Medication Compliance: Yes Side effects from medications: No Attending Groups: No Review of Systems Acute medical concerns: No Review of Systems Review of Systems Unremarkable Yes all other systems are reviewed and are negative Constitutional: Denies body ache(s), Denies chills, Denies fever(s) and Denies headache(s) Eyes: Denies blurry vision Denies headache(s) Cardiovascular: Denies chest pain and Denies dyspnea Respiratory: Denies cough and Denies dyspnea Gastrointestinal: Denies abdominal pain, Denies nausea and Denies vomiting Musculoskeletal: Denies back pain Skin/Breast: Denies rash Denies headache(s) Psychiatric: Reports anxiety, Reports change in appetite, Reports depression, Reports hopelessness, Reports anhedonia, Reports panic attacks, Denies paranoia, Denies visual hallucinations, Denies homicidal ideation and Reports suicidal ideation Mental Status Exam Mental Status Exam Patient Appearance: Appropriate Patient Orientation: Person, Place, Time and Situation Level of Consciousness: Alert Patient Behavior: Appropriate Mood Description: Apathetic, Depressed and Flat Affect Description: Appropriate and Flat Patient Cognition Impaired: No Ability to Follow Directions: Good Speech Pattern: Spontaneous Speech Memory Description: Episodic Impaired Hallucinations: None Delusions: Not Present Thought Process: Intact Thought Content: positive for Intact Depressive Symptoms: Thoughts of /Suicide Diagnostics Vital Signs (24Hr): Vital Signs - 24 hr 08/02/24 08:10 08/02/24 08:25 08/02/24 08:45 Temperature 97.0 F Pulse Rate 70 65 91 Respiratory Rate 12 18 16 Blood Pressure 118/74 108/67 128/83 Pulse Oximetry 99 98 99 Oxygen Delivery Method Nasal Cannula with ETCO2 Room Air Room Air Oxygen Flow Rate 2 08/02/24 20:00 08/03/24 07:53 Temperature 98.2 F 97.6 F Pulse Rate 97 74 Respiratory Rate 16 Blood Pressure 120/76 111/58 L Pulse Oximetry 97 Oxygen Delivery Method Room Air Oxygen Flow Rate BMI result Body Mass Index 36.7 Labs 07/17/24 13:31 07/28/24 07:52 Medications Medications Current Medications Acetaminophen (Acetaminophen 325 Mg Tablet) 650 mg PO Q6H PRN PRN Reason: Headache/Pain Mild Scale (1-3) Last Admin: 07/26/24 21:50 Dose: 650 mg Al Hydroxide/Mg Hydroxide (Magnesium Hydrox/Alum Hydrox 30 Ml Oral.Susp) 30 ml PO Q6H PRN PRN Reason: Heartburn/Nausea Cariprazine (Cariprazine Hcl 1.5 Mg Capsule) 4.5 mg PO BEDTIME [facility] Last Admin: 08/02/24 22:28 Dose: 4.5 mg Cyproheptadine HCl (Cyproheptadine Hcl 4 Mg Tablet) 4 mg PO BEDTIME [facility] Last Admin: 08/02/24 22:28 Dose: 4 mg Hydroxyzine HCl (Hydroxyzine Hcl 25 Mg Tablet) 25 mg PO Q6H PRN PRN Reason: Anxiety Last Admin: 08/02/24 20:02 Dose: 25 mg Ibuprofen (Ibuprofen 600 Mg Tablet) 600 mg PO Q6H PRN PRN Reason: muscle pain Last Admin: 07/29/24 22:02 Dose: 600 mg Magnesium Hydroxide (Milk Of Magnesia 30 Ml Oral.Susp) 30 ml PO DAILY PRN PRN Reason: Constipation Metformin HCl (Metformin Hcl 500 Mg Tablet) 500 mg PO DAILY@1700 [facility] Last Admin: 08/02/24 17:29 Dose: 500 mg Naltrexone HCl (Naltrexone Hcl 50 Mg Tablet) 50 mg PO DAILY [facility] Last Admin: 08/02/24 09:13 Dose: 50 mg Nicotine Polacrilex (Nicotine Polacrilex 2 Mg Gum) 4 mg BUCCAL Q2H PRN PRN Reason: Nicotine Cravings Last Admin: 08/02/24 18:58 Dose: 4 mg Patient Own ( Atomoxetine 25 Mg Capsule) 25 mg PO DAILY [facility] Last Admin: 08/02/24 09:13 Dose: 25 mg Patient Own ([place] Lee Menthol Cough Quentin 1 Drop) 1 drop PO Q2H PRN PRN Reason: cough/sore throat Last Admin: 07/27/24 14:03 Dose: 1 drop Olanzapine (Olanzapine 10 Mg Tablet) 10 mg PO TID PRN PRN Reason: agitation Last Admin: 08/01/24 23:04 Dose: 10 mg Ondansetron HCl (Ondansetron Odt 4 Mg Tab.Rapdis) 4 mg TRANSLINGU TIDAC PRN PRN Reason: nausea Last Admin: 08/02/24 17:29 Dose: 4 mg Prazosin HCl (Prazosin Hcl 5 Mg Capsule) 5 mg PO BEDTIME [facility]; Protocol Last Admin: 08/02/24 22:28 Dose: 5 mg Trazodone HCl (Trazodone Hcl 100 Mg Tablet) 200 mg PO BEDTIME [facility] Last Admin: 08/02/24 22:28 Dose: 200 mg Allergies Allergies Allergy/AdvReac Type Severity Reaction Status Date / Time No Known Allergies Allergy Verified 07/07/24 20:03 Assessment & Plan Assessment & Plan (1) Bipolar 1 disorder, depressed: Status: Acute Code(s): F31.9 - Bipolar disorder, unspecified (2) Borderline personality disorder: Status: Acute Code(s): F60.3 - Borderline personality disorder (3) Suicidal ideation: Status: Acute Code(s): R45.851 - Suicidal ideations Plan The patient appears to have clinical depression on top of what appears to be dysphoria anxiety consistent PTSD borderline personality disorder with reactivity and intermittent self-injurious behavior. This does not appear to be part of that pattern there is a strong possible genetic component with her father having completed suicide and history of bipolar disorder patient agreeable to have thing us speak with her therapist and psychiatrist and records reviewed from [address] [place] [address] and [facility]. I have discussed with the patient that ECT would not treat chronic issues that she she deals with stress as mood and stability urges toward self injurious behavior and intermittent restricted eating disorder. The patient describes however ongoing depressed mood with intense thoughts of suicide history of not responding to antidepressant medication and has not stabilized bite a month of treatment with Vraylar and lithium. 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 Patient has had some response reportedly to TMS in the past given intensity of her suicidal thoughts intensity of depression at this time does not seem a current option. Call has been placed to her outpatient psychiatrist in [place]. Although I would not recommend ECT for borderline personality disorder per se certainly given her ongoing depression lack of emotional reactivity anhedonia intense negative affective state that seems to be consistent with thoughts of suicide the patient would meet criteria for a course of ECT which we would start with right unilateral treatment there are no medical contraindications Case has also been discussed and reviewed with inpatient treatment team. Hospital course: 07/18/24: ECT 07.19. 07/19 Patient is post ECT. She is lying in bed alert and oriented but feeling tired. She said she had a headache which got better with p.r.n. medication. Some muscle aches. She felt foggy with some blurred vision but that too is resolving. She says she just wants to rest for now. 07/20 patient feeling calm day after ECT. Wants to continue. 07/21 Patient says she has come in the outside but on the inside she feels a little revved up.; wants to continue with ECT. Discussed muscle soreness and patient wants ibuprofen reminding leader writer that currently she is off lithium. Later in the evening patient reported feeling that she was starting to get hypomanic and asked for increased dose of Zyprexa 07/23- ECT 07/24. 07/26- Continue tx. 07/29: ECT 07/31 08/02: Continue tx. 08/03: ECT 08/05 and lower prn zyprexa dose to 7.5mg due to sedation PLAN: CV q15 min checks ECT #1 on 07/19 ECT #2 pending 07/22 npo -increased PRNs Zyprexa to 10 mg since patient starting to feel hypomanic 07/30/24 Inc depressed ect in am rul avoid bt dis not tolerate well inc vraylar 4.5 periactin for nightmares / insomnia 07/31/24 more active barbosa affect vraylar 4.5 cont ect rul Reason for continued inpatient stay Substantial Risk for: harm to self and inability to function Time Spent With Patient Time: Total time managing care of this patient today ____ minutes.
[2024-08-03] MEDS: Naltrexone HCl 50 MG TABLET PO (09:20)
[2024-08-03] MEDS: Ondansetron ODT 4 MG TAB.RAPDIS TRANSLINGU ×3 (09:21→17:16)
[2024-08-03] MEDS: Nicotine Polacrilex 2 MG GUM 4 MG BUCCAL (11:55)
[2024-08-03] MEDS: OLANZapine 10 MG TABLET PO (12:38)
[2024-08-03] MEDS: hydrOXYzine HCL 25 MG TABLET PO (15:20)
[2024-08-03] MEDS: metFORMIN HCl 500 MG TABLET PO (17:16)
[2024-08-03] MEDS: OLANZapine 7.5 MG TABLET PO (17:47)
[2024-08-03 20:00] VITALS: BP 118/61; PULSE 70; RESP 18; TEMP 36.4; O2SAT 99
[2024-08-03 21:57] VITALS: BP 118/61
[2024-08-03] MEDS: Prazosin HCL 5 MG CAPSULE PO (21:57)
[2024-08-03] MEDS: traZODone HCL 100 MG TABLET 200 MG PO (21:57)
[2024-08-03] MEDS: Cariprazine HCl 1.5 MG CAPSULE 4.5 MG PO (21:57)
[2024-08-03] MEDS: Cyproheptadine HCl 4 MG TABLET PO (21:58)
--- NOTE | 2024-08-04 08:07 | HO.PSYCHPN ---
Subjective Subjective Date of Service: 08/04/24 Reason For Visit: Labile SI Interim History: Isolating in room today. Did not want to engage in interview today, reporting feeling okay but did not want to talk today. Medication Compliance: Yes Side effects from medications: No Attending Groups: No Review of Systems Acute medical concerns: No Review of Systems Review of Systems Unremarkable Mental Status Exam Mental Status Exam Patient Appearance: Appropriate Patient Orientation: Person, Place, Time and Situation Level of Consciousness: Alert Patient Behavior: Appropriate Mood Description: Apathetic, Depressed and Flat Affect Description: Appropriate and Flat Patient Cognition Impaired: No Ability to Follow Directions: Good Speech Pattern: Spontaneous Speech Memory Description: Episodic Impaired Diagnostics Vital Signs (24Hr): Vital Signs - 24 hr 08/03/24 20:00 08/03/24 21:57 Temperature 97.5 F Pulse Rate 70 Respiratory Rate 18 Blood Pressure 118/61 118/61 Pulse Oximetry 99 Oxygen Delivery Method Room Air BMI result Body Mass Index 36.7 Labs 07/17/24 13:31 08/04/24 12:35 Medications Medications Current Medications Acetaminophen (Acetaminophen 325 Mg Tablet) 650 mg PO Q6H PRN PRN Reason: Headache/Pain Mild Scale (1-3) Last Admin: 07/26/24 21:50 Dose: 650 mg Al Hydroxide/Mg Hydroxide (Magnesium Hydrox/Alum Hydrox 30 Ml Oral.Susp) 30 ml PO Q6H PRN PRN Reason: Heartburn/Nausea Cariprazine (Cariprazine Hcl 1.5 Mg Capsule) 4.5 mg PO BEDTIME [facility] Last Admin: 08/03/24 21:57 Dose: 4.5 mg Cyproheptadine HCl (Cyproheptadine Hcl 4 Mg Tablet) 4 mg PO BEDTIME [facility] Last Admin: 08/03/24 21:58 Dose: 4 mg Hydroxyzine HCl (Hydroxyzine Hcl 25 Mg Tablet) 25 mg PO Q6H PRN PRN Reason: Anxiety Last Admin: 08/03/24 15:20 Dose: 25 mg Ibuprofen (Ibuprofen 600 Mg Tablet) 600 mg PO Q6H PRN PRN Reason: muscle pain Last Admin: 07/29/24 22:02 Dose: 600 mg Magnesium Hydroxide (Milk Of Magnesia 30 Ml Oral.Susp) 30 ml PO DAILY PRN PRN Reason: Constipation Metformin HCl (Metformin Hcl 500 Mg Tablet) 500 mg PO DAILY@1700 [facility] Last Admin: 08/03/24 17:16 Dose: 500 mg Naltrexone HCl (Naltrexone Hcl 50 Mg Tablet) 50 mg PO DAILY [facility] Last Admin: 08/03/24 09:20 Dose: 50 mg Nicotine Polacrilex (Nicotine Polacrilex 2 Mg Gum) 4 mg BUCCAL Q2H PRN PRN Reason: Nicotine Cravings Last Admin: 08/03/24 11:55 Dose: 4 mg Patient Own ( Atomoxetine 25 Mg Capsule) 25 mg PO DAILY [facility] Last Admin: 08/03/24 09:19 Dose: 25 mg Patient Own ([place] Lee Menthol Cough Quentin 1 Drop) 1 drop PO Q2H PRN PRN Reason: cough/sore throat Last Admin: 07/27/24 14:03 Dose: 1 drop Olanzapine (Olanzapine 7.5 Mg Tablet) 7.5 mg PO TID PRN PRN Reason: agitation Last Admin: 08/03/24 17:47 Dose: 7.5 mg Ondansetron HCl (Ondansetron Odt 4 Mg Tab.Rapdis) 4 mg TRANSLINGU TIDAC PRN PRN Reason: nausea Last Admin: 08/03/24 17:16 Dose: 4 mg Prazosin HCl (Prazosin Hcl 5 Mg Capsule) 5 mg PO BEDTIME [facility]; Protocol Last Admin: 08/03/24 21:57 Dose: 5 mg Trazodone HCl (Trazodone Hcl 100 Mg Tablet) 200 mg PO BEDTIME [facility] Last Admin: 08/03/24 21:57 Dose: 200 mg Allergies Allergies Allergy/AdvReac Type Severity Reaction Status Date / Time No Known Allergies Allergy Verified 07/07/24 20:03 Assessment & Plan Assessment & Plan (1) Bipolar 1 disorder, depressed: Status: Acute Code(s): F31.9 - Bipolar disorder, unspecified (2) Borderline personality disorder: Status: Acute Code(s): F60.3 - Borderline personality disorder (3) Suicidal ideation: Status: Acute Code(s): R45.851 - Suicidal ideations Plan The patient appears to have clinical depression on top of what appears to be dysphoria anxiety consistent PTSD borderline personality disorder with reactivity and intermittent self-injurious behavior. This does not appear to be part of that pattern there is a strong possible genetic component with her father having completed suicide and history of bipolar disorder patient agreeable to have thing us speak with her therapist and psychiatrist and records reviewed from [address] [place] [address] and [facility]. I have discussed with the patient that ECT would not treat chronic issues that she she deals with stress as mood and stability urges toward self injurious behavior and intermittent restricted eating disorder. The patient describes however ongoing depressed mood with intense thoughts of suicide history of not responding to antidepressant medication and has not stabilized bite a month of treatment with Vraylar and lithium. 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 Patient has had some response reportedly to TMS in the past given intensity of her suicidal thoughts intensity of depression at this time does not seem a current option. Call has been placed to her outpatient psychiatrist in [place]. Although I would not recommend ECT for borderline personality disorder per se certainly given her ongoing depression lack of emotional reactivity anhedonia intense negative affective state that seems to be consistent with thoughts of suicide the patient would meet criteria for a course of ECT which we would start with right unilateral treatment there are no medical contraindications Case has also been discussed and reviewed with inpatient treatment team. Hospital course: 07/18/24: ECT 07.19. 07/19 Patient is post ECT. She is lying in bed alert and oriented but feeling tired. She said she had a headache which got better with p.r.n. medication. Some muscle aches. She felt foggy with some blurred vision but that too is resolving. She says she just wants to rest for now. 07/20 patient feeling calm day after ECT. Wants to continue. 07/21 Patient says she has come in the outside but on the inside she feels a little revved up.; wants to continue with ECT. Discussed muscle soreness and patient wants ibuprofen reminding parts data writer that currently she is off lithium. Later in the evening patient reported feeling that she was starting to get hypomanic and asked for increased dose of Zyprexa 07/23- ECT 07/24. 07/26- Continue tx. 07/29: ECT 07/31 08/02: Continue tx. 08/03: ECT 08/05 and lower prn zyprexa dose to 7.5mg due to sedation 08/04: no changes PLAN: CV q15 min checks ECT #1 on 07/19 ECT #2 pending 07/22 npo -increased PRNs Zyprexa to 10 mg since patient starting to feel hypomanic 07/30/24 Inc depressed ect in am rul avoid bt dis not tolerate well inc vraylar 4.5 periactin for nightmares / insomnia 07/31/24 more active barbosa affect vraylar 4.5 cont ect rul Reason for continued inpatient stay Substantial Risk for: inability to function Time Spent With Patient Time: Total time managing care of this patient today ____ minutes.
[2024-08-04] MEDS: Naltrexone HCl 50 MG TABLET PO (10:09)
[2024-08-04] MEDS: Ondansetron ODT 4 MG TAB.RAPDIS TRANSLINGU ×4 (10:11→22:08)
[2024-08-04] MEDS: Nicotine Polacrilex 2 MG GUM 4 MG BUCCAL ×4 (10:36→16:27)
[2024-08-04 13:08] LABS: Creatinine Clr Calc Pharmacy 99.5; Estimated Glomerular Filt Rate > 60
[2024-08-04] MEDS: hydrOXYzine HCL 25 MG TABLET PO (16:14)
--- NOTE | 2024-08-04 18:27 | PC.NURSE ---
Lila slept in this morning and had to be woken up to get her morning meds. She was observed to be less irritable in the morning through midday but in the late afternoon became very irritable following a conversation with her twin sister. After dinner, she reported that she was extremely irritable. She asked, Can ECT trigger darien? Because I only get irritable when I am manic. And I am extremely irritable. This fiction and nonfiction prose writer reminded her that she slept so long last night that I had to wake her for morning meds at 10am, and objectively it was evident that she was irritable but that she did not appear to me to be manic. She also continues to report feeling depressed and her affect continues to be blunted. She continues to say that if she is discharged in the near future she will suicide because she cannot tolerate being in the world feeling this bad.
[2024-08-04 20:00] VITALS: BP 116/62; PULSE 78; RESP 18; TEMP 36.7; O2SAT 100
[2024-08-04] MEDS: Cariprazine HCl 1.5 MG CAPSULE 4.5 MG PO (22:04)
[2024-08-04] MEDS: traZODone HCL 100 MG TABLET 200 MG PO (22:04)
[2024-08-04] MEDS: Prazosin HCL 5 MG CAPSULE PO (22:04)
[2024-08-04] MEDS: Cyproheptadine HCl 4 MG TABLET PO (22:04)
[2024-08-05] VITALS (12 sets, daily range): BP systolic 103–161; BP diastolic 69–96; PULSE 71–115; RESP 15–18; TEMP 36.2–36.9; O2SAT 94–99
--- NOTE | 2024-08-05 06:42 | P.CONAN_ITS ---
[facility] Active Problems Active Problems: All Active Problems Routine medical exam (Acute) Bipolar 1 disorder, depressed (Acute) Borderline personality disorder (Acute) Suicidal ideation (Acute) Past Medical History Medical History No pertinent past medical history Functional capacity: independent ambulation Family History Family history of problems with anesthesia: No Surgical History History of Problems with Anesthesia: No Social History Social History Household Members: Family Household Members Other:: Been staying with a friend this summer. Lives on campus during school year Housing: House Do you presently have visiting nurse or other home services: No Patient Tobacco Use Status: Current everyday Tobacco user Tobacco use type: Cigarette Cigarettes Per Day: 8 Smoked in Last 30 Days: Yes Patient Interested in Nicotine Replacement: Yes Patient Given Instructions on How to Stop Smoking: No Second Hand Smoke Exposure: No Use of substances other than those prescribed or required for medical reasons: No Currently Displaying Signs/Symptoms of Drug Intoxication Withdrawal: No Any prior treatment program specific to substance use: No Have you been hit, kicked, punched, or otherwise hurt by someone within the past year? If so, by whom?: No Do you feel safe in your current relationship?: No Current Relationship Is there a partner from a previous relationship who is making you feel unsafe now?: No Are you made to feel afraid or neglected: No Advance Directives: No Advance Directives Information Provided: No Do you have thoughts of harming others: None Do you have a plan to hurt others: No Plan Recently lost weight without trying: No How much weight loss: Not applicable Eating poorly because of decreased appetite: Yes Nutrition screen score: 1 Nutrition Risks: Anorexia Patient : No : No Poor oral hygiene: No service: No Sexual orientation: Straight/Heterosexual Meds Allergies Allergy/AdvReac Type Severity Reaction Status Date / Time No Known Allergies Allergy Verified 07/07/24 20:03 Active Medications: Current Medications Acetaminophen (Acetaminophen 325 Mg Tablet) 650 mg PO Q6H PRN PRN Reason: Headache/Pain Mild Scale (1-3) Last Admin: 07/26/24 21:50 Dose: 650 mg Al Hydroxide/Mg Hydroxide (Magnesium Hydrox/Alum Hydrox 30 Ml Oral.Susp) 30 ml PO Q6H PRN PRN Reason: Heartburn/Nausea Cariprazine (Cariprazine Hcl 1.5 Mg Capsule) 4.5 mg PO BEDTIME [facility] Last Admin: 08/04/24 22:04 Dose: 4.5 mg Cyproheptadine HCl (Cyproheptadine Hcl 4 Mg Tablet) 4 mg PO BEDTIME PREETI Last Admin: 08/04/24 22:04 Dose: 4 mg Hydroxyzine HCl (Hydroxyzine Hcl 25 Mg Tablet) 25 mg PO Q6H PRN PRN Reason: Anxiety Last Admin: 08/04/24 16:14 Dose: 25 mg Lactated Ringer's (Lr) 1,000 mls @ 50 mls/hr IVCONT .Q20H PREETI Ibuprofen (Ibuprofen 600 Mg Tablet) 600 mg PO Q6H PRN PRN Reason: muscle pain Last Admin: 07/29/24 22:02 Dose: 600 mg Magnesium Hydroxide (Milk Of Magnesia 30 Ml Oral.Susp) 30 ml PO DAILY PRN PRN Reason: Constipation Metformin HCl (Metformin Hcl 500 Mg Tablet) 500 mg PO DAILY@1700 [facility] Last Admin: 08/04/24 17:42 Dose: Not Given Naltrexone HCl (Naltrexone Hcl 50 Mg Tablet) 50 mg PO DAILY [facility] Last Admin: 08/04/24 10:09 Dose: 50 mg Nicotine Polacrilex (Nicotine Polacrilex 2 Mg Gum) 4 mg BUCCAL Q2H PRN PRN Reason: Nicotine Cravings Last Admin: 08/04/24 16:27 Dose: 4 mg Patient Own ( Atomoxetine 25 Mg Capsule) 25 mg PO DAILY [facility] Last Admin: 08/04/24 10:09 Dose: 25 mg Patient Own ([place] Menthol Cough Quentin 1 Drop) 1 drop PO Q2H PRN PRN Reason: cough/sore throat Last Admin: 07/27/24 14:03 Dose: 1 drop Olanzapine (Olanzapine 7.5 Mg Tablet) 7.5 mg PO TID PRN PRN Reason: agitation Last Admin: 08/03/24 17:47 Dose: 7.5 mg Ondansetron HCl (Ondansetron Odt 4 Mg Tab.Rapdis) 4 mg TRANSLINGU TIDAC PRN PRN Reason: nausea Last Admin: 08/04/24 22:08 Dose: 4 mg Prazosin HCl (Prazosin Hcl 5 Mg Capsule) 5 mg PO BEDTIME [facility]; Protocol Last Admin: 08/04/24 22:04 Dose: 5 mg Trazodone HCl (Trazodone Hcl 100 Mg Tablet) 200 mg PO BEDTIME [facility] Last Admin: 08/04/24 22:04 Dose: 200 mg Home Medications ?Medication ?Instructions ?Recorded ?Confirmed ?Last Taken ?Type cariprazine 1.5 mg capsule 3 mg PO QAM 07/07/24 07/07/24 07/07/24 08:00 History (Rebekah) lithium carbonate 300 mg 300 mg PO BID 07/07/24 07/07/24 07/07/24 08:00 History tablet,extended release metformin 500 mg tablet 500 mg PO DAILY 07/07/24 07/07/24 07/07/24 08:00 History naltrexone 50 mg tablet 50 mg PO DAILY 07/07/24 07/07/24 07/07/24 08:00 History prazosin 5 mg capsule 5 mg PO BEDTIME 07/07/24 07/07/24 07/05/24 20:00 History trazodone 150 mg tablet 150 mg PO BEDTIME 07/07/24 07/07/24 07/06/24 20:00 History Exam Height,Weight and Vital Signs: Height 5 ft 2 in Weight 91 kg Last Vital Signs Temp 97.9 F 08/05/24 06:38 Pulse 115 H 08/05/24 06:38 Resp 15 08/05/24 06:38 BP 109/70 08/05/24 06:38 Pulse Ox 95 08/05/24 06:38 O2 Del Method Room Air 08/05/24 06:32 O2 Flow Rate 2 08/02/24 08:10 Pertinent Lab Results Pertinent Lab Results: Laboratory Tests 07/07/24 07/09/24 07/17/24 20:25 07:53 13:31 WBC 15.4 H 12.1 H 10.1 RBC 4.91 4.79 5.17 Hgb 13.9 13.8 14.7 Hct 42.1 41.0 44.7 MCV 85.7 85.6 86.5 MCH 28.3 28.8 28.4 MCHC 33.0 33.7 32.9 RDW 13.2 13.3 13.5 Plt Count 432 H 368 353 MPV 9.8 9.7 10.1 Immature Gran % (Auto) 0.3 0.4 0.4 Neut % (Auto) 76.2 H 66.1 74.3 H Lymph % (Auto) 17.2 L 24.8 18.4 L [place] % (Auto) 5.2 5.6 4.3 Eos % (Auto) 0.8 2.8 2.1 Baso % (Auto) 0.3 0.3 0.5 Lymph # (Auto) 2.7 3.0 1.9 [place] # (Auto) 0.8 0.7 0.4 Eos # (Auto) 0.1 0.3 0.2 Baso # (Auto) 0.0 0.0 0.1 Abs Immat Gran (auto) 0.05 H 0.05 H 0.04 H Absolute Neuts (auto) 11.7 H 8.0 7.5 Absolute Nucleated RBC 0.000 0.000 0.000 Nucleated RBC % (auto) 0.0 0.0 0.0 Sodium 139 138 Potassium 4.0 4.2 Chloride 105 103 Carbon Dioxide 25 26 Anion Gap 13 13 BUN 9 7 L Creatinine 0.94 0.86 Estim Creat Clear Calc 97.8 Estimated GFR > 60 Random Glucose 102 Estimat Average Glucose 111 Hemoglobin A1c % 5.5 Calcium 10.0 Total Bilirubin 0.3 AST 13 ALT 9 Alkaline Phosphatase 98 Total Protein 7.8 Albumin 4.7 Triglycerides 90 Cholesterol 116 LDL Cholesterol, Calc 67 HDL Cholesterol 31 L TSH 0.36 Urine Color Yellow Urine Appearance Clear Urine pH 8.0 Ur Specific [place] 1.025 Urine Protein Trace Urine Glucose (UA) Negative Urine Ketones >=160 Urine Blood Negative Urine Nitrite Negative Ur Leukocyte Esterase Trace H Urine RBC 0-2 Urine WBC 0-5 Ur Squamous Epith Cells 3-5 Urine Bacteria Trace Hyaline Casts 0-2 Urine Test NEGATIVE Salicylates < 5.0 L Urine Opiates Screen Not Detected Ur Buprenorphine Scrn Not Detected Ur Oxycodone Screen Not Detected Urine Methadone Screen Not Detected Urine Fentanyl Screen Not Detected Acetaminophen < 3 Ur Barbiturates Screen Not Detected Ur Phencyclidine Scrn Not Detected Ur Amphetamines Screen Not Detected U Benzodiazepines Scrn Not Detected [place] 0.84 Urine Cocaine Screen Not Detected U Marijuana (THC) Screen Not Detected Ethyl Alcohol < 10 S. pyogenes GrpA ESTEE 07/17/24 07/17/24 07/17/24 13:31 13:31 13:31 WBC RBC Hgb Hct MCV MCH MCHC RDW Plt Count MPV Immature Gran % (Auto) Neut % (Auto) Lymph % (Auto) [place] % (Auto) Eos % (Auto) Baso % (Auto) Lymph # (Auto) [place] # (Auto) Eos # (Auto) Baso # (Auto) Abs Immat Gran (auto) Absolute Neuts (auto) Absolute Nucleated RBC Nucleated RBC % (auto) Sodium Potassium Chloride Carbon Dioxide Anion Gap BUN Creatinine Cancelled Estim Creat Clear Calc 106.8 Cancelled Estimated GFR > 60 Cancelled Random Glucose 140 H Estimat Average Glucose Hemoglobin A1c % Calcium 10.2 Total Bilirubin 0.2 AST 11 ALT 8 Alkaline Phosphatase 88 Total Protein 7.4 Albumin 4.5 Triglycerides Cholesterol LDL Cholesterol, Calc HDL Cholesterol TSH Urine Color Urine Appearance Urine pH Ur Specific [place] Urine Protein Urine Glucose (UA) Urine Ketones Urine Blood Urine Nitrite Ur Leukocyte Esterase Urine RBC Urine WBC Ur Squamous Epith Cells Urine Bacteria Hyaline Casts Urine Test Salicylates Urine Opiates Screen Ur Buprenorphine Scrn Ur Oxycodone Screen Urine Methadone Screen Urine Fentanyl Screen Acetaminophen Ur Barbiturates Screen Ur Phencyclidine Scrn Ur Amphetamines Screen U Benzodiazepines Scrn [place] Urine Cocaine Screen U Marijuana (THC) Screen Ethyl Alcohol S. pyogenes GrpA ESTEE 07/21/24 07/22/24 07/28/24 08:39 17:15 07:52 WBC RBC Hgb Hct MCV MCH MCHC RDW Plt Count MPV Immature Gran % (Auto) Neut % (Auto) Lymph % (Auto) [place] % (Auto) Eos % (Auto) Baso % (Auto) Lymph # (Auto) [place] # (Auto) Eos # (Auto) Baso # (Auto) Abs Immat Gran (auto) Absolute Neuts (auto) Absolute Nucleated RBC Nucleated RBC % (auto) Sodium Potassium Chloride Carbon Dioxide Anion Gap BUN Creatinine 0.86 0.80 Estim Creat Clear Calc 106.8 115.7 Estimated GFR > 60 > 60 Random Glucose Estimat Average Glucose Hemoglobin A1c % Calcium Total Bilirubin AST ALT Alkaline Phosphatase Total Protein Albumin Triglycerides Cholesterol LDL Cholesterol, Calc HDL Cholesterol TSH Urine Color Urine Appearance Urine pH Ur Specific [place] Urine Protein Urine Glucose (UA) Urine Ketones Urine Blood Urine Nitrite Ur Leukocyte Esterase Urine RBC Urine WBC Ur Squamous Epith Cells Urine Bacteria Hyaline Casts Urine Test Salicylates Urine Opiates Screen Ur Buprenorphine Scrn Ur Oxycodone Screen Urine Methadone Screen Urine Fentanyl Screen Acetaminophen Ur Barbiturates Screen Ur Phencyclidine Scrn Ur Amphetamines Screen U Benzodiazepines Scrn [place] Urine Cocaine Screen U Marijuana (THC) Screen Ethyl Alcohol S. pyogenes GrpA ESTEE Negative 08/04/24 12:35 WBC RBC Hgb Hct MCV MCH MCHC RDW Plt Count MPV Immature Gran % (Auto) Neut % (Auto) Lymph % (Auto) [place] % (Auto) Eos % (Auto) Baso % (Auto) Lymph # (Auto) [place] # (Auto) Eos # (Auto) Baso # (Auto) Abs Immat Gran (auto) Absolute Neuts (auto) Absolute Nucleated RBC Nucleated RBC % (auto) Sodium Potassium Chloride Carbon Dioxide Anion Gap BUN Creatinine 0.93 Estim Creat Clear Calc 99.5 Estimated GFR > 60 Random Glucose Estimat Average Glucose Hemoglobin A1c % Calcium Total Bilirubin AST ALT Alkaline Phosphatase Total Protein Albumin Triglycerides Cholesterol LDL Cholesterol, Calc HDL Cholesterol TSH Urine Color Urine Appearance Urine pH Ur Specific [place] Urine Protein Urine Glucose (UA) Urine Ketones Urine Blood Urine Nitrite Ur Leukocyte Esterase Urine RBC Urine WBC Ur Squamous Epith Cells Urine Bacteria Hyaline Casts Urine Test Salicylates Urine Opiates Screen Ur Buprenorphine Scrn Ur Oxycodone Screen Urine Methadone Screen Urine Fentanyl Screen Acetaminophen Ur Barbiturates Screen Ur Phencyclidine Scrn Ur Amphetamines Screen U Benzodiazepines Scrn [place] Urine Cocaine Screen U Marijuana (THC) Screen Ethyl Alcohol S. pyogenes GrpA ESTEE Airway Mallampati Class: II TM Dist: >3cm Neck ROM: Full Heart: rrr Lungs: cta Assessment and Plan Assessment Anesthesia Assessment: Anesthesia Plan Discussed and Chart Reviewed Final Anesthetic Review Family History of Problems with Anesthesia: No History of Problems with Anesthesia: No NPO: Yes ASA Class: III Final Preanesthetic Review: No Changes in Pt Med Stat, Meds/Allgs Chart Reviewed and Consent Obtained/Reviewed Patient Risk: Low Procedure Risk: Intermediate Anesthetic Plan Anesthetic Plan: GA Disposition: Standard PACU
[2024-08-05] MEDS: Lactated Ringers 1,000 ML 50 ML IVCONT (06:45)
--- NOTE | 2024-08-05 07:05 | MHC.SHP ---
Pre-Procedural Eval Section A - 24 Hr Update-Section A only Date of Service: 08/05/24 The patient is an INPATIENT: Yes Changes since office visit: No Cold of Flu in the past 2 weeks, No New Medical Problems, No Changes in Medication and No Patient answered all questions The patient has been examined within 24 hours of the surgical procedure. The History & Physical has been completed within 30 days and I have reviewed it.: Yes Section B - Complete if H&P > 30 days Chief Complaint: Labile SI Allergies: Allergies Allergy/AdvReac Type Severity Reaction Status Date / Time No Known Allergies Allergy Verified 07/07/24 20:03 Plan I have reviewed the history and physical and performed a pertinent physical examination on my patient. No changes have occurred unless specified. Time Spent With Patient Time: Total time managing care of this patient today ____ minutes.
--- NOTE | 2024-08-05 07:24 | HO.ECTPROC ---
ECT Procedure Note Diagnosis/Treatment Date of Service: 08/05/24 Diagnosis: Bipolar disorder Previous ECT Date: 08/02/24 Current Treatment Number: 7 Treatment: Series Interval Clinical Notes: The patient reported more irritability, she looks with a brighter affect. ECT done as usual, she had a very long seizure, no complicatins. We should lower the stimuli for the next procedure. Woke up well, no complications Time: Total time managing care of this patient today ____ minutes. ECT Settings Device: THYMATRON DGx Electrode Placement: Bifrontal Program/Pulse Width: 0.25 Energy Percent: 30 Seizure Duration By EEG (in seconds): 97 By Motor Observation (in seconds): 32 Medications Administration General Anesthetic: Etomidate (14) Muscle Relaxant: Succinylcholine (100) Ancillary Medications Cardiovascular Medications: Glycopyrrolate Miscillaneous Medications: Midazolam (post ECT) Airway Management Airway Management: Bag Mask Ventilation Treatment Recommendations Electrode Placement: Bifrontal Program/Pulse Width: 0.25 Energy Percent: 20 Pt Tolerated Procedure w/o Issue: Yes
[2024-08-05] MEDS: Ibuprofen 600 MG TABLET PO (11:23)
--- NOTE | 2024-08-05 11:54 | PC.NURSE ---
Patient returned to from ECT at approximately 8:45am. She was oriented to person, place, time, date but not day of week. VS WNL (see flow sheet for values). She refused her morning meds, napped briefly then got up to shower and have breakfast (75%). Patient said she had muscle and joint aches as well as a headache and was administered ibuprofen prn pain at 11:25am. Effect pending.
--- NOTE | 2024-08-05 17:31 | HO.PSYCHPN ---
Subjective Subjective Date of Service: 08/05/24 Reason For Visit: Labile SI Subjective Notes: Conditional Voluntary Healthcare Proxy: No Guardianship: No Medical Problems Affecting Mental Status: No Interim History: Met with pt briefly after ECT to report that [facility] had returned our call and they only have in pt ECT services. Informed pt that team was provided with a list of physicians who provided ECT in the [place] area for discussion. Pt reported to her RN today an episode of purging, reports no purging since March 2024. Pt reports thus far, ECT has not been effective and she feels if we were to discharge her she would be suicidal. Discussed her interest in Ketamine treatment Medication Compliance: Yes Side effects from medications: No Attending Groups: Intermittent Review of Systems Acute medical concerns: No Medical Review of Systems: unchanged Review of Systems Review of Systems purging Mental Status Exam Mental Status Exam Patient Appearance: Appropriate Patient Orientation: Person, Place, Time and Situation Level of Consciousness: Alert Patient Behavior: Appropriate Mood Description: Apathetic, Depressed and Flat Affect Description: Appropriate and Flat Patient Cognition Impaired: No Ability to Follow Directions: Good Speech Pattern: Spontaneous Speech Memory Description: Episodic Impaired Diagnostics Vital Signs (24Hr): Vital Signs - 24 hr 08/04/24 20:00 08/05/24 06:32 08/05/24 06:38 Temperature 98.1 F 97.6 F 97.9 F Pulse Rate 78 115 H 115 H Respiratory Rate 18 15 15 Blood Pressure 116/62 109/70 109/70 Pulse Oximetry 100 95 95 Oxygen Delivery Method Room Air Room Air Oxygen Flow Rate 08/05/24 06:54 08/05/24 07:26 08/05/24 07:31 Temperature 97.1 F 97.9 F Pulse Rate 71 80 89 Respiratory Rate 16 18 16 Blood Pressure 120/73 161/93 H 146/96 H Pulse Oximetry 94 95 98 Oxygen Delivery Method Room Air Nasal Cannula with ETCO2 Nasal Cannula with ETCO2 Oxygen Flow Rate 2 2 08/05/24 07:36 08/05/24 07:41 08/05/24 07:56 Temperature Pulse Rate 83 80 74 Respiratory Rate 16 16 16 Blood Pressure 126/81 121/91 H 114/74 Pulse Oximetry 97 97 98 Oxygen Delivery Method Nasal Cannula with ETCO2 Room Air Room Air Oxygen Flow Rate 2 08/05/24 08:11 08/05/24 08:50 Temperature 97.2 F 97.8 F Pulse Rate 72 71 Respiratory Rate 16 Blood Pressure 126/80 103/70 Pulse Oximetry 99 97 Oxygen Delivery Method Room Air Room Air Oxygen Flow Rate BMI result Body Mass Index 36.7 Labs 07/17/24 13:31 08/04/24 12:35 Labs: Laboratory Results - last 48 hr 08/04/24 12:35 Creatinine 0.93 Estim Creat Clear Calc 99.5 Estimated GFR > 60 Medications Medications Current Medications Acetaminophen (Acetaminophen 325 Mg Tablet) 650 mg PO Q6H PRN PRN Reason: Headache/Pain Mild Scale (1-3) Last Admin: 07/26/24 21:50 Dose: 650 mg Al Hydroxide/Mg Hydroxide (Magnesium Hydrox/Alum Hydrox 30 Ml Oral.Susp) 30 ml PO Q6H PRN PRN Reason: Heartburn/Nausea Cariprazine (Cariprazine Hcl 1.5 Mg Capsule) 4.5 mg PO BEDTIME [facility] Last Admin: 08/04/24 22:04 Dose: 4.5 mg Cyproheptadine HCl (Cyproheptadine Hcl 4 Mg Tablet) 4 mg PO BEDTIME [facility] Last Admin: 08/04/24 22:04 Dose: 4 mg Hydroxyzine HCl (Hydroxyzine Hcl 25 Mg Tablet) 25 mg PO Q6H PRN PRN Reason: Anxiety Last Admin: 08/04/24 16:14 Dose: 25 mg Ibuprofen (Ibuprofen 600 Mg Tablet) 600 mg PO Q6H PRN PRN Reason: muscle pain Last Admin: 08/05/24 11:23 Dose: 600 mg Magnesium Hydroxide (Milk Of Magnesia 30 Ml Oral.Susp) 30 ml PO DAILY PRN PRN Reason: Constipation Metformin HCl (Metformin Hcl 500 Mg Tablet) 500 mg PO DAILY@1700 [facility] Last Admin: 08/04/24 17:42 Dose: Not Given Naloxone HCl (Naloxone Hcl 0.4 Mg/Ml Vial) 0.04 mg IVPUSH Q5M PRN PRN Reason: Excessive sedation or RR < 8 Naltrexone HCl (Naltrexone Hcl 50 Mg Tablet) 50 mg PO DAILY [facility] Last Admin: 08/05/24 09:47 Dose: Not Given Nicotine Polacrilex (Nicotine Polacrilex 2 Mg Gum) 4 mg BUCCAL Q2H PRN PRN Reason: Nicotine Cravings Last Admin: 08/04/24 16:27 Dose: 4 mg Patient Own ( Atomoxetine 25 Mg Capsule) 25 mg PO DAILY [facility] Last Admin: 08/05/24 09:47 Dose: Not Given Patient Own ([place] Menthol Cough Quentin 1 Drop) 1 drop PO Q2H PRN PRN Reason: cough/sore throat Last Admin: 07/27/24 14:03 Dose: 1 drop Olanzapine (Olanzapine 7.5 Mg Tablet) 7.5 mg PO TID PRN PRN Reason: agitation Last Admin: 08/03/24 17:47 Dose: 7.5 mg Ondansetron HCl (Ondansetron Odt 4 Mg Tab.Rapdis) 4 mg TRANSLINGU TIDAC PRN PRN Reason: nausea Last Admin: 08/04/24 22:08 Dose: 4 mg Prazosin HCl (Prazosin Hcl 5 Mg Capsule) 5 mg PO BEDTIME [facility]; Protocol Last Admin: 08/04/24 22:04 Dose: 5 mg Trazodone HCl (Trazodone Hcl 100 Mg Tablet) 200 mg PO BEDTIME [facility] Last Admin: 08/04/24 22:04 Dose: 200 mg Allergies Allergies Allergy/AdvReac Type Severity Reaction Status Date / Time No Known Allergies Allergy Verified 07/07/24 20:03 Assessment & Plan Assessment & Plan (1) Bipolar 1 disorder, depressed: Status: Acute Code(s): F31.9 - Bipolar disorder, unspecified (2) Borderline personality disorder: Status: Acute Code(s): F60.3 - Borderline personality disorder (3) Suicidal ideation: Status: Acute Code(s): R45.851 - Suicidal ideations Plan The patient appears to have clinical depression on top of what appears to be dysphoria anxiety consistent PTSD borderline personality disorder with reactivity and intermittent self-injurious behavior. This does not appear to be part of that pattern there is a strong possible genetic component with her father having completed suicide and history of bipolar disorder patient agreeable to have thing us speak with her therapist and psychiatrist and records reviewed from [address] [place] [address] and [facility]. I have discussed with the patient that ECT would not treat chronic issues that she she deals with stress as mood and stability urges toward self injurious behavior and intermittent restricted eating disorder. The patient describes however ongoing depressed mood with intense thoughts of suicide history of not responding to antidepressant medication and has not stabilized bite a month of treatment with Vraylar and lithium. 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 Patient has had some response reportedly to TMS in the past given intensity of her suicidal thoughts intensity of depression at this time does not seem a current option. Call has been placed to her outpatient psychiatrist in [place]. Although I would not recommend ECT for borderline personality disorder per se certainly given her ongoing depression lack of emotional reactivity anhedonia intense negative affective state that seems to be consistent with thoughts of suicide the patient would meet criteria for a course of ECT which we would start with right unilateral treatment there are no medical contraindications Case has also been discussed and reviewed with inpatient treatment team. Hospital course: 07/18/24: ECT 07.19. 07/19 Patient is post ECT. She is lying in bed alert and oriented but feeling tired. She said she had a headache which got better with p.r.n. medication. Some muscle aches. She felt foggy with some blurred vision but that too is resolving. She says she just wants to rest for now. 07/20 patient feeling calm day after ECT. Wants to continue. 07/21 Patient says she has come in the outside but on the inside she feels a little revved up.; wants to continue with ECT. 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 Later in the evening patient reported feeling that she was starting to get hypomanic and asked for increased dose of Zyprexa 07/23- ECT 07/24. 07/26- Continue tx. 07/29: ECT 07/31 08/02: Continue tx. 08/03: ECT 08/05 and lower prn zyprexa dose to 7.5mg due to sedation 08/04: no changes 08/04: Purging sx. Pt will remain in the common area 30 minutes after meals. PLAN: CV q15 min checks ECT #1 on 07/19 ECT #2 pending 07/22 npo -increased PRNs Zyprexa to 10 mg since patient starting to feel hypomanic 07/30/24 Inc depressed ect in am rul avoid bt dis not tolerate well inc vraylar 4.5 periactin for nightmares / insomnia 07/31/24 more active [place] affect vraylar 4.5 cont ect rul Informed Consent: understands Reason for continued inpatient stay Substantial Risk for: rapid decompensation Time Spent With Patient Time: Total time managing care of this patient today ____ minutes.
[2024-08-05] MEDS: Ondansetron ODT 4 MG TAB.RAPDIS TRANSLINGU (18:06)
[2024-08-05] MEDS: metFORMIN HCl 500 MG TABLET PO (18:06)
[2024-08-05] MEDS: Nicotine Polacrilex 2 MG GUM 4 MG BUCCAL ×2 (18:10→21:46)
[2024-08-05] MEDS: Cariprazine HCl 1.5 MG CAPSULE 4.5 MG PO (22:30)
[2024-08-05] MEDS: Cyproheptadine HCl 4 MG TABLET PO (22:30)
[2024-08-05] MEDS: traZODone HCL 100 MG TABLET 200 MG PO (22:30)
[2024-08-05] MEDS: Prazosin HCL 5 MG CAPSULE PO (22:31)
[2024-08-05] MEDS: hydrOXYzine HCL 25 MG TABLET PO (23:27)
[2024-08-05] MEDS: OLANZapine 7.5 MG TABLET PO (23:27)
[2024-08-06 08:00] VITALS: BP 138/59; PULSE 94; TEMP 36.6; O2SAT 99
[2024-08-06] MEDS: Naltrexone HCl 50 MG TABLET PO (08:52)
[2024-08-06 11:16] VITALS: BP 138/69; PULSE 94; RESP 18; TEMP 36.4; O2SAT 99
[2024-08-06] MEDS: Ondansetron ODT 4 MG TAB.RAPDIS TRANSLINGU ×2 (12:36→17:54)
--- NOTE | 2024-08-06 17:44 | HO.PSYCHPN ---
Subjective Subjective Date of Service: 08/06/24 Reason For Visit: Labile SI Subjective Notes: Conditional Voluntary Interim History: The last time I felt not depressed I think was in February. I was taking my meds and going to therapy. Pt is not sure ECT is helpful at this time. She asks to be considered for Ketamine therapy. Discussed that we were not able to offer this option at [facility] She will talk with Dr. Haywood this afternoon to discuss how they should proceed with ECT course. Reports feeling irritable and discouraged that ECT has not improved her mood. Medication Compliance: Yes Side effects from medications: No Attending Groups: Intermittent Review of Systems Acute medical concerns: No Medical Review of Systems: unchanged Review of Systems Review of Systems Yes all other systems are reviewed and are negative Mental Status Exam Mental Status Exam Patient Appearance: Appropriate Patient Orientation: Person, Place, Time and Situation Level of Consciousness: Alert Patient Behavior: Appropriate Mood Description: Apathetic, Depressed and Flat Affect Description: Appropriate and Flat Patient Cognition Impaired: No Ability to Follow Directions: Good Speech Pattern: Spontaneous Speech Memory Description: Episodic Impaired Depressive Symptoms: Increased Irritability Diagnostics Vital Signs (24Hr): Vital Signs - 24 hr 08/05/24 20:00 08/05/24 22:31 08/06/24 08:00 Temperature 98.5 F 97.8 F Pulse Rate 102 H 94 Respiratory Rate 16 Blood Pressure 105/69 117/74 138/59 L Pulse Oximetry 97 99 Oxygen Delivery Method Room Air Room Air 08/06/24 11:16 Temperature 97.5 F Pulse Rate 94 Respiratory Rate 18 Blood Pressure 138/69 Pulse Oximetry 99 Oxygen Delivery Method Room Air BMI result Body Mass Index 36.7 Labs 07/17/24 13:31 08/04/24 12:35 Medications Medications Current Medications Acetaminophen (Acetaminophen 325 Mg Tablet) 650 mg PO Q6H PRN PRN Reason: Headache/Pain Mild Scale (1-3) Last Admin: 07/26/24 21:50 Dose: 650 mg Al Hydroxide/Mg Hydroxide (Magnesium Hydrox/Alum Hydrox 30 Ml Oral.Susp) 30 ml PO Q6H PRN PRN Reason: Heartburn/Nausea Cariprazine (Cariprazine Hcl 1.5 Mg Capsule) 4.5 mg PO BEDTIME PREETI Last Admin: 08/05/24 22:30 Dose: 4.5 mg Cyproheptadine HCl (Cyproheptadine Hcl 4 Mg Tablet) 4 mg PO BEDTIME [facility] Last Admin: 08/05/24 22:30 Dose: 4 mg Hydroxyzine HCl (Hydroxyzine Hcl 25 Mg Tablet) 25 mg PO Q6H PRN PRN Reason: Anxiety Last Admin: 08/05/24 23:27 Dose: 25 mg Ibuprofen (Ibuprofen 600 Mg Tablet) 600 mg PO Q6H PRN PRN Reason: muscle pain Last Admin: 08/05/24 11:23 Dose: 600 mg Magnesium Hydroxide (Milk Of Magnesia 30 Ml Oral.Susp) 30 ml PO DAILY PRN PRN Reason: Constipation Metformin HCl (Metformin Hcl 500 Mg Tablet) 500 mg PO DAILY@1700 [facility] Last Admin: 08/05/24 18:06 Dose: 500 mg Naloxone HCl (Naloxone Hcl 0.4 Mg/Ml Vial) 0.04 mg IVPUSH Q5M PRN PRN Reason: Excessive sedation or RR < 8 Naltrexone HCl (Naltrexone Hcl 50 Mg Tablet) 50 mg PO DAILY [facility] Last Admin: 08/06/24 08:52 Dose: 50 mg Nicotine Polacrilex (Nicotine Polacrilex 2 Mg Gum) 4 mg BUCCAL Q2H PRN PRN Reason: Nicotine Cravings Last Admin: 08/05/24 21:46 Dose: 4 mg Patient Own ( Atomoxetine 25 Mg Capsule) 25 mg PO DAILY [facility] Last Admin: 08/06/24 08:52 Dose: 25 mg Patient Own ([place] Menthol Cough Quentin 1 Drop) 1 drop PO Q2H PRN PRN Reason: cough/sore throat Last Admin: 07/27/24 14:03 Dose: 1 drop Olanzapine (Olanzapine 7.5 Mg Tablet) 7.5 mg PO TID PRN PRN Reason: agitation Last Admin: 08/05/24 23:27 Dose: 7.5 mg Ondansetron HCl (Ondansetron Odt 4 Mg Tab.Rapdis) 4 mg TRANSLINGU TIDAC PRN PRN Reason: nausea Last Admin: 08/06/24 12:36 Dose: 4 mg Prazosin HCl (Prazosin Hcl 5 Mg Capsule) 5 mg PO BEDTIME [facility]; Protocol Last Admin: 08/05/24 22:31 Dose: 5 mg Trazodone HCl (Trazodone Hcl 100 Mg Tablet) 200 mg PO BEDTIME [facility] Last Admin: 08/05/24 22:30 Dose: 200 mg Allergies Allergies Allergy/AdvReac Type Severity Reaction Status Date / Time No Known Allergies Allergy Verified 07/07/24 20:03 Assessment & Plan Assessment & Plan (1) Bipolar 1 disorder, depressed: Status: Acute Code(s): F31.9 - Bipolar disorder, unspecified (2) Borderline personality disorder: Status: Acute Code(s): F60.3 - Borderline personality disorder (3) Suicidal ideation: Status: Acute Code(s): R45.851 - Suicidal ideations Plan The patient appears to have clinical depression on top of what appears to be dysphoria anxiety consistent PTSD borderline personality disorder with reactivity and intermittent self-injurious behavior. This does not appear to be part of that pattern there is a strong possible genetic component with her father having completed suicide and history of bipolar disorder patient agreeable to have thing us speak with her therapist and psychiatrist and records reviewed from [address] [place] [address] and [facility]. I have discussed with the patient that ECT would not treat chronic issues that she she deals with stress as mood and stability urges toward self injurious behavior and intermittent restricted eating disorder. The patient describes however ongoing depressed mood with intense thoughts of suicide history of not responding to antidepressant medication and has not stabilized bite a month of treatment with Vraylar and lithium. 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 Patient has had some response reportedly to TMS in the past given intensity of her suicidal thoughts intensity of depression at this time does not seem a current option. Call has been placed to her outpatient psychiatrist in [place]. Although I would not recommend ECT for borderline personality disorder per se certainly given her ongoing depression lack of emotional reactivity anhedonia intense negative affective state that seems to be consistent with thoughts of suicide the patient would meet criteria for a course of ECT which we would start with right unilateral treatment there are no medical contraindications Case has also been discussed and reviewed with inpatient treatment team. Hospital course: 07/18/24: ECT 07.19. 07/19 Patient is post ECT. She is lying in bed alert and oriented but feeling tired. She said she had a headache which got better with p.r.n. medication. Some muscle aches. She felt foggy with some blurred vision but that too is resolving. She says she just wants to rest for now. 07/20 patient feeling calm day after ECT. Wants to continue. 07/21 Patient says she has come in the outside but on the inside she feels a little revved up.; wants to continue with ECT. Discussed muscle soreness and patient wants ibuprofen reminding clinical writer that currently she is off lithium. Later in the evening patient reported feeling that she was starting to get hypomanic and asked for increased dose of Zyprexa 07/23- ECT 07/24. 07/26- Continue tx. 07/29: ECT 07/31 08/02: Continue tx. 08/03: ECT 08/05 and lower prn zyprexa dose to 7.5mg due to sedation 08/04: no changes 08/06: ECT scheduled for 08/07. Pt reports no current improvement PLAN: CV q15 min checks ECT #1 on 07/19 ECT #2 pending 07/22 npo -increased PRNs Zyprexa to 10 mg since patient starting to feel hypomanic 07/30/24 Inc depressed ect in am rul avoid bt dis not tolerate well inc vraylar 4.5 periactin for nightmares / insomnia 07/31/24 more active barbosa affect vraylar 4.5 cont ect rul Reason for continued inpatient stay Substantial Risk for: rapid decompensation Time Spent With Patient Time: Total time managing care of this patient today ____ minutes.
[2024-08-06] MEDS: metFORMIN HCl 500 MG TABLET PO (17:55)
[2024-08-06] MEDS: OLANZapine 7.5 MG TABLET PO (19:51)
[2024-08-06 20:00] VITALS: BP 128/68; PULSE 101; TEMP 36.9; O2SAT 97
[2024-08-06 22:19] VITALS: BP 118/69
[2024-08-06] MEDS: Cyproheptadine HCl 4 MG TABLET PO (22:19)
[2024-08-06] MEDS: Prazosin HCL 5 MG CAPSULE PO (22:19)
[2024-08-06] MEDS: Cariprazine HCl 1.5 MG CAPSULE 4.5 MG PO (22:20)
[2024-08-06] MEDS: traZODone HCL 100 MG TABLET 200 MG PO (22:20)
[2024-08-07] VITALS (11 sets, daily range): BP systolic 116–142; BP diastolic 71–93; PULSE 60–87; RESP 12–18; TEMP 35.8–36.8; O2SAT 95–100
[2024-08-07] MEDS: Naltrexone HCl 50 MG TABLET PO (09:08)
--- NOTE | 2024-08-07 10:32 | P.PNPSI_ITS ---
Subjective Subjective Date of Service: 08/07/24 Reason For Visit: Labile SI Subjective Notes: Conditional Voluntary Healthcare Proxy: No Guardianship: No Medical Problems Affecting Mental Status: No Interim History: Met with pt prior to ECT as she is scheduled for later in the day today. Team reports she broke a plastic spoon and cut her R thigh. I am angry . Discussed SIBS for sx relief. Discussed her comment about feeling well in February working with her therapist and taking medications... I never said that That is not true . Discussed SI and feeling she would attempt if discharged. The ECT has made me not really want to , but it is what I know, and I know I would act. Pt was asked what she might need to learn to improve her self care and coping. As a result of the above, we initiated discussion of external treatment options to manage sx when possibly psychotherapy, coping skills and moving ahead in her daily living may be significant and helpful. Ketamine is next . Reports plan to remain in common area after meals has been useful thus far in sx mgt. Medication Compliance: Yes Side effects from medications: No Attending Groups: Intermittent Review of Systems Acute medical concerns: No Medical Review of Systems: unchanged Review of Systems Review of Systems Yes all other systems are reviewed and are negative Mental Status Exam Mental Status Exam Patient Appearance: Appropriate Patient Orientation: Person, Place, Time and Situation Level of Consciousness: Alert Patient Behavior: Appropriate, Talkative and Good Eye Contact Mood Description: Apathetic, Depressed, Angry and Flat Affect Description: Flat Patient Cognition Impaired: No Ability to Follow Directions: Good Speech Pattern: Spontaneous Speech Memory Description: Episodic Impaired Hallucinations: None Delusions: Not Present Thought Process: Rumination Thought Content: positive for Perseveration and positive for Suicidal Ideation Depressive Symptoms: Increased Anxiety, Increased Irritability, Unhappiness and Thoughts of /Suicide Judgement: Fair Diagnostics Vital Signs (24Hr): Vital Signs - 24 hr 08/06/24 11:16 08/06/24 20:00 08/06/24 22:19 Temperature 97.5 F 98.4 F Pulse Rate 94 101 H Respiratory Rate 18 Blood Pressure 138/69 128/68 118/69 Pulse Oximetry 99 97 Oxygen Delivery Method Room Air Room Air 08/07/24 08:19 08/07/24 09:22 Temperature 98.2 F 98.2 F Pulse Rate 73 73 Respiratory Rate Blood Pressure 116/71 116/71 Pulse Oximetry 95 95 Oxygen Delivery Method Room Air Room Air BMI result Body Mass Index 36.7 Labs 07/17/24 13:31 08/04/24 12:35 Medications Medications Current Medications Acetaminophen (Acetaminophen 325 Mg Tablet) 650 mg PO Q6H PRN PRN Reason: Headache/Pain Mild Scale (1-3) Last Admin: 07/26/24 21:50 Dose: 650 mg Al Hydroxide/Mg Hydroxide (Magnesium Hydrox/Alum Hydrox 30 Ml Oral.Susp) 30 ml PO Q6H PRN PRN Reason: Heartburn/Nausea Cariprazine (Cariprazine Hcl 1.5 Mg Capsule) 4.5 mg PO BEDTIME [facility] Last Admin: 08/06/24 22:20 Dose: 4.5 mg Cyproheptadine HCl (Cyproheptadine Hcl 4 Mg Tablet) 4 mg PO BEDTIME [facility] Last Admin: 08/06/24 22:19 Dose: 4 mg Hydroxyzine HCl (Hydroxyzine Hcl 25 Mg Tablet) 25 mg PO Q6H PRN PRN Reason: Anxiety Last Admin: 08/05/24 23:27 Dose: 25 mg Ibuprofen (Ibuprofen 600 Mg Tablet) 600 mg PO Q6H PRN PRN Reason: muscle pain Last Admin: 08/05/24 11:23 Dose: 600 mg Magnesium Hydroxide (Milk Of Magnesia 30 Ml Oral.Susp) 30 ml PO DAILY PRN PRN Reason: Constipation Metformin HCl (Metformin Hcl 500 Mg Tablet) 500 mg PO DAILY@1700 [facility] Last Admin: 08/06/24 17:55 Dose: 500 mg Naloxone HCl (Naloxone Hcl 0.4 Mg/Ml Vial) 0.04 mg IVPUSH Q5M PRN PRN Reason: Excessive sedation or RR < 8 Naltrexone HCl (Naltrexone Hcl 50 Mg Tablet) 50 mg PO DAILY [facility] Last Admin: 08/07/24 09:08 Dose: 50 mg Nicotine Polacrilex (Nicotine Polacrilex 2 Mg Gum) 4 mg BUCCAL Q2H PRN PRN Reason: Nicotine Cravings Last Admin: 08/05/24 21:46 Dose: 4 mg Patient Own ( Atomoxetine 25 Mg Capsule) 25 mg PO DAILY [facility] Last Admin: 08/07/24 09:10 Dose: 25 mg Patient Own ([place] Menthol Cough Quentin 1 Drop) 1 drop PO Q2H PRN PRN Reason: cough/sore throat Last Admin: 07/27/24 14:03 Dose: 1 drop Olanzapine (Olanzapine 7.5 Mg Tablet) 7.5 mg PO TID PRN PRN Reason: agitation Last Admin: 08/06/24 19:51 Dose: 7.5 mg Ondansetron HCl (Ondansetron Odt 4 Mg Tab.Rapdis) 4 mg TRANSLINGU TIDAC PRN PRN Reason: nausea Last Admin: 08/06/24 17:54 Dose: 4 mg Prazosin HCl (Prazosin Hcl 5 Mg Capsule) 5 mg PO BEDTIME [facility]; Protocol Last Admin: 08/06/24 22:19 Dose: 5 mg Trazodone HCl (Trazodone Hcl 100 Mg Tablet) 200 mg PO BEDTIME PRE[facility] Last Admin: 08/06/24 22:20 Dose: 200 mg Allergies Allergies Allergy/AdvReac Type Severity Reaction Status Date / Time No Known Allergies Allergy Verified 07/07/24 20:03 Assessment & Plan Assessment & Plan (1) Bipolar 1 disorder, depressed: Status: Acute Code(s): F31.9 - Bipolar disorder, unspecified (2) Borderline personality disorder: Status: Acute Code(s): F60.3 - Borderline personality disorder (3) Suicidal ideation: Status: Acute Code(s): R45.851 - Suicidal ideations Plan The patient appears to have clinical depression on top of what appears to be dysphoria anxiety consistent PTSD borderline personality disorder with reactivity and intermittent self-injurious behavior. This does not appear to be part of that pattern there is a strong possible genetic component with her father having completed suicide and history of bipolar disorder patient agreeable to have thing us speak with her therapist and psychiatrist and records reviewed from [address] [place] [address] and [facility]. I have discussed with the patient that ECT would not treat chronic issues that she she deals with stress as mood and stability urges toward self injurious behavior and intermittent restricted eating disorder. The patient describes however ongoing depressed mood with intense thoughts of suicide history of not responding to antidepressant medication and has not stabilized bite a month of treatment with Vraylar and lithium. 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 Patient has had some response reportedly to TMS in the past given intensity of her suicidal thoughts intensity of depression at this time does not seem a current option. Call has been placed to her outpatient psychiatrist in [place]. Although I would not recommend ECT for borderline personality disorder per se certainly given her ongoing depression lack of emotional reactivity anhedonia intense negative affective state that seems to be consistent with thoughts of suicide the patient would meet criteria for a course of ECT which we would start with right unilateral treatment there are no medical contraindications Case has also been discussed and reviewed with inpatient treatment team. Hospital course: 07/18/24: ECT 07.19. 07/19 Patient is post ECT. She is lying in bed alert and oriented but feeling tired. She said she had a headache which got better with p.r.n. medication. Some muscle aches. She felt foggy with some blurred vision but that too is resolving. She says she just wants to rest for now. 07/20 patient feeling calm day after ECT. Wants to continue. 07/21 Patient says she has come in the outside but on the inside she feels a little revved up.; wants to continue with ECT. Discussed muscle soreness and patient wants ibuprofen reminding technical writer that currently she is off lithium. Later in the evening patient reported feeling that she was starting to get hypomanic and asked for increased dose of Zyprexa 07/23- ECT 07/24. 07/26- Continue tx. 07/29: ECT 07/31 08/02: Continue tx. 08/03: ECT 08/05 and lower prn zyprexa dose to 7.5mg due to sedation 08/04: no changes 08/04: Purging sx. Pt will remain in the common area 30 minutes after meals. 08/07: ECT today PLAN: CV q15 min checks ECT #1 on 07/19 ECT #2 pending 07/22 npo -increased PRNs Zyprexa to 10 mg since patient starting to feel hypomanic 07/30/24 Inc depressed ect in am rul avoid bt dis not tolerate well inc vraylar 4.5 periactin for nightmares / insomnia 07/31/24 more active barbosa affect vraylar 4.5 cont ect rul Reason for continued inpatient stay Substantial Risk for: rapid decompensation Time Spent With Patient Time: Total time managing care of this patient today ____ minutes.
[2024-08-07] MEDS: OLANZapine 7.5 MG TABLET PO (13:52)
--- NOTE | 2024-08-07 14:38 | HO.ANESPROP2 ---
HPI - Anesthesia Eval Consult details Narrative: 24yo female patient for ECT PMFSH Active Problems Active Problems: All Active Problems Routine medical exam (Acute) Bipolar 1 disorder, depressed (Acute) Borderline personality disorder (Acute) Suicidal ideation (Acute) Past Medical History Medical History No pertinent past medical history Family History Family history of problems with anesthesia: No Surgical History History of Problems with Anesthesia: No Social History Social History Household Members: Family Household Members Other:: Been staying with a friend this summer. [place] campus during school year Housing: House Do you presently have visiting nurse or other home services: No Patient Tobacco Use Status: Current everyday Tobacco user Tobacco use type: Cigarette Cigarettes Per Day: 8 Smoked in Last 30 Days: Yes Patient Interested in Nicotine Replacement: Yes Patient Given Instructions on How to Stop Smoking: No Second Hand Smoke Exposure: No Use of substances other than those prescribed or required for medical reasons: No Currently Displaying Signs/Symptoms of Drug Intoxication Withdrawal: No Any prior treatment program specific to substance use: No Have you been hit, kicked, punched, or otherwise hurt by someone within the past year? If so, by whom?: No Do you feel safe in your current relationship?: No Current Relationship Is there a partner from a previous relationship who is making you feel unsafe now?: No Are you made to feel afraid or neglected: No Advance Directives: No Advance Directives Information Provided: No Do you have thoughts of harming others: None Do you have a plan to hurt others: No Plan Recently lost weight without trying: No How much weight loss: Not applicable Eating poorly because of decreased appetite: Yes Nutrition screen score: 1 Nutrition Risks: Anorexia Patient : No : No Poor oral hygiene: No service: No Sexual orientation: Straight/Heterosexual Meds Allergies Allergy/AdvReac Type Severity Reaction Status Date / Time No Known Allergies Allergy Verified 07/07/24 20:03 Active Medications: Current Medications Acetaminophen (Acetaminophen 325 Mg Tablet) 650 mg PO Q6H PRN PRN Reason: Headache/Pain Mild Scale (1-3) Last Admin: 07/26/24 21:50 Dose: 650 mg Al Hydroxide/Mg Hydroxide (Magnesium Hydrox/Alum Hydrox 30 Ml Oral.Susp) 30 ml PO Q6H PRN PRN Reason: Heartburn/Nausea Cariprazine (Cariprazine Hcl 1.5 Mg Capsule) 4.5 mg PO BEDTIME [facility] Last Admin: 08/06/24 22:20 Dose: 4.5 mg Cyproheptadine HCl (Cyproheptadine Hcl 4 Mg Tablet) 4 mg PO BEDTIME [facility] Last Admin: 08/06/24 22:19 Dose: 4 mg Hydroxyzine HCl (Hydroxyzine Hcl 25 Mg Tablet) 25 mg PO Q6H PRN PRN Reason: Anxiety Last Admin: 08/05/24 23:27 Dose: 25 mg Ibuprofen (Ibuprofen 600 Mg Tablet) 600 mg PO Q6H PRN PRN Reason: muscle pain Last Admin: 08/05/24 11:23 Dose: 600 mg Magnesium Hydroxide (Milk Of Magnesia 30 Ml Oral.Susp) 30 ml PO DAILY PRN PRN Reason: Constipation Metformin HCl (Metformin Hcl 500 Mg Tablet) 500 mg PO DAILY@1700 [facility] Last Admin: 08/06/24 17:55 Dose: 500 mg Naloxone HCl (Naloxone Hcl 0.4 Mg/Ml Vial) 0.04 mg IVPUSH Q5M PRN PRN Reason: Excessive sedation or RR < 8 Naltrexone HCl (Naltrexone Hcl 50 Mg Tablet) 50 mg PO DAILY [facility] Last Admin: 08/07/24 09:08 Dose: 50 mg Nicotine Polacrilex (Nicotine Polacrilex 2 Mg Gum) 4 mg BUCCAL Q2H PRN PRN Reason: Nicotine Cravings Last Admin: 08/05/24 21:46 Dose: 4 mg Patient Own ( Atomoxetine 25 Mg Capsule) 25 mg PO DAILY [facility] Last Admin: 08/07/24 09:10 Dose: 25 mg Patient Own ([place] Menthol Cough [place] 1 Drop) 1 drop PO Q2H PRN PRN Reason: cough/sore throat Last Admin: 07/27/24 14:03 Dose: 1 drop Olanzapine (Olanzapine 7.5 Mg Tablet) 7.5 mg PO TID PRN PRN Reason: agitation Last Admin: 08/07/24 13:52 Dose: 7.5 mg Ondansetron HCl (Ondansetron Odt 4 Mg Tab.Rapdis) 4 mg TRANSLINGU TIDAC PRN PRN Reason: nausea Last Admin: 08/06/24 17:54 Dose: 4 mg Prazosin HCl (Prazosin Hcl 5 Mg Capsule) 5 mg PO BEDTIME [facility]; Protocol Last Admin: 08/06/24 22:19 Dose: 5 mg Trazodone HCl (Trazodone Hcl 100 Mg Tablet) 200 mg PO BEDTIME [facility] Last Admin: 08/06/24 22:20 Dose: 200 mg Home Medications ?Medication ?Instructions ?Recorded ?Confirmed ?Last Taken ?Type cariprazine 1.5 mg capsule 3 mg PO QAM 07/07/24 07/07/24 07/07/24 08:00 History (Rebekah) lithium carbonate 300 mg 300 mg PO BID 07/07/24 07/07/24 07/07/24 08:00 History tablet,extended release metformin 500 mg tablet 500 mg PO DAILY 07/07/24 07/07/24 07/07/24 08:00 History naltrexone 50 mg tablet 50 mg PO DAILY 07/07/24 07/07/24 07/07/24 08:00 History prazosin 5 mg capsule 5 mg PO BEDTIME 07/07/24 07/07/24 07/05/24 20:00 History trazodone 150 mg tablet 150 mg PO BEDTIME 07/07/24 07/07/24 07/06/24 20:00 History Exam Height,Weight and Vital Signs: Height 5 ft 2 in Weight 91 kg Last Vital Signs Temp 98.3 F 08/07/24 14:26 Pulse 76 08/07/24 14:26 Resp 18 08/07/24 14:26 BP 126/76 08/07/24 14:26 Pulse Ox 100 08/07/24 14:26 O2 Del Method Room Air 08/07/24 14:26 O2 Flow Rate 2 08/05/24 07:36 Pertinent Lab Results Pertinent Lab Results: Laboratory Tests 07/07/24 07/09/24 07/17/24 20:25 07:53 13:31 WBC 15.4 H 12.1 H 10.1 RBC 4.91 4.79 5.17 Hgb 13.9 13.8 14.7 Hct 42.1 41.0 44.7 MCV 85.7 85.6 86.5 MCH 28.3 28.8 28.4 MCHC 33.0 33.7 32.9 RDW 13.2 13.3 13.5 Plt Count 432 H 368 353 MPV 9.8 9.7 10.1 Immature Gran % (Auto) 0.3 0.4 0.4 Neut % (Auto) 76.2 H 66.1 74.3 H Lymph % (Auto) 17.2 L 24.8 18.4 L [place] % (Auto) 5.2 5.6 4.3 Eos % (Auto) 0.8 2.8 2.1 Baso % (Auto) 0.3 0.3 0.5 Lymph # (Auto) 2.7 3.0 1.9 [place] # (Auto) 0.8 0.7 0.4 Eos # (Auto) 0.1 0.3 0.2 Baso # (Auto) 0.0 0.0 0.1 Abs Immat Gran (auto) 0.05 H 0.05 H 0.04 H Absolute Neuts (auto) 11.7 H 8.0 7.5 Absolute Nucleated RBC 0.000 0.000 0.000 Nucleated RBC % (auto) 0.0 0.0 0.0 Sodium 139 138 Potassium 4.0 4.2 Chloride 105 103 Carbon Dioxide 25 26 Anion Gap 13 13 BUN 9 7 L Creatinine 0.94 0.86 Estim Creat Clear Calc 97.8 Estimated GFR > 60 Random Glucose 102 Estimat Average Glucose 111 Hemoglobin A1c % 5.5 Calcium 10.0 Total Bilirubin 0.3 AST 13 ALT 9 Alkaline Phosphatase 98 Total Protein 7.8 Albumin 4.7 Triglycerides 90 Cholesterol 116 LDL Cholesterol, Calc 67 HDL Cholesterol 31 L TSH 0.36 Urine Color Yellow Urine Appearance Clear Urine pH 8.0 Ur Specific [place] 1.025 Urine Protein Trace Urine Glucose (UA) Negative Urine Ketones >=160 Urine Blood Negative Urine Nitrite Negative Ur Leukocyte Esterase Trace H Urine RBC 0-2 Urine WBC 0-5 Ur Squamous Epith Cells 3-5 Urine Bacteria Trace Hyaline Casts 0-2 Urine Test NEGATIVE Salicylates < 5.0 L Urine Opiates Screen Not Detected Ur Buprenorphine Scrn Not Detected Ur Oxycodone Screen Not Detected Urine Methadone Screen Not Detected Urine Fentanyl Screen Not Detected Acetaminophen < 3 Ur Barbiturates Screen Not Detected Ur Phencyclidine Scrn Not Detected Ur Amphetamines Screen Not Detected U Benzodiazepines Scrn Not Detected [place] 0.84 Urine Cocaine Screen Not Detected U Marijuana (THC) Screen Not Detected Ethyl Alcohol < 10 S. pyogenes GrpA ESTEE 07/17/24 07/17/24 07/17/24 13:31 13:31 13:31 WBC RBC Hgb Hct MCV MCH MCHC RDW Plt Count MPV Immature Gran % (Auto) Neut % (Auto) Lymph % (Auto) [place] % (Auto) Eos % (Auto) Baso % (Auto) Lymph # (Auto) [place] # (Auto) Eos # (Auto) Baso # (Auto) Abs Immat Gran (auto) Absolute Neuts (auto) Absolute Nucleated RBC Nucleated RBC % (auto) Sodium Potassium Chloride Carbon Dioxide Anion Gap BUN Creatinine Cancelled Estim Creat Clear Calc 106.8 Cancelled Estimated GFR > 60 Cancelled Random Glucose 140 H Estimat Average Glucose Hemoglobin A1c % Calcium 10.2 Total Bilirubin 0.2 AST 11 ALT 8 Alkaline Phosphatase 88 Total Protein 7.4 Albumin 4.5 Triglycerides Cholesterol LDL Cholesterol, Calc HDL Cholesterol TSH Urine Color Urine Appearance Urine pH Ur Specific [place] Urine Protein Urine Glucose (UA) Urine Ketones Urine Blood Urine Nitrite Ur Leukocyte Esterase Urine RBC Urine WBC Ur Squamous Epith Cells Urine Bacteria Hyaline Casts Urine Test Salicylates Urine Opiates Screen Ur Buprenorphine Scrn Ur Oxycodone Screen Urine Methadone Screen Urine Fentanyl Screen Acetaminophen Ur Barbiturates Screen Ur Phencyclidine Scrn Ur Amphetamines Screen U Benzodiazepines Scrn [place] Urine Cocaine Screen U Marijuana (THC) Screen Ethyl Alcohol S. pyogenes GrpA ESTEE 07/21/24 07/22/24 07/28/24 08:39 17:15 07:52 WBC RBC Hgb Hct MCV MCH MCHC RDW Plt Count MPV Immature Gran % (Auto) Neut % (Auto) Lymph % (Auto) [place] % (Auto) Eos % (Auto) Baso % (Auto) Lymph # (Auto) [place] # (Auto) Eos # (Auto) Baso # (Auto) Abs Immat Gran (auto) Absolute Neuts (auto) Absolute Nucleated RBC Nucleated RBC % (auto) Sodium Potassium Chloride Carbon Dioxide Anion Gap BUN Creatinine 0.86 0.80 Estim Creat Clear Calc 106.8 115.7 Estimated GFR > 60 > 60 Random Glucose Estimat Average Glucose Hemoglobin A1c % Calcium Total Bilirubin AST ALT Alkaline Phosphatase Total Protein Albumin Triglycerides Cholesterol LDL Cholesterol, Calc HDL Cholesterol TSH Urine Color Urine Appearance Urine pH Ur Specific [place] Urine Protein Urine Glucose (UA) Urine Ketones Urine Blood Urine Nitrite Ur Leukocyte Esterase Urine RBC Urine WBC Ur Squamous Epith Cells Urine Bacteria Hyaline Casts Urine Test Salicylates Urine Opiates Screen Ur Buprenorphine Scrn Ur Oxycodone Screen Urine Methadone Screen Urine Fentanyl Screen Acetaminophen Ur Barbiturates Screen Ur Phencyclidine Scrn Ur Amphetamines Screen U Benzodiazepines Scrn [place] Urine Cocaine Screen U Marijuana (THC) Screen Ethyl Alcohol S. pyogenes GrpA ESTEE Negative 08/04/24 12:35 WBC RBC Hgb Hct MCV MCH MCHC RDW Plt Count MPV Immature Gran % (Auto) Neut % (Auto) Lymph % (Auto) [place] % (Auto) Eos % (Auto) Baso % (Auto) Lymph # (Auto) [place] # (Auto) Eos # (Auto) Baso # (Auto) Abs Immat Gran (auto) Absolute Neuts (auto) Absolute Nucleated RBC Nucleated RBC % (auto) Sodium Potassium Chloride Carbon Dioxide Anion Gap BUN Creatinine 0.93 Estim Creat Clear Calc 99.5 Estimated GFR > 60 Random Glucose Estimat Average Glucose Hemoglobin A1c % Calcium Total Bilirubin AST ALT Alkaline Phosphatase Total Protein Albumin Triglycerides Cholesterol LDL Cholesterol, Calc HDL Cholesterol TSH Urine Color Urine Appearance Urine pH Ur Specific [place] Urine Protein Urine Glucose (UA) Urine Ketones Urine Blood Urine Nitrite Ur Leukocyte Esterase Urine RBC Urine WBC Ur Squamous Epith Cells Urine Bacteria Hyaline Casts Urine Test Salicylates Urine Opiates Screen Ur Buprenorphine Scrn Ur Oxycodone Screen Urine Methadone Screen Urine Fentanyl Screen Acetaminophen Ur Barbiturates Screen Ur Phencyclidine Scrn Ur Amphetamines Screen U Benzodiazepines Scrn [place] Urine Cocaine Screen U Marijuana (THC) Screen Ethyl Alcohol S. pyogenes GrpA ESTEE Airway Mallampati Class: III (Small mouth) TM Dist: >3cm Neck ROM: Full Loose/Missing/Broken Teeth: Yes (Missing tooth bottom Right back. Denies broken or loose teeth) Heart: RRR Lungs: CTAB Assessment and Plan Assessment Anesthesia Assessment: Anesthesia Plan Discussed and Chart Reviewed Final Anesthetic Review Family History of Problems with Anesthesia: No History of Problems with Anesthesia: No NPO: Yes ASA Class: III Final Preanesthetic Review: No Changes in Pt Med Stat, Meds/Allgs Chart Reviewed, Consent Obtained/Reviewed and Anes Risks/Benef Reviewed Patient Risk: Intermediate Procedure Risk: Intermediate Assessment/Block/Sedation in SS: Assess/Block/Sedation-SS Anesthetic Plan Anesthetic Plan: GA Disposition: Standard PACU and Inp. Admit - Standard Bed
--- NOTE | 2024-08-07 15:44 | MHC.SHP ---
Pre-Procedural Eval Section A - 24 Hr Update-Section A only Date of Service: 08/07/24 The patient is an INPATIENT: Yes Changes since office visit: Yes Changes in Medication and Yes Patient answered all questions; No Cold of Flu in the past 2 weeks and No New Medical Problems The patient has been examined within 24 hours of the surgical procedure. The History & Physical has been completed within 30 days and I have reviewed it.: Yes Section B - Complete if H&P > 30 days Chief Complaint: Labile SI Allergies: Allergies Allergy/AdvReac Type Severity Reaction Status Date / Time No Known Allergies Allergy Verified 07/07/24 20:03 Plan I have reviewed the history and physical and performed a pertinent physical examination on my patient. No changes have occurred unless specified. Time Spent With Patient Time: Total time managing care of this patient today ____ minutes.
--- NOTE | 2024-08-07 16:23 | HO.ANESPROP2 ---
[facility] Active Problems Active Problems: All Active Problems Routine medical exam (Acute) Bipolar 1 disorder, depressed (Acute) Borderline personality disorder (Acute) Suicidal ideation (Acute) Past Medical History Medical History No pertinent past medical history Functional capacity: independent ambulation Family History Family history of problems with anesthesia: No Surgical History History of Problems with Anesthesia: No Social History Social History Household Members: Family Household Members Other:: Been staying with a friend this summer. [place] campus during school year Housing: House Do you presently have visiting nurse or other home services: No Patient Tobacco Use Status: Current everyday Tobacco user Tobacco use type: Cigarette Cigarettes Per Day: 8 Smoked in Last 30 Days: Yes Patient Interested in Nicotine Replacement: Yes Patient Given Instructions on How to Stop Smoking: No Second Hand Smoke Exposure: No Use of substances other than those prescribed or required for medical reasons: No Currently Displaying Signs/Symptoms of Drug Intoxication Withdrawal: No Any prior treatment program specific to substance use: No Have you been hit, kicked, punched, or otherwise hurt by someone within the past year? If so, by whom?: No Do you feel safe in your current relationship?: No Current Relationship Is there a partner from a previous relationship who is making you feel unsafe now?: No Are you made to feel afraid or neglected: No Advance Directives: No Advance Directives Information Provided: No Do you have thoughts of harming others: None Do you have a plan to hurt others: No Plan Recently lost weight without trying: No How much weight loss: Not applicable Eating poorly because of decreased appetite: Yes Nutrition screen score: 1 Nutrition Risks: Anorexia Patient : No : No Poor oral hygiene: No service: No Sexual orientation: Straight/Heterosexual Meds Allergies Allergy/AdvReac Type Severity Reaction Status Date / Time No Known Allergies Allergy Verified 07/07/24 20:03 Active Medications: Current Medications Acetaminophen (Acetaminophen 325 Mg Tablet) 650 mg PO Q6H PRN PRN Reason: Headache/Pain Mild Scale (1-3) Last Admin: 07/26/24 21:50 Dose: 650 mg Acetaminophen (Acetaminophen 325 Mg Tablet) 650 mg PO ONCE PRN PRN Reason: Pain, Mild (Pain Scale 1-3) Stop: 08/07/24 20:47 Al Hydroxide/Mg Hydroxide (Magnesium Hydrox/Alum Hydrox 30 Ml Oral.Susp) 30 ml PO Q6H PRN PRN Reason: Heartburn/Nausea Cariprazine (Cariprazine Hcl 1.5 Mg Capsule) 4.5 mg PO BEDTIME [facility] Last Admin: 08/06/24 22:20 Dose: 4.5 mg Cyproheptadine HCl (Cyproheptadine Hcl 4 Mg Tablet) 4 mg PO BEDTIME [facility] Last Admin: 08/06/24 22:19 Dose: 4 mg Hydroxyzine HCl (Hydroxyzine Hcl 25 Mg Tablet) 25 mg PO Q6H PRN PRN Reason: Anxiety Last Admin: 08/05/24 23:27 Dose: 25 mg Lactated Ringer's (Lr) 1,000 mls @ 50 mls/hr IVCONT .Q20H [facility] Ibuprofen (Ibuprofen 600 Mg Tablet) 600 mg PO Q6H PRN PRN Reason: muscle pain Last Admin: 08/05/24 11:23 Dose: 600 mg Magnesium Hydroxide (Milk Of Magnesia 30 Ml Oral.Susp) 30 ml PO DAILY PRN PRN Reason: Constipation Metformin HCl (Metformin Hcl 500 Mg Tablet) 500 mg PO DAILY@1700 [facility] Last Admin: 08/06/24 17:55 Dose: 500 mg Naloxone HCl (Naloxone Hcl 0.4 Mg/Ml Vial) 0.04 mg IVPUSH Q5M PRN PRN Reason: Excessive sedation or RR < 8 Naltrexone HCl (Naltrexone Hcl 50 Mg Tablet) 50 mg PO DAILY [facility] Last Admin: 08/07/24 09:08 Dose: 50 mg Nicotine Polacrilex (Nicotine Polacrilex 2 Mg Gum) 4 mg BUCCAL Q2H PRN PRN Reason: Nicotine Cravings Last Admin: 08/05/24 21:46 Dose: 4 mg Patient Own ( Atomoxetine 25 Mg Capsule) 25 mg PO DAILY [facility] Last Admin: 08/07/24 09:10 Dose: 25 mg Patient Own ([place] Menthol Cough Quentin 1 Drop) 1 drop PO Q2H PRN PRN Reason: cough/sore throat Last Admin: 07/27/24 14:03 Dose: 1 drop Olanzapine (Olanzapine 7.5 Mg Tablet) 7.5 mg PO TID PRN PRN Reason: agitation Last Admin: 08/07/24 13:52 Dose: 7.5 mg Ondansetron HCl (Ondansetron Odt 4 Mg Tab.Rapdis) 4 mg TRANSLINGU TIDAC PRN PRN Reason: nausea Last Admin: 08/06/24 17:54 Dose: 4 mg Ondansetron HCl (Ondansetron Hcl 4 Mg/2 Ml Vial) 4 mg IVPUSH ONCE PRN PRN Reason: Nausea and Vomiting Stop: 08/07/24 20:47 Prazosin HCl (Prazosin Hcl 5 Mg Capsule) 5 mg PO BEDTIME PREET[facility]; Protocol Last Admin: 08/06/24 22:19 Dose: 5 mg Trazodone HCl (Trazodone Hcl 100 Mg Tablet) 200 mg PO BEDTIME [facility] Last Admin: 08/06/24 22:20 Dose: 200 mg Home Medications ?Medication ?Instructions ?Recorded ?Confirmed ?Last Taken ?Type cariprazine 1.5 mg capsule 3 mg PO QAM 07/07/24 07/07/24 07/07/24 08:00 History (Rebekah) lithium carbonate 300 mg 300 mg PO BID 07/07/24 07/07/24 07/07/24 08:00 History tablet,extended release metformin 500 mg tablet 500 mg PO DAILY 07/07/24 07/07/24 07/07/24 08:00 History naltrexone 50 mg tablet 50 mg PO DAILY 07/07/24 07/07/24 07/07/24 08:00 History prazosin 5 mg capsule 5 mg PO BEDTIME 07/07/24 07/07/24 07/05/24 20:00 History trazodone 150 mg tablet 150 mg PO BEDTIME 07/07/24 07/07/24 07/06/24 20:00 History Exam Height,Weight and Vital Signs: Height 5 ft 2 in Weight 91 kg Last Vital Signs Temp 98.3 F 08/07/24 14:26 Pulse 76 08/07/24 14:26 Resp 18 08/07/24 14:26 BP 126/76 08/07/24 14:26 Pulse Ox 100 08/07/24 14:26 O2 Del Method Room Air 08/07/24 14:26 O2 Flow Rate 2 08/05/24 07:36 Pertinent Lab Results Pertinent Lab Results: Laboratory Tests 07/07/24 07/09/24 07/17/24 20:25 07:53 13:31 WBC 15.4 H 12.1 H 10.1 RBC 4.91 4.79 5.17 Hgb 13.9 13.8 14.7 Hct 42.1 41.0 44.7 MCV 85.7 85.6 86.5 MCH 28.3 28.8 28.4 MCHC 33.0 33.7 32.9 RDW 13.2 13.3 13.5 Plt Count 432 H 368 353 MPV 9.8 9.7 10.1 Immature Gran % (Auto) 0.3 0.4 0.4 Neut % (Auto) 76.2 H 66.1 74.3 H Lymph % (Auto) 17.2 L 24.8 18.4 L [place] % (Auto) 5.2 5.6 4.3 Eos % (Auto) 0.8 2.8 2.1 Baso % (Auto) 0.3 0.3 0.5 Lymph # (Auto) 2.7 3.0 1.9 [place] # (Auto) 0.8 0.7 0.4 Eos # (Auto) 0.1 0.3 0.2 Baso # (Auto) 0.0 0.0 0.1 Abs Immat Gran (auto) 0.05 H 0.05 H 0.04 H Absolute Neuts (auto) 11.7 H 8.0 7.5 Absolute Nucleated RBC 0.000 0.000 0.000 Nucleated RBC % (auto) 0.0 0.0 0.0 Sodium 139 138 Potassium 4.0 4.2 Chloride 105 103 Carbon Dioxide 25 26 Anion Gap 13 13 BUN 9 7 L Creatinine 0.94 0.86 Estim Creat Clear Calc 97.8 Estimated GFR > 60 Random Glucose 102 Estimat Average Glucose 111 Hemoglobin A1c % 5.5 Calcium 10.0 Total Bilirubin 0.3 AST 13 ALT 9 Alkaline Phosphatase 98 Total Protein 7.8 Albumin 4.7 Triglycerides 90 Cholesterol 116 LDL Cholesterol, Calc 67 HDL Cholesterol 31 L TSH 0.36 Urine Color Yellow Urine Appearance Clear Urine pH 8.0 Ur Specific [place] 1.025 Urine Protein Trace Urine Glucose (UA) Negative Urine Ketones >=160 Urine Blood Negative Urine Nitrite Negative Ur Leukocyte Esterase Trace H Urine RBC 0-2 Urine WBC 0-5 Ur Squamous Epith Cells 3-5 Urine Bacteria Trace Hyaline Casts 0-2 Urine Test NEGATIVE Salicylates < 5.0 L Urine Opiates Screen Not Detected Ur Buprenorphine Scrn Not Detected Ur Oxycodone Screen Not Detected Urine Methadone Screen Not Detected Urine Fentanyl Screen Not Detected Acetaminophen < 3 Ur Barbiturates Screen Not Detected Ur Phencyclidine Scrn Not Detected Ur Amphetamines Screen Not Detected U Benzodiazepines Scrn Not Detected [place] 0.84 Urine Cocaine Screen Not Detected U Marijuana (THC) Screen Not Detected Ethyl Alcohol < 10 S. pyogenes GrpA ESTEE 07/17/24 07/17/24 07/17/24 13:31 13:31 13:31 WBC RBC Hgb Hct MCV MCH MCHC RDW Plt Count MPV Immature Gran % (Auto) Neut % (Auto) Lymph % (Auto) [place] % (Auto) Eos % (Auto) Baso % (Auto) Lymph # (Auto) [place] # (Auto) Eos # (Auto) Baso # (Auto) Abs Immat Gran (auto) Absolute Neuts (auto) Absolute Nucleated RBC Nucleated RBC % (auto) Sodium Potassium Chloride Carbon Dioxide Anion Gap BUN Creatinine Cancelled Estim Creat Clear Calc 106.8 Cancelled Estimated GFR > 60 Cancelled Random Glucose 140 H Estimat Average Glucose Hemoglobin A1c % Calcium 10.2 Total Bilirubin 0.2 AST 11 ALT 8 Alkaline Phosphatase 88 Total Protein 7.4 Albumin 4.5 Triglycerides Cholesterol LDL Cholesterol, Calc HDL Cholesterol TSH Urine Color Urine Appearance Urine pH Ur Specific [place] Urine Protein Urine Glucose (UA) Urine Ketones Urine Blood Urine Nitrite Ur Leukocyte Esterase Urine RBC Urine WBC Ur Squamous Epith Cells Urine Bacteria Hyaline Casts Urine Test Salicylates Urine Opiates Screen Ur Buprenorphine Scrn Ur Oxycodone Screen Urine Methadone Screen Urine Fentanyl Screen Acetaminophen Ur Barbiturates Screen Ur Phencyclidine Scrn Ur Amphetamines Screen U Benzodiazepines Scrn [place] Urine Cocaine Screen U Marijuana (THC) Screen Ethyl Alcohol S. pyogenes GrpA ESTEE 07/21/24 07/22/24 07/28/24 08:39 17:15 07:52 WBC RBC Hgb Hct MCV MCH MCHC RDW Plt Count MPV Immature Gran % (Auto) Neut % (Auto) Lymph % (Auto) [place] % (Auto) Eos % (Auto) Baso % (Auto) Lymph # (Auto) [place] # (Auto) Eos # (Auto) Baso # (Auto) Abs Immat Gran (auto) Absolute Neuts (auto) Absolute Nucleated RBC Nucleated RBC % (auto) Sodium Potassium Chloride Carbon Dioxide Anion Gap BUN Creatinine 0.86 0.80 Estim Creat Clear Calc 106.8 115.7 Estimated GFR > 60 > 60 Random Glucose Estimat Average Glucose Hemoglobin A1c % Calcium Total Bilirubin AST ALT Alkaline Phosphatase Total Protein Albumin Triglycerides Cholesterol LDL Cholesterol, Calc HDL Cholesterol TSH Urine Color Urine Appearance Urine pH Ur Specific [place] Urine Protein Urine Glucose (UA) Urine Ketones Urine Blood Urine Nitrite Ur Leukocyte Esterase Urine RBC Urine WBC Ur Squamous Epith Cells Urine Bacteria Hyaline Casts Urine Test Salicylates Urine Opiates Screen Ur Buprenorphine Scrn Ur Oxycodone Screen Urine Methadone Screen Urine Fentanyl Screen Acetaminophen Ur Barbiturates Screen Ur Phencyclidine Scrn Ur Amphetamines Screen U Benzodiazepines Scrn [place] Urine Cocaine Screen U Marijuana (THC) Screen Ethyl Alcohol S. pyogenes GrpA ESTEE Negative 08/04/24 12:35 WBC RBC Hgb Hct MCV MCH MCHC RDW Plt Count MPV Immature Gran % (Auto) Neut % (Auto) Lymph % (Auto) [place] % (Auto) Eos % (Auto) Baso % (Auto) Lymph # (Auto) [place] # (Auto) Eos # (Auto) Baso # (Auto) Abs Immat Gran (auto) Absolute Neuts (auto) Absolute Nucleated RBC Nucleated RBC % (auto) Sodium Potassium Chloride Carbon Dioxide Anion Gap BUN Creatinine 0.93 Estim Creat Clear Calc 99.5 Estimated GFR > 60 Random Glucose Estimat Average Glucose Hemoglobin A1c % Calcium Total Bilirubin AST ALT Alkaline Phosphatase Total Protein Albumin Triglycerides Cholesterol LDL Cholesterol, Calc HDL Cholesterol TSH Urine Color Urine Appearance Urine pH Ur Specific [place] Urine Protein Urine Glucose (UA) Urine Ketones Urine Blood Urine Nitrite Ur Leukocyte Esterase Urine RBC Urine WBC Ur Squamous Epith Cells Urine Bacteria Hyaline Casts Urine Test Salicylates Urine Opiates Screen Ur Buprenorphine Scrn Ur Oxycodone Screen Urine Methadone Screen Urine Fentanyl Screen Acetaminophen Ur Barbiturates Screen Ur Phencyclidine Scrn Ur Amphetamines Screen U Benzodiazepines Scrn [place] Urine Cocaine Screen U Marijuana (THC) Screen Ethyl Alcohol S. pyogenes GrpA ESTEE Airway Mallampati Class: II TM Dist: >3cm Neck ROM: Full Heart: RRR Lungs: CTA Assessment and Plan Assessment Anesthesia Assessment: Anesthesia Plan Discussed and Chart Reviewed Final Anesthetic Review Family History of Problems with Anesthesia: No History of Problems with Anesthesia: No NPO: Yes ASA Class: III Final Preanesthetic Review: Meds/Allgs Chart Reviewed, Consent Obtained/Reviewed and Anes Risks/Benef Reviewed Patient Risk: Low Procedure Risk: Low Anesthetic Plan Anesthetic Plan: GA Disposition: Standard PACU
[2024-08-07] MEDS: Lactated Ringers 1,000 ML 50 ML IVCONT (16:29)
--- NOTE | 2024-08-07 17:19 | HO.POSTANES ---
Post Anesthesia Evaluation Post Anesthesia Evaluation Date of Service: 08/07/24 Vital Signs: Vital Signs Temp Pulse Resp BP Pulse Ox O2 Del Method 08/07/24 16:23 96.4 F L 86 16 116/72 100 Room Air 08/07/24 14:26 98.3 F 76 18 126/76 100 Room Air 08/07/24 09:22 98.2 F 73 116/71 95 Room Air 08/07/24 08:19 98.2 F 73 116/71 95 Room Air Anesthesia: General Mental Status: Awake and Sedated Pain Control: Satisfactory Nausea/Vomiting: None Hydration: Adequate Anesthesia-Related Issues: No Anes. Related Issues
--- NOTE | 2024-08-07 18:25 | HO.ECTPROC ---
ECT Procedure Note Diagnosis/Treatment Date of Service: 08/07/24 Diagnosis: Bipolar disorder Previous ECT Date: 08/05/24 Current Treatment Number: 8 Treatment: Series Interval Clinical Notes: Unclear benefit patient seems to have a [place] range of affect but unclear if any marked change will re-evaluate after today's treatment no significant side effects noted Time: Total time managing care of this patient today 30____ minutes. ECT Settings Device: THYMATRON DGx Electrode Placement: Bifrontal Program/Pulse Width: 0.25 Energy Percent: 20 Seizure Duration By EEG (in seconds): 67 Medications Administration General Anesthetic: Etomidate (14) Muscle Relaxant: Succinylcholine (100) Ancillary Medications Anti-emetics: Zofran - Pre ECT Miscillaneous Medications: Midazolam (2mg) Airway Management Airway Management: Bag Mask Ventilation Treatment Recommendations No Changes Recommended: No change Pt Tolerated Procedure w/o Issue: Yes
--- NOTE | 2024-08-07 19:04 | PC.NURSE ---
Ms. Scanlon returned to at 18:15 after her ECT treatment. Very groggy but oriented x 4. Vitals: T97.6- P87- R16- BP 120/80- O2 sat- 97%.Refused metformin. Still waiting for her dinner to arrive (19:07pm).
[2024-08-07] MEDS: Cariprazine HCl 1.5 MG CAPSULE 4.5 MG PO (21:24)
[2024-08-07] MEDS: Prazosin HCL 5 MG CAPSULE PO (21:25)
[2024-08-07] MEDS: Cyproheptadine HCl 4 MG TABLET PO (21:25)
[2024-08-07] MEDS: Ondansetron ODT 4 MG TAB.RAPDIS TRANSLINGU (21:25)
[2024-08-07] MEDS: traZODone HCL 100 MG TABLET 200 MG PO (21:25)
[2024-08-08 07:00] VITALS: BMI 36.0
[2024-08-08 08:00] VITALS: BP 103/51; PULSE 73; RESP 19; TEMP 36.4; O2SAT 95
[2024-08-08] MEDS: Naltrexone HCl 50 MG TABLET PO (08:51)
[2024-08-08] MEDS: Nicotine Polacrilex 2 MG GUM 4 MG BUCCAL ×7 (09:15→23:43)
[2024-08-08] MEDS: hydrOXYzine HCL 25 MG TABLET PO ×2 (11:35→21:59)
--- NOTE | 2024-08-08 11:38 | HO.PSYCHPN ---
Subjective Subjective Date of Service: 08/08/24 Reason For Visit: Labile SI Subjective Notes: Conditional Voluntary Healthcare Proxy: No Guardianship: No Medical Problems Affecting Mental Status: No Interim History: Met with pt, Dr. Yobany Hannon. Pt reports no real change with ECT, therefore trial will stop. Will re-start [place] 300 mg bid Pt continues to report SI. She is wanting Ketamine, vagal stimulation. She is angry ECT has not been helpful. Medication Compliance: Yes Side effects from medications: No Attending Groups: Intermittent Review of Systems Acute medical concerns: No Medical Review of Systems: unchanged Mental Status Exam Mental Status Exam Patient Appearance: Appropriate Patient Orientation: Person, Place, Time and Situation Level of Consciousness: Alert Patient Behavior: Appropriate, Talkative and Good Eye Contact Mood Description: Apathetic, Depressed, Angry and Flat Affect Description: Flat Patient Cognition Impaired: No Ability to Follow Directions: Good Speech Pattern: Spontaneous Speech Memory Description: Episodic Impaired Hallucinations: None Delusions: Not Present Thought Process: Rumination Thought Content: positive for Perseveration and positive for Suicidal Ideation Depressive Symptoms: Increased Anxiety, Increased Irritability, Unhappiness and Thoughts of /Suicide Judgement: Fair Diagnostics Vital Signs (24Hr): Vital Signs - 24 hr 08/07/24 14:26 08/07/24 16:23 08/07/24 17:16 Temperature 98.3 F 96.4 F L 97.5 F Pulse Rate 76 86 63 Respiratory Rate 18 16 12 Blood Pressure 126/76 116/72 142/89 H Pulse Oximetry 100 100 100 Oxygen Delivery Method Room Air Room Air Nasal Cannula with ETCO2 Oxygen Flow Rate 2 08/07/24 17:21 08/07/24 17:26 08/07/24 17:31 Temperature Pulse Rate 72 69 60 Respiratory Rate 14 13 17 Blood Pressure 135/93 H 135/85 136/88 Pulse Oximetry 100 100 98 Oxygen Delivery Method Nasal Cannula with ETCO2 Nasal Cannula with ETCO2 Room Air Oxygen Flow Rate 2 2 08/07/24 17:46 08/07/24 19:25 08/07/24 20:00 Temperature 97.6 F 98 F Pulse Rate 69 87 77 Respiratory Rate 12 16 18 Blood Pressure 136/87 120/80 124/79 Pulse Oximetry 98 97 95 Oxygen Delivery Method Room Air Room Air Oxygen Flow Rate 08/08/24 08:00 Temperature 97.6 F Pulse Rate 73 Respiratory Rate 19 Blood Pressure 103/51 L Pulse Oximetry 95 Oxygen Delivery Method Room Air Oxygen Flow Rate BMI result Body Mass Index 36.0 Labs 07/17/24 13:31 08/04/24 12:35 Medications Medications Current Medications Acetaminophen (Acetaminophen 325 Mg Tablet) 650 mg PO Q6H PRN PRN Reason: Headache/Pain Mild Scale (1-3) Last Admin: 07/26/24 21:50 Dose: 650 mg Al Hydroxide/Mg Hydroxide (Magnesium Hydrox/Alum Hydrox 30 Ml Oral.Susp) 30 ml PO Q6H PRN PRN Reason: Heartburn/Nausea Cariprazine (Cariprazine Hcl 1.5 Mg Capsule) 4.5 mg PO BEDTIME [facility] Last Admin: 08/07/24 21:24 Dose: 4.5 mg Cyproheptadine HCl (Cyproheptadine Hcl 4 Mg Tablet) 4 mg PO BEDTIME [facility] Last Admin: 08/07/24 21:25 Dose: 4 mg Hydroxyzine HCl (Hydroxyzine Hcl 25 Mg Tablet) 25 mg PO Q6H PRN PRN Reason: Anxiety Last Admin: 08/08/24 11:35 Dose: 25 mg Ibuprofen (Ibuprofen 600 Mg Tablet) 600 mg PO Q6H PRN PRN Reason: muscle pain Last Admin: 08/05/24 11:23 Dose: 600 mg Magnesium Hydroxide (Milk Of Magnesia 30 Ml Oral.Susp) 30 ml PO DAILY PRN PRN Reason: Constipation Metformin HCl (Metformin Hcl 500 Mg Tablet) 500 mg PO DAILY@1700 [facility] Last Admin: 08/07/24 18:48 Dose: Not Given Naloxone HCl (Naloxone Hcl 0.4 Mg/Ml Vial) 0.04 mg IVPUSH Q5M PRN PRN Reason: Excessive sedation or RR < 8 Naloxone HCl (Naloxone Hcl 0.4 Mg/Ml Vial) 0.04 mg IVPUSH Q5M PRN PRN Reason: Excessive sedation or RR < 8 Naltrexone HCl (Naltrexone Hcl 50 Mg Tablet) 50 mg PO DAILY [facility] Last Admin: 08/08/24 08:51 Dose: 50 mg Nicotine Polacrilex (Nicotine Polacrilex 2 Mg Gum) 4 mg BUCCAL Q2H PRN PRN Reason: Nicotine Cravings Last Admin: 08/08/24 09:15 Dose: 4 mg Patient Own ( Atomoxetine 25 Mg Capsule) 25 mg PO DAILY [facility] Last Admin: 08/08/24 08:52 Dose: 25 mg Patient Own ([place] Menthol Cough Quentin 1 Drop) 1 drop PO Q2H PRN PRN Reason: cough/sore throat Last Admin: 07/27/24 14:03 Dose: 1 drop Olanzapine (Olanzapine 7.5 Mg Tablet) 7.5 mg PO TID PRN PRN Reason: agitation Last Admin: 08/07/24 13:52 Dose: 7.5 mg Ondansetron HCl (Ondansetron Odt 4 Mg Tab.Rapdis) 4 mg TRANSLINGU TIDAC PRN PRN Reason: nausea Last Admin: 08/07/24 21:25 Dose: 4 mg Prazosin HCl (Prazosin Hcl 5 Mg Capsule) 5 mg PO BEDTIME [facility]; Protocol Last Admin: 08/07/24 21:25 Dose: 5 mg Trazodone HCl (Trazodone Hcl 100 Mg Tablet) 200 mg PO BEDTIME [facility] Last Admin: 08/07/24 21:25 Dose: 200 mg Allergies Allergies Allergy/AdvReac Type Severity Reaction Status Date / Time No Known Allergies Allergy Verified 07/07/24 20:03 Assessment & Plan Assessment & Plan (1) Bipolar 1 disorder, depressed: Status: Acute Code(s): F31.9 - Bipolar disorder, unspecified (2) Borderline personality disorder: Status: Acute Code(s): F60.3 - Borderline personality disorder (3) Suicidal ideation: Status: Acute Code(s): R45.851 - Suicidal ideations Plan The patient appears to have clinical depression on top of what appears to be dysphoria anxiety consistent PTSD borderline personality disorder with reactivity and intermittent self-injurious behavior. This does not appear to be part of that pattern there is a strong possible genetic component with her father having completed suicide and history of bipolar disorder patient agreeable to have thing us speak with her therapist and psychiatrist and records reviewed from [address] [place] [address] and [facility]. I have discussed with the patient that ECT would not treat chronic issues that she she deals with stress as mood and stability urges toward self injurious behavior and intermittent restricted eating disorder. The patient describes however ongoing depressed mood with intense thoughts of suicide history of not responding to antidepressant medication and has not stabilized bite a month of treatment with Vraylar and lithium. 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 Patient has had some response reportedly to TMS in the past given intensity of her suicidal thoughts intensity of depression at this time does not seem a current option. Call has been placed to her outpatient psychiatrist in [place]. Although I would not recommend ECT for borderline personality disorder per se certainly given her ongoing depression lack of emotional reactivity anhedonia intense negative affective state that seems to be consistent with thoughts of suicide the patient would meet criteria for a course of ECT which we would start with right unilateral treatment there are no medical contraindications Case has also been discussed and reviewed with inpatient treatment team. Hospital course: 07/18/24: ECT 07.19. 07/19 Patient is post ECT. She is lying in bed alert and oriented but feeling tired. She said she had a headache which got better with p.r.n. medication. Some muscle aches. She felt foggy with some blurred vision but that too is resolving. She says she just wants to rest for now. 07/20 patient feeling calm day after ECT. Wants to continue. 07/21 Patient says she has come in the outside but on the inside she feels a little revved up.; wants to continue with ECT. 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 Later in the evening patient reported feeling that she was starting to get hypomanic and asked for increased dose of Zyprexa 07/23- ECT 07/24. 07/26- Continue tx. 07/29: ECT 07/31 08/02: Continue tx. 08/03: ECT 08/05 and lower prn zyprexa dose to 7.5mg due to sedation 08/04: no changes 08/04: Purging sx. Pt will remain in the common area 30 minutes after meals. 08/07: ECT today 08/08: DC ECT course due to inefficacy [place] 300 mg bid PLAN: CV q15 min checks ECT #1 on 07/19 ECT #2 pending 07/22 npo -increased PRNs Zyprexa to 10 mg since patient starting to feel hypomanic 07/30/24 Inc depressed ect in am rul avoid bt dis not tolerate well inc vraylar 4.5 periactin for nightmares / insomnia 07/31/24 more active [place] affect vraylar 4.5 cont ect rul Reason for continued inpatient stay Substantial Risk for: rapid decompensation Time Spent With Patient Time: Total time managing care of this patient today ____ minutes.
[2024-08-08] MEDS: Ondansetron ODT 4 MG TAB.RAPDIS TRANSLINGU (13:25)
--- NOTE | 2024-08-08 13:26 | HO.POSTANES ---
Post Anesthesia Evaluation Post Anesthesia Evaluation Date of Service: 08/07/24 Vital Signs: Vital Signs Temp Pulse Resp BP Pulse Ox O2 Del Method 08/08/24 08:00 97.6 F 73 19 103/51 L 95 Room Air Anesthesia: General Mental Status: Awake Pain Control: Satisfactory Nausea/Vomiting: None Hydration: Adequate Anesthesia-Related Issues: No Anes. Related Issues
[2024-08-08 19:51] VITALS: BP 132/87; PULSE 120; RESP 18; TEMP 36.5; O2SAT 99
[2024-08-08] MEDS: Cariprazine HCl 1.5 MG CAPSULE 4.5 MG PO (21:58)
[2024-08-08] MEDS: traZODone HCL 100 MG TABLET 200 MG PO (21:59)
[2024-08-08] MEDS: Lithium Carbonate 300 MG CAPSULE PO (21:59)
[2024-08-08] MEDS: Prazosin HCL 5 MG CAPSULE PO (21:59)
[2024-08-08] MEDS: Cyproheptadine HCl 4 MG TABLET PO (21:59)
[2024-08-09] MEDS: Nicotine Polacrilex 2 MG GUM 4 MG BUCCAL ×6 (01:32→22:16)
[2024-08-09 08:00] VITALS: BP 118/61; PULSE 98; RESP 18; TEMP 36.8; O2SAT 95
[2024-08-09] MEDS: Lithium Carbonate 300 MG CAPSULE PO ×2 (09:01→22:19)
[2024-08-09] MEDS: Naltrexone HCl 50 MG TABLET PO (09:01)
[2024-08-09] MEDS: Ondansetron ODT 4 MG TAB.RAPDIS TRANSLINGU ×2 (09:02→17:43)
--- NOTE | 2024-08-09 09:47 | HO.PSYCHPN ---
Subjective Subjective Date of Service: 08/09/24 Reason For Visit: Labile SI Subjective Notes: Conditional Voluntary Interim History: Asks to stop [place] and begin Depakote. Will continue [place] and begin low dose Depakote. If Depakote is effective (by hx is has not been) will taper back [place] Continues with SI. Pt calling insurance about Ketamine. Talks of eating disorder sx-purging, restricting. Will ask nutrition to meet with pt to review choices Angry that ECT did not work. Discussed proactive coping skills and use of these skills. Pt discussing [id number] is currently in [facility] with family. I don't have keys to the apt. Medication Compliance: Yes Side effects from medications: No Attending Groups: Yes Review of Systems Acute medical concerns: No Medical Review of Systems: unchanged Review of Systems Review of Systems Yes all other systems are reviewed and are negative Mental Status Exam Mental Status Exam Patient Appearance: Appropriate Patient Orientation: Person, Place, Time and Situation Level of Consciousness: Alert Patient Behavior: Appropriate, Talkative and Good Eye Contact Mood Description: Apathetic, Depressed, Angry and Flat Affect Description: Flat Patient Cognition Impaired: No Ability to Follow Directions: Good Speech Pattern: Spontaneous Speech Memory Description: Episodic Impaired Hallucinations: None Delusions: Not Present Thought Process: Rumination Thought Content: positive for Perseveration and positive for Suicidal Ideation Depressive Symptoms: Increased Anxiety, Increased Irritability, Unhappiness and Thoughts of /Suicide Judgement: Fair Diagnostics Vital Signs (24Hr): Vital Signs - 24 hr 08/08/24 19:51 08/09/24 08:00 Temperature 97.7 F 98.3 F Pulse Rate 120 H 98 Respiratory Rate 18 18 Blood Pressure 132/87 118/61 Pulse Oximetry 99 95 Oxygen Delivery Method Room Air Room Air BMI result Body Mass Index 36.0 Labs 07/17/24 13:31 08/04/24 12:35 Medications Medications Current Medications Acetaminophen (Acetaminophen 325 Mg Tablet) 650 mg PO Q6H PRN PRN Reason: Headache/Pain Mild Scale (1-3) Last Admin: 07/26/24 21:50 Dose: 650 mg Al Hydroxide/Mg Hydroxide (Magnesium Hydrox/Alum Hydrox 30 Ml Oral.Susp) 30 ml PO Q6H PRN PRN Reason: Heartburn/Nausea Cariprazine (Cariprazine Hcl 1.5 Mg Capsule) 4.5 mg PO BEDTIME PREETI Last Admin: 08/08/24 21:58 Dose: 4.5 mg Cyproheptadine HCl (Cyproheptadine Hcl 4 Mg Tablet) 4 mg PO BEDTIME [facility] Last Admin: 08/08/24 21:59 Dose: 4 mg Hydroxyzine HCl (Hydroxyzine Hcl 25 Mg Tablet) 25 mg PO Q6H PRN PRN Reason: Anxiety Last Admin: 08/08/24 21:59 Dose: 25 mg Ibuprofen (Ibuprofen 600 Mg Tablet) 600 mg PO Q6H PRN PRN Reason: muscle pain Last Admin: 08/05/24 11:23 Dose: 600 mg [place] Carbonate ([place] Carbonate 300 Mg Capsule) 300 mg PO BID [facility] Last Admin: 08/09/24 09:01 Dose: 300 mg Magnesium Hydroxide (Milk Of Magnesia 30 Ml Oral.Susp) 30 ml PO DAILY PRN PRN Reason: Constipation Metformin HCl (Metformin Hcl 500 Mg Tablet) 500 mg PO DAILY@1700 [facility] Last Admin: 08/08/24 17:08 Dose: Not Given Naloxone HCl (Naloxone Hcl 0.4 Mg/Ml Vial) 0.04 mg IVPUSH Q5M PRN PRN Reason: Excessive sedation or RR < 8 Naloxone HCl (Naloxone Hcl 0.4 Mg/Ml Vial) 0.04 mg IVPUSH Q5M PRN PRN Reason: Excessive sedation or RR < 8 Naltrexone HCl (Naltrexone Hcl 50 Mg Tablet) 50 mg PO DAILY [facility] Last Admin: 08/09/24 09:01 Dose: 50 mg Nicotine Polacrilex (Nicotine Polacrilex 2 Mg Gum) 4 mg BUCCAL Q2H PRN PRN Reason: Nicotine Cravings Last Admin: 08/09/24 01:32 Dose: 4 mg Patient Own ( Atomoxetine 25 Mg Capsule) 25 mg PO DAILY [facility] Last Admin: 08/08/24 08:52 Dose: 25 mg Patient Own (Index Lee Menthol Cough Quentin 1 Drop) 1 drop PO Q2H PRN PRN Reason: cough/sore throat Last Admin: 07/27/24 14:03 Dose: 1 drop Olanzapine (Olanzapine 7.5 Mg Tablet) 7.5 mg PO TID PRN PRN Reason: agitation Last Admin: 08/07/24 13:52 Dose: 7.5 mg Ondansetron HCl (Ondansetron Odt 4 Mg Tab.Rapdis) 4 mg TRANSLINGU TIDAC PRN PRN Reason: nausea Last Admin: 08/09/24 09:02 Dose: 4 mg Prazosin HCl (Prazosin Hcl 5 Mg Capsule) 5 mg PO BEDTIME PREETI; Protocol Last Admin: 08/08/24 21:59 Dose: 5 mg Trazodone HCl (Trazodone Hcl 100 Mg Tablet) 200 mg PO BEDTIME PREETI Last Admin: 08/08/24 21:59 Dose: 200 mg Allergies Allergies Allergy/AdvReac Type Severity Reaction Status Date / Time No Known Allergies Allergy Verified 07/07/24 20:03 Assessment & Plan Assessment & Plan (1) Bipolar 1 disorder, depressed: Status: Acute Code(s): F31.9 - Bipolar disorder, unspecified (2) Borderline personality disorder: Status: Acute Code(s): F60.3 - Borderline personality disorder (3) Suicidal ideation: Status: Acute Code(s): R45.851 - Suicidal ideations Plan The patient appears to have clinical depression on top of what appears to be dysphoria anxiety consistent PTSD borderline personality disorder with reactivity and intermittent self-injurious behavior. This does not appear to be part of that pattern there is a strong possible genetic component with her father having completed suicide and history of bipolar disorder patient agreeable to have thing us speak with her therapist and psychiatrist and records reviewed from [address] [place] [address] and [facility]. I have discussed with the patient that ECT would not treat chronic issues that she she deals with stress as mood and stability urges toward self injurious behavior and intermittent restricted eating disorder. The patient describes however ongoing depressed mood with intense thoughts of suicide history of not responding to antidepressant medication and has not stabilized bite a month of treatment with Vraylar and lithium. 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 Patient has had some response reportedly to TMS in the past given intensity of her suicidal thoughts intensity of depression at this time does not seem a current option. Call has been placed to her outpatient psychiatrist in [place]. Although I would not recommend ECT for borderline personality disorder per se certainly given her ongoing depression lack of emotional reactivity anhedonia intense negative affective state that seems to be consistent with thoughts of suicide the patient would meet criteria for a course of ECT which we would start with right unilateral treatment there are no medical contraindications Case has also been discussed and reviewed with inpatient treatment team. Hospital course: 07/18/24: ECT 07.19. 07/19 Patient is post ECT. She is lying in bed alert and oriented but feeling tired. She said she had a headache which got better with p.r.n. medication. Some muscle aches. She felt foggy with some blurred vision but that too is resolving. She says she just wants to rest for now. 07/20 patient feeling calm day after ECT. Wants to continue. 07/21 Patient says she has come in the outside but on the inside she feels a little revved up.; wants to continue with ECT. 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 Later in the evening patient reported feeling that she was starting to get hypomanic and asked for increased dose of Zyprexa 07/23- ECT 07/24. 07/26- Continue tx. 07/29: ECT 07/31 08/02: Continue tx. 08/03: ECT 08/05 and lower prn zyprexa dose to 7.5mg due to sedation 08/04: no changes 08/04: Purging sx. Pt will remain in the common area 30 minutes after meals. 08/07: ECT today 08/09 Depakote ER 500 mg HS Continue [place] PLAN: CV q15 min checks ECT #1 on 07/19 ECT #2 pending 07/22 npo -increased PRNs Zyprexa to 10 mg since patient starting to feel hypomanic 07/30/24 Inc depressed ect in am rul avoid bt dis not tolerate well inc vraylar 4.5 periactin for nightmares / insomnia 07/31/24 more active [place] affect vraylar 4.5 cont ect rul Reason for continued inpatient stay Substantial Risk for: rapid decompensation Time Spent With Patient Time: Total time managing care of this patient today ____ minutes.
[2024-08-09] MEDS: hydrOXYzine HCL 25 MG TABLET PO (19:06)
[2024-08-09] MEDS: Acetaminophen 325 MG TABLET 650 MG PO (19:53)
[2024-08-09 20:00] VITALS: BP 144/86; PULSE 109; TEMP 36.6; O2SAT 99
[2024-08-09 22:15] VITALS: BP 113/76; PULSE 110; TEMP 36.6
[2024-08-09] MEDS: Cariprazine HCl 1.5 MG CAPSULE 4.5 MG PO (22:17)
[2024-08-09] MEDS: Divalproex Sodium ER 500 MG TAB.ER.24H PO (22:18)
[2024-08-09] MEDS: Cyproheptadine HCl 4 MG TABLET PO (22:18)
[2024-08-09 22:20] VITALS: BP 113/76
[2024-08-09] MEDS: Prazosin HCL 5 MG CAPSULE PO (22:20)
[2024-08-09] MEDS: traZODone HCL 100 MG TABLET 200 MG PO (22:22)
[2024-08-10 08:00] VITALS: BP 106/74; PULSE 85; RESP 18; TEMP 36.4; O2SAT 98
[2024-08-10] MEDS: Lithium Carbonate 300 MG CAPSULE PO ×2 (08:37→22:52)
[2024-08-10] MEDS: Naltrexone HCl 50 MG TABLET PO (08:37)
--- NOTE | 2024-08-10 09:55 | HO.PSYCHPN ---
Subjective Subjective Date of Service: 08/10/24 Reason For Visit: Labile SI Subjective Notes: Conditional Voluntary Healthcare Proxy: No Guardianship: No Medical Problems Affecting Mental Status: No Interim History: 24 yo reports that tremor from lithium continues to not want to be on it - explained to patient even at low dose it is the most anti si med besides clozapine- suggested she sit tight and discuss with team on monday- Ongoing si reported by patient- nursing reports social with peers, subdued with staff- angry out [employer] not being available for her Hoping to get ketamine in [place] Medication Compliance: Yes Side effects from medications: Yes (reports tremor, looks minimal when she put hand out to show me) Attending Groups: Yes Review of Systems Acute medical concerns: No Medical Review of Systems: unchanged Mental Status Exam Mental Status Exam Patient Appearance: Appropriate Patient Orientation: Person, Place, Time and Situation Level of Consciousness: Awake and Alert Patient Behavior: Guarded Mood Description: Apprehensive Affect Description: Blunted (but annoyed and irritated) Patient Cognition Impaired: No Ability to Follow Directions: Fair Speech Pattern: Clear Hallucinations: None Thought Process: Intact and Goal Oriented Thought Content: positive for Suicidal Ideation Depressive Symptoms: Increased Irritability Judgement: Fair Diagnostics Vital Signs (24Hr): Vital Signs - 24 hr 08/09/24 20:00 08/09/24 22:15 08/09/24 22:20 Temperature 97.8 F 97.8 F Pulse Rate 109 H 110 H Respiratory Rate Blood Pressure 144/86 H 113/76 113/76 Pulse Oximetry 99 Oxygen Delivery Method Room Air 08/10/24 08:00 Temperature 97.5 F Pulse Rate 85 Respiratory Rate 18 Blood Pressure 106/74 Pulse Oximetry 98 Oxygen Delivery Method Room Air BMI result Body Mass Index 36.0 Labs 07/17/24 13:31 08/04/24 12:35 Medications Medications Current Medications Acetaminophen (Acetaminophen 325 Mg Tablet) 650 mg PO Q6H PRN PRN Reason: Headache/Pain Mild Scale (1-3) Last Admin: 08/09/24 19:53 Dose: 650 mg Al Hydroxide/Mg Hydroxide (Magnesium Hydrox/Alum Hydrox 30 Ml Oral.Susp) 30 ml PO Q6H PRN PRN Reason: Heartburn/Nausea Cariprazine (Cariprazine Hcl 1.5 Mg Capsule) 4.5 mg PO BEDTIME PREETI Last Admin: 08/09/24 22:17 Dose: 4.5 mg Cyproheptadine HCl (Cyproheptadine Hcl 4 Mg Tablet) 4 mg PO BEDTIME [facility] Last Admin: 08/09/24 22:18 Dose: 4 mg Divalproex Sodium (Divalproex Sodium Er 500 Mg Tab.Er.24h) 500 mg PO BEDTIME [facility] Last Admin: 08/09/24 22:18 Dose: 500 mg Hydroxyzine HCl (Hydroxyzine Hcl 25 Mg Tablet) 25 mg PO Q6H PRN PRN Reason: Anxiety Last Admin: 08/09/24 19:06 Dose: 25 mg Ibuprofen (Ibuprofen 600 Mg Tablet) 600 mg PO Q6H PRN PRN Reason: muscle pain Last Admin: 08/05/24 11:23 Dose: 600 mg [place] Carbonate ([place] Carbonate 300 Mg Capsule) 300 mg PO BID [facility] Last Admin: 08/10/24 08:37 Dose: 300 mg Magnesium Hydroxide (Milk Of Magnesia 30 Ml Oral.Susp) 30 ml PO DAILY PRN PRN Reason: Constipation Metformin HCl (Metformin Hcl 500 Mg Tablet) 500 mg PO DAILY@1700 [facility] Last Admin: 08/09/24 17:42 Dose: Not Given Naloxone HCl (Naloxone Hcl 0.4 Mg/Ml Vial) 0.04 mg IVPUSH Q5M PRN PRN Reason: Excessive sedation or RR < 8 Naloxone HCl (Naloxone Hcl 0.4 Mg/Ml Vial) 0.04 mg IVPUSH Q5M PRN PRN Reason: Excessive sedation or RR < 8 Naltrexone HCl (Naltrexone Hcl 50 Mg Tablet) 50 mg PO DAILY [facility] Last Admin: 08/10/24 08:37 Dose: 50 mg Nicotine Polacrilex (Nicotine Polacrilex 2 Mg Gum) 4 mg BUCCAL Q2H PRN PRN Reason: Nicotine Cravings Last Admin: 08/09/24 22:16 Dose: 4 mg Patient Own ( Atomoxetine 25 Mg Capsule) 25 mg PO DAILY [facility] Last Admin: 08/10/24 08:56 Dose: Not Given Patient Own (Arimo Lee Menthol Cough Quentin 1 Drop) 1 drop PO Q2H PRN PRN Reason: cough/sore throat Last Admin: 07/27/24 14:03 Dose: 1 drop Olanzapine (Olanzapine 7.5 Mg Tablet) 7.5 mg PO TID PRN PRN Reason: agitation Last Admin: 08/07/24 13:52 Dose: 7.5 mg Ondansetron HCl (Ondansetron Odt 4 Mg Tab.Rapdis) 4 mg TRANSLINGU TIDAC PRN PRN Reason: nausea Last Admin: 08/09/24 17:43 Dose: 4 mg Prazosin HCl (Prazosin Hcl 5 Mg Capsule) 5 mg PO BEDTIME PREETI; Protocol Last Admin: 08/09/24 22:20 Dose: 5 mg Trazodone HCl (Trazodone Hcl 100 Mg Tablet) 200 mg PO BEDTIME PREETI Last Admin: 08/09/24 22:22 Dose: 200 mg Allergies Allergies Allergy/AdvReac Type Severity Reaction Status Date / Time No Known Allergies Allergy Verified 07/07/24 20:03 Assessment & Plan Assessment & Plan (1) Bipolar 1 disorder, depressed: Status: Acute Code(s): F31.9 - Bipolar disorder, unspecified (2) Borderline personality disorder: Status: Acute Code(s): F60.3 - Borderline personality disorder (3) Suicidal ideation: Status: Acute Code(s): R45.851 - Suicidal ideations Plan The patient appears to have clinical depression on top of what appears to be dysphoria anxiety consistent PTSD borderline personality disorder with reactivity and intermittent self-injurious behavior. This does not appear to be part of that pattern there is a strong possible genetic component with her father having completed suicide and history of bipolar disorder patient agreeable to have thing us speak with her therapist and psychiatrist and records reviewed from [address] [place] [address] and [facility]. I have discussed with the patient that ECT would not treat chronic issues that she she deals with stress as mood and stability urges toward self injurious behavior and intermittent restricted eating disorder. The patient describes however ongoing depressed mood with intense thoughts of suicide history of not responding to antidepressant medication and has not stabilized bite a month of treatment with Vraylar and lithium. 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 Patient has had some response reportedly to TMS in the past given intensity of her suicidal thoughts intensity of depression at this time does not seem a current option. Call has been placed to her outpatient psychiatrist in [place]. Although I would not recommend ECT for borderline personality disorder per se certainly given her ongoing depression lack of emotional reactivity anhedonia intense negative affective state that seems to be consistent with thoughts of suicide the patient would meet criteria for a course of ECT which we would start with right unilateral treatment there are no medical contraindications Case has also been discussed and reviewed with inpatient treatment team. Hospital course: 07/18/24: ECT 07.19. 07/19 Patient is post ECT. She is lying in bed alert and oriented but feeling tired. She said she had a headache which got better with p.r.n. medication. Some muscle aches. She felt foggy with some blurred vision but that too is resolving. She says she just wants to rest for now. 07/20 patient feeling calm day after ECT. Wants to continue. 07/21 Patient says she has come in the outside but on the inside she feels a little revved up.; wants to continue with ECT. Discussed muscle soreness and patient wants ibuprofen reminding publicity writer that currently she is off lithium. Later in the evening patient reported feeling that she was starting to get hypomanic and asked for increased dose of Zyprexa 07/23- ECT 07/24. 07/26- Continue tx. 07/29: ECT 07/31 08/02: Continue tx. 08/03: ECT 08/05 and lower prn zyprexa dose to 7.5mg due to sedation 08/04: no changes 08/04: Purging sx. Pt will remain in the common area 30 minutes after meals. 08/07: ECT today 08/09 Depakote ER 500 mg HS Continue [place] 08/10 CTP discuss further options with team Monday- no changes advised thru weekend did decrease prn olanzapine to 2.5mg for anxious visit with visitor today PLAN: CV q15 min checks ECT #1 on 07/19 ECT #2 pending 07/22 npo -increased PRNs Zyprexa to 10 mg since patient starting to feel hypomanic 07/30/24 Inc depressed ect in am rul avoid bt dis not tolerate well inc vraylar 4.5 periactin for nightmares / insomnia 07/31/24 more active [place] affect vraylar 4.5 cont ect rul Patient educated on: diagnosis and medication risk/benefits Informed Consent: understands and further education needed Reason for continued inpatient stay Substantial Risk for: harm to self and rapid decompensation Time Spent With Patient Time: Total time managing care of this patient today ____ minutes.
[2024-08-10] MEDS: Acetaminophen 325 MG TABLET 650 MG PO ×2 (10:41→22:26)
[2024-08-10] MEDS: Nicotine Polacrilex 2 MG GUM 4 MG BUCCAL ×4 (11:32→20:05)
[2024-08-10] MEDS: OLANZapine 2.5 MG TABLET PO (15:18)
[2024-08-10] MEDS: OLANZapine 7.5 MG TABLET PO (17:39)
[2024-08-10 22:45] VITALS: BP 134/58; PULSE 128; TEMP 36.7
[2024-08-10] MEDS: traZODone HCL 100 MG TABLET 200 MG PO (22:50)
[2024-08-10 22:51] VITALS: BP 134/58
[2024-08-10] MEDS: Prazosin HCL 5 MG CAPSULE PO (22:51)
[2024-08-10] MEDS: Cyproheptadine HCl 4 MG TABLET PO (22:52)
[2024-08-10] MEDS: Divalproex Sodium ER 500 MG TAB.ER.24H PO (22:52)
[2024-08-10] MEDS: Cariprazine HCl 1.5 MG CAPSULE 4.5 MG PO (22:53)
[2024-08-11] MEDS: Naltrexone HCl 50 MG TABLET PO (08:42)
[2024-08-11] MEDS: Lithium Carbonate 300 MG CAPSULE PO ×2 (08:42→23:03)
[2024-08-11 08:43] VITALS: BP 109/59; PULSE 53; RESP 16; TEMP 36.3; O2SAT 97
[2024-08-11 09:41] LABS: Creatinine Clr Calc Pharmacy 89.8; Estimated Glomerular Filt Rate > 60
--- NOTE | 2024-08-11 11:11 | P.PNPSI_ITS ---
Subjective Subjective Date of Service: 08/11/24 Reason For Visit: Labile SI Subjective Notes: Conditional Voluntary Healthcare Proxy: No Guardianship: No Medical Problems Affecting Mental Status: No Interim History: 24 yo lying in bed not wanting to engage, sedated from pm meds- and maybe am prns- not wanting to talk- ongoing si but avoiding/staying in bed and sedated one way of coping- Medication Compliance: Yes Side effects from medications: Yes (?sedated this am, was not at all yesterday and no med change) Attending Groups: Yes Review of Systems Acute medical concerns: No Medical Review of Systems: unchanged Mental Status Exam Mental Status Exam Narrative: lying in bed, minimally cooperative opened her eyes, spoke briefly Patient Appearance: Appropriate Patient Orientation: Person, Place, Time and Situation Level of Consciousness: Drowsy Patient Behavior: Passive, Avoidant and Poor Eye Contact Mood Description: Apathetic and Withdrawn Affect Description: Blunted Patient Cognition Impaired: No Ability to Follow Directions: Fair Speech Pattern: Clear Thought Process: Intact and Goal Oriented Thought Content: positive for Suicidal Ideation Depressive Symptoms: Loss of Energy (today) Judgement: Fair Diagnostics Vital Signs (24Hr): Vital Signs - 24 hr 08/10/24 22:45 08/10/24 22:51 08/11/24 08:43 Temperature 98.1 F 97.4 F Pulse Rate 128 H 53 Respiratory Rate 16 Blood Pressure 134/58 L 134/58 L 109/59 L Pulse Oximetry 97 Oxygen Delivery Method Room Air BMI result Body Mass Index 36.0 Labs 07/17/24 13:31 08/11/24 09:18 Labs: Laboratory Results - last 48 hr 08/11/24 09:18 Hold Purple Top SEE NOTE Creatinine 1.02 Estim Creat Clear Calc 89.8 Estimated GFR > 60 Medications Medications Current Medications Acetaminophen (Acetaminophen 325 Mg Tablet) 650 mg PO Q6H PRN PRN Reason: Headache/Pain Mild Scale (1-3) Last Admin: 08/10/24 22:26 Dose: 650 mg Al Hydroxide/Mg Hydroxide (Magnesium Hydrox/Alum Hydrox 30 Ml Oral.Susp) 30 ml PO Q6H PRN PRN Reason: Heartburn/Nausea Cariprazine (Cariprazine Hcl 1.5 Mg Capsule) 4.5 mg PO BEDTIME PREETI Last Admin: 08/10/24 22:53 Dose: 4.5 mg Cyproheptadine HCl (Cyproheptadine Hcl 4 Mg Tablet) 4 mg PO BEDTIME [facility] Last Admin: 08/10/24 22:52 Dose: 4 mg Divalproex Sodium (Divalproex Sodium Er 500 Mg Tab.Er.24h) 500 mg PO BEDTIME [facility] Last Admin: 08/10/24 22:52 Dose: 500 mg Hydroxyzine HCl (Hydroxyzine Hcl 25 Mg Tablet) 25 mg PO Q6H PRN PRN Reason: Anxiety Last Admin: 08/09/24 19:06 Dose: 25 mg Ibuprofen (Ibuprofen 600 Mg Tablet) 600 mg PO Q6H PRN PRN Reason: muscle pain Last Admin: 08/05/24 11:23 Dose: 600 mg [place] Carbonate ([place] Carbonate 300 Mg Capsule) 300 mg PO BID [facility] Last Admin: 08/11/24 08:42 Dose: 300 mg Magnesium Hydroxide (Milk Of Magnesia 30 Ml Oral.Susp) 30 ml PO DAILY PRN PRN Reason: Constipation Metformin HCl (Metformin Hcl 500 Mg Tablet) 500 mg PO DAILY@1700 [facility] Last Admin: 08/10/24 17:39 Dose: Not Given Naloxone HCl (Naloxone Hcl 0.4 Mg/Ml Vial) 0.04 mg IVPUSH Q5M PRN PRN Reason: Excessive sedation or RR < 8 Naloxone HCl (Naloxone Hcl 0.4 Mg/Ml Vial) 0.04 mg IVPUSH Q5M PRN PRN Reason: Excessive sedation or RR < 8 Naltrexone HCl (Naltrexone Hcl 50 Mg Tablet) 50 mg PO DAILY [facility] Last Admin: 08/11/24 08:42 Dose: 50 mg Nicotine Polacrilex (Nicotine Polacrilex 2 Mg Gum) 4 mg BUCCAL Q2H PRN PRN Reason: Nicotine Cravings Last Admin: 08/10/24 20:05 Dose: 4 mg Patient Own ( Atomoxetine 25 Mg Capsule) 25 mg PO DAILY [facility] Last Admin: 08/11/24 08:43 Dose: Not Given Patient Own ([place] Menthol Cough Quentin 1 Drop) 1 drop PO Q2H PRN PRN Reason: cough/sore throat Last Admin: 07/27/24 14:03 Dose: 1 drop Olanzapine (Olanzapine 7.5 Mg Tablet) 7.5 mg PO TID PRN PRN Reason: agitation Last Admin: 08/10/24 17:39 Dose: 7.5 mg Ondansetron HCl (Ondansetron Odt 4 Mg Tab.Rapdis) 4 mg TRANSLINGU TIDAC PRN PRN Reason: nausea Last Admin: 08/09/24 17:43 Dose: 4 mg Prazosin HCl (Prazosin Hcl 5 Mg Capsule) 5 mg PO BEDTIME PREETI; Protocol Last Admin: 08/10/24 22:51 Dose: 5 mg Trazodone HCl (Trazodone Hcl 100 Mg Tablet) 200 mg PO BEDTIME PREETI Last Admin: 08/10/24 22:50 Dose: 200 mg Allergies Allergies Allergy/AdvReac Type Severity Reaction Status Date / Time No Known Allergies Allergy Verified 07/07/24 20:03 Assessment & Plan Assessment & Plan (1) Bipolar 1 disorder, depressed: Status: Acute Code(s): F31.9 - Bipolar disorder, unspecified (2) Borderline personality disorder: Status: Acute Code(s): F60.3 - Borderline personality disorder (3) Suicidal ideation: Status: Acute Code(s): R45.851 - Suicidal ideations Plan The patient appears to have clinical depression on top of what appears to be dysphoria anxiety consistent PTSD borderline personality disorder with reactivity and intermittent self-injurious behavior. This does not appear to be part of that pattern there is a strong possible genetic component with her father having completed suicide and history of bipolar disorder patient agreeable to have thing us speak with her therapist and psychiatrist and records reviewed from [address] [place] [address] and [facility]. I have discussed with the patient that ECT would not treat chronic issues that she she deals with stress as mood and stability urges toward self injurious behavior and intermittent restricted eating disorder. The patient describes however ongoing depressed mood with intense thoughts of suicide history of not responding to antidepressant medication and has not stabilized bite a month of treatment with Vraylar and lithium. 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 Patient has had some response reportedly to TMS in the past given intensity of her suicidal thoughts intensity of depression at this time does not seem a current option. Call has been placed to her outpatient psychiatrist in [place]. Although I would not recommend ECT for borderline personality disorder per se certainly given her ongoing depression lack of emotional reactivity anhedonia intense negative affective state that seems to be consistent with thoughts of suicide the patient would meet criteria for a course of ECT which we would start with right unilateral treatment there are no medical contraindications Case has also been discussed and reviewed with inpatient treatment team. Hospital course: 07/18/24: ECT 07.19. 07/19 Patient is post ECT. She is lying in bed alert and oriented but feeling tired. She said she had a headache which got better with p.r.n. medication. Some muscle aches. She felt foggy with some blurred vision but that too is resolving. She says she just wants to rest for now. 07/20 patient feeling calm day after ECT. Wants to continue. 07/21 Patient says she has come in the outside but on the inside she feels a little revved up.; wants to continue with ECT. 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 Later in the evening patient reported feeling that she was starting to get hypomanic and asked for increased dose of Zyprexa 07/23- ECT 07/24. 07/26- Continue tx. 07/29: ECT 07/31 08/02: Continue tx. 08/03: ECT 08/05 and lower prn zyprexa dose to 7.5mg due to sedation 08/04: no changes 08/04: Purging sx. Pt will remain in the common area 30 minutes after meals. 08/07: ECT today 08/09 Depakote ER 500 mg HS Continue [place] 08/10 CTP discuss further options with team Monday- no changes advised thru weekend did decrease prn olanzapine to 2.5mg for anxious visit with visitor today 08/11 CTP PLAN: CV q15 min checks ECT #1 on 07/19 ECT #2 pending 07/22 npo -increased PRNs Zyprexa to 10 mg since patient starting to feel hypomanic 07/30/24 Inc depressed ect in am rul avoid bt dis not tolerate well inc vraylar 4.5 periactin for nightmares / insomnia 07/31/24 more active [place] affect vraylar 4.5 cont ect rul Patient educated on: medication risk/benefits Informed Consent: further education needed Reason for continued inpatient stay Substantial Risk for: harm to self and rapid decompensation Time Spent With Patient Time: Total time managing care of this patient today ____ minutes.
[2024-08-11] MEDS: Nicotine Polacrilex 2 MG GUM 4 MG BUCCAL ×2 (19:17→22:11)
[2024-08-11 19:39] VITALS: BP 124/80; PULSE 104; RESP 16; TEMP 37.2; O2SAT 97
[2024-08-11] MEDS: Prazosin HCL 5 MG CAPSULE PO (23:03)
[2024-08-11] MEDS: Cyproheptadine HCl 4 MG TABLET PO (23:03)
[2024-08-11] MEDS: traZODone HCL 100 MG TABLET 200 MG PO (23:04)
[2024-08-11] MEDS: Cariprazine HCl 1.5 MG CAPSULE 4.5 MG PO (23:04)
[2024-08-11] MEDS: Divalproex Sodium ER 500 MG TAB.ER.24H PO (23:04)
[2024-08-12] MEDS: Acetaminophen 325 MG TABLET 650 MG PO ×2 (00:20→11:31)
[2024-08-12 08:00] VITALS: BP 121/58; PULSE 76; TEMP 36.3; O2SAT 100
[2024-08-12] MEDS: Naltrexone HCl 50 MG TABLET PO (09:22)
[2024-08-12] MEDS: Lithium Carbonate 300 MG CAPSULE PO ×2 (09:22→22:00)
[2024-08-12] MEDS: Nicotine Polacrilex 2 MG GUM 4 MG BUCCAL ×5 (11:30→20:44)
--- NOTE | 2024-08-12 12:13 | MHC.CLN ---
F/U CONSULT FOR HX EATING DISORDER. SEE PRIOR RD NOTE FOR CONSULT UPON ADMISSION. ADDED ENSURE TID AT THAT TIME DUE TO PREFERENCE FOR LIQUIDS. ENSURE DID NOT RESUME AFTER ECT TREATMENTS. ADDING ENSURE TID TO PROVIDE 1050 KCALS, 60 G PROTEIN.
--- NOTE | 2024-08-12 15:18 | P.PNPSI_ITS ---
Subjective Subjective Date of Service: 08/12/24 Reason For Visit: Labile SI Subjective Notes: Conditional Voluntary Healthcare Proxy: No Guardianship: No Medical Problems Affecting Mental Status: No Interim History: Discussed pt's frustrations. Angry that ECT did not work. Wanting to now trial Ketamine and an eating disorder program. Safety is an issue. I cannot leave, I am not safe enough. I need to stay Review of her goals, not having her chosen modalities of treatment here and needing to be true to her requests for moving forward with care. Team and pt will work on resources/referrals. A challenge for pt is placed to helping her move forward with her goals. She agrees this is a challenge, but will try. Exploring options with team. Medication Compliance: Yes Side effects from medications: No Attending Groups: Intermittent Review of Systems Acute medical concerns: No Medical Review of Systems: unchanged Review of Systems Review of Systems I Mental Status Exam Mental Status Exam Patient Appearance: Appropriate Patient Orientation: Person, Place, Time and Situation Level of Consciousness: Alert Patient Behavior: Talkative, Cooperative and Good Eye Contact Mood Description: Depressed and Angry Affect Description: Blunted Patient Cognition Impaired: No Ability to Follow Directions: Fair Speech Pattern: Clear Hallucinations: None Delusions: Not Present Perceptual Disturbances: Depersonalization and Derealization Thought Process: Intact and Goal Oriented Thought Content: positive for Suicidal Ideation Depressive Symptoms: Thoughts of /Suicide and Loss of Energy (today) Judgement: Good Diagnostics Vital Signs (24Hr): Vital Signs - 24 hr 08/11/24 19:39 08/12/24 08:00 Temperature 99.0 F 97.3 F Pulse Rate 104 H 76 Respiratory Rate 16 Blood Pressure 124/80 121/58 L Pulse Oximetry 97 100 Oxygen Delivery Method Room Air Room Air BMI result Body Mass Index 36.0 Labs 07/17/24 13:31 08/11/24 09:18 Labs: Laboratory Results - last 48 hr 08/11/24 09:18 Hold Purple Top SEE NOTE Creatinine 1.02 Estim Creat Clear Calc 89.8 Estimated GFR > 60 Medications Medications Current Medications Acetaminophen (Acetaminophen 325 Mg Tablet) 650 mg PO Q6H PRN PRN Reason: Headache/Pain Mild Scale (1-3) Last Admin: 08/12/24 11:31 Dose: 650 mg Al Hydroxide/Mg Hydroxide (Magnesium Hydrox/Alum Hydrox 30 Ml Oral.Susp) 30 ml PO Q6H PRN PRN Reason: Heartburn/Nausea Cariprazine (Cariprazine Hcl 1.5 Mg Capsule) 4.5 mg PO BEDTIME [facility] Last Admin: 08/11/24 23:04 Dose: 4.5 mg Cyproheptadine HCl (Cyproheptadine Hcl 4 Mg Tablet) 4 mg PO BEDTIME [facility] Last Admin: 08/11/24 23:03 Dose: 4 mg Divalproex Sodium (Divalproex Sodium Er 500 Mg Tab.Er.24h) 1,000 mg PO BEDTIME [facility] Hydroxyzine HCl (Hydroxyzine Hcl 25 Mg Tablet) 25 mg PO Q6H PRN PRN Reason: Anxiety Last Admin: 08/09/24 19:06 Dose: 25 mg Ibuprofen (Ibuprofen 600 Mg Tablet) 600 mg PO Q6H PRN PRN Reason: muscle pain Last Admin: 08/05/24 11:23 Dose: 600 mg [place] Carbonate ([place] Carbonate 300 Mg Capsule) 300 mg PO BID [facility] Last Admin: 08/12/24 09:22 Dose: 300 mg Magnesium Hydroxide (Milk Of Magnesia 30 Ml Oral.Susp) 30 ml PO DAILY PRN PRN Reason: Constipation Metformin HCl (Metformin Hcl 500 Mg Tablet) 500 mg PO DAILY@1700 [facility] Last Admin: 08/11/24 16:37 Dose: Not Given Naloxone HCl (Naloxone Hcl 0.4 Mg/Ml Vial) 0.04 mg IVPUSH Q5M PRN PRN Reason: Excessive sedation or RR < 8 Naloxone HCl (Naloxone Hcl 0.4 Mg/Ml Vial) 0.04 mg IVPUSH Q5M PRN PRN Reason: Excessive sedation or RR < 8 Naltrexone HCl (Naltrexone Hcl 50 Mg Tablet) 50 mg PO DAILY [facility] Last Admin: 08/12/24 09:22 Dose: 50 mg Nicotine Polacrilex (Nicotine Polacrilex 2 Mg Gum) 4 mg BUCCAL Q2H PRN PRN Reason: Nicotine Cravings Last Admin: 08/12/24 14:51 Dose: 4 mg Patient Own ( Atomoxetine 25 Mg Capsule) 25 mg PO DAILY [facility] Last Admin: 08/12/24 12:53 Dose: 25 mg Patient Own ([place] Lee Menthol Cough Quentin 1 Drop) 1 drop PO Q2H PRN PRN Reason: cough/sore throat Last Admin: 07/27/24 14:03 Dose: 1 drop Olanzapine (Olanzapine 7.5 Mg Tablet) 7.5 mg PO TID PRN PRN Reason: agitation Last Admin: 08/10/24 17:39 Dose: 7.5 mg Ondansetron HCl (Ondansetron Odt 4 Mg Tab.Rapdis) 4 mg TRANSLINGU TIDAC PRN PRN Reason: nausea Last Admin: 08/09/24 17:43 Dose: 4 mg Prazosin HCl (Prazosin Hcl 5 Mg Capsule) 5 mg PO BEDTIME PREETI; Protocol Last Admin: 08/11/24 23:03 Dose: 5 mg Trazodone HCl (Trazodone Hcl 100 Mg Tablet) 200 mg PO BEDTIME PREETI Last Admin: 08/11/24 23:04 Dose: 200 mg Allergies Allergies Allergy/AdvReac Type Severity Reaction Status Date / Time No Known Allergies Allergy Verified 07/07/24 20:03 Assessment & Plan Assessment & Plan (1) Bipolar 1 disorder, depressed: Status: Acute Code(s): F31.9 - Bipolar disorder, unspecified (2) Borderline personality disorder: Status: Acute Code(s): F60.3 - Borderline personality disorder (3) Suicidal ideation: Status: Acute Code(s): R45.851 - Suicidal ideations Plan The patient appears to have clinical depression on top of what appears to be dysphoria anxiety consistent PTSD borderline personality disorder with reactivity and intermittent self-injurious behavior. This does not appear to be part of that pattern there is a strong possible genetic component with her father having completed suicide and history of bipolar disorder patient agreeable to have thing us speak with her therapist and psychiatrist and records reviewed from [address] [place] [address] and [facility]. I have discussed with the patient that ECT would not treat chronic issues that she she deals with stress as mood and stability urges toward self injurious behavior and intermittent restricted eating disorder. The patient describes however ongoing depressed mood with intense thoughts of suicide history of not responding to antidepressant medication and has not stabilized bite a month of treatment with Vraylar and lithium. 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 Patient has had some response reportedly to TMS in the past given intensity of her suicidal thoughts intensity of depression at this time does not seem a current option. Call has been placed to her outpatient psychiatrist in [place]. Although I would not recommend ECT for borderline personality disorder per se certainly given her ongoing depression lack of emotional reactivity anhedonia intense negative affective state that seems to be consistent with thoughts of suicide the patient would meet criteria for a course of ECT which we would start with right unilateral treatment there are no medical contraindications Case has also been discussed and reviewed with inpatient treatment team. Hospital course: 07/18/24: ECT 07.19. 07/19 Patient is post ECT. She is lying in bed alert and oriented but feeling tired. She said she had a headache which got better with p.r.n. medication. Some muscle aches. She felt foggy with some blurred vision but that too is resolving. She says she just wants to rest for now. 07/20 patient feeling calm day after ECT. Wants to continue. 07/21 Patient says she has come in the outside but on the inside she feels a little revved up.; wants to continue with ECT. 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 Later in the evening patient reported feeling that she was starting to get hypomanic and asked for increased dose of Zyprexa 07/23- ECT 07/24. 07/26- Continue tx. 07/29: ECT 07/31 08/02: Continue tx. 08/03: ECT 08/05 and lower prn zyprexa dose to 7.5mg due to sedation 08/04: no changes 08/04: Purging sx. Pt will remain in the common area 30 minutes after meals. 08/07: ECT today 08/09 Depakote ER 500 mg HS Continue [place] 08/10 CTP discuss further options with team Monday- no changes advised thru weekend did decrease prn olanzapine to 2.5mg for anxious visit with visitor today 08/11 CTP 08/12 Encourage Lila to move forward in exploring her treatment goals. PLAN: CV q15 min checks ECT #1 on 07/19 ECT #2 pending 07/22 npo -increased PRNs Zyprexa to 10 mg since patient starting to feel hypomanic 07/30/24 Inc depressed ect in am rul avoid bt dis not tolerate well inc vraylar 4.5 periactin for nightmares / insomnia 07/31/24 more active [place] affect vraylar 4.5 cont ect rul Reason for continued inpatient stay Substantial Risk for: rapid decompensation Time Spent With Patient Time: Total time managing care of this patient today ____ minutes.
--- NOTE | 2024-08-12 18:03 | MHC.RECOVSUP ---
? Reason for consult o Current location: [address] [place] [address] ? Intervention: o Community resources provided o Harm reduction discussion ? Plan: o Patient to follow up with [facility] after discharge ? Additional information: Met with Patient and we talked about recovery and harm reduction.. Patient stated that she all she been thinking about is using and hurting herself We talked about resources for when she is feeling like...
[2024-08-12 20:00] VITALS: BP 102/67; PULSE 120; RESP 18; TEMP 36.9; O2SAT 99
[2024-08-12] MEDS: traZODone HCL 100 MG TABLET 200 MG PO (21:58)
[2024-08-12] MEDS: Cariprazine HCl 1.5 MG CAPSULE 4.5 MG PO (21:59)
[2024-08-12] MEDS: Prazosin HCL 5 MG CAPSULE PO (22:00)
[2024-08-12] MEDS: Divalproex Sodium ER 500 MG TAB.ER.24H 1000 MG PO (22:01)
[2024-08-12] MEDS: Cyproheptadine HCl 4 MG TABLET PO (22:01)
[2024-08-13] MEDS: Naltrexone HCl 50 MG TABLET PO (08:41)
[2024-08-13] MEDS: Lithium Carbonate 300 MG CAPSULE PO ×2 (08:41→22:55)
--- NOTE | 2024-08-13 08:42 | HO.PSYCHPN ---
Subjective Subjective Date of Service: 08/13/24 Reason For Visit: Labile SI Subjective Notes: Conditional Voluntary Healthcare Proxy: No Guardianship: No Medical Problems Affecting Mental Status: No Interim History: No, just not safe to leave you all. I am close to too many people. Reviewed progress on goals-reaching out to potential Ketamine resources in the [place], [place] area along with the eating disorder PHP in the [facility] with the team. Depression 11, Anxiety 9. Encouraged to continue to work on goals. Asking appropriate questions, problem solving with team about transportation to programs, length of programs, ability to return to college in Nov 2024. Agrees that some of the forward focus of this to meet her goals does feel productive and healthy. Medication Compliance: Yes Side effects from medications: No Attending Groups: Intermittent Review of Systems Acute medical concerns: No Medical Review of Systems: unchanged Review of Systems Review of Systems Yes all other systems are reviewed and are negative Mental Status Exam Mental Status Exam Patient Appearance: Appropriate Patient Orientation: Person, Place, Time and Situation Level of Consciousness: Alert Patient Behavior: Talkative, Cooperative and Good Eye Contact Mood Description: Depressed Affect Description: Flat Patient Cognition Impaired: No Ability to Follow Directions: Fair Speech Pattern: Clear Hallucinations: None Delusions: Not Present Perceptual Disturbances: Depersonalization and Derealization Thought Process: Intact and Goal Oriented Thought Content: positive for Suicidal Ideation Depressive Symptoms: Thoughts of /Suicide and Loss of Energy (today) Judgement: Good Diagnostics Vital Signs (24Hr): Vital Signs - 24 hr 08/12/24 20:00 Temperature 98.4 F Pulse Rate 120 H Respiratory Rate 18 Blood Pressure 102/67 Pulse Oximetry 99 Oxygen Delivery Method Room Air BMI result Body Mass Index 36.0 Labs 07/17/24 13:31 08/11/24 09:18 Labs: Laboratory Results - last 48 hr 08/11/24 09:18 Hold Purple Top SEE NOTE Creatinine 1.02 Estim Creat Clear Calc 89.8 Estimated GFR > 60 Medications Medications Current Medications Acetaminophen (Acetaminophen 325 Mg Tablet) 650 mg PO Q6H PRN PRN Reason: Headache/Pain Mild Scale (1-3) Last Admin: 08/12/24 11:31 Dose: 650 mg Al Hydroxide/Mg Hydroxide (Magnesium Hydrox/Alum Hydrox 30 Ml Oral.Susp) 30 ml PO Q6H PRN PRN Reason: Heartburn/Nausea Cariprazine (Cariprazine Hcl 1.5 Mg Capsule) 4.5 mg PO BEDTIME [facility] Last Admin: 08/12/24 21:59 Dose: 4.5 mg Cyproheptadine HCl (Cyproheptadine Hcl 4 Mg Tablet) 4 mg PO BEDTIME [facility] Last Admin: 08/12/24 22:01 Dose: 4 mg Divalproex Sodium (Divalproex Sodium Er 500 Mg Tab.Er.24h) 1,000 mg PO BEDTIME [facility] Last Admin: 08/12/24 22:01 Dose: 1,000 mg Hydroxyzine HCl (Hydroxyzine Hcl 25 Mg Tablet) 25 mg PO Q6H PRN PRN Reason: Anxiety Last Admin: 08/09/24 19:06 Dose: 25 mg Ibuprofen (Ibuprofen 600 Mg Tablet) 600 mg PO Q6H PRN PRN Reason: muscle pain Last Admin: 08/05/24 11:23 Dose: 600 mg Churchill Carbonate (Churchill Carbonate 300 Mg Capsule) 300 mg PO BID [facility] Last Admin: 08/13/24 08:41 Dose: 300 mg Magnesium Hydroxide (Milk Of Magnesia 30 Ml Oral.Susp) 30 ml PO DAILY PRN PRN Reason: Constipation Metformin HCl (Metformin Hcl 500 Mg Tablet) 500 mg PO DAILY@1700 [facility] Last Admin: 08/12/24 20:21 Dose: Not Given Naloxone HCl (Naloxone Hcl 0.4 Mg/Ml Vial) 0.04 mg IVPUSH Q5M PRN PRN Reason: Excessive sedation or RR < 8 Naloxone HCl (Naloxone Hcl 0.4 Mg/Ml Vial) 0.04 mg IVPUSH Q5M PRN PRN Reason: Excessive sedation or RR < 8 Naltrexone HCl (Naltrexone Hcl 50 Mg Tablet) 50 mg PO DAILY [facility] Last Admin: 08/13/24 08:41 Dose: 50 mg Nicotine Polacrilex (Nicotine Polacrilex 2 Mg Gum) 4 mg BUCCAL Q2H PRN PRN Reason: Nicotine Cravings Last Admin: 08/12/24 20:44 Dose: 4 mg Patient Own ( Atomoxetine 25 Mg Capsule) 25 mg PO DAILY [facility] Last Admin: 08/12/24 12:53 Dose: 25 mg Patient Own (Milnor Lee Menthol Cough Quentin 1 Drop) 1 drop PO Q2H PRN PRN Reason: cough/sore throat Last Admin: 07/27/24 14:03 Dose: 1 drop Olanzapine (Olanzapine 7.5 Mg Tablet) 7.5 mg PO TID PRN PRN Reason: agitation Last Admin: 08/10/24 17:39 Dose: 7.5 mg Ondansetron HCl (Ondansetron Odt 4 Mg Tab.Rapdis) 4 mg TRANSLINGU TIDAC PRN PRN Reason: nausea Last Admin: 08/09/24 17:43 Dose: 4 mg Prazosin HCl (Prazosin Hcl 5 Mg Capsule) 5 mg PO BEDTIME [facility]; Protocol Last Admin: 08/12/24 22:00 Dose: 5 mg Trazodone HCl (Trazodone Hcl 100 Mg Tablet) 200 mg PO BEDTIME [facility] Last Admin: 08/12/24 21:58 Dose: 200 mg Allergies Allergies Allergy/AdvReac Type Severity Reaction Status Date / Time No Known Allergies Allergy Verified 07/07/24 20:03 Assessment & Plan Assessment & Plan (1) Bipolar 1 disorder, depressed: Status: Acute Code(s): F31.9 - Bipolar disorder, unspecified (2) Borderline personality disorder: Status: Acute Code(s): F60.3 - Borderline personality disorder (3) Suicidal ideation: Status: Acute Code(s): R45.851 - Suicidal ideations Plan The patient appears to have clinical depression on top of what appears to be dysphoria anxiety consistent PTSD borderline personality disorder with reactivity and intermittent self-injurious behavior. This does not appear to be part of that pattern there is a strong possible genetic component with her father having completed suicide and history of bipolar disorder patient agreeable to have thing us speak with her therapist and psychiatrist and records reviewed from [address] [place] [address] and [facility]. I have discussed with the patient that ECT would not treat chronic issues that she she deals with stress as mood and stability urges toward self injurious behavior and intermittent restricted eating disorder. The patient describes however ongoing depressed mood with intense thoughts of suicide history of not responding to antidepressant medication and has not stabilized bite a month of treatment with Vraylar and lithium. 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 Patient has had some response reportedly to TMS in the past given intensity of her suicidal thoughts intensity of depression at this time does not seem a current option. Call has been placed to her outpatient psychiatrist in [place]. Although I would not recommend ECT for borderline personality disorder per se certainly given her ongoing depression lack of emotional reactivity anhedonia intense negative affective state that seems to be consistent with thoughts of suicide the patient would meet criteria for a course of ECT which we would start with right unilateral treatment there are no medical contraindications Case has also been discussed and reviewed with inpatient treatment team. Hospital course: 07/18/24: ECT 07.19. 07/19 Patient is post ECT. She is lying in bed alert and oriented but feeling tired. She said she had a headache which got better with p.r.n. medication. Some muscle aches. She felt foggy with some blurred vision but that too is resolving. She says she just wants to rest for now. 07/20 patient feeling calm day after ECT. Wants to continue. 07/21 Patient says she has come in the outside but on the inside she feels a little revved up.; wants to continue with ECT. 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 Later in the evening patient reported feeling that she was starting to get hypomanic and asked for increased dose of Zyprexa 07/23- ECT 07/24. 07/26- Continue tx. 07/29: ECT 07/31 08/02: Continue tx. 08/03: ECT 08/05 and lower prn zyprexa dose to 7.5mg due to sedation 08/04: no changes 08/04: Purging sx. Pt will remain in the common area 30 minutes after meals. 08/07: ECT today 08/09 Depakote ER 500 mg HS Continue Churchill 08/10 CTP discuss further options with team Monday- no changes advised thru weekend did decrease prn olanzapine to 2.5mg for anxious visit with visitor today 08/11 CTP 08/13 Progress toward DC tentative for 08/16/24. PLAN: CV q15 min checks ECT #1 on 07/19 ECT #2 pending 07/22 npo -increased PRNs Zyprexa to 10 mg since patient starting to feel hypomanic 07/30/24 Inc depressed ect in am rul avoid bt dis not tolerate well inc vraylar 4.5 periactin for nightmares / insomnia 07/31/24 more active barbosa affect vraylar 4.5 cont ect rul Informed Consent: understands Reason for continued inpatient stay Substantial Risk for: rapid decompensation Time Spent With Patient Time: Total time managing care of this patient today ____ minutes.
[2024-08-13] MEDS: Nicotine Polacrilex 2 MG GUM 4 MG BUCCAL ×5 (12:11→21:45)
[2024-08-13] MEDS: Acetaminophen 325 MG TABLET 650 MG PO (14:22)
[2024-08-13 20:00] VITALS: BP 141/72; PULSE 97; RESP 18; TEMP 37; O2SAT 100
[2024-08-13] MEDS: traZODone HCL 100 MG TABLET 200 MG PO (22:55)
[2024-08-13 22:56] VITALS: BP 117/83
[2024-08-13] MEDS: Divalproex Sodium ER 500 MG TAB.ER.24H 1000 MG PO (22:56)
[2024-08-13] MEDS: Cyproheptadine HCl 4 MG TABLET PO (22:56)
[2024-08-13] MEDS: Prazosin HCL 5 MG CAPSULE PO (22:56)
[2024-08-13] MEDS: Cariprazine HCl 1.5 MG CAPSULE 4.5 MG PO (22:56)
[2024-08-14 08:00] VITALS: BP 114/69; PULSE 81; TEMP 36.4; O2SAT 96
[2024-08-14] MEDS: Naltrexone HCl 50 MG TABLET PO (09:29)
[2024-08-14] MEDS: Lithium Carbonate 300 MG CAPSULE PO ×2 (09:29→23:00)
[2024-08-14] MEDS: Acetaminophen 325 MG TABLET 650 MG PO (10:20)
[2024-08-14] MEDS: Ondansetron ODT 4 MG TAB.RAPDIS TRANSLINGU ×2 (10:20→20:51)
--- NOTE | 2024-08-14 17:08 | P.PNPSI_ITS ---
Subjective Subjective Date of Service: 08/14/24 Reason For Visit: Labile SI Subjective Notes: Conditional Voluntary Healthcare Proxy: No Guardianship: No Medical Problems Affecting Mental Status: No Interim History: Pt working with team on discharge planning. Reports depression 10, anxiety 3. Reports I ate no breakfast or lunch Agreed to diagnostics for 08/15 prior to discharge. Planning to return to her therapist and psychopharmacologist, ketamine consult, eating disorders IOP/PHP, all that she has expressed interest in during admission. Ongoing struggle with SIBS/safety/decisions regarding self care vs self destructive acts. Made contact with room-mate Dank and friend Naila today during our meeting. Visable with peers in milieu. Medication Compliance: Yes Side effects from medications: No Attending Groups: Intermittent Review of Systems Acute medical concerns: No Medical Review of Systems: unchanged Review of Systems Review of Systems Yes all other systems are reviewed and are negative Mental Status Exam Mental Status Exam Patient Appearance: Appropriate Patient Orientation: Person, Place, Time and Situation Level of Consciousness: Alert Patient Behavior: Talkative, Cooperative and Good Eye Contact Mood Description: Hostile and Angry Affect Description: Hostile, Angry and Flat Patient Cognition Impaired: No Ability to Follow Directions: Good Speech Pattern: Clear Hallucinations: None Delusions: Not Present Perceptual Disturbances: Depersonalization and Derealization Thought Process: Intact and Goal Oriented Thought Content: positive for Suicidal Ideation Depressive Symptoms: Thoughts of /Suicide and Loss of Energy (today) Judgement: Good Diagnostics Vital Signs (24Hr): Vital Signs - 24 hr 08/13/24 20:00 08/13/24 22:56 08/14/24 08:00 Temperature 98.6 F 97.6 F Pulse Rate 97 81 Respiratory Rate 18 Blood Pressure 141/72 H 117/83 114/69 Pulse Oximetry 100 96 Oxygen Delivery Method Room Air Room Air BMI result Body Mass Index 36.0 Labs 08/15/24 08:17 08/15/24 08:17 Medications Medications Current Medications Acetaminophen (Acetaminophen 325 Mg Tablet) 650 mg PO Q6H PRN PRN Reason: Headache/Pain Mild Scale (1-3) Last Admin: 08/14/24 10:20 Dose: 650 mg Al Hydroxide/Mg Hydroxide (Magnesium Hydrox/Alum Hydrox 30 Ml Oral.Susp) 30 ml PO Q6H PRN PRN Reason: Heartburn/Nausea Cariprazine (Cariprazine Hcl 1.5 Mg Capsule) 4.5 mg PO BEDTIME [facility] Last Admin: 08/13/24 22:56 Dose: 4.5 mg Cyproheptadine HCl (Cyproheptadine Hcl 4 Mg Tablet) 4 mg PO BEDTIME [facility] Last Admin: 08/13/24 22:56 Dose: 4 mg Divalproex Sodium (Divalproex Sodium Er 500 Mg Tab.Er.24h) 1,000 mg PO BEDTIME [facility] Last Admin: 08/13/24 22:56 Dose: 1,000 mg Hydroxyzine HCl (Hydroxyzine Hcl 25 Mg Tablet) 25 mg PO Q6H PRN PRN Reason: Anxiety Last Admin: 08/09/24 19:06 Dose: 25 mg Ibuprofen (Ibuprofen 600 Mg Tablet) 600 mg PO Q6H PRN PRN Reason: muscle pain Last Admin: 08/05/24 11:23 Dose: 600 mg Gerald Carbonate (Gerald Carbonate 300 Mg Capsule) 300 mg PO BID [facility] Last Admin: 08/14/24 09:29 Dose: 300 mg Magnesium Hydroxide (Milk Of Magnesia 30 Ml Oral.Susp) 30 ml PO DAILY PRN PRN Reason: Constipation Metformin HCl (Metformin Hcl 500 Mg Tablet) 500 mg PO DAILY@1700 [facility] Last Admin: 08/13/24 16:42 Dose: Not Given Naloxone HCl (Naloxone Hcl 0.4 Mg/Ml Vial) 0.04 mg IVPUSH Q5M PRN PRN Reason: Excessive sedation or RR < 8 Naloxone HCl (Naloxone Hcl 0.4 Mg/Ml Vial) 0.04 mg IVPUSH Q5M PRN PRN Reason: Excessive sedation or RR < 8 Naltrexone HCl (Naltrexone Hcl 50 Mg Tablet) 50 mg PO DAILY [facility] Last Admin: 08/14/24 09:29 Dose: 50 mg Nicotine Polacrilex (Nicotine Polacrilex 2 Mg Gum) 4 mg BUCCAL Q2H PRN PRN Reason: Nicotine Cravings Last Admin: 08/13/24 21:45 Dose: 4 mg Patient Own ( Atomoxetine 25 Mg Capsule) 25 mg PO DAILY [facility] Last Admin: 08/14/24 09:28 Dose: 25 mg Patient Own ([place] Lee Menthol Cough Quentin 1 Drop) 1 drop PO Q2H PRN PRN Reason: cough/sore throat Last Admin: 07/27/24 14:03 Dose: 1 drop Olanzapine (Olanzapine 7.5 Mg Tablet) 7.5 mg PO TID PRN PRN Reason: agitation Last Admin: 08/10/24 17:39 Dose: 7.5 mg Ondansetron HCl (Ondansetron Odt 4 Mg Tab.Rapdis) 4 mg TRANSLINGU TIDAC PRN PRN Reason: nausea Last Admin: 08/14/24 10:20 Dose: 4 mg Prazosin HCl (Prazosin Hcl 5 Mg Capsule) 5 mg PO BEDTIME [facility]; Protocol Last Admin: 08/13/24 22:56 Dose: 5 mg Trazodone HCl (Trazodone Hcl 100 Mg Tablet) 200 mg PO BEDTIME [facility] Last Admin: 08/13/24 22:55 Dose: 200 mg Allergies Allergies Allergy/AdvReac Type Severity Reaction Status Date / Time No Known Allergies Allergy Verified 07/07/24 20:03 Assessment & Plan Assessment & Plan (1) Bipolar 1 disorder, depressed: Status: Acute Code(s): F31.9 - Bipolar disorder, unspecified (2) Borderline personality disorder: Status: Acute Code(s): F60.3 - Borderline personality disorder (3) Suicidal ideation: Status: Acute Code(s): R45.851 - Suicidal ideations Plan The patient appears to have clinical depression on top of what appears to be dysphoria anxiety consistent PTSD borderline personality disorder with reactivity and intermittent self-injurious behavior. This does not appear to be part of that pattern there is a strong possible genetic component with her father having completed suicide and history of bipolar disorder patient agreeable to have thing us speak with her therapist and psychiatrist and records reviewed from [address] [place] [address] and [facility]. I have discussed with the patient that ECT would not treat chronic issues that she she deals with stress as mood and stability urges toward self injurious behavior and intermittent restricted eating disorder. The patient describes however ongoing depressed mood with intense thoughts of suicide history of not responding to antidepressant medication and has not stabilized bite a month of treatment with Vraylar and lithium. 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 Patient has had some response reportedly to TMS in the past given intensity of her suicidal thoughts intensity of depression at this time does not seem a current option. Call has been placed to her outpatient psychiatrist in [place]. Although I would not recommend ECT for borderline personality disorder per se certainly given her ongoing depression lack of emotional reactivity anhedonia intense negative affective state that seems to be consistent with thoughts of suicide the patient would meet criteria for a course of ECT which we would start with right unilateral treatment there are no medical contraindications Case has also been discussed and reviewed with inpatient treatment team. Hospital course: 07/18/24: ECT 07.19. 07/19 Patient is post ECT. She is lying in bed alert and oriented but feeling tired. She said she had a headache which got better with p.r.n. medication. Some muscle aches. She felt foggy with some blurred vision but that too is resolving. She says she just wants to rest for now. 07/20 patient feeling calm day after ECT. Wants to continue. 07/21 Patient says she has come in the outside but on the inside she feels a little revved up.; wants to continue with ECT. 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 Later in the evening patient reported feeling that she was starting to get hypomanic and asked for increased dose of Zyprexa 07/23- ECT 07/24. 07/26- Continue tx. 07/29: ECT 07/31 08/02: Continue tx. 08/03: ECT 08/05 and lower prn zyprexa dose to 7.5mg due to sedation 08/04: no changes 08/04: Purging sx. Pt will remain in the common area 30 minutes after meals. 08/07: ECT today 08/09 Depakote ER 500 mg HS Continue Gerald 08/10 CTP discuss further options with team Monday- no changes advised thru weekend did decrease prn olanzapine to 2.5mg for anxious visit with visitor today 08/11 CTP 08/13 Progress toward DC tentative for 08/16/24. 08/14/24 Working toward DC for 08/16/24. PLAN: CV q15 min checks ECT #1 on 07/19 ECT #2 pending 07/22 npo -increased PRNs Zyprexa to 10 mg since patient starting to feel hypomanic 07/30/24 Inc depressed ect in am rul avoid bt dis not tolerate well inc vraylar 4.5 periactin for nightmares / insomnia 07/31/24 more active barbosa affect vraylar 4.5 cont ect rul Reason for continued inpatient stay Substantial Risk for: stable for discharge Time Spent With Patient Time: Total time managing care of this patient today ____ minutes.
[2024-08-14 20:00] VITALS: BP 119/74; PULSE 122; RESP 18; TEMP 36.4; O2SAT 97
[2024-08-14] MEDS: Nicotine Polacrilex 2 MG GUM 4 MG BUCCAL (21:06)
[2024-08-14] MEDS: Cariprazine HCl 1.5 MG CAPSULE 4.5 MG PO (22:56)
[2024-08-14 22:57] VITALS: BP 119/74
[2024-08-14] MEDS: Prazosin HCL 5 MG CAPSULE PO (22:57)
[2024-08-14] MEDS: traZODone HCL 100 MG TABLET 200 MG PO (22:57)
[2024-08-14] MEDS: Cyproheptadine HCl 4 MG TABLET PO (22:57)
[2024-08-14] MEDS: Divalproex Sodium ER 500 MG TAB.ER.24H 1000 MG PO (23:00)
[2024-08-15 07:00] VITALS: BMI 34.1
[2024-08-15 08:00] VITALS: BP 121/59; PULSE 106; RESP 16; TEMP 36.4; O2SAT 94
[2024-08-15 08:24] LABS: MANUAL DIFF FLAG NO
[2024-08-15 08:31] LABS: Basophils Absolute Auto 0.1 X10*3/uL (0.0-0.2); Basophils Percent Auto 0.5 % (0-2); Eosinophils Absolute Auto 0.2 X10*3/uL (0.0-0.4); Eosinophils Percent Auto 2.3 % (0-4); Hematocrit 43.9 % (37.0-47.0); Hemoglobin 14.7 g/dl (12.0-16.0); Imm Gran Abs Auto 0.03 X10*3/uL (0.00-0.03); Imm Gran Pct Auto 0.3 % (0.0-0.4); Lymphocytes Absolute Auto 3.2 X10*3/uL (1.2-4.9); Lymphocytes Percent Auto 31.8 % (20-40); Mean Corpuscular HGB Conc 33.5 g/dl (31.0-35.0); Mean Corpuscular Hemoglobin 29.2 pg (27.0-33.0); Mean Corpuscular Volume 87.1 fL (80.0-98.0); Mean Platelet Volume 9.7 fL (9.4-12.3); Monocytes Absolute Auto 0.7 X10*3/uL (0.1-1.2); Monocytes Percent Auto 6.9 % (2-11); Neutrophils Absolute Auto 5.9 x10*3/uL (2.0-8.3); Neutrophils Percent Auto 58.2 % (45-73); Platelet Count 382 X10*3/uL (160-400); Red Blood Count 5.04 X10*6/uL (4.20-5.50); Red Cell Distribution Width 13.5 % (11.0-16.0); White Blood Count 10.2 X10*3/uL (4.8-10.8)
[2024-08-15 08:43] LABS: Lithium 0.98 mmol/L (0.60-1.20)
[2024-08-15 08:47] LABS: Valproate 78.2 mcg/mL (50.0-100.0)
[2024-08-15 08:53] LABS: Alanine Aminotransferase 11 U/L (0-31); Albumin Level 4.7 g/dL (3.5-5.0); Alkaline Phosphatase 75 U/L (39-117); Anion Gap 14 (12-20); Aspartate Amino Transferase 12 U/L (5-31); Bilirubin Total 0.4 mg/dL (0.0-1.0); Blood Urea Nitrogen 11 mg/dL (9-16); Calcium 10.1 mg/dL (8.4-10.2); Carbon Dioxide 28 mmol/L (22-29); Chloride 103 mmol/L (96-108); Creatinine Clr Calc Pharmacy 107.7; Estimated Glomerular Filt Rate > 60; Glucose Random 76 mg/dL (60-115); Potassium 3.9 mmol/L (3.3-5.1); Sodium 141 mmol/L (135-145); Total Protein 7.8 g/dL (6.5-8.0)
[2024-08-15 09:08] LABS: Thyroid Stimulating Hormone 0.33 uIU/mL (0.32-4.0)
[2024-08-15] MEDS: Lithium Carbonate 300 MG CAPSULE PO ×2 (10:27→23:13)
[2024-08-15] MEDS: Naltrexone HCl 50 MG TABLET PO (10:27)
--- NOTE | 2024-08-15 12:10 | HO.PSYCHPN ---
Subjective Subjective Date of Service: 08/15/24 Reason For Visit: Labile SI Subjective Notes: Conditional Voluntary Healthcare Proxy: No Guardianship: No Medical Problems Affecting Mental Status: No Interim History: Discharge planning continues. States she has a safety plan in place for discharge with Stefan. Shared some of her notes, so we could add this plan to her discharge plan. Met with pt this a.m. as she wanted to see if Ket[facility] consult team had sent paperwork to her email for completion. As they had not, she asked to meet in the afternoon and said she would add to her safety plan. Met with pt briefly in the afternoon. She was irritable, states she had just awoken from a nap and could not meet as she was going to vomit. Discussed choices in coping mechanisms which she reported she did not want to discuss and was not satisfied with tw response. She met with Raymundo MENDES later in the day and was able to retrieve paperwork sent from [facility] to her email. Therapist confirmed OP appt of 08/21/24 10am. Message left for therapist to discuss treatment and plan of care. Medication Compliance: Yes Side effects from medications: No Attending Groups: Intermittent Review of Systems Acute medical concerns: No Medical Review of Systems: unchanged Review of Systems Review of Systems SIBS Mental Status Exam Mental Status Exam Patient Appearance: Appropriate Patient Orientation: Person, Place, Time and Situation Level of Consciousness: Alert Patient Behavior: Talkative, Cooperative and Good Eye Contact Mood Description: Hostile and Angry Affect Description: Hostile, Angry and Flat Patient Cognition Impaired: No Ability to Follow Directions: Good Speech Pattern: Clear Hallucinations: None Delusions: Not Present Perceptual Disturbances: Depersonalization and Derealization Thought Process: Intact and Goal Oriented Thought Content: positive for Suicidal Ideation Depressive Symptoms: Thoughts of /Suicide and Loss of Energy (today) Judgement: Good Diagnostics Vital Signs (24Hr): Vital Signs - 24 hr 08/14/24 20:00 08/14/24 22:57 08/15/24 08:00 Temperature 97.5 F 97.5 F Pulse Rate 122 H 106 H Respiratory Rate 18 16 Blood Pressure 119/74 119/74 121/59 L Pulse Oximetry 97 94 Oxygen Delivery Method Room Air Room Air BMI result Body Mass Index 34.1 Labs 08/15/24 08:17 08/15/24 08:17 Labs: Laboratory Results - last 48 hr 08/15/24 08:17 WBC 10.2 RBC 5.04 Hgb 14.7 Hct 43.9 MCV 87.1 MCH 29.2 MCHC 33.5 RDW 13.5 Plt Count 382 MPV 9.7 Immature Gran % (Auto) 0.3 Neut % (Auto) 58.2 Lymph % (Auto) 31.8 Barren % (Auto) 6.9 Eos % (Auto) 2.3 Baso % (Auto) 0.5 Lymph # (Auto) 3.2 Barren # (Auto) 0.7 Eos # (Auto) 0.2 Baso # (Auto) 0.1 Abs Immat Gran (auto) 0.03 Absolute Neuts (auto) 5.9 Absolute Nucleated RBC 0.000 Nucleated RBC % (auto) 0.0 Sodium 141 Potassium 3.9 Chloride 103 Carbon Dioxide 28 Anion Gap 14 BUN 11 Creatinine 0.85 Estim Creat Clear Calc 107.7 Estimated GFR > 60 Random Glucose 76 Calcium 10.1 Total Bilirubin 0.4 AST 12 ALT 11 Alkaline Phosphatase 75 Total Protein 7.8 Albumin 4.7 TSH 0.33 Valproic Acid 78.2 [place] 0.98 Medications Medications Current Medications Acetaminophen (Acetaminophen 325 Mg Tablet) 650 mg PO Q6H PRN PRN Reason: Headache/Pain Mild Scale (1-3) Last Admin: 08/14/24 10:20 Dose: 650 mg Al Hydroxide/Mg Hydroxide (Magnesium Hydrox/Alum Hydrox 30 Ml Oral.Susp) 30 ml PO Q6H PRN PRN Reason: Heartburn/Nausea Cariprazine (Cariprazine Hcl 1.5 Mg Capsule) 4.5 mg PO BEDTIME PREETI Last Admin: 08/14/24 22:56 Dose: 4.5 mg Cyproheptadine HCl (Cyproheptadine Hcl 4 Mg Tablet) 4 mg PO BEDTIME PREETI Last Admin: 08/14/24 22:57 Dose: 4 mg Divalproex Sodium (Divalproex Sodium Er 500 Mg Tab.Er.24h) 1,000 mg PO BEDTIME PREETI Last Admin: 08/14/24 23:00 Dose: 1,000 mg Hydroxyzine HCl (Hydroxyzine Hcl 25 Mg Tablet) 25 mg PO Q6H PRN PRN Reason: Anxiety Last Admin: 08/09/24 19:06 Dose: 25 mg Ibuprofen (Ibuprofen 600 Mg Tablet) 600 mg PO Q6H PRN PRN Reason: muscle pain Last Admin: 08/05/24 11:23 Dose: 600 mg Wampum Carbonate (Wampum Carbonate 300 Mg Capsule) 300 mg PO BID [facility] Last Admin: 08/15/24 10:27 Dose: 300 mg Magnesium Hydroxide (Milk Of Magnesia 30 Ml Oral.Susp) 30 ml PO DAILY PRN PRN Reason: Constipation Metformin HCl (Metformin Hcl 500 Mg Tablet) 500 mg PO DAILY@1700 [facility] Last Admin: 08/14/24 17:34 Dose: Not Given Naloxone HCl (Naloxone Hcl 0.4 Mg/Ml Vial) 0.04 mg IVPUSH Q5M PRN PRN Reason: Excessive sedation or RR < 8 Naloxone HCl (Naloxone Hcl 0.4 Mg/Ml Vial) 0.04 mg IVPUSH Q5M PRN PRN Reason: Excessive sedation or RR < 8 Naltrexone HCl (Naltrexone Hcl 50 Mg Tablet) 50 mg PO DAILY [facility] Last Admin: 08/15/24 10:27 Dose: 50 mg Nicotine Polacrilex (Nicotine Polacrilex 2 Mg Gum) 4 mg BUCCAL Q2H PRN PRN Reason: Nicotine Cravings Last Admin: 08/14/24 21:06 Dose: 4 mg Patient Own ( Atomoxetine 25 Mg Capsule) 25 mg PO DAILY [facility] Last Admin: 08/15/24 10:26 Dose: 25 mg Patient Own (Marissa Lee Menthol Cough Quentin 1 Drop) 1 drop PO Q2H PRN PRN Reason: cough/sore throat Last Admin: 07/27/24 14:03 Dose: 1 drop Olanzapine (Olanzapine 7.5 Mg Tablet) 7.5 mg PO TID PRN PRN Reason: agitation Last Admin: 08/10/24 17:39 Dose: 7.5 mg Ondansetron HCl (Ondansetron Odt 4 Mg Tab.Rapdis) 4 mg TRANSLINGU TIDAC PRN PRN Reason: nausea Last Admin: 08/14/24 20:51 Dose: 4 mg Prazosin HCl (Prazosin Hcl 5 Mg Capsule) 5 mg PO BEDTIME [facility]; Protocol Last Admin: 08/14/24 22:57 Dose: 5 mg Trazodone HCl (Trazodone Hcl 100 Mg Tablet) 200 mg PO BEDTIME [facility] Last Admin: 08/14/24 22:57 Dose: 200 mg Allergies Allergies Allergy/AdvReac Type Severity Reaction Status Date / Time No Known Allergies Allergy Verified 07/07/24 20:03 Assessment & Plan Assessment & Plan (1) Bipolar 1 disorder, depressed: Status: Acute Code(s): F31.9 - Bipolar disorder, unspecified (2) Borderline personality disorder: Status: Acute Code(s): F60.3 - Borderline personality disorder (3) Suicidal ideation: Status: Acute Code(s): R45.851 - Suicidal ideations Plan The patient appears to have clinical depression on top of what appears to be dysphoria anxiety consistent PTSD borderline personality disorder with reactivity and intermittent self-injurious behavior. This does not appear to be part of that pattern there is a strong possible genetic component with her father having completed suicide and history of bipolar disorder patient agreeable to have thing us speak with her therapist and psychiatrist and records reviewed from [address] [place] [address] and [place] [facility]. I have discussed with the patient that ECT would not treat chronic issues that she she deals with stress as mood and stability urges toward self injurious behavior and intermittent restricted eating disorder. The patient describes however ongoing depressed mood with intense thoughts of suicide history of not responding to antidepressant medication and has not stabilized bite a month of treatment with Vraylar and lithium. 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 Patient has had some response reportedly to TMS in the past given intensity of her suicidal thoughts intensity of depression at this time does not seem a current option. Call has been placed to her outpatient psychiatrist in [place]. Although I would not recommend ECT for borderline personality disorder per se certainly given her ongoing depression lack of emotional reactivity anhedonia intense negative affective state that seems to be consistent with thoughts of suicide the patient would meet criteria for a course of ECT which we would start with right unilateral treatment there are no medical contraindications Case has also been discussed and reviewed with inpatient treatment team. Hospital course: 07/18/24: ECT 07.19. 07/19 Patient is post ECT. She is lying in bed alert and oriented but feeling tired. She said she had a headache which got better with p.r.n. medication. Some muscle aches. She felt foggy with some blurred vision but that too is resolving. She says she just wants to rest for now. 07/20 patient feeling calm day after ECT. Wants to continue. 07/21 Patient says she has come in the outside but on the inside she feels a little revved up.; wants to continue with ECT. 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 Later in the evening patient reported feeling that she was starting to get hypomanic and asked for increased dose of Zyprexa 07/23- ECT 07/24. 07/26- Continue tx. 07/29: ECT 07/31 08/02: Continue tx. 08/03: ECT 08/05 and lower prn zyprexa dose to 7.5mg due to sedation 08/04: no changes 08/04: Purging sx. Pt will remain in the common area 30 minutes after meals. 08/07: ECT today 08/09 Depakote ER 500 mg HS Continue [place]ampum 08/10 CTP discuss further options with team Monday- no changes advised thru weekend did decrease prn olanzapine to 2.5mg for anxious visit with visitor today 08/11 CTP 08/13 Progress toward DC tentative for 08/16/24. 08/15 Diagnostics completed, WNL Discharge 08/16/24. PLAN: CV q15 min checks ECT #1 on 07/19 ECT #2 pending 07/22 npo -increased PRNs Zyprexa to 10 mg since patient starting to feel hypomanic 07/30/24 Inc depressed ect in am rul avoid bt dis not tolerate well inc vraylar 4.5 periactin for nightmares / insomnia 07/31/24 more active barbosa affect vraylar 4.5 cont ect rul Reason for continued inpatient stay Substantial Risk for: stable for discharge Time Spent With Patient Time: Total time managing care of this patient today ____ minutes.
[2024-08-15] MEDS: Nicotine Polacrilex 2 MG GUM 4 MG BUCCAL ×2 (14:48→17:34)
--- NOTE | 2024-08-15 15:42 | PM.EVENT ---
Documented by User: Denice ArizaPerezRichmondKAILA 08/16/24 10:46 Event Note Date of Service: 08/16/24 Event Note: Safety Plan for Lila Scanlon. Symptoms that are warning signs...... These will respond to interventions..... Depression, Anger, Suicidality, Self-Harming Behaviors, Changes in mood, hypomania, Food Restriction, Purging, Amotivation, Treatment Resistance. Symptoms which require assessment for in patient level of care.... Relapse, Inability to function or get out of bed Interventions to help with symptom management, internal coping strategies and things Lila can do to take her mind off of issues. Reading, Texting, Calling a friend, Knitting, Visiting cats of Dank and Naila, taking a walk, going to a meeting. People/Social Settings that help provide support. Klaudia-therapist Devan-friend Dank-friend, room-mate Naila-friend People that Lila can ask for help during a crisis Klaudia Yoo Lila reports she is safe and will never self harm with Dank and Naila Professionals/Agencies that Lila can contact during a crisis [facility] Crisis Team, [place], [place] [phone] [facility] [phone] [facility] ER [address] [place] [address] [phone] Time Spent With Patient Time: Total time managing care of this patient today ____ minutes. Documented by User: Erik Haywood MD 08/20/24 12:31 Event Note Date of Service: 08/20/24
--- NOTE | 2024-08-15 16:47 | P.DS_ITS ---
DS: Providers Provider Date of Service: 08/16/24 Date of admission: 07/08/24 13:18 Date of discharge: 08/16/24 Primary care physician: Unknown Physician Admitting clinician: Natali Gallagher Attending physician on admission: Erik Haywood Consults: 07/10/24 18:59 Consult to Psychiatry Routine Consulting Provider: Psych Covering Reason for consultation: ect Has provider been notified: Yes 07/16/24 15:51 Consult to Hospitalist Routine Comment: Consulting Provider: Hospitalist Reason For Exam: ECT scheduled for 07/19/24 08/09/24 13:04 Addiction Medicine Routine Consulting Provider: Addiction Covering Reason for consultation: nutritional health coach-thinking of ketamine, effect on sobriety Has provider been notified: No Attending physician on discharge: Erik Haywood Discharging clinician: Denice Payan DS: Diagnosis Discharge Diagnosis (1) Bipolar 1 disorder, depressed: Status: Acute (2) Borderline personality disorder: Status: Acute (3) Suicidal ideation: Status: Acute DS: Medications Discharge Medications Home Medications: Previous Rx's ?Medication ?Instructions ?Recorded atomoxetine 25 mg capsule 25 mg PO DAILY 30 days #30 caps 07/08/24 atomoxetine 25 mg capsule 25 mg PO DAILY #30 caps 08/09/24 cariprazine 1.5 mg capsule 4.5 mg (3 x 1.5 mg) PO BEDTIME #42 08/15/24 (Vraylar) caps cyproheptadine 4 mg tablet 4 mg PO BEDTIME #14 tabs 08/15/24 divalproex 500 mg tablet,extended 1,000 mg (2 x 500 mg) PO BEDTIME 08/15/24 release 24 hr #28 tabs lithium carbonate 300 mg capsule 300 mg PO BID #28 caps 08/15/24 metformin 500 mg tablet 500 mg PO DAILY #14 tabs 08/15/24 naltrexone 50 mg tablet 50 mg PO DAILY #14 tabs 08/15/24 nicotine (polacrilex) 2 mg gum 4 mg buccal Q2H PRN Nicotine 08/15/24 Cravings #60 ea prazosin 5 mg capsule 5 mg PO BEDTIME #14 caps 08/15/24 trazodone 100 mg tablet 200 mg (2 x 100 mg) PO BEDTIME #28 08/15/24 tabs Mental Status Exam Mental Status Exam Patient Appearance: Appropriate Patient Orientation: Person, Place, Time and Situation Level of Consciousness: Alert Patient Behavior: Talkative, Avoidant and Good Eye Contact Mood Description: Hostile Affect Description: Hostile and Flat Patient Cognition Impaired: No Ability to Follow Directions: Good Speech Pattern: Clear and Spontaneous Speech Memory Description: Intact Hallucinations: None Delusions: Not Present Perceptual Disturbances: Depersonalization and Derealization Thought Process: Intact and Goal Oriented Thought Content: positive for Suicidal Ideation (passive is present c onsistently. No active SI, Plan, Intent) Depressive Symptoms: Thoughts of /Suicide (passive-consistently present, no active SI, Plan, Intent) and Loss of Energy (today) Judgement: Good Data Data Completed and Pending Completed studies during hospitalization [Text1]: 08/11/24 08/15/24 09:18 08:17 WBC 10.2 RBC 5.04 Hgb 14.7 Hct 43.9 MCV 87.1 MCH 29.2 MCHC 33.5 RDW 13.5 Plt Count 382 MPV 9.7 Immature Gran % (Auto) 0.3 Neut % (Auto) 58.2 Lymph % (Auto) 31.8 [place] % (Auto) 6.9 Eos % (Auto) 2.3 Baso % (Auto) 0.5 Lymph # (Auto) 3.2 [place] # (Auto) 0.7 Eos # (Auto) 0.2 Baso # (Auto) 0.1 Abs Immat Gran (auto) 0.03 Absolute Neuts (auto) 5.9 Absolute Nucleated RBC 0.000 Nucleated RBC % (auto) 0.0 Hold Purple Top SEE NOTE Sodium 141 Potassium 3.9 Chloride 103 Carbon Dioxide 28 Anion Gap 14 BUN 11 Creatinine 1.02 0.85 Estim Creat Clear Calc 89.8 107.7 Estimated GFR > 60 > 60 Random Glucose 76 Calcium 10.1 Total Bilirubin 0.4 AST 12 ALT 11 Alkaline Phosphatase 75 Total Protein 7.8 Albumin 4.7 TSH 0.33 Valproic Acid 78.2 [place] 0.98 DS: Summary Hospital Course Hospital Course: Admission to adult psychiatry for exacerbation of symptoms of Borderline Personality Disorder, Bipolar disorder, Depressed with persistent SI/SIBS. Pt reported coming to [place] from [place] as she felt the hospitals she had attended in [place] did not keep her long enough. Reports SI/SIBS since age 10 with several m edication trials. Medications were reviewed and adjusted. Pt continued a [place] trial and found no benefit. She requested and received an ECT consultation, having a total of eight treatments without effect, the first three right unilateral, one right frontal/left temporal and the remainder bifrontal. Pt appeared to improve however reported she felt no change in mood. [place] was restarted after ECT Trial was suspended. Level on 08/15/24 is 0.98. Valproate trial was initiated. Level on 08/15/24 is 78.2. CBCD and Comprehensive Metabolic Panel are WNL on 08/15/24, TSH is 0.31, EKG is WNL on 07/16/24. Pt discussed wanting eating disorders treatment as she has restricted and purged by history and while admitted. She also discussed wanting a consult for Ketamine. Both of these consults were arranged prior to discharge and she will follow up in her home area. Pt was without any behavioral dyscontrol in the milieu. She participated in groups. She made several positive alliances with peers and team, however struggled with discharge planning as she was able to set goals for herself however did not want to leave. She found significant struggles with team encouraging her to accept control and responsibility for her decisions and actions regarding self injurious behaviors and to challenge herself to find alternative positive coping skills. She was encouraged to follow up on plans for a return to her providers, consultations for eating disorders treatment and Ketamine consult. She leaves with a close friend, Naila, who will transport her to [place], [place] and will live with another close friend, Dank upon arrival. Safety planning is in place which she wrote out prior to discharge. Status at Discharge Functional status at discharge: independent ambulation Overall status at discharge: patient is progressing back to baseline Time Spent with Patient Time attestation: Total time managing care of this patient today ____ minutes. Time spent: Less than 30 minutes Discharge Plan Discharge Anticipated Discharge Date/Time: 08/16/24 12:00 Patient Disposition: Home, Self-Care Discharge Diagnosis: Borderline Personality Disorder PTSD Bipolar Disorder, Depressed Eating Disorder, NOS Referrals: [facility] [Other] - 1 Week (Patient referred for [facility] eating disorder [facility] ) TEVIN Sharma: Theron Salas [facility] [Other] - 08/28/24 11:30 am (Hospital Discharge Appointment with Psychiatric provider Appointment is by tele-health (phone)) Klaudia Correa [facility] (therapist) [Other] - 08/21/24 10:00 am (Hospital discharge appointment with therapist) [facility] [Other] - 1 Week (Referral to [facility] for [facility]amine Treatment ) Physician,Miles J [Primary Care Provider] - 1 Week Discharge Medications: New atomoxetine 25 mg capsule 25 mg PO DAILY Qty: 30 0RF nicotine (polacrilex) 2 mg Gum 4 mg buccal Q2H PRN (Reason: Nicotine Cravings) Qty: 60 0RF cyproheptadine 4 mg Tablet 4 mg PO BEDTIME Qty: 14 0RF Vraylar 1.5 mg Capsule 4.5 mg PO BEDTIME Qty: 42 0RF trazodone 100 mg Tablet 200 mg PO BEDTIME Qty: 28 0RF lithium carbonate 300 mg Capsule 300 mg PO BID Qty: 28 0RF divalproex 500 mg Tablet Extended Release 24 Hr 1,000 mg PO BEDTIME Qty: 28 0RF Continued atomoxetine 25 mg capsule 25 mg PO DAILY 30 Days Qty: 30 0RF metformin 500 mg Tablet 500 mg PO DAILY Qty: 14 0RF naltrexone 50 mg tablet 50 mg PO DAILY Qty: 14 0RF prazosin 5 mg capsule 5 mg PO BEDTIME Qty: 14 0RF Discontinued lithium carbonate 300 mg tablet extended release 300 mg PO BID trazodone 150 mg tablet 150 mg PO BEDTIME Vraylar 1.5 mg capsule 3 mg PO QAM Discharge Orders: Discharge Order (Routine); Ordered 08/15/24 Ordered By: Denice Payan Diet: Advance to usual diet Activity on Discharge: As tolerated Stand Alone Forms: Patient Portal Discharge page Print Language: Nauruan Activity Restrictions/Additional Instructions: The PCP that was designated on your admission (Esther Lindo NP) is a pediatric provider that you havent seen since 2019 per office records. PLEASE call to establish a new PCP in the [facility] area for follow up SANDY after discharge. Care Plan Goals: Mood and Behavioral Stabilization Health Concerns: Mood and Behavioral Stabilization Plan of Treatment: Lila plans to go to [place], [place] where she will live with her friend Dank. Her friend Naila will drive her to [place] and Lila reports she also has an option to live with Naila as well. Lila has expressed interest in eating disorder treatment. A referral has been m allison for out patient programming. Lila has expressed interest in ketamine treatment. A referral has been made for out patient consultation. Lila will return to her therapist and psychopharmacologist whom she reports strong relationships with. Lila will return to college in November 2024 Assessment: No HI/AH/VH Suicidality is ongoing, persistent. Lila reports she is safe with friends Naila and Dank and safety planning has been completed by Lila prior to discharge. Safety Plan..... Symptoms Lila lists that will respond to supportive interventions. --Depression, anxiety, anger, suicidality, self harm urges, mood changes, hypomania, food restrictions, purging, amotivation, treatment resistance Symptoms which require evaluation for a higher level of care --Relapse, inability to get out of bed or participate in daily functioning. Interventions to help with symptom management, internal coping strategies and things Lila can do to take her mind off stressors --Read, Text or call friends, knit, visit with Dank or [place] cats, walk, attend a meeting People/Social Settings that provide support --Klaudia, therapist Devan-friend Dank-friend, room-mate Naila-friend room-mate People that Lila can ask for help during a crisis --Klaudia Yoo Lila reports she will not self harm with Dank or Naila Professionals/Agencies Lila can contact in crisis --[facility] [phone] --[facility] Psychiatry [phone] --[facility] ER, [address] [place] [address] Hospital Preference --[address] [phone] Discharge Date/Time: 08/16/24 11:38
[2024-08-15 20:00] VITALS: BP 105/66; PULSE 95; TEMP 36.7; O2SAT 98
[2024-08-15] MEDS: Divalproex Sodium ER 500 MG TAB.ER.24H 1000 MG PO (23:13)
[2024-08-15] MEDS: traZODone HCL 100 MG TABLET 200 MG PO (23:14)
[2024-08-15] MEDS: Cariprazine HCl 1.5 MG CAPSULE 4.5 MG PO (23:14)
[2024-08-15] MEDS: Cyproheptadine HCl 4 MG TABLET PO (23:14)
[2024-08-15 23:15] VITALS: BP 128/64
[2024-08-15] MEDS: Prazosin HCL 5 MG CAPSULE PO (23:15)
[2024-08-16 08:00] VITALS: BP 113/58; PULSE 94; RESP 16; TEMP 36.4; O2SAT 94
[2024-08-16] MEDS: Naltrexone HCl 50 MG TABLET PO (10:18)
[2024-08-16] MEDS: Lithium Carbonate 300 MG CAPSULE PO (10:18)
[2024-08-16] MEDS: Nicotine Polacrilex 2 MG GUM 4 MG BUCCAL (10:21)
== END 2024-08-16 11:38 | disposition home or self-care (01) | DRG 883 ==
LOC: HO.ED 07-08 08:34 → HO.PM5 07-08 13:37
PROVIDERS: Physician Assistant; Psychiatry & Neurology Psychiatry; Registered Nurse Emergency; Admitting Provider Psychiatry & Neurology Psychiatry; Emergency Provider Emergency Medicine Emergency Medical Services; Visit Provider Clinical Nurse Specialist Psychiatric/Mental Health, Adult
PROC: GZB4ZZZ Other Electroconvulsive Therapy (ICD-10-PCS; CPT 90870; principal; 2024-07-19 07:30)
DX: F60.3 Borderline personality disorder (principal); R45.851 Suicidal ideations; F43.10 Post-traumatic stress disorder, unspecified; F17.210 Nicotine dependence, cigarettes, uncomplicated; Z71.6 Tobacco abuse counseling; F50.89 Other specified eating disorder; Z68.34 Body mass index [BMI] 34.0-34.9, adult
CPT/HCPCS: 36415; 80053; 80061; 80143; 80164; 80178; 80179; 80307; 81001; 81025; 82565; 83036; 84443; 85025; 87651; 90870; 93005; 99285; J0330; J1200; J1596; J1805; J1885; J1920; J2250; J2405; J2704; J7120; S9485

== ENCOUNTER → 2024-07-08 09:08 | Outpatient (BNV) | payer OTHER, SELFPAY | PROVIDERS: Emergency Provider Emergency Medicine Emergency Medical Services; Visit Provider Internal Medicine | DX: I45.81 Long QT syndrome (principal) | CPT/HCPCS: 93010 ==

== ENCOUNTER → 2024-07-08 13:18 | Outpatient (BNV) | payer OTHER, SELFPAY | PROVIDERS: Admitting Provider Psychiatry & Neurology Psychiatry; Emergency Provider Emergency Medicine Emergency Medical Services; Visit Provider Clinical Nurse Specialist Psychiatric/Mental Health, Adult | DX: F60.3 Borderline personality disorder (principal); F31.4 Bipolar disorder, current episode depressed, severe, without psychotic features; R45.851 Suicidal ideations | CPT/HCPCS: 90792; 90870; 99231; 99232; 99238; 99499 ==

== ENCOUNTER → 2024-07-08 13:18 | Outpatient (BNV) | payer OTHER, SELFPAY | PROVIDERS: Admitting Provider Psychiatry & Neurology Psychiatry; Emergency Provider Emergency Medicine Emergency Medical Services; Visit Provider Physician Assistant | DX: Z02.2 Encounter for examination for admission to residential institution (principal) | CPT/HCPCS: 99429 ==

== ENCOUNTER → 2024-07-08 13:18 | Outpatient (BNV) | payer OTHER, SELFPAY | PROVIDERS: Admitting Provider Psychiatry & Neurology Psychiatry; Emergency Provider Emergency Medicine Emergency Medical Services; Visit Provider Psychiatry & Neurology Psychiatry | DX: F31.4 Bipolar disorder, current episode depressed, severe, without psychotic features (principal) | CPT/HCPCS: 90870; 99232; 99499 ==